=== PATIENT | male | born 1990 | race Caucasian/White ===

== ENCOUNTER 2016-07-07 06:47 | Emergency (ER) | payer SELFPAY ==
[~2016-07-07] VITALS: Ht 162.6 cm; Wt 55.8 kg
[~2016-07-07 06:47] MED LIST: ACHD5005 PO; AGM875T PO; ALBU17AE3; ALBU17AE3 IH; AMIT75TA2 PO; AMOX500C2 PO; BENZ100C18 PO; BUTA-234 PO; CEPH-507 PO; CHLO500T2 PO; CPR500T PO; CYCL10TA9 PO; DICL75TA2 PO; HSCO125 PO; IBP800T PO; NAPR-243 PO; NAPR550T PO; NYST1000 PO; PRD20T PO; RABE20TA PO; TRAM50TA2 PO; [UNRECOGNIZED DRUG - OTHER]
[2016-07-07] MEDS ORDERED: DEXAMETHASONE PF 10 MG/ML (DECADRON) VIAL IM STA (07:03)
[2016-07-07] MEDS ORDERED: RX-ALBUTEROL INHALER (PROAIR) 8 GM IH PRN (07:15)
--- NOTE | 2016-07-07 07:16 | ED Cough/URI ---
General Chief Complaint: Cough/Cold/Flu Symptoms Stated Complaint: COUGH Nursing Triage Note: ARRIVED VIA AMB TO ROOM 06. COMPLAINS OF COUGH FOR 2 MONTHS. Source: patient Exam Limitations: no limitations History of Present Illness Time seen by provider: 07:01 Initial Comments Here with 2 months of cough. Reports fever subjectively. Denies nausea, vomiting or diarrhea. States he has not sought treatment in that time. Because it was not too bad but it is worse today. Has mild sore throat and runny nose. Timing/Duration: week, getting worse Severity/Quality: moderate, dry cough Prior Episodes/Possible Cause: occasional episodes Modifying Factors: Worse With Activity, Worse With Coughing Associated Symptoms: chest pain/soreness, cough, fever/chills, nasal drainage, shortness of breath, sore throat Allergies and Home Medications Allergies Coded Allergies: No Known Drug Allergies (Unverified , 11/09/08) Home Medications Cephalexin 500 Mg Capsule, 500 MG PO TID, #30 Ref 0 Prescribed by: JUANA LOCKWOOD on 07/07/15 0144 Constitutional: see HPI, No chills, fever Respiratory: see HPI, cough, No short of breath, No wheezing Cardiovascular: no symptoms reported Gastrointestinal: no symptoms reported, No nausea, No vomiting Musculoskeletal: no symptoms reported Skin: no symptoms reported Past Ezgzimp-Noltid-Fjpyet Hx Patient Social History Alcohol Use: Rarely Uses Recreational Drug Use: Yes (PAST HISTORY) Smoking Status: Never a Smoker Recent Foreign Travel: No Contact w/Someone Who Travel: No Recent Infectious Disease Expo: No Recent Hopitalizations: No Immunizations Up To Date Date of Pneumonia Vaccine: Aug 29, 2012 Date of Influenza Vaccine: Dec 11, 2012 Seasonal Allergies Seasonal Allergies: No Surgeries HX Surgeries: Yes (cyst removal from L arm, teeth pulled) Respiratory Hx Respiratory Disorders: Yes Respiratory Disorders: Asthma Cardiovascular Hx Cardiac Disorders: Yes Cardiac Disorders: Angina Neurological Hx Neurological Disorders: Yes Neurological Disorders: Headaches /Migraines Reproductive System Hx Reproductive Disorders: No Sexually Transmitted Disease: No Genitourinary Hx Genitourinary Disorders: Yes Genitourinary Disorders: Kidney Stones Gastrointestinal Hx Gastrointestinal Disorders: No Musculoskeletal Hx Musculoskeletal Disorders: Yes Musculoskeletal Disorders: Scoliosis Endocrine Hx Endocrine Disorders: Yes (HYPOGLYCEMIA) HEENT HX ENT Disorders: No Cancer Hx Cancer: No Psychosocial Hx Psychiatric Problems: No Integumentary HX Skin/Integumentary Disorder: No Blood Transfusions Hx Blood Disorders: No Reviewed Nursing Assessment Reviewed/Agree w Nursing PMH: Yes Family Medical History Significant Family History: Heart Disease, Cancer, Hypertension Physical Exam Vital Signs Vital Sign - Last 12Hours 07/07/16 06:55 Temp 98.9 Pulse 100 Resp 16 B/P (MAP) 156/105 Pulse Ox 99 Capillary Refill : Less Than 3 Seconds General Appearance: WD/WN, no apparent distress HEENT: PERRL/EOMI, pharyngeal erythema, No tonsillar exudate Neck: full range of motion, supple Respiratory: lungs clear, normal breath sounds Cardiovascular: regular rate, rhythm, no murmur Neurologic/Psychiatric: alert, oriented x 3 Skin: normal color, warm/dry Progress/Results/Core Measures Results/Orders My Orders Orders - HARJEET LIRIANO MD Chest Pa/Lat (2 View) (07/07/16 07:03) Dexamethasone Pf Injection (Decadron Pf (07/07/16 07:03) Rx-Albuterol Inhaler (Rx-Proair) (07/07/16 07:15) Medications Given in ED Current Medications Medications Dose Ordered Sig/Johnathan Route Start Time Stop Time Status Last Admin Dose Admin Albuterol Sulfate 2 PUFFS QID PRN IH 07/07/16 07:15 07/07/16 07:20 8 GM Vital Signs/I&O Vital Sign - Last 12Hours 07/07/16 06:55 Temp 98.9 Pulse 100 Resp 16 B/P (MAP) 156/105 Pulse Ox 99 Blood Pressure Mean: 122 Progress Note : Progress Note Seen and evaluated. Decadron 10 mg IM and albuterol inhaler given. Chest x- ray ordered. Monitor patient. 0738: No acute findings and chest x-ray. Discharged home with return precautions. Patient verbalize understanding instructions and agreement with plan. Diagnostic Imaging Diagonstic Imaging: Xray Plain Films/CT/US/NM/MRI: chest Comments VIA [facility]. [place], [place] NAME: MARILIAJUAN J Peraza [facility] REC#: [id number] PT STATUS: REG ER : 1990 PHYSICIAN: HARJEET LIRIANO MD ADMIT DATE: 07/07/16/ER Draft Date of Exam:07/07/16 CHEST PA/LAT (2 VIEW) Clinical indication: Patient states he had a cough for the past 2 months. Patient has not taken any medication. Exam: Chest x-ray PA and lateral views. Comparisons: Chest x-ray dated 06/06/2015. Findings: Lungs/pleura: Lungs are clear. There is no pneumothorax. There is no pleural effusion. Mediastinum: Unremarkable. Pulmonary vasculature: Unremarkable. Heart: Unremarkable. Bones/extrathoracic soft tissue: Unremarkable. Impression: There is no radiographic evidence of acute cardiopulmonary process. Dictated on workstation # [id number] Dict: 07/07/16 0730 Trans: 07/07/16 0733 TREVER [id number] Interpreted by: EREN VELÁZQUEZ MD Electronically signed by: Departure Impression Impression: Primary Impression: Upper respiratory infection Qualified Codes: J06.9 - Acute upper respiratory infection, unspecified; B97.89 - Other viral agents as the cause of diseases classified elsewhere Disposition: 01 HOME, SELF-CARE Condition: Improved Departure-Patient Inst. Decision time for Depature: 07:40 Referrals: [facility] (PCP/Family) Primary Care Physician Patient Instructions: Viral Upper Respiratory Infection, Adult (DC) Add. Discharge Instructions: All discharge instructions reviewed with patient and/or family. Voiced understanding. It is very important that he follow up with your doctor for recheck and further evaluation. Call for appointment day to get appointment this week or early next week. You may also use there acute care clinic. This is likely a viral problem but if does not improve within the next week, you may need antibiotics. You may use lzut-euj-qagezsf Afrin nasal spray or the generic, 12 hour relief , 2 sprays to each nostril twice daily for 3 days only and then stop. You may take dspj-pjc-soptfaf allergy medicine such as Claritin or the generic loratadine, 10 mg daily. Return for worse pain, fever, vomiting, weakness, breathing problems or other concerns as needed. Drink plenty of fluids. You may take ibuprofen 600 mg every 8 hours as needed for pain or fever. You may take Tylenol 1000 mg every 8 hours as needed for fever or pain as well. HARJEET LIRIANO MD Jul 07, 2016 07:16
--- NOTE | 2016-07-07 07:33 | Diagnostic Imaging Report ---
Clinical indication: Patient states he had a cough for the past 2 months. Patient has not taken any medication. Exam: Chest x-ray PA and lateral views. Comparisons: Chest x-ray dated 06/06/2015. Findings: Lungs/pleura: Lungs are clear. There is no pneumothorax. There is no pleural effusion. Mediastinum: Unremarkable. Pulmonary vasculature: Unremarkable. Heart: Unremarkable. Bones/extrathoracic soft tissue: Unremarkable. Impression: There is no radiographic evidence of acute cardiopulmonary process. Dictated by: Dictated on workstation # [id number]
[2016-07-07 07:46] VITALS: BP 156/105
== END 2016-07-07 07:46 | disposition home or self-care (01) ==
LOC: EDUNIT# 06:47 → ER 06:52
DX: J06.9 Acute upper respiratory infection, unspecified (principal)
CPT/HCPCS: 71020; 96372; 99285

== ENCOUNTER 2017-05-05 13:58 | Emergency (ER) | payer SELFPAY ==
[~2017-05-05] VITALS: Ht 162.6 cm; Wt 55.3 kg
--- OUTSIDE RECORDS SUMMARY | 2017-05-05 14:04 | XMS REPORT ---
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 Name Role Phone RENNY BRANHAM Unavailable PROBLEMS Type Condition ICD9-CM Code RMS24-TK Code Onset Dates Condition Status SNOMED Code Problem Low back pain M54.5 Active 724792044 Problem Anxiety F41.9 Active 57638595 ALLERGIES No Known Allergies SOCIAL HISTORY Never Assessed PLAN OF CARE Activity Details Follow Up prn Reason: VITAL SIGNS Height 64 in 2016-05-20 Weight 123.8 lbs 2016-05-20 Temperature 98.2 degrees Fahrenheit 2016-05-20 Heart Rate 82 bpm 2016-05-20 Respiratory Rate 18 2016-05-20 BMI 21.25 kg/m2 2016-05-20 Blood pressure systolic 140 mmHg 2016-05-20 Blood pressure diastolic 84 mmHg 2016-05-20 MEDICATIONS No Known Medications RESULTS No Results PROCEDURES No Known procedures IMMUNIZATIONS No Known Immunizations MEDICAL (GENERAL) HISTORY Type Description Date Medical History seizures Medical History asthma Medical History scoliosis Medical History migraines Medical History chronic lower back pain Surgical History cyst removed from left arm Hospitalization History seizures
--- OUTSIDE RECORDS SUMMARY | 2017-05-05 14:07 | XMS REPORT | Continuity of Care Document ---
Author Author [facility] Address Unknown Phone Unavailable Allergies Active Description Code Type Severity Reaction Onset Reported/Identified Relationship to Patient Clinical Status Yes No Known Drug Allergies [id number] Drug Allergy Mild N/A 11/09/2008 Medications There is no data. Problems Date Dx Coded Attending Type Code Diagnosis Diagnosed By 01/09/2008 NAINA PETER, AP V20.2 WELL CHILD, ROUTINE 01/09/2008 V20.2 WELL CHILD, ROUTINE 01/09/2008 SUDARSHAN OCAMPO DO V20.2 WELL CHILD, ROUTINE 01/09/2008 V20.2 WELL CHILD, ROUTINE 01/09/2008 V20.2 WELL CHILD, ROUTINE 01/09/2008 V20.2 WELL CHILD, ROUTINE 01/09/2008 CHRISTY OCAMPO DOA K V20.2 WELL CHILD, ROUTINE 01/09/2008 CHRISTY OCAMPO DOA K V20.2 WELL CHILD, ROUTINE 01/09/2008 AMANUEL HERRING APRN R V20.2 WELL CHILD, ROUTINE 01/09/2008 TAWANDA BURKS APRN V20.2 WELL CHILD, ROUTINE 01/09/2008 AMANUEL HERRING APRN R V20.2 WELL CHILD, ROUTINE 01/09/2008 TAWANDA BURKS APRN T V20.2 WELL CHILD, ROUTINE 01/09/2008 TAWANDA BURKS APRN T V20.2 WELL CHILD, ROUTINE 01/09/2008 TAWANDA BURKS APRN T V20.2 WELL CHILD, ROUTINE 01/09/2008 TAWANDA BURKS APRN T V20.2 WELL CHILD, ROUTINE 01/09/2008 TAWANDA BURKS APRN T V20.2 WELL CHILD, ROUTINE 01/09/2008 TAWANDA BURKS APRN T V20.2 WELL CHILD, ROUTINE 01/09/2008 AMANUEL HERRING APRN R V20.2 WELL CHILD, ROUTINE 01/09/2008 TAWANDA BURKS APRN V20.2 WELL CHILD, ROUTINE 01/09/2008 OCAMPO DO, SUDARSHAN K V20.2 WELL CHILD, ROUTINE 01/09/2008 MADL SENIOR COMPUTER SPECIALIST, TELMA L V20.2 WELL CHILD, ROUTINE 01/09/2008 MARANDA SENIOR COMPUTER SPECIALIST, TELMA L V20.2 WELL CHILD, ROUTINE 01/09/2008 VITALIY SENIOR COMPUTER SPECIALISTTAWANDA Martinez T V20.2 WELL CHILD, ROUTINE 01/09/2008 VITALIY SENIOR COMPUTER SPECIALISTTAWANDA Martinez V20.2 WELL CHILD, ROUTINE 01/09/2008 AMANUEL HERRING APRN R V20.2 WELL CHILD, ROUTINE 01/09/2008 VITALIY SENIOR COMPUTER SPECIALISTTAWANDA T V20.2 WELL CHILD, ROUTINE 01/09/2008 AMANUEL HERRING APRN R V20.2 WELL CHILD, ROUTINE 01/09/2008 SUDARSHAN OCAMPO DO V20.2 WELL CHILD, ROUTINE 01/09/2008 NAINA PETER, AP V20.2 WELL CHILD, ROUTINE 01/09/2008 TAWANDA BURKS APRN V20.2 WELL CHILD, ROUTINE 01/09/2008 AMANUEL HERRING APRN R V20.2 WELL CHILD, ROUTINE 01/09/2008 TAWANDA BURKS APRN V20.2 WELL CHILD, ROUTINE 03/20/2008 AP CHEW MD 477.9 ALLERGIC RHINITIS 03/20/2008 AP CHEW MD 493.90 ASTHMA UNSPECIFIED 03/20/2008 477.9 ALLERGIC RHINITIS 03/20/2008 493.90 ASTHMA UNSPECIFIED 03/20/2008 SUDARSHAN OCAMPO DO 477.9 ALLERGIC RHINITIS 03/20/2008 SUDARSHAN OCAMPO DO 493.90 ASTHMA UNSPECIFIED 03/20/2008 477.9 ALLERGIC RHINITIS 03/20/2008 493.90 ASTHMA UNSPECIFIED 03/20/2008 477.9 ALLERGIC RHINITIS 03/20/2008 493.90 ASTHMA UNSPECIFIED 03/20/2008 477.9 ALLERGIC RHINITIS 03/20/2008 493.90 ASTHMA UNSPECIFIED 03/20/2008 SUDARSHAN OCAMPO DO 477.9 ALLERGIC RHINITIS 03/20/2008 SUDARSHAN OCAMPO DO 493.90 ASTHMA UNSPECIFIED 03/20/2008 SUDARSHAN OCAMPO DO 477.9 ALLERGIC RHINITIS 03/20/2008 SUDARSHAN OCAMPO DO 493.90 ASTHMA UNSPECIFIED 03/20/2008 AMANUEL HERRING APRN 477.9 ALLERGIC RHINITIS 03/20/2008 HERRING SENIOR COMPUTER SPECIALIST, AMANUEL R 493.90 ASTHMA UNSPECIFIED 03/20/2008 VITALIY SENIOR COMPUTER SPECIALIST, TAWANDA T 477.9 ALLERGIC RHINITIS 03/20/2008 VITALIY SENIOR COMPUTER SPECIALIST, TAWANDA T 493.90 ASTHMA UNSPECIFIED 03/20/2008 NIMA SENIOR COMPUTER SPECIALIST, AMANUEL R 477.9 ALLERGIC RHINITIS 03/20/2008 NIMA SENIOR COMPUTER SPECIALIST, AMANUEL R 493.90 ASTHMA UNSPECIFIED 03/20/2008 VITALIY SENIOR COMPUTER SPECIALIST, TAWANDA T 477.9 ALLERGIC RHINITIS 03/20/2008 VITALIY SENIOR COMPUTER SPECIALIST, TAWANDA T 493.90 ASTHMA UNSPECIFIED 03/20/2008 VITALIY SENIOR COMPUTER SPECIALIST, TAWANDA T 477.9 ALLERGIC RHINITIS 03/20/2008 VITALIY SENIOR COMPUTER SPECIALIST, TAWANDA T 493.90 ASTHMA UNSPECIFIED 03/20/2008 VITALIY SENIOR COMPUTER SPECIALIST, TAWANDA T 477.9 ALLERGIC RHINITIS 03/20/2008 VITALIY SENIOR COMPUTER SPECIALIST, TAWANDA T 493.90 ASTHMA UNSPECIFIED 03/20/2008 VITALIY SENIOR COMPUTER SPECIALIST, TAWANDA T 477.9 ALLERGIC RHINITIS 03/20/2008 VITALIY SENIOR COMPUTER SPECIALIST, TAWANDA T 493.90 ASTHMA UNSPECIFIED 03/20/2008 VITALIY SENIOR COMPUTER SPECIALIST, TAWANDA T 477.9 ALLERGIC RHINITIS 03/20/2008 VITALIY SENIOR COMPUTER SPECIALIST, TAWANDA T 493.90 ASTHMA UNSPECIFIED 03/20/2008 VITALIY SENIOR COMPUTER SPECIALIST, TAWANDA T 477.9 ALLERGIC RHINITIS 03/20/2008 VITALIY SENIOR COMPUTER SPECIALIST, TAWANDA T 493.90 ASTHMA UNSPECIFIED 03/20/2008 NIMA MCLAUGHLIN, AMANUEL R 477.9 ALLERGIC RHINITIS 03/20/2008 NIMA SENIOR COMPUTER SPECIALIST, AMANUEL R 493.90 ASTHMA UNSPECIFIED 03/20/2008 VITALIY SENIOR COMPUTER SPECIALIST, TAWANDA T 477.9 ALLERGIC RHINITIS 03/20/2008 VITALIY LINDSAYN, TAWANDA T 493.90 ASTHMA UNSPECIFIED 03/20/2008 OCAMPO DO, SUDARSHAN K 477.9 ALLERGIC RHINITIS 03/20/2008 OCAMPO DO, SUDARSHAN K 493.90 ASTHMA UNSPECIFIED 03/20/2008 MADL SENIOR COMPUTER SPECIALIST, TELMA L 477.9 ALLERGIC RHINITIS 03/20/2008 MADL SENIOR COMPUTER SPECIALIST, TELMA L 493.90 ASTHMA UNSPECIFIED 03/20/2008 MADL SENIOR COMPUTER SPECIALIST, TELMA L 477.9 ALLERGIC RHINITIS 03/20/2008 MADL SENIOR COMPUTER SPECIALIST, TELMA L 493.90 ASTHMA UNSPECIFIED 03/20/2008 VITALIY LINDSAYN TAWANDA T 477.9 ALLERGIC RHINITIS 03/20/2008 VITALIY SENIOR COMPUTER SPECIALIST, TAWANDA T 493.90 ASTHMA UNSPECIFIED 03/20/2008 TAWANDA BURKS APRN T 477.9 ALLERGIC RHINITIS 03/20/2008 TAWANDA BURKS APRN T 493.90 ASTHMA UNSPECIFIED 03/20/2008 GAEL HERRING APRNRICIA R 477.9 ALLERGIC RHINITIS 03/20/2008 GAEL HERRING APRNRICIA R 493.90 ASTHMA UNSPECIFIED 03/20/2008 TAWANDA BURKS APRN T 477.9 ALLERGIC RHINITIS 03/20/2008 TAWANDA BURKS APRN T 493.90 ASTHMA UNSPECIFIED 03/20/2008 GAEL HERRING APRNRICIA R 477.9 ALLERGIC RHINITIS 03/20/2008 GAEL HERRING APRNRICIA R 493.90 ASTHMA UNSPECIFIED 03/20/2008 OCAMPO CHRISTY YANEZA K 477.9 ALLERGIC RHINITIS 03/20/2008 OCAMPO CHRISTY YANEZA K 493.90 ASTHMA UNSPECIFIED 03/20/2008 AP CHEW MD 477.9 ALLERGIC RHINITIS 03/20/2008 AP CHEW MD 493.90 ASTHMA UNSPECIFIED 03/20/2008 TAWANDA BURKS APRN T 477.9 ALLERGIC RHINITIS 03/20/2008 TAWANDA BURKS APRN T 493.90 ASTHMA UNSPECIFIED 03/20/2008 GAEL HERRING APRNRICIA R 477.9 ALLERGIC RHINITIS 03/20/2008 GAEL HERRING APRNRICIA R 493.90 ASTHMA UNSPECIFIED 03/20/2008 TAWANDA BURKS APRN T 477.9 ALLERGIC RHINITIS 03/20/2008 TAWANDA BURKS APRN T 493.90 ASTHMA UNSPECIFIED 06/18/2008 AP CHEW MD 237.70 NEUROFIBROMATOSIS 06/18/2008 AP CHEW MD 251.2 HYPOGLYCEMIA 06/18/2008 AP CHEW MD 493.00 ASTHMA EXTRINSIC 06/18/2008 237.70 NEUROFIBROMATOSIS 06/18/2008 251.2 HYPOGLYCEMIA 06/18/2008 493.00 ASTHMA EXTRINSIC 06/18/2008 OCAMPO DO SUDARSHAN K 237.70 NEUROFIBROMATOSIS 06/18/2008 OCAMPO DO SUDARSHAN K 251.2 HYPOGLYCEMIA 06/18/2008 OCAMPO DO SUDARSHAN K 493.00 ASTHMA EXTRINSIC 06/18/2008 237.70 NEUROFIBROMATOSIS 06/18/2008 251.2 HYPOGLYCEMIA 06/18/2008 493.00 ASTHMA EXTRINSIC 06/18/2008 237.70 NEUROFIBROMATOSIS 06/18/2008 251.2 HYPOGLYCEMIA 06/18/2008 493.00 ASTHMA EXTRINSIC 06/18/2008 237.70 NEUROFIBROMATOSIS 06/18/2008 251.2 HYPOGLYCEMIA 06/18/2008 493.00 ASTHMA EXTRINSIC 06/18/2008 OCAMPO DO, SUDARSHAN K 237.70 NEUROFIBROMATOSIS 06/18/2008 OCAMPO DO, SUDARSHAN K 251.2 HYPOGLYCEMIA 06/18/2008 OCAMPO DO, SUDARSHAN K 493.00 ASTHMA EXTRINSIC 06/18/2008 OCAMPO DO, SUDARSHAN K 237.70 NEUROFIBROMATOSIS 06/18/2008 OCAMPO DO, SUDARSHAN K 251.2 HYPOGLYCEMIA 06/18/2008 OCAMPO DO, SUDARSHAN K 493.00 ASTHMA EXTRINSIC 06/18/2008 NIMA MCLAUGHLIN AMANUEL R 237.70 NEUROFIBROMATOSIS 06/18/2008 GAEL EHRRING APRNRICIA R 251.2 HYPOGLYCEMIA 06/18/2008 GAEL HERRING APRNRICIA R 493.00 ASTHMA EXTRINSIC 06/18/2008 TAWANDA BURKS APRN 237.70 NEUROFIBROMATOSIS 06/18/2008 TAWANDA BURKS APRN 251.2 HYPOGLYCEMIA 06/18/2008 TAWANDA BURKS APRN 493.00 ASTHMA EXTRINSIC 06/18/2008 MEENAKSHI HERRING APRNIA R 237.70 NEUROFIBROMATOSIS 06/18/2008 GAEL HERRING APRNRICIA R 251.2 HYPOGLYCEMIA 06/18/2008 NIMA MCLAUGHLIN AMANUEL R 493.00 ASTHMA EXTRINSIC 06/18/2008 TAWANDA BURKS APRN T 237.70 NEUROFIBROMATOSIS 06/18/2008 TAWANDA BURKS APRN 251.2 HYPOGLYCEMIA 06/18/2008 TAWANDA BURKS APRN T 493.00 ASTHMA EXTRINSIC 06/18/2008 TAWANDA BURKS APRN 237.70 NEUROFIBROMATOSIS 06/18/2008 TAWANDA BURKS APRN 251.2 HYPOGLYCEMIA 06/18/2008 TAWANDA BURKS APRN T 493.00 ASTHMA EXTRINSIC 06/18/2008 TAWANDA BURKS APRN T 237.70 NEUROFIBROMATOSIS 06/18/2008 TAWANDA BURKS APRN 251.2 HYPOGLYCEMIA 06/18/2008 TAWANDA BURKS APRN T 493.00 ASTHMA EXTRINSIC 06/18/2008 TAWANDA BURKS APRN T 237.70 NEUROFIBROMATOSIS 06/18/2008 TAWANDA BURKS APRN 251.2 HYPOGLYCEMIA 06/18/2008 TAWANDA BURKS APRN T 493.00 ASTHMA EXTRINSIC 06/18/2008 TAWANDA BURKS APRN T 237.70 NEUROFIBROMATOSIS 06/18/2008 VITALIY SENIOR COMPUTER SPECIALIST, TAWANDA T 251.2 HYPOGLYCEMIA 06/18/2008 TAWANDA BURKS APRN T 493.00 ASTHMA EXTRINSIC 06/18/2008 TAWANDA BURKS APRN T 237.70 NEUROFIBROMATOSIS 06/18/2008 TAWANDA BURKS APRN T 251.2 HYPOGLYCEMIA 06/18/2008 TAWANDA BURKS APRN T 493.00 ASTHMA EXTRINSIC 06/18/2008 GAEL HERRING APRNRICIA R 237.70 NEUROFIBROMATOSIS 06/18/2008 NIMA MCLAUGHLIN AMANUEL R 251.2 HYPOGLYCEMIA 06/18/2008 NIMA MCLAUGHLIN AMANUEL R 493.00 ASTHMA EXTRINSIC 06/18/2008 TAWANDA BURKS APRN T 237.70 NEUROFIBROMATOSIS 06/18/2008 TAWANDA BURKS APRN T 251.2 HYPOGLYCEMIA 06/18/2008 TAWANDA BURKS APRN T 493.00 ASTHMA EXTRINSIC 06/18/2008 OCAMPO DO, SUDARSHAN K 237.70 NEUROFIBROMATOSIS 06/18/2008 OCAMPO DO, SUDARSHAN K 251.2 HYPOGLYCEMIA 06/18/2008 OCAMPO DO, SUDARSHAN K 493.00 ASTHMA EXTRINSIC 06/18/2008 MAD SENIOR COMPUTER SPECIALIST, TELMA L 237.70 NEUROFIBROMATOSIS 06/18/2008 MAD SENIOR COMPUTER SPECIALIST, TELMA L 251.2 HYPOGLYCEMIA 06/18/2008 MADL SENIOR COMPUTER SPECIALIST, TELMA L 493.00 ASTHMA EXTRINSIC 06/18/2008 MAD SENIOR COMPUTER SPECIALIST, TELMA L 237.70 NEUROFIBROMATOSIS 06/18/2008 MADL SENIOR COMPUTER SPECIALIST, TELMA L 251.2 HYPOGLYCEMIA 06/18/2008 MADL SENIOR COMPUTER SPECIALIST, TELMA L 493.00 ASTHMA EXTRINSIC 06/18/2008 TAWANDA BURKS APRN T 237.70 NEUROFIBROMATOSIS 06/18/2008 TAWANDA BURKS APRN T 251.2 HYPOGLYCEMIA 06/18/2008 TAWANDA BURKS APRN T 493.00 ASTHMA EXTRINSIC 06/18/2008 TAWANDA BURKS APRN T 237.70 NEUROFIBROMATOSIS 06/18/2008 TAWANDA BURKS APRN T 251.2 HYPOGLYCEMIA 06/18/2008 TAWANDA BURKS APRN T 493.00 ASTHMA EXTRINSIC 06/18/2008 GAEL HERRING APRNRICIA R 237.70 NEUROFIBROMATOSIS 06/18/2008 GAEL HERRING APRNRICIA R 251.2 HYPOGLYCEMIA 06/18/2008 GAEL HERRING APRNRICIA R 493.00 ASTHMA EXTRINSIC 06/18/2008 TAWANDA BURKS APRN T 237.70 NEUROFIBROMATOSIS 06/18/2008 TAWANDA BURKS APRN 251.2 HYPOGLYCEMIA 06/18/2008 TAWANDA BURKS APRN 493.00 ASTHMA EXTRINSIC 06/18/2008 AMANUEL HERRING APRN R 237.70 NEUROFIBROMATOSIS 06/18/2008 MEENAKSHI HERRING APRNIA R 251.2 HYPOGLYCEMIA 06/18/2008 MEENAKSHI HERRING APRNIA R 493.00 ASTHMA EXTRINSIC 06/18/2008 OCAMPO DO SUDARSHAN K 237.70 NEUROFIBROMATOSIS 06/18/2008 OCAMPO DO SUDARSHAN K 251.2 HYPOGLYCEMIA 06/18/2008 DAMARIS YANEZ SUDARSHAN K 493.00 ASTHMA EXTRINSIC 06/18/2008 AP CHEW MD 237.70 NEUROFIBROMATOSIS 06/18/2008 AP CHEW MD 251.2 HYPOGLYCEMIA 06/18/2008 AP CHEW MD 493.00 ASTHMA EXTRINSIC 06/18/2008 TAWANDA BURKS APRN 237.70 NEUROFIBROMATOSIS 06/18/2008 TAWANDA BURKS APRN 251.2 HYPOGLYCEMIA 06/18/2008 TAWANDA BURKS APRN 493.00 ASTHMA EXTRINSIC 06/18/2008 AMANUEL HERRING APRN R 237.70 NEUROFIBROMATOSIS 06/18/2008 AMANUEL HERRING APRN R 251.2 HYPOGLYCEMIA 06/18/2008 AMANUEL HERRING APRN R 493.00 ASTHMA EXTRINSIC 06/18/2008 TAWANDA BURKS APRN 237.70 NEUROFIBROMATOSIS 06/18/2008 TAWANDA BURKS APRN 251.2 HYPOGLYCEMIA 06/18/2008 TAWANDA BURKS APRN 493.00 ASTHMA EXTRINSIC 02/24/2009 AP CHEW MD 949.0 BURN DEGREE UNSPEC 02/24/2009 949.0 BURN DEGREE UNSPEC 02/24/2009 CHRISTY OCAMPO DOA K 949.0 BURN DEGREE UNSPEC 02/24/2009 949.0 BURN DEGREE UNSPEC 02/24/2009 949.0 BURN DEGREE UNSPEC 02/24/2009 949.0 BURN DEGREE UNSPEC 02/24/2009 CHRISTY OCAMPO DOA K 949.0 BURN DEGREE UNSPEC 02/24/2009 CHRISTY OCAMPO DOA K 949.0 BURN DEGREE UNSPEC 02/24/2009 AMANUEL HERRING APRN 949.0 BURN DEGREE UNSPEC 02/24/2009 TAWANDA BURKS APRN 949.0 BURN DEGREE UNSPEC 02/24/2009 AMANUEL HERRING APRN 949.0 BURN DEGREE UNSPEC 02/24/2009 TAWANDA BURKS APRN 949.0 BURN DEGREE UNSPEC 02/24/2009 TAWANDA BURKS APRN T 949.0 BURN DEGREE UNSPEC 02/24/2009 TAWANDA BURKS APRN 949.0 BURN DEGREE UNSPEC 02/24/2009 TAWANDA BURKS APRN 949.0 BURN DEGREE UNSPEC 02/24/2009 TAWANDA BURKS APRN 949.0 BURN DEGREE UNSPEC 02/24/2009 TAWANDA BURKS APRN 949.0 BURN DEGREE UNSPEC 02/24/2009 AMANUEL HERRING APRN R 949.0 BURN DEGREE UNSPEC 02/24/2009 TAWANDA BURKS APRN 949.0 BURN DEGREE UNSPEC 02/24/2009 OCAMPO CHRISTY YANEZA K 949.0 BURN DEGREE UNSPEC 02/24/2009 TELMA LOW APRN L 949.0 BURN DEGREE UNSPEC 02/24/2009 TELMA LOW APRN L 949.0 BURN DEGREE UNSPEC 02/24/2009 TAWANDA BURKS APRN 949.0 BURN DEGREE UNSPEC 02/24/2009 TAWANDA BURKS APRN 949.0 BURN DEGREE UNSPEC 02/24/2009 AMANUEL HERRING APRN R 949.0 BURN DEGREE UNSPEC 02/24/2009 TAWANDA BURKS APRN 949.0 BURN DEGREE UNSPEC 02/24/2009 AMANUEL HERRING APRN R 949.0 BURN DEGREE UNSPEC 02/24/2009 OCAMPO SUDARSHAN YANEZ K 949.0 BURN DEGREE UNSPEC 02/24/2009 AP CEHW MD 949.0 BURN DEGREE UNSPEC 02/24/2009 TAWANDA BURKS APRN 949.0 BURN DEGREE UNSPEC 02/24/2009 AMANUEL HERRING APRN R 949.0 BURN DEGREE UNSPEC 02/24/2009 TAWANDA BURKS APRN 949.0 BURN DEGREE UNSPEC 05/11/2009 AP CHEW MD 486 PNEUMONITIS 05/11/2009 AP CHEW MD 784.0 headache 05/11/2009 486 PNEUMONITIS 05/11/2009 784.0 headache 05/11/2009 SUDARSHAN OCAMPO DO K 486 PNEUMONITIS 05/11/2009 OCAMPO CHRISTY YANEZA K 784.0 headache 05/11/2009 486 PNEUMONITIS 05/11/2009 784.0 headache 05/11/2009 486 PNEUMONITIS 05/11/2009 784.0 headache 05/11/2009 486 PNEUMONITIS 05/11/2009 784.0 headache 05/11/2009 OCAMPO DO, SUDARSHAN K 486 PNEUMONITIS 05/11/2009 OCAMPO DO, SUDARSHAN K 784.0 headache 05/11/2009 OCAMPO DO, SUDARSHAN K 486 PNEUMONITIS 05/11/2009 OCAMPO DO, SUDARSHAN K 784.0 headache 05/11/2009 NIMA SENIOR COMPUTER SPECIALIST, AMANUEL R 486 PNEUMONITIS 05/11/2009 NIMA SENIOR COMPUTER SPECIALIST, AMANUEL R 784.0 headache 05/11/2009 VITALIY SENIOR COMPUTER SPECIALIST, TAWANDA T 486 PNEUMONITIS 05/11/2009 VITALIY SENIOR COMPUTER SPECIALIST, TAWANDA T 784.0 headache 05/11/2009 NIMA SENIOR COMPUTER SPECIALIST, AMANUEL R 486 PNEUMONITIS 05/11/2009 NIMA SENIOR COMPUTER SPECIALIST, AMANUEL R 784.0 headache 05/11/2009 VITALIY SENIOR COMPUTER SPECIALIST, TAWANDA T 486 PNEUMONITIS 05/11/2009 VITALIY SENIOR COMPUTER SPECIALIST, TAWANDA T 784.0 headache 05/11/2009 VITALIY SENIOR COMPUTER SPECIALIST, TAWANDA T 486 PNEUMONITIS 05/11/2009 VITALIY SENIOR COMPUTER SPECIALIST, TAWANDA T 784.0 headache 05/11/2009 VITALIY SENIOR COMPUTER SPECIALIST, TAWANDA T 486 PNEUMONITIS 05/11/2009 VITALIY SENIOR COMPUTER SPECIALIST, TAWANDA T 784.0 headache 05/11/2009 VITALIY SENIOR COMPUTER SPECIALIST, TAWANDA T 486 PNEUMONITIS 05/11/2009 VITALIY SENIOR COMPUTER SPECIALIST, TAWANDA T 784.0 HEADACHE 05/11/2009 VITALIY SENIOR COMPUTER SPECIALIST, TAWANDA T 486 PNEUMONITIS 05/11/2009 VITALIY SENIOR COMPUTER SPECIALIST, TAWANDA T 784.0 HEADACHE 05/11/2009 VITALIY SENIOR COMPUTER SPECIALIST, TAWANDA T 486 PNEUMONITIS 05/11/2009 VITALIY SENIOR COMPUTER SPECIALIST, TAWANDA T 784.0 HEADACHE 05/11/2009 NIMA SENIOR COMPUTER SPECIALIST, AMANUEL R 486 PNEUMONITIS 05/11/2009 NIMA SENIOR COMPUTER SPECIALIST, AMANUEL R 784.0 HEADACHE 05/11/2009 VITALIY SENIOR COMPUTER SPECIALIST, TAWANDA T 486 PNEUMONITIS 05/11/2009 VITALIY SENIOR COMPUTER SPECIALIST, TAWANDA T 784.0 HEADACHE 05/11/2009 OCAMPO DO, SUDARSHAN K 486 PNEUMONITIS 05/11/2009 OCAMPO DO, SUDARSHAN K 784.0 HEADACHE 05/11/2009 MADL SENIOR COMPUTER SPECIALIST, TELMA L 486 PNEUMONITIS 05/11/2009 MADL SENIOR COMPUTER SPECIALIST, TELMA L 784.0 HEADACHE 05/11/2009 MADL SENIOR COMPUTER SPECIALIST, TELMA L 486 PNEUMONITIS 05/11/2009 MADBlayne SENIOR COMPUTER SPECIALIST, TELMA L 784.0 HEADACHE 05/11/2009 VITALIY SENIOR COMPUTER SPECIALIST, TAWANDA T 486 PNEUMONITIS 05/11/2009 VITALIY SENIOR COMPUTER SPECIALIST, TAWANDA T 784.0 HEADACHE 05/11/2009 VITALIY SENIOR COMPUTER SPECIALIST, TAWANDA T 486 PNEUMONITIS 05/11/2009 VITALIY LINDSAYN, TAWANDA T 784.0 HEADACHE 05/11/2009 NIMA MCLAUGHLIN, AMANUEL R 486 PNEUMONITIS 05/11/2009 HERRING SENIOR COMPUTER SPECIALIST, AMANUEL R 784.0 HEADACHE 05/11/2009 VITALIY SENIOR COMPUTER SPECIALIST, TAWANDA T 486 PNEUMONITIS 05/11/2009 VITALIY SENIOR COMPUTER SPECIALIST, TAWANDA T 784.0 HEADACHE 05/11/2009 NIMA MCLAUGHLIN, AMANUEL R 486 PNEUMONITIS 05/11/2009 NIMA MCLAUGHLIN, AMANUEL R 784.0 HEADACHE 05/11/2009 OCAMPO DO, SUDARSHAN K 486 PNEUMONITIS 05/11/2009 OCAMPO DO, SUDARSHAN K 784.0 HEADACHE 05/11/2009 AP CHEW MD 486 PNEUMONITIS 05/11/2009 AP CHEW MD 784.0 HEADACHE 05/11/2009 VITALIY SENIOR COMPUTER SPECIALIST, TAWANDA T 486 PNEUMONITIS 05/11/2009 VITALIY SENIOR COMPUTER SPECIALIST, TAWANDA T 784.0 HEADACHE 05/11/2009 NIMA MCLAUGHLIN, AMANUEL R 486 PNEUMONITIS 05/11/2009 NIMA MCLAUGHLIN, AMANUEL R 784.0 HEADACHE 05/11/2009 VITALIY MCLAUGHLIN TAWANDA T 486 PNEUMONITIS 05/11/2009 VITALIY MCLAUGHLIN TAWANDA T 784.0 HEADACHE 09/01/2009 Ot 493.90 09/01/2009 Ot 786.2 02/21/2011 Ot 723.1 CERVICALGIA 02/21/2011 Ot 723.5 TORTICOLLIS NOS 02/01/2012 AP CHEW MD 786.2 cough 02/01/2012 AP CHEW MD E906.0 INJURY CAUSED BY ANIMAL DOG BITE 02/01/2012 AP CHEW MD V06.1 TDAP DX 02/01/2012 786.2 cough 02/01/2012 E906.0 INJURY CAUSED BY ANIMAL DOG BITE 02/01/2012 V06.1 TDAP DX 02/01/2012 OCAMPO DO SUDARSHAN K 786.2 cough 02/01/2012 OCAMPO DO, SUDARSHAN K E906.0 INJURY CAUSED BY ANIMAL DOG BITE 02/01/2012 DAMARIS YANEZ, SUDARSHAN K V06.1 TDAP DX 02/01/2012 786.2 cough 02/01/2012 E906.0 INJURY CAUSED BY ANIMAL DOG BITE 02/01/2012 V06.1 TDAP DX 02/01/2012 786.2 cough 02/01/2012 E906.0 INJURY CAUSED BY ANIMAL DOG BITE 02/01/2012 V06.1 TDAP DX 02/01/2012 786.2 cough 02/01/2012 E906.0 INJURY CAUSED BY ANIMAL DOG BITE 02/01/2012 V06.1 TDAP DX 02/01/2012 DAMARIS YANEZ, SUDARSHAN K 786.2 cough 02/01/2012 DAMARIS YANEZ, SUDARSHAN K E906.0 INJURY CAUSED BY ANIMAL DOG BITE 02/01/2012 DAMARIS YANEZ SUDARSHAN K V06.1 TDAP DX 02/01/2012 DAMARIS YANEZ SUDARSHAN K 786.2 cough 02/01/2012 DAMARIS YANEZ SUDARSHAN K E906.0 INJURY CAUSED BY ANIMAL DOG BITE 02/01/2012 DAMARIS YANEZ SUDARSHAN K V06.1 TDAP DX 02/01/2012 AMANUEL HERRING APRN R 786.2 cough 02/01/2012 AMANUEL HERRING APRN R E906.0 INJURY CAUSED BY ANIMAL DOG BITE 02/01/2012 AMANUEL HERRING APRN R V06.1 TDAP DX 02/01/2012 TAWANDA BURKS APRN 786.2 COUGH 02/01/2012 TAWANDA BURKS APRN E906.0 INJURY CAUSED BY ANIMAL DOG BITE 02/01/2012 TAWANDA BURKS APRN V06.1 TDAP DX 02/01/2012 AMANUEL HERRING APRN R 786.2 COUGH 02/01/2012 AMANUEL HERRING APRN R E906.0 INJURY CAUSED BY ANIMAL DOG BITE 02/01/2012 AMANUEL HERRING APRN R V06.1 TDAP DX 02/01/2012 TAWANDA BURKS APRN 786.2 COUGH 02/01/2012 TAWANDA BURKS APRN E906.0 INJURY CAUSED BY ANIMAL DOG BITE 02/01/2012 TAWANDA BURKS APRN V06.1 TDAP DX 02/01/2012 TAWANDA BURKS APRN 786.2 COUGH 02/01/2012 VITALIY SENIOR COMPUTER SPECIALIST, TAWANDA T E906.0 INJURY CAUSED BY ANIMAL DOG BITE 02/01/2012 TAWANDA BURKS APRN T V06.1 TDAP DX 02/01/2012 TAWANDA BURKS APRN T 786.2 COUGH 02/01/2012 TAWANDA BURKS APRN T E906.0 INJURY CAUSED BY ANIMAL DOG BITE 02/01/2012 TAWANDA BURKS APRN T V06.1 TDAP DX 02/01/2012 TAWANDA BURKS APRN T 786.2 COUGH 02/01/2012 TAWANDA BURKS APRN T E906.0 INJURY CAUSED BY ANIMAL DOG BITE 02/01/2012 TAWANDA BURKS APRN T V06.1 TDAP DX 02/01/2012 TAWANDA BURKS APRN 786.2 COUGH 02/01/2012 TAWANDA BURKS APRN T E906.0 INJURY CAUSED BY ANIMAL DOG BITE 02/01/2012 TAWANDA BURKS APRN T V06.1 TDAP DX 02/01/2012 TAWANDA BURKS APRN 786.2 COUGH 02/01/2012 TAWANDA BURKS APRN E906.0 INJURY CAUSED BY ANIMAL DOG BITE 02/01/2012 TAWANDA BURKS APRN T V06.1 TDAP DX 02/01/2012 AMANUEL HERRING APRN R 786.2 COUGH 02/01/2012 MEENAKSHI HERRING APRNIA R E906.0 INJURY CAUSED BY ANIMAL DOG BITE 02/01/2012 AMANUEL HERRING APRN R V06.1 TDAP DX 02/01/2012 TAWANDA BURKS APRN 786.2 COUGH 02/01/2012 TAWANDA BURKS APRN T E906.0 INJURY CAUSED BY ANIMAL DOG BITE 02/01/2012 TAWANDA BURKS APRN T V06.1 TDAP DX 02/01/2012 OCAMPO DO, SUDARSHAN K 786.2 COUGH 02/01/2012 OCAMPO DO, SUDARSHAN K E906.0 INJURY CAUSED BY ANIMAL DOG BITE 02/01/2012 OCAMPO DO, SUDARSHAN K V06.1 TDAP DX 02/01/2012 MADL SENIOR COMPUTER SPECIALIST, TELMA L 786.2 COUGH 02/01/2012 MADL SENIOR COMPUTER SPECIALIST, TELMA L E906.0 INJURY CAUSED BY ANIMAL DOG BITE 02/01/2012 MADL SENIOR COMPUTER SPECIALIST, TELMA L V06.1 TDAP DX 02/01/2012 MADL SENIOR COMPUTER SPECIALIST, TELMA L 786.2 COUGH 02/01/2012 MARANDA MCLAUGHLIN, TELMA L E906.0 INJURY CAUSED BY ANIMAL DOG BITE 02/01/2012 APOORVABlayne MCLAUGHLIN, TELMA L V06.1 TDAP DX 02/01/2012 TAWANDA BURKS APRN 786.2 COUGH 02/01/2012 TAWANDA BURKS APRN E906.0 INJURY CAUSED BY ANIMAL DOG BITE 02/01/2012 TAWANDA BURKS APRN V06.1 TDAP DX 02/01/2012 TAWANDA BURKS APRN 786.2 COUGH 02/01/2012 TAWANDA BURKS APRN E906.0 INJURY CAUSED BY ANIMAL DOG BITE 02/01/2012 TAWANDA BURKS APRN V06.1 TDAP DX 02/01/2012 AMANUEL HERRING APRN R 786.2 COUGH 02/01/2012 AMANUEL HERRING APRN R E906.0 INJURY CAUSED BY ANIMAL DOG BITE 02/01/2012 AMANUEL HERRING APRN R V06.1 TDAP DX 02/01/2012 TAWANDA BURKS APRN 786.2 COUGH 02/01/2012 TAWANDA BURKS APRN E906.0 INJURY CAUSED BY ANIMAL DOG BITE 02/01/2012 TAWANDA BURKS APRN V06.1 TDAP DX 02/01/2012 AMANUEL HERRING APRN R 786.2 COUGH 02/01/2012 AMANUEL HERRING APRN R E906.0 INJURY CAUSED BY ANIMAL DOG BITE 02/01/2012 AMANUEL HERRING APRN R V06.1 TDAP DX 02/01/2012 OCAMPO DO, SUDARSHAN K 786.2 COUGH 02/01/2012 OCAMPO DO, SUDARSHAN K E906.0 INJURY CAUSED BY ANIMAL DOG BITE 02/01/2012 OCAMPO DO, SUDARSHAN K V06.1 TDAP DX 02/01/2012 AP CHEW MD 786.2 COUGH 02/01/2012 AP CHEW MD E906.0 INJURY CAUSED BY ANIMAL DOG BITE 02/01/2012 AP CHEW MD V06.1 TDAP DX 02/01/2012 TAWANDA BURKS APRN 786.2 COUGH 02/01/2012 TAWANDA BURKS APRN E906.0 INJURY CAUSED BY ANIMAL DOG BITE 02/01/2012 TAWANDA BURKS APRN V06.1 TDAP DX 02/01/2012 AMANUEL HERRING APRN R 786.2 COUGH 02/01/2012 AMANUEL HERRING APRN R E906.0 INJURY CAUSED BY ANIMAL DOG BITE 02/01/2012 AMANUEL HERRING APRN R V06.1 TDAP DX 02/01/2012 TAWANDA BURKS APRN 786.2 COUGH 02/01/2012 TAWANDA BURKS APRN E906.0 INJURY CAUSED BY ANIMAL DOG BITE 02/01/2012 TAWANDA BURKS APRN V06.1 TDAP DX 04/04/2012 Ot 719.42 JOINT PAIN- UP/ARM 04/04/2012 Ot 782.2 LOCAL SUPRFICIAL SWELLNG 04/05/2012 SUDARSHAN OCAMPO DO K 709.09 OTHER DYSCHROMIA 04/05/2012 709.09 OTHER DYSCHROMIA 04/05/2012 709.09 OTHER DYSCHROMIA 04/05/2012 709.09 OTHER DYSCHROMIA 04/05/2012 SUDARSHAN OCAMPO DO K 709.09 OTHER DYSCHROMIA 04/05/2012 CHRISTY OCAMPO DOA K 709.09 OTHER DYSCHROMIA 04/05/2012 AMANUEL HERRING APRN R 709.09 OTHER DYSCHROMIA 04/05/2012 TAWANDA BURKS APRN 709.09 OTHER DYSCHROMIA 04/05/2012 AMANUEL HERRING APRN R 709.09 OTHER DYSCHROMIA 04/05/2012 TAWANDA BURKS APRN 709.09 OTHER DYSCHROMIA 04/05/2012 TAWANDA BURKS APRN 709.09 OTHER DYSCHROMIA 04/05/2012 TAWANDA BURKS APRN 709.09 OTHER DYSCHROMIA 04/05/2012 TAWANDA BURKS APRN 709.09 OTHER DYSCHROMIA 04/05/2012 TAWANDA BURKS APRN 709.09 OTHER DYSCHROMIA 04/05/2012 TAWANDA UBRKS APRN 709.09 OTHER DYSCHROMIA 04/05/2012 AMANUEL HERRING APRN R 709.09 OTHER DYSCHROMIA 04/05/2012 TAWANDA BURKS APRN 709.09 OTHER DYSCHROMIA 04/05/2012 SUDARSHAN OCAMPO DO K 709.09 OTHER DYSCHROMIA 04/05/2012 MADL SENIOR COMPUTER SPECIALIST, TELMA L 709.09 OTHER DYSCHROMIA 04/05/2012 MARANDA MCLAUGHLIN, TELMA L 709.09 OTHER DYSCHROMIA 04/05/2012 TAWANDA BURKS APRN 709.09 OTHER DYSCHROMIA 04/05/2012 TAWANDA BURKS APRN 709.09 OTHER DYSCHROMIA 04/05/2012 AMANUEL HERRING APRN R 709.09 OTHER DYSCHROMIA 04/05/2012 TAWANDA BURKS APRN 709.09 OTHER DYSCHROMIA 04/05/2012 MEENAKSHI HERRING APRNIA R 709.09 OTHER DYSCHROMIA 04/05/2012 OCAMPO DO, SUDARSHAN K 709.09 OTHER DYSCHROMIA 04/05/2012 AP CHEW MD 709.09 OTHER DYSCHROMIA 04/05/2012 TAWANDA BURKS APRN 709.09 OTHER DYSCHROMIA 04/05/2012 GAEL HERRING APRNRICIA R 709.09 OTHER DYSCHROMIA 04/05/2012 TAWANDA BURKS APRN 709.09 OTHER DYSCHROMIA 08/29/2012 V03.82 PPV23 ( PNEUMOVAX) DX 08/29/2012 V03.82 PPV23 ( PNEUMOVAX) DX 08/29/2012 V03.82 PPV23 ( PNEUMOVAX) DX 08/29/2012 OCAMPO DO, SUDARSHAN K V03.82 PPV23 (PNEUMOVAX) DX 08/29/2012 OCAMPO DO, SUDARSHAN K V03.82 PPV23 (PNEUMOVAX) DX 08/29/2012 AMANUEL HERRING APRN R V03.82 PPV23 (PNEUMOVAX) DX 08/29/2012 TAWANDA BURKS APRN V03.82 PPV23 (PNEUMOVAX) DX 08/29/2012 AMANUEL HERRING APRN R V03.82 PPV23 (PNEUMOVAX) DX 08/29/2012 TAWANDA BURKS APRN V03.82 PPV23 (PNEUMOVAX) DX 08/29/2012 TAWANDA BURKS APRN V03.82 PPV23 (PNEUMOVAX) DX 08/29/2012 TAWANDA BURKS APRN V03.82 PPV23 (PNEUMOVAX) DX 08/29/2012 TAWANDA BURKS APRN V03.82 PPV23 (PNEUMOVAX) DX 08/29/2012 TAWANDA BURKS APRN V03.82 PPV23 (PNEUMOVAX) DX 08/29/2012 TAWANDA BURKS APRN V03.82 PPV23 (PNEUMOVAX) DX 08/29/2012 AMANUEL HERRING APRN R V03.82 PPV23 (PNEUMOVAX) DX 08/29/2012 TAWANDA BURKS APRN V03.82 PPV23 (PNEUMOVAX) DX 08/29/2012 SUDARSHAN OCAMPO DO K V03.82 PPV23 (PNEUMOVAX) DX 08/29/2012 [facility] TELMA L V03.82 PPV23 (PNEUMOVAX) DX 08/29/2012 MARANDA SENIOR COMPUTER SPECIALIST, TELMA L V03.82 PPV23 (PNEUMOVAX) DX 08/29/2012 TAWANDA BURKS APRN V03.82 PPV23 (PNEUMOVAX) DX 08/29/2012 TAWANDA BURKS APRN V03.82 PPV23 (PNEUMOVAX) DX 08/29/2012 AMANUEL HERRING APRN R V03.82 PPV23 (PNEUMOVAX) DX 08/29/2012 TAWANDA BURKS APRN V03.82 PPV23 (PNEUMOVAX) DX 08/29/2012 AMANUEL HERRING APRN R V03.82 PPV23 (PNEUMOVAX) DX 08/29/2012 DAMARIS YANEZ, SUDARSHAN K V03.82 PPV23 (PNEUMOVAX) DX 08/29/2012 AP CHEW MD V03.82 PPV23 (PNEUMOVAX) DX 08/29/2012 TAWANDA BURKS APRN V03.82 PPV23 (PNEUMOVAX) DX 08/29/2012 AMANUEL HERRING APRN R V03.82 PPV23 (PNEUMOVAX) DX 08/29/2012 TAWANDA BURKS APRN V03.82 PPV23 (PNEUMOVAX) DX 08/29/2012 NADYA PETER, NICOLE Mahajan Ot 493.90 ASTHMA, UNSPECIFIED 08/29/2012 NADYA PETER, NICOLE Mahajan Ot 729.1 MYALGIA AND MYOSITIS NOS 08/29/2012 NADYA PETER, NICOLE Mahajan Ot 787.02 NAUSEA ALONE 08/29/2012 NICOLE COVINGTON MD Ot 787.91 DIARRHEA 08/30/2012 ARMIN CHAIDEZ DO K Ot 787.01 NAUSEA WITH VOMITING 09/06/2012 NADYA PETER, NICOLE Mahajan Ot 780.79 OTH MALAISE FATIGUE 09/06/2012 NADYA PETER, NICOLE Mahajan Ot 787.02 NAUSEA ALONE 09/24/2012 237.79 OTHER NEUROFIBROMATOSIS 09/24/2012 237.79 OTHER NEUROFIBROMATOSIS 09/24/2012 OCAMPO DO, SUDARSHAN K 237.79 OTHER NEUROFIBROMATOSIS 09/24/2012 OCAMPO DO, SUDARSHAN K 237.79 OTHER NEUROFIBROMATOSIS 09/24/2012 AMANUEL HERRING APRN R 237.79 OTHER NEUROFIBROMATOSIS 09/24/2012 TAWANDA BURKS APRN T 237.79 OTHER NEUROFIBROMATOSIS 09/24/2012 AMANUEL HERRING APRN R 237.79 OTHER NEUROFIBROMATOSIS 09/24/2012 TAWANDA BURKS APRN T 237.79 OTHER NEUROFIBROMATOSIS 09/24/2012 TAWANDA BURKS APRN T 237.79 OTHER NEUROFIBROMATOSIS 09/24/2012 TAWANDA BURKS APRN T 237.79 OTHER NEUROFIBROMATOSIS 09/24/2012 TAWANDA BURKS APRN T 237.79 OTHER NEUROFIBROMATOSIS 09/24/2012 TAWANDA BURKS APRN T 237.79 OTHER NEUROFIBROMATOSIS 09/24/2012 TAWANDA BURKS APRN T 237.79 OTHER NEUROFIBROMATOSIS 09/24/2012 MEENAKSHI HERRING APRNIA R 237.79 OTHER NEUROFIBROMATOSIS 09/24/2012 TAWANDA BURKS APRN T 237.79 OTHER NEUROFIBROMATOSIS 09/24/2012 OCAMPO DO SUDARSHAN K 237.79 OTHER NEUROFIBROMATOSIS 09/24/2012 KVNG LOW APRNA L 237.79 OTHER NEUROFIBROMATOSIS 09/24/2012 MARANDA MCLAUGHLIN TELMA L 237.79 OTHER NEUROFIBROMATOSIS 09/24/2012 TAWANDA BURKS APRN T 237.79 OTHER NEUROFIBROMATOSIS 09/24/2012 TAWANDA BURKS APRN T 237.79 OTHER NEUROFIBROMATOSIS 09/24/2012 MEENAKHSI HERRING APRNIA R 237.79 OTHER NEUROFIBROMATOSIS 09/24/2012 TAWANDA BURKS APRN T 237.79 OTHER NEUROFIBROMATOSIS 09/24/2012 MEENAKSHI HERRING APRNIA R 237.79 OTHER NEUROFIBROMATOSIS 09/24/2012 OCAMPO DO SUDARSHAN K 237.79 OTHER NEUROFIBROMATOSIS 09/24/2012 NAINA PETER, AP 237.79 OTHER NEUROFIBROMATOSIS 09/24/2012 TAWANDA BURKS APRN T 237.79 OTHER NEUROFIBROMATOSIS 09/24/2012 GAEL HERRING APRNRICIA R 237.79 OTHER NEUROFIBROMATOSIS 09/24/2012 TAWANDA BURKS APRN T 237.79 OTHER NEUROFIBROMATOSIS 09/29/2012 465.9 UPPER RESPIRATORY INFECTION 09/29/2012 465.9 UPPER RESPIRATORY INFECTION 09/29/2012 OCAMPO DO, SUDARSHAN K 465.9 UPPER RESPIRATORY INFECTION 09/29/2012 OCAMPO DO, SUDARSHAN K 465.9 UPPER RESPIRATORY INFECTION 09/29/2012 GAEL HERRING APRNRICIA R 465.9 UPPER RESPIRATORY INFECTION 09/29/2012 TAWANDA BURKS APRN T 465.9 UPPER RESPIRATORY INFECTION 09/29/2012 MEENAKSHI HERRING APRNIA R 465.9 UPPER RESPIRATORY INFECTION 09/29/2012 TAWANDA BURKS APRN T 465.9 UPPER RESPIRATORY INFECTION 09/29/2012 TAWANDA BURKS APRN T 465.9 UPPER RESPIRATORY INFECTION 09/29/2012 TAWANDA BURKS APRN T 465.9 UPPER RESPIRATORY INFECTION 09/29/2012 TAWANDA BURKS APRN T 465.9 UPPER RESPIRATORY INFECTION 09/29/2012 TAWANDA BURKS APRN T 465.9 UPPER RESPIRATORY INFECTION 09/29/2012 TAWANDA BURKS APRN T 465.9 UPPER RESPIRATORY INFECTION 09/29/2012 MEENAKSHI HERRING APRNIA R 465.9 UPPER RESPIRATORY INFECTION 09/29/2012 TAWANDA BURKS APRN T 465.9 UPPER RESPIRATORY INFECTION 09/29/2012 OCAMPO DO, SUDARSHAN K 465.9 UPPER RESPIRATORY INFECTION 09/29/2012 MARANDA SENIOR COMPUTER SPECIALIST, TELMA L 465.9 UPPER RESPIRATORY INFECTION 09/29/2012 MARANDA SENIOR COMPUTER SPECIALIST, TELMA L 465.9 UPPER RESPIRATORY INFECTION 09/29/2012 TAWANDA BURKS APRN T 465.9 UPPER RESPIRATORY INFECTION 09/29/2012 TAWANDA BURKS APRN T 465.9 UPPER RESPIRATORY INFECTION 09/29/2012 MEENAKSHI HERRING APRNIA R 465.9 UPPER RESPIRATORY INFECTION 09/29/2012 TAWANDA BURKS APRN T 465.9 UPPER RESPIRATORY INFECTION 09/29/2012 NIMA MCLAUGHLIN AMANUEL R 465.9 UPPER RESPIRATORY INFECTION 09/29/2012 OCAMPO DO, SUDARSHAN K 465.9 UPPER RESPIRATORY INFECTION 09/29/2012 NAINA PETER, AP 465.9 UPPER RESPIRATORY INFECTION 09/29/2012 TAWANDA BURKS APRN T 465.9 UPPER RESPIRATORY INFECTION 09/29/2012 AMANUEL HERRING APRN R 465.9 UPPER RESPIRATORY INFECTION 09/29/2012 TAWANDA BURKS APRN T 465.9 UPPER RESPIRATORY INFECTION 10/15/2012 724.2 BACK PAIN, LOWER 10/15/2012 724.2 BACK PAIN, LOWER 10/15/2012 OCAMPO DO, SUDARSHAN K 724.2 BACK PAIN, LOWER 10/15/2012 OCAMPO DO, SUDARSHAN K 724.2 BACK PAIN, LOWER 10/15/2012 NIMA SENIOR COMPUTER SPECIALISTMEENAKSHIIA R 724.2 BACK PAIN, LOWER 10/15/2012 VITALIY LINDSAYNTAWANDA T 724.2 BACK PAIN, LOWER 10/15/2012 NIMA LINDSAYNAMANUEL R 724.2 BACK PAIN, LOWER 10/15/2012 TAWANDA BURKS APRN T 724.2 BACK PAIN, LOWER 10/15/2012 TAWANDA BURKS APRN T 724.2 BACK PAIN, LOWER 10/15/2012 TAWANDA BURKS APRN T 724.2 BACK PAIN, LOWER 10/15/2012 TAWANDA BURKS APRN T 724.2 BACK PAIN, LOWER 10/15/2012 VITALIY LINDSAYNTAWANDA T 724.2 BACK PAIN, LOWER 10/15/2012 VITALIY LINDSAYNTAWANDA T 724.2 BACK PAIN, LOWER 10/15/2012 AMANUEL HERRING APRN R 724.2 BACK PAIN, LOWER 10/15/2012 VITALIY LINDSAYNTAWANDA T 724.2 BACK PAIN, LOWER 10/15/2012 OCAMPO DO, SUDARSHAN K 724.2 BACK PAIN, LOWER 10/15/2012 MADL SENIOR COMPUTER SPECIALIST, TELMA L 724.2 BACK PAIN, LOWER 10/15/2012 MADL SENIOR COMPUTER SPECIALIST, TELMA L 724.2 BACK PAIN, LOWER 10/15/2012 TAWANDA BURKS APRN T 724.2 BACK PAIN, LOWER 10/15/2012 VITALIY LINDSAYNTAWANDA T 724.2 BACK PAIN, LOWER 10/15/2012 AMANUEL HERRING APRN R 724.2 BACK PAIN, LOWER 10/15/2012 TAWANDA BURKS APRN T 724.2 BACK PAIN, LOWER 10/15/2012 NIMA SENIOR COMPUTER SPECIALIST, AMANUEL R 724.2 BACK PAIN, LOWER 10/15/2012 OCAMPO DO, SUDARSHAN K 724.2 BACK PAIN, LOWER 10/15/2012 NAINA PETER, AP 724.2 BACK PAIN, LOWER 10/15/2012 TAWANDA BURKS APRN 724.2 BACK PAIN, LOWER 10/15/2012 AMANUEL HERRING APRN 724.2 BACK PAIN, LOWER 10/15/2012 TAWANDA BURKS APRN 724.2 BACK PAIN, LOWER 10/31/2012 214.1 LIPOMA OF OTHER SKIN AND SUBCUTANEOUS TISSUE 10/31/2012 214.1 LIPOMA OF OTHER SKIN AND SUBCUTANEOUS TISSUE 10/31/2012 SUDARSHAN OCAMPO DO K 214.1 LIPOMA OF OTHER SKIN AND SUBCUTANEOUS TISSUE 10/31/2012 SUDARSHAN OCAMPO DO K 214.1 LIPOMA OF OTHER SKIN AND SUBCUTANEOUS TISSUE 10/31/2012 AMANUEL HERRING APRN 214.1 LIPOMA OF OTHER SKIN AND SUBCUTANEOUS TISSUE 10/31/2012 TAWANDA BURKS APRN 214.1 LIPOMA OF OTHER SKIN AND SUBCUTANEOUS TISSUE 10/31/2012 AMANUEL HERRING APRN 214.1 LIPOMA OF OTHER SKIN AND SUBCUTANEOUS TISSUE 10/31/2012 TAWANDA BURKS APRN 214.1 LIPOMA OF OTHER SKIN AND SUBCUTANEOUS TISSUE 10/31/2012 TAWANDA BURKS APRN 214.1 LIPOMA OF OTHER SKIN AND SUBCUTANEOUS TISSUE 10/31/2012 TAWANDA BURKS APRN 214.1 LIPOMA OF OTHER SKIN AND SUBCUTANEOUS TISSUE 10/31/2012 TAWANDA BURKS APRN 214.1 LIPOMA OF OTHER SKIN AND SUBCUTANEOUS TISSUE 10/31/2012 TAWANDA BURKS APRN 214.1 LIPOMA OF OTHER SKIN AND SUBCUTANEOUS TISSUE 10/31/2012 TAWANDA BURKS APRN 214.1 LIPOMA OF OTHER SKIN AND SUBCUTANEOUS TISSUE 10/31/2012 AMANUEL HERRING APRN 214.1 LIPOMA OF OTHER SKIN AND SUBCUTANEOUS TISSUE 10/31/2012 TAWANDA BURKS APRN 214.1 LIPOMA OF OTHER SKIN AND SUBCUTANEOUS TISSUE 10/31/2012 SUDARSHAN OCAMPO DO K 214.1 LIPOMA OF OTHER SKIN AND SUBCUTANEOUS TISSUE 10/31/2012 TELMA LOW APRN L 214.1 LIPOMA OF OTHER SKIN AND SUBCUTANEOUS TISSUE 10/31/2012 TELMA LOW APRN L 214.1 LIPOMA OF OTHER SKIN AND SUBCUTANEOUS TISSUE 10/31/2012 TAWANDA BURKS APRN 214.1 LIPOMA OF OTHER SKIN AND SUBCUTANEOUS TISSUE 10/31/2012 TAWANDA BURKS APRN 214.1 LIPOMA OF OTHER SKIN AND SUBCUTANEOUS TISSUE 10/31/2012 AMANUEL HERRING APRN 214.1 LIPOMA OF OTHER SKIN AND SUBCUTANEOUS TISSUE 10/31/2012 TAWANDA BURKS APRN 214.1 LIPOMA OF OTHER SKIN AND SUBCUTANEOUS TISSUE 10/31/2012 AMANUEL HERRING APRN 214.1 LIPOMA OF OTHER SKIN AND SUBCUTANEOUS TISSUE 10/31/2012 SUDARSHAN OCAMPO DO 214.1 LIPOMA OF OTHER SKIN AND SUBCUTANEOUS TISSUE 10/31/2012 AP CHEW MD 214.1 LIPOMA OF OTHER SKIN AND SUBCUTANEOUS TISSUE 10/31/2012 TAWANDA BURKS APRN 214.1 LIPOMA OF OTHER SKIN AND SUBCUTANEOUS TISSUE 10/31/2012 AMANUEL HERRING APRN 214.1 LIPOMA OF OTHER SKIN AND SUBCUTANEOUS TISSUE 10/31/2012 TAWANDA BURKS APRN 214.1 LIPOMA OF OTHER SKIN AND SUBCUTANEOUS TISSUE 11/01/2012 HARJEET LIRIANO MD Ot 345.90 EPILEPSY UNSPEC W/O MENTION INTRACTABLE 11/01/2012 HARJEET LIRIANO MD Ot 493.90 ASTHMA, UNSPECIFIED 11/01/2012 HARJEET LIRIANO MD Ot 592.0 CALCULUS OF KIDNEY 11/01/2012 HARJEET LIRIANO MD Ot 599.0 URIN TRACT INFECTION NOS 11/01/2012 HARJEET LIRIANO MD Ot 599.70 HEMATURIA, UNSPECIFIED 11/01/2012 HARJEET LIRIANO MD Ot 737.30 IDIOPATHIC SCOLIOSIS 11/23/2012 V04.81 FLU SHOT 11/23/2012 SUDARSHAN OCAMPO DO V04.81 FLU SHOT 11/23/2012 SUDARSHAN OCAPMO DO V04.81 FLU SHOT 11/23/2012 AMANUEL HERRING APRN V04.81 FLU SHOT 11/23/2012 TAWANDA BURKS APRN V04.81 FLU SHOT 11/23/2012 AMANUEL HERRING APRN V04.81 FLU SHOT 11/23/2012 TAWANDA BURKS APRN V04.81 FLU SHOT 11/23/2012 TAWANDA BURKS APRN V04.81 FLU SHOT 11/23/2012 TAWANDA BURKS APRN V04.81 FLU SHOT 11/23/2012 TAWANDA BURKS APRN V04.81 FLU SHOT 11/23/2012 TAWANDA BURKS APRN T V04.81 FLU SHOT 11/23/2012 VITALIY LINDSAYN, TAWANDA T V04.81 FLU SHOT 11/23/2012 AMANUEL HERRING APRN R V04.81 FLU SHOT 11/23/2012 VITALIY SENIOR COMPUTER SPECIALIST, TAWANDA T V04.81 FLU SHOT 11/23/2012 OCAMPO DO, SUDARSHAN K V04.81 FLU SHOT 11/23/2012 MADL SENIOR COMPUTER SPECIALIST, TELMA L V04.81 FLU SHOT 11/23/2012 MADL SENIOR COMPUTER SPECIALIST, TELMA L V04.81 FLU SHOT 11/23/2012 VITALIY LINDSAYN, TAWANDA T V04.81 FLU SHOT 11/23/2012 VITALIY MCLAUGHLIN, TAWANDA Mahajan V04.81 FLU SHOT 11/23/2012 AMANUEL HERRING APRN R V04.81 FLU SHOT 11/23/2012 TAWANDA BURKS APRN V04.81 FLU SHOT 11/23/2012 AMANUEL HERRING APRN R V04.81 FLU SHOT 11/23/2012 OCAMPO DO SUDARSHAN K V04.81 FLU SHOT 11/23/2012 AP CHEW MD V04.81 FLU SHOT 11/23/2012 TAWANDA BURKS APRN T V04.81 FLU SHOT 11/23/2012 AMANUEL HERRING APRN R V04.81 FLU SHOT 11/23/2012 TAWANDA BURKS APRN V04.81 FLU SHOT 12/13/2012 OCAMPO DO, SUDARSHAN K 530.81 GERD 12/13/2012 MEENAKSHI HERRING APRNIA R 530.81 GERD 12/13/2012 TAWANDA BURKS APRN T 530.81 GERD 12/13/2012 AMANUEL HERRING APRN R 530.81 GERD 12/13/2012 TAWANDA BURKS APRN T 530.81 GERD 12/13/2012 TAWANDA BURKS APRN T 530.81 GERD 12/13/2012 TAWANDA BURKS APRN T 530.81 GERD 12/13/2012 TAWANDA BURKS APRN T 530.81 GERD 12/13/2012 TAWANDA BURKS APRN T 530.81 GERD 12/13/2012 TAWANDA BURKS APRN T 530.81 GERD 12/13/2012 AMANUEL HERRING APRN R 530.81 GERD 12/13/2012 TAWANDA BURKS APRN T 530.81 GERD 12/13/2012 OCAMPO DO, SUDARSHAN K 530.81 GERD 12/13/2012 MARANDA MCLAUGHLIN, TELMA L 530.81 GERD 12/13/2012 TELMA LOW APRN L 530.81 GERD 12/13/2012 TAWANDA BURKS APRN T 530.81 GERD 12/13/2012 TAWANDA BURKS APRN 530.81 GERD 12/13/2012 MEENAKSHI HERRING APRNIA R 530.81 GERD 12/13/2012 TAWANDA BURKS APRN T 530.81 GERD 12/13/2012 MEENAKSHI HERRING APRNIA R 530.81 GERD 12/13/2012 OCAMPO DO, SUDARSHAN K 530.81 GERD 12/13/2012 AP CHEW MD 530.81 GERD 12/13/2012 TAWANDA BURKS APRN 530.81 GERD 12/13/2012 MEENAKSHI HERRING APRNIA R 530.81 GERD 12/13/2012 TAWANDA BURKS APRN 530.81 GERD 12/26/2012 AMANUEL HERRING APRN R 381.81 EUSTACHIAN TUBE DYSFUNCTION 12/26/2012 TAWANDA BURKS APRN 381.81 EUSTACHIAN TUBE DYSFUNCTION 12/26/2012 AMANUEL HERRING APRN R 381.81 EUSTACHIAN TUBE DYSFUNCTION 12/26/2012 TAWANDA BURKS APRN 381.81 EUSTACHIAN TUBE DYSFUNCTION 12/26/2012 TAWANDA BURKS APRN 381.81 EUSTACHIAN TUBE DYSFUNCTION 12/26/2012 TAWANDA BURKS APRN 381.81 EUSTACHIAN TUBE DYSFUNCTION 12/26/2012 TAWANDA BURKS APRN 381.81 EUSTACHIAN TUBE DYSFUNCTION 12/26/2012 TAWANDA BURKS APRN 381.81 EUSTACHIAN TUBE DYSFUNCTION 12/26/2012 TAWANDA BURKS APRN T 381.81 EUSTACHIAN TUBE DYSFUNCTION 12/26/2012 AMANUEL HERRING APRN R 381.81 EUSTACHIAN TUBE DYSFUNCTION 12/26/2012 TAWANDA BURKS APRN 381.81 EUSTACHIAN TUBE DYSFUNCTION 12/26/2012 OCAMPO DO, SUDARSHAN K 381.81 EUSTACHIAN TUBE DYSFUNCTION 12/26/2012 TELMA LOW APRN L 381.81 EUSTACHIAN TUBE DYSFUNCTION 12/26/2012 TELMA LOW APRN L 381.81 EUSTACHIAN TUBE DYSFUNCTION 12/26/2012 TAWANDA BURKS APRN 381.81 EUSTACHIAN TUBE DYSFUNCTION 12/26/2012 TAWANDA BURKS APRN 381.81 EUSTACHIAN TUBE DYSFUNCTION 12/26/2012 AMANUEL HERRING APRN R 381.81 EUSTACHIAN TUBE DYSFUNCTION 12/26/2012 TAWANDA BURKS APRN T 381.81 EUSTACHIAN TUBE DYSFUNCTION 12/26/2012 AMANUEL HERRING APRN R 381.81 EUSTACHIAN TUBE DYSFUNCTION 12/26/2012 SUDARSHAN OCAMPO DO 381.81 EUSTACHIAN TUBE DYSFUNCTION 12/26/2012 AP CHEW MD 381.81 EUSTACHIAN TUBE DYSFUNCTION 12/26/2012 TAWANDA BURKS APRN 381.81 EUSTACHIAN TUBE DYSFUNCTION 12/26/2012 AMANUEL HERRING APRN R 381.81 EUSTACHIAN TUBE DYSFUNCTION 12/26/2012 TAWANDA BURKS APRN 381.81 EUSTACHIAN TUBE DYSFUNCTION 01/25/2013 AMANUEL HERRING APRN R 462 ACUTE PHARYNGITIS 01/25/2013 TAWANDA BURKS APRN 462 ACUTE PHARYNGITIS 01/25/2013 TAWANDA BURKS APRN 462 ACUTE PHARYNGITIS 01/25/2013 TAWANDA BURKS APRN 462 ACUTE PHARYNGITIS 01/25/2013 TAWANDA BURKS APRN 462 ACUTE PHARYNGITIS 01/25/2013 TAWANDA BURKS APRN 462 ACUTE PHARYNGITIS 01/25/2013 TAWANDA BURKS APRN 462 ACUTE PHARYNGITIS 01/25/2013 AMANUEL HERRING APRN R 462 ACUTE PHARYNGITIS 01/25/2013 TAWANDA BURKS APRN 462 ACUTE PHARYNGITIS 01/25/2013 SUDARSHAN OCAMPO DO K 462 ACUTE PHARYNGITIS 01/25/2013 MARANDA MCLAUGHLIN TELMA L 462 ACUTE PHARYNGITIS 01/25/2013 MARANDA MCLAUGHLIN TELMA L 462 ACUTE PHARYNGITIS 01/25/2013 TAWANDA BURKS APRN T 462 ACUTE PHARYNGITIS 01/25/2013 TAWANDA BURKS APRN T 462 ACUTE PHARYNGITIS 01/25/2013 AMANUEL HERRING APRN R 462 ACUTE PHARYNGITIS 01/25/2013 VITALIY SENIOR COMPUTER SPECIALIST, TAWANDA T 462 ACUTE PHARYNGITIS 01/25/2013 AMANUEL HERRING APRN R 462 ACUTE PHARYNGITIS 01/25/2013 CHRISTY OCAMPO DOA K 462 ACUTE PHARYNGITIS 01/25/2013 AP CHEW MD 462 ACUTE PHARYNGITIS 01/25/2013 TAWANDA BURKS APRN 462 ACUTE PHARYNGITIS 01/25/2013 AMANUEL HERRING APRN R 462 ACUTE PHARYNGITIS 01/25/2013 TAWANDA BURKS APRN 462 ACUTE PHARYNGITIS 01/29/2013 TAWANDA BURKS APRN T 780.79 fatigue 01/29/2013 TAWANDA BURKS APRN T 780.79 fatigue 01/29/2013 TAWANDA BURKS APRN 780.79 fatigue 01/29/2013 TAWANDA BURKS APRN 780.79 FATIGUE 01/29/2013 TAWANDA BURKS APRN T 780.79 FATIGUE 01/29/2013 TAWANDA BURKS APRN T 780.79 FATIGUE 01/29/2013 AMANUEL HERRING APRN R 780.79 FATIGUE 01/29/2013 TAWANDA BURKS APRN 780.79 FATIGUE 01/29/2013 CHRISTY OCAMPO DOA K 780.79 FATIGUE 01/29/2013 MARANDA MCLAUGHLIN TELMA L 780.79 FATIGUE 01/29/2013 MARANDA MCLAUGHLIN TELMA L 780.79 FATIGUE 01/29/2013 TAWANDA BURKS APRN T 780.79 FATIGUE 01/29/2013 TAWANDA BURKS APRN T 780.79 FATIGUE 01/29/2013 MEENAKSHI HERRING APRNIA R 780.79 FATIGUE 01/29/2013 TAWANDA BURKS APRN T 780.79 FATIGUE 01/29/2013 AMANUEL HERRING APRN R 780.79 FATIGUE 01/29/2013 CHRISTY OCAMPO DOA K 780.79 FATIGUE 01/29/2013 PA CHEW MD 780.79 FATIGUE 01/29/2013 TAWANDA BURKS APRN 780.79 FATIGUE 01/29/2013 AMANUEL HERRING APRN R 780.79 FATIGUE 01/29/2013 TAWANDA BURKS APRN T 780.79 FATIGUE 02/03/2013 KAYLEN GATES APRN Ot 346.90 MIGRAINE UNSPECIFIED W/O INTRACT MGRN W/ 02/03/2013 KAYLEN GATES APRN Ot 465.9 ACUTE URI NOS 02/03/2013 KAYLEN GATES APRN Ot 473.9 CHRONIC SINUSITIS NOS 02/05/2013 VITALIY SENIOR COMPUTER SPECIALIST, TAWANDA T 461.9 SINUSITIS ACUTE 02/05/2013 VITALIY SENIOR COMPUTER SPECIALIST, TAWANDA T 785.6 LYMPH NODES ENLARGEMENT 02/05/2013 VITALIY SENIOR COMPUTER SPECIALIST, TAWANDA T 461.9 SINUSITIS ACUTE 02/05/2013 VITALIY SENIOR COMPUTER SPECIALIST, TAWANDA T 785.6 LYMPH NODES ENLARGEMENT 02/05/2013 VITALIY SENIOR COMPUTER SPECIALIST, TAWANDA T 461.9 SINUSITIS ACUTE 02/05/2013 VITALIY SENIOR COMPUTER SPECIALIST, TAWANDA T 785.6 LYMPH NODES ENLARGEMENT 02/05/2013 VITALIY SENIOR COMPUTER SPECIALIST, TAWANDA T 461.9 SINUSITIS ACUTE 02/05/2013 VITALIY SENIOR COMPUTER SPECIALIST, TAWANDA T 785.6 LYMPH NODES ENLARGEMENT 02/05/2013 VITALIY SENIOR COMPUTER SPECIALIST, TAWANDA T 461.9 SINUSITIS ACUTE 02/05/2013 VITALIY SENIOR COMPUTER SPECIALIST, TAWNADA T 785.6 LYMPH NODES ENLARGEMENT 02/05/2013 NIMA SENIOR COMPUTER SPECIALIST, AMANUEL R 461.9 SINUSITIS ACUTE 02/05/2013 NIMA SENIOR COMPUTER SPECIALIST, AMANUEL R 785.6 LYMPH NODES ENLARGEMENT 02/05/2013 VITALIY SENIOR COMPUTER SPECIALIST, TAWANDA T 461.9 SINUSITIS ACUTE 02/05/2013 VITALIY SENIOR COMPUTER SPECIALIST, TAWANDA T 785.6 LYMPH NODES ENLARGEMENT 02/05/2013 OCAMPO DO, SUDARSHAN K 461.9 SINUSITIS ACUTE 02/05/2013 OCAMPO DO, SUDARSHAN K 785.6 LYMPH NODES ENLARGEMENT 02/05/2013 MADL SENIOR COMPUTER SPECIALIST, TELMA L 461.9 SINUSITIS ACUTE 02/05/2013 MADL SENIOR COMPUTER SPECIALIST, TELMA L 785.6 LYMPH NODES ENLARGEMENT 02/05/2013 MADL SENIOR COMPUTER SPECIALIST, TELMA L 461.9 SINUSITIS ACUTE 02/05/2013 MADL SENIOR COMPUTER SPECIALIST, TELMA L 785.6 LYMPH NODES ENLARGEMENT 02/05/2013 VITALIY SENIOR COMPUTER SPECIALIST, TAWANDA T 461.9 SINUSITIS ACUTE 02/05/2013 VITALIY SENIOR COMPUTER SPECIALIST, TAWANDA T 785.6 LYMPH NODES ENLARGEMENT 02/05/2013 VITALIY SENIOR COMPUTER SPECIALIST, TAWANDA T 461.9 SINUSITIS ACUTE 02/05/2013 VITALIY SENIOR COMPUTER SPECIALIST, TAWANDA T 785.6 LYMPH NODES ENLARGEMENT 02/05/2013 NIMA SENIOR COMPUTER SPECIALIST, AMANUEL R 461.9 SINUSITIS ACUTE 02/05/2013 NIMA SENIOR COMPUTER SPECIALIST, AMANUEL R 785.6 LYMPH NODES ENLARGEMENT 02/05/2013 TAWANDA BURKS APRN T 461.9 SINUSITIS ACUTE 02/05/2013 TAWANDA BURKS APRN T 785.6 LYMPH NODES ENLARGEMENT 02/05/2013 MEENAKSHI HERRING APRNIA R 461.9 SINUSITIS ACUTE 02/05/2013 MEENAKSHI HERRING APRNIA R 785.6 LYMPH NODES ENLARGEMENT 02/05/2013 OCAMPO DO, SUDARSHAN K 461.9 SINUSITIS ACUTE 02/05/2013 OCAMPO DO, SUDARSHAN K 785.6 LYMPH NODES ENLARGEMENT 02/05/2013 AP CHEW MD 461.9 SINUSITIS ACUTE 02/05/2013 AP CHEW MD 785.6 LYMPH NODES ENLARGEMENT 02/05/2013 TAWANDA BURKS APRN T 461.9 SINUSITIS ACUTE 02/05/2013 TAWANDA BURKS APRN T 785.6 LYMPH NODES ENLARGEMENT 02/05/2013 MEENAKSHI HERRING APRNIA R 461.9 SINUSITIS ACUTE 02/05/2013 MEENAKSHI HERRING APRNIA R 785.6 LYMPH NODES ENLARGEMENT 02/05/2013 TAWANDA BURKS APRN T 461.9 SINUSITIS ACUTE 02/05/2013 TAWANDA BURKS APRN T 785.6 LYMPH NODES ENLARGEMENT 03/04/2013 TAWANDA BURKS APRN 719.47 PAIN- ANKLE 03/04/2013 TAWANDA BURKS APRN T 719.47 PAIN- ANKLE 03/04/2013 TAWANDA BURKS APRN 719.47 PAIN- ANKLE 03/04/2013 AMANUEL HERRING APRN R 719.47 PAIN- ANKLE 03/04/2013 TAWANDA BURKS APRN 719.47 PAIN- ANKLE 03/04/2013 OCAMPO DO, SUDARSHAN K 719.47 PAIN- ANKLE 03/04/2013 MARANDA MCLAUGHLIN TELMA L 719.47 PAIN- ANKLE 03/04/2013 MARANDA MCLAUGHLIN TELMA L 719.47 PAIN- ANKLE 03/04/2013 TAWANDA BURKS APRN 719.47 PAIN- ANKLE 03/04/2013 TAWANDA BURKS APRN 719.47 PAIN- ANKLE 03/04/2013 MEENAKSHI HERRING APRNIA R 719.47 PAIN- ANKLE 03/04/2013 TAWANDA BURKS APRN 719.47 PAIN- ANKLE 03/04/2013 GAEL HERRING APRNRICIA R 719.47 PAIN- ANKLE 03/04/2013 OCAMPO DO, SUDARSHAN K 719.47 PAIN- ANKLE 03/04/2013 AP CHEW MD 719.47 PAIN- ANKLE 03/04/2013 TAWANDA BURKS APRN T 719.47 PAIN- ANKLE 03/04/2013 AMANUEL HERRING APRN R 719.47 PAIN- ANKLE 03/04/2013 TAWANDA BURKS APRN 719.47 PAIN- ANKLE 04/08/2013 TAWANDA BURKS APRN T 346.90 MIGRAINE HEADACHE 04/08/2013 TAWANDA BURKS APRN T 346.90 MIGRAINE HEADACHE 04/08/2013 GAEL HERRING APRNRICIA R 346.90 MIGRAINE HEADACHE 04/08/2013 TAWANDA BURKS APRN T 346.90 MIGRAINE HEADACHE 04/08/2013 OCAMPO DO SUDARSHAN K 346.90 MIGRAINE HEADACHE 04/08/2013 ZAIN LOW APRNWNYA L 346.90 MIGRAINE HEADACHE 04/08/2013 ZAIN LOW APRNWNYA L 346.90 MIGRAINE HEADACHE 04/08/2013 TAWANDA BURKS APRN T 346.90 MIGRAINE HEADACHE 04/08/2013 TAWANDA BURKS APRN T 346.90 MIGRAINE HEADACHE 04/08/2013 GAEL HERRING APRNRICIA R 346.90 MIGRAINE HEADACHE 04/08/2013 TAWANDA BURKS APRN T 346.90 MIGRAINE HEADACHE 04/08/2013 GAEL HERRING APRNRICIA R 346.90 MIGRAINE HEADACHE 04/08/2013 OCAMPO DO SUDARSHAN K 346.90 MIGRAINE HEADACHE 04/08/2013 AP CHEW MD 346.90 MIGRAINE HEADACHE 04/08/2013 TAWANDA BURKS APRN T 346.90 MIGRAINE HEADACHE 04/08/2013 GAEL HERRING APRNRICIA R 346.90 MIGRAINE HEADACHE 04/08/2013 TAWANDA BURKS APRN T 346.90 MIGRAINE HEADACHE 05/15/2013 AMANUEL HERRING APRN R 110.5 TINEA CORPORIS 05/15/2013 TAWANDA BURKS APRN 110.5 TINEA CORPORIS 05/15/2013 OCAMPO DO, SUDARSHAN K 110.5 TINEA CORPORIS 05/15/2013 ZAIN LOW APRNWNYA L 110.5 TINEA CORPORIS 05/15/2013 KVNG LOW APRNA L 110.5 TINEA CORPORIS 05/15/2013 TAWANDA BURKS APRN 110.5 TINEA CORPORIS 05/15/2013 TAWANDA BURKS APRN T 110.5 TINEA CORPORIS 05/15/2013 AMANUEL HERRING APRN R 110.5 TINEA CORPORIS 05/15/2013 TAWANDA BURKS APRN T 110.5 TINEA CORPORIS 05/15/2013 AMANUEL HERRING APRN R 110.5 TINEA CORPORIS 05/15/2013 SUDARSHAN OCAMPO DO K 110.5 TINEA CORPORIS 05/15/2013 AP CHEW MD 110.5 TINEA CORPORIS 05/15/2013 TAWANDA BURKS APRN 110.5 TINEA CORPORIS 05/15/2013 AMANUEL HERRING APRN R 110.5 TINEA CORPORIS 05/15/2013 TAWANDA BURKS APRN T 110.5 TINEA CORPORIS 06/26/2013 OCAMPO DO, SUDARSHAN K 796.2 ELEVATED BLOOD PRESSURE READING WITHOUT DIAGNOSIS OF HYPERTENSION 06/26/2013 KVNG LOW APRNA L 796.2 ELEVATED BLOOD PRESSURE READING WITHOUT DIAGNOSIS OF HYPERTENSION 06/26/2013 ZAIN LOW APRNWNYA L 796.2 ELEVATED BLOOD PRESSURE READING WITHOUT DIAGNOSIS OF HYPERTENSION 06/26/2013 TAWANDA BURKS APRN T 796.2 ELEVATED BLOOD PRESSURE READING WITHOUT DIAGNOSIS OF HYPERTENSION 06/26/2013 TAWANDA BURKS APRN T 796.2 ELEVATED BLOOD PRESSURE READING WITHOUT DIAGNOSIS OF HYPERTENSION 06/26/2013 AMANUEL HERRING APRN R 796.2 ELEVATED BLOOD PRESSURE READING WITHOUT DIAGNOSIS OF HYPERTENSION 06/26/2013 TAWANDA BURKS APRN 796.2 ELEVATED BLOOD PRESSURE READING WITHOUT DIAGNOSIS OF HYPERTENSION 06/26/2013 AMANUEL HERRING APRN R 796.2 ELEVATED BLOOD PRESSURE READING WITHOUT DIAGNOSIS OF HYPERTENSION 06/26/2013 OCAMPO DO, SUDARSHAN K 796.2 ELEVATED BLOOD PRESSURE READING WITHOUT DIAGNOSIS OF HYPERTENSION 06/26/2013 AP CHEW MD 796.2 ELEVATED BLOOD PRESSURE READING WITHOUT DIAGNOSIS OF HYPERTENSION 06/26/2013 TAWANDA BURKS APRN 796.2 ELEVATED BLOOD PRESSURE READING WITHOUT DIAGNOSIS OF HYPERTENSION 06/26/2013 AMANUEL HERRING APRN R 796.2 ELEVATED BLOOD PRESSURE READING WITHOUT DIAGNOSIS OF HYPERTENSION 06/26/2013 TAWANDA BURKS APRN T 796.2 ELEVATED BLOOD PRESSURE READING WITHOUT DIAGNOSIS OF HYPERTENSION 07/22/2013 MADL SENIOR COMPUTER SPECIALIST, TELMA L 339.21 ACUTE POSTRAUMATIC HEADACHE 07/22/2013 MARANDA SENIOR COMPUTER SPECIALIST, TELMA L 850.9 CONCUSSION UNSPECIFIED 07/22/2013 MARANDA SENIOR COMPUTER SPECIALIST, TELMA L 339.21 ACUTE POSTRAUMATIC HEADACHE 07/22/2013 MARANDA SENIOR COMPUTER SPECIALIST, TELMA L 850.9 CONCUSSION UNSPECIFIED 07/22/2013 TAWANDA BURKS APRN T 339.21 ACUTE POSTRAUMATIC HEADACHE 07/22/2013 TAWANDA BURKS APRN T 850.9 CONCUSSION UNSPECIFIED 07/22/2013 TAWANDA BURKS APRN T 339.21 ACUTE POSTRAUMATIC HEADACHE 07/22/2013 TAWANDA BURKS APRN T 850.9 CONCUSSION UNSPECIFIED 07/22/2013 AMANUEL HERRING APRN R 339.21 ACUTE POSTRAUMATIC HEADACHE 07/22/2013 AMANUEL HERRING APRN R 850.9 CONCUSSION UNSPECIFIED 07/22/2013 TAWANDA BURKS APRN 339.21 ACUTE POSTRAUMATIC HEADACHE 07/22/2013 TAWANDA BURKS APRN T 850.9 CONCUSSION UNSPECIFIED 07/22/2013 AMANUEL HERRING APRN R 339.21 ACUTE POSTRAUMATIC HEADACHE 07/22/2013 GAEL HERRING APRNRICIA R 850.9 CONCUSSION UNSPECIFIED 07/22/2013 OCAMPO DO, SUDARSHAN K 339.21 ACUTE POSTRAUMATIC HEADACHE 07/22/2013 OCAMPO DO, SUDARSHAN K 850.9 CONCUSSION UNSPECIFIED 07/22/2013 AP CHEW MD 339.21 ACUTE POSTRAUMATIC HEADACHE 07/22/2013 AP CHEW MD 850.9 CONCUSSION UNSPECIFIED 07/22/2013 TAWANDA BURKS APRN T 339.21 ACUTE POSTRAUMATIC HEADACHE 07/22/2013 TAWANDA BURKS APRN T 850.9 CONCUSSION UNSPECIFIED 07/22/2013 MEENAKSHI HERRING APRNIA R 339.21 ACUTE POSTRAUMATIC HEADACHE 07/22/2013 GAEL HERRING APRNRICIA R 850.9 CONCUSSION UNSPECIFIED 07/22/2013 TAWANDA BURKS APRN T 339.21 ACUTE POSTRAUMATIC HEADACHE 07/22/2013 TAWANDA BURKS APRN 850.9 CONCUSSION UNSPECIFIED 07/31/2013 TELMA LOW APRN L 462 ACUTE PHARYNGITIS 07/31/2013 VITALIY SENIOR COMPUTER SPECIALIST, TAWANDA T 462 ACUTE PHARYNGITIS 07/31/2013 TAWANDA BURKS APRN T 462 ACUTE PHARYNGITIS 07/31/2013 AMANUEL HERRING APRN R 462 ACUTE PHARYNGITIS 07/31/2013 TAWANDA BURKS APRN 462 ACUTE PHARYNGITIS 07/31/2013 AMANUEL HERRING APRN R 462 ACUTE PHARYNGITIS 07/31/2013 SUDARSHAN OCAMPO DO K 462 ACUTE PHARYNGITIS 07/31/2013 AP CHEW MD 46Helen ACUTE PHARYNGITIS 07/31/2013 TAWANDA BURKS APRN 462 ACUTE PHARYNGITIS 07/31/2013 AMANUEL HERRING APRN R 462 ACUTE PHARYNGITIS 07/31/2013 TAWANDA BURKS APRN 462 ACUTE PHARYNGITIS 07/31/2013 JUANA BUCHANAN Ot 112.0 THRUSH 07/31/2013 JUANA BUCHANAN Ot 462 ACUTE PHARYNGITIS 08/07/2013 TAWANDA BURKS APRN 112.0 THRUSH (ORAL) 08/07/2013 TAWANDA BURKS APRN 112.0 THRUSH (ORAL) 08/07/2013 AMANUEL HERRING APRN R 112.0 THRUSH (ORAL) 08/07/2013 TAWANDA BURKS APRN 112.0 THRUSH (ORAL) 08/07/2013 AMANUEL HERRING APRN R 112.0 THRUSH (ORAL) 08/07/2013 SUDARSHAN OCAMPO DO K 112.0 THRUSH (ORAL) 08/07/2013 AP CHEW MD 112.0 THRUSH (ORAL) 08/07/2013 TAWANDA BURKS APRN 112.0 THRUSH (ORAL) 08/07/2013 AMANUEL HERRING APRN R 112.0 THRUSH (ORAL) 08/07/2013 TAWANDA BURKS APRN 112.0 THRUSH (ORAL) 09/12/2013 AMANUEL HERRING APRN R 787.91 DIARRHEA 09/12/2013 TAWANDA BURKS APRN 787.91 DIARRHEA 09/12/2013 AMANUEL HERRING APRN R 787.91 DIARRHEA 09/12/2013 SUDARSHAN OCAMPO DO K 787.91 DIARRHEA 09/12/2013 AP CHEW MD 787.91 DIARRHEA 09/12/2013 TAWANDA BURKS APRN 787.91 DIARRHEA 09/12/2013 AMANUEL HERRING APRN R 787.91 DIARRHEA 09/12/2013 TAWANDA BURKS APRN 787.91 DIARRHEA 11/21/2013 AMANUEL HERRING APRN R 300.00 ANXIETY UNSPEC 11/21/2013 SUDARSHAN OCAMPO DO K 300.00 ANXIETY UNSPEC 11/21/2013 AP CHEW MD 300.00 ANXIETY UNSPEC 11/21/2013 TAWANDA BURKS APRN 300.00 ANXIETY UNSPEC 11/21/2013 AMANUEL HERRING APRN 300.00 ANXIETY UNSPEC 11/21/2013 TAWANDA BURKS APRN 300.00 ANXIETY UNSPEC 11/27/2013 SUDARSHAN OCAMPO DO K 535.50 UNSPECIFIED GASTRITIS AND GASTRODUODENITIS (WITHOUT HEMORRHAGE) 11/27/2013 SUDARSHAN OCAMPO DO K 558.9 OTHER AND UNSPECIFIED NONINFECTIOUS GASTROENTERITIS AND COLITIS 11/27/2013 AP CHEW MD 535.50 UNSPECIFIED GASTRITIS AND GASTRODUODENITIS (WITHOUT HEMORRHAGE) 11/27/2013 AP CHEW MD 558.9 OTHER AND UNSPECIFIED NONINFECTIOUS GASTROENTERITIS AND COLITIS 11/27/2013 TAWANDA BURKS APRN 535.50 UNSPECIFIED GASTRITIS AND GASTRODUODENITIS (WITHOUT HEMORRHAGE) 11/27/2013 TAWANDA BURKS APRN 558.9 OTHER AND UNSPECIFIED NONINFECTIOUS GASTROENTERITIS AND COLITIS 11/27/2013 AMANUEL HERRING APRN 535.50 UNSPECIFIED GASTRITIS AND GASTRODUODENITIS (WITHOUT HEMORRHAGE) 11/27/2013 AMANUEL HERRING APRN 558.9 OTHER AND UNSPECIFIED NONINFECTIOUS GASTROENTERITIS AND COLITIS 11/27/2013 TAWANDA BURKS APRN 535.50 UNSPECIFIED GASTRITIS AND GASTRODUODENITIS (WITHOUT HEMORRHAGE) 11/27/2013 TAWANDA BURKS APRN 558.9 OTHER AND UNSPECIFIED NONINFECTIOUS GASTROENTERITIS AND COLITIS 12/03/2013 AP CHEW MD 924.9 BRUISE/CONTUSION UNSPECIFIED SITE 12/03/2013 TAWANDA BURKS APRN 924.9 BRUISE/CONTUSION UNSPECIFIED SITE 12/03/2013 AMANUEL HERRING APRN 924.9 BRUISE/CONTUSION UNSPECIFIED SITE 12/03/2013 TAWANDA BURKS APRN 924.9 BRUISE/CONTUSION UNSPECIFIED SITE 12/06/2013 NAINA PETER, AP 924.9 CONTUSION OF UNSPECIFIED SITE 12/06/2013 TAWANDA BURKS APRN 924.9 CONTUSION OF UNSPECIFIED SITE 12/06/2013 AMANUEL HERRING APRN R 924.9 CONTUSION OF UNSPECIFIED SITE 12/06/2013 TAWANDA BURKS APRN 924.9 CONTUSION OF UNSPECIFIED SITE 01/15/2014 TAWANDA BURKS APRN T 724.5 BACK PAIN, GENERAL 01/15/2014 TAWANDA BURKS APRN T 786.50 CHEST PAIN 01/15/2014 AMANUEL HERRING APRN R 724.5 BACK PAIN, GENERAL 01/15/2014 MEENAKSHI HERRING APRNIA R 786.50 CHEST PAIN 01/15/2014 TAWANDA BURKS APRN T 724.5 BACK PAIN, GENERAL 01/15/2014 TAWANDA BURKS APRN T 786.50 CHEST PAIN 01/21/2014 VICKIE PETER, MARS A Ot 786.52 PAINFUL RESPIRATION 03/19/2014 AMANUEL HERRING APRN R 388.70 OTALGIA UNSPECIFIED 03/19/2014 MEENAKSHI HERRING APRNIA R 525.9 TOOTH PAIN 03/19/2014 MEENAKSHI HERRING APRNIA R 780.52 INSOMNIA UNSPECIFIED 03/19/2014 TAWANDA BURKS APRN T 388.70 OTALGIA UNSPECIFIED 03/19/2014 TAWANDA BURKS APRN T 525.9 TOOTH PAIN 03/19/2014 TAWANDA BURKS APRN T 780.52 INSOMNIA UNSPECIFIED 07/29/2014 JUANA BUCHANAN Ot 521.00 UNSPEC DENTAL CARIES 07/29/2014 JUANA BUCHANAN Ot 522.5 PERIAPICAL ABSCESS 07/29/2014 JUANA BUCHANAN Ot 525.9 DENTAL DISORDER NOS 03/08/2015 Ot N20.0 CALCULUS OF KIDNEY 03/08/2015 Ot R10.84 GENERALIZED ABDOMINAL PAIN 06/06/2015 NADYA PETER, NICOLE Mahajan Ot R00.0 TACHYCARDIA, UNSPECIFIED 06/06/2015 NADYA PETER, NICOLE Mahajan Ot R07.89 OTHER CHEST PAIN 07/07/2015 JUANA BUCHANAN Ot K08.8 OTHER SPECIFIED DISORDERS OF TEETH AND S 07/07/2015 JUANA BUCHANAN Ot 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 07/08/2015 JUANA BUCHANAN Ot K08.8 OTHER SPECIFIED DISORDERS OF TEETH AND S 07/08/2015 JUANA BUCHANAN Ot 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 07/08/2015 JUANA BUCHANAN Ot K08.8 OTHER SPECIFIED DISORDERS OF TEETH AND S 07/08/2015 JUANA BUCHANAN Ot 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 07/07/2016 HARJEET LIRIANO MD Ot J06.9 ACUTE UPPER RESPIRATORY INFECTION, UNSPE 07/07/2016 HARJEET LIRIANO MD Ot R05 COUGH 07/08/2016 HARJEET LIRIANO MD Ot J06.9 ACUTE UPPER RESPIRATORY INFECTION, UNSPE 07/08/2016 HARJEET LIRIANO MD Ot R05 COUGH 07/09/2016 HARJEET LIRIANO MD Ot J06.9 ACUTE UPPER RESPIRATORY INFECTION, UNSPE 07/09/2016 HARJEET LIRIANO MD Ot R05 COUGH 07/12/2016 HARJEET LIRIANO MD Ot J06.9 ACUTE UPPER RESPIRATORY INFECTION, UNSPE 07/12/2016 HARJEET LIRIANO MD Ot R05 COUGH Procedures Code Description Performed By Performed On RAKESH ANDRE 04/05/2012 [id number] ROUTINE VENIPUNCTURE 10/31/2012 21261 A1C (IN-HOUSE) 10/31/2012 93435 CBC 10/31/2012 43838 CMP 10/31/2012 [id number] GFR CALC (RESULT ONLY) 10/31/2012 99204 TSH 10/31/2012 41301 EKG, TRACING 12/13/2012 PHYSICAL PHYSICAL THERAPY, VIA [facility] 2013 98377 STREP A (IN-HOUSE) 01/25/2013 37583 ROUTINE VENIPUNCTURE 01/29/2013 68421 TSH 01/29/2013 81494 XRAY ANKLE R, 2 VIEWS 03/04/2013 94310 THERAPUTIC INJ SQ/IM 04/08/2013 J1885 TORADOL INJ 04/08/2013 2000F BLOOD PRESSURE CHECK 06/26/2013 21854 ROUTINE VENIPUNCTURE 10/02/2013 09411 TSH 10/02/2013 77432 URINE DRUG SCREEN (IN-HOUSE ) 10/02/2013 92099 CBC 10/02/2013 [id number] GFR CALC (RESULT ONLY) 10/02/2013 25291 CMP 10/02/2013 Results There is no data. Encounters ACCT No. Visit Date/Time Discharge Status Pt. Type Provider Facility Loc./Unit Complaint [id number] 04/21/2014 15:21:00 04/21/2014 23:59:59 CLS Outpatient TAWANDA BURKS APRN [id number] 03/19/2014 13:41:00 03/19/2014 23:59:59 CLS Outpatient AMANUEL HERRING APRN [id number] 01/15/2014 09:46:00 01/15/2014 23:59:59 CLS Outpatient TAWANDA BURKS APRN [id number] 12/06/2013 15:05:00 12/06/2013 23:59:59 CLS Outpatient AP CHEW MD [id number] 11/27/2013 09:07:00 11/27/2013 23:59:59 CLS Outpatient SUDARSHAN OCAMPO DO [id number] 11/21/2013 15:33:00 11/21/2013 23:59:59 CLS Outpatient AMANUEL HERRING APRN [id number] 10/02/2013 13:31:00 10/02/2013 23:59:59 CLS Outpatient TAWANDA BURKS APRN [id number] 09/12/2013 12:31:00 09/12/2013 23:59:59 CLS Outpatient AMANEUL HERRING APRN [id number] 09/02/2013 15:07:00 09/02/2013 23:59:59 CLS Outpatient TAWANDA BURKS APRN [id number] 08/07/2013 11:10:00 08/07/2013 23:59:59 CLS Outpatient TAWANDA BURKS APRN [id number] 07/31/2013 08:46:00 07/31/2013 23:59:59 CLS Outpatient TELMA LOW APRN [id number] 07/22/2013 08:30:00 07/22/2013 23:59:59 CLS Outpatient TELMA LOW APRN [id number] 06/26/2013 15:58:00 06/26/2013 23:59:59 CLS Outpatient SUDARSHAN OCAMPO DO [id number] 06/14/2013 08:06:00 06/14/2013 23:59:59 CLS Outpatient TAWANDA BURKS APRN [id number] 05/15/2013 12:35:00 05/15/2013 23:59:59 CLS Outpatient AMANUEL HERRING APRN [place] [id number] 05/10/2013 10:40:00 05/10/2013 23:59:59 CLS Outpatient TAWANDA BURKS APRN [id number] 04/08/2013 16:16:00 04/08/2013 23:59:59 CLS Outpatient TAWANDA BURKS APRN [id number] 03/04/2013 11:37:00 03/04/2013 23:59:59 CLS Outpatient TAWANDA BURKS APRN [id number] 02/15/2013 08:35:00 02/15/2013 23:59:59 CLS Outpatient TAWANDA BURKS APRN [id number] 02/05/2013 14:16:00 02/05/2013 23:59:59 CLS Outpatient TAWANDA BURKS APRN [id number] 01/29/2013 13:30:00 01/29/2013 23:59:59 CLS Outpatient TAWANDA BURKS APRN [id number] 01/25/2013 12:01:00 01/25/2013 23:59:59 CLS Outpatient AAMNUEL HERRING APRN [place] [id number] 2013 12:45:00 2013 23:59:59 CLS Outpatient TAWANDA BURKS APRN [id number] 12/26/2012 11:58:00 12/26/2012 23:59:59 CLS Outpatient GAEL HERRING APRNEMMETT [place] [id number] 12/13/2012 11:25:00 12/13/2012 23:59:59 CLS Outpatient SUDARSHAN OCAMPO DO [id number] 12/05/2012 07:55:00 12/05/2012 23:59:59 CLS Outpatient SUDARSHAN OCAMPO DO [id number] 04/05/2012 08:47:00 04/05/2012 23:59:59 CLS Outpatient SUDARSHAN OCAMPO DO [id number] 02/01/2012 13:17:00 02/01/2012 23:59:59 CLS Outpatient [id number] 05/11/2009 08:51:00 05/11/2009 23:59:59 CLS Outpatient AP CHEW MD [id number] 11/23/2012 12:11:00 Document Registration [id number] 10/31/2012 11:14:00 Document Registration [id number] 08/29/2012 13:19:00 Document Registration [id number] 07/07/2016 06:52:00 07/07/2016 07:46:00 DIS Emergency HARJEET LIRIANO MD [facility] ER COUGH [id number] 07/06/2015 20:29:00 07/07/2015 02:04:00 DIS Emergency JUANA BUCHANAN [facility] ER TEETH PULLED/BLEEDING [id number] 06/06/2015 13:27:00 06/06/2015 15:10:00 DIS Emergency NICOLE COVINGTON MD [facility] ER CP [id number] 07/29/2014 19:06:00 07/29/2014 20:04:00 DIS Emergency JUANA BUCHANAN [facility] ER DENTAL PAIN [id number] 01/21/2014 20:29:00 01/21/2014 21:11:00 DIS Emergency MARS JOHNSTON MD [facility] ER CHEST PAIN [id number] 07/31/2013 17:49:00 07/31/2013 20:14:00 DIS Emergency JUANA BUCHANAN [facility] ER SORE THROAT [id number] 04/10/2013 14:08:00 04/10/2013 23:59:59 CLS Outpatient [id number] 02/03/2013 18:39:00 02/03/2013 21:15:00 DIS Emergency KAYLEN GATES APRN [facility] ER MIGRAINE, CONGESTION [id number] 11/01/2012 01:04:00 11/01/2012 02:35:00 DIS Emergency HARJEET LIRIANO MD [facility] ER BLOOD IN URINE [id number] 09/05/2012 23:32:00 09/06/2012 02:00:00 DIS Emergency NICOLE COVINGTON MD [facility] ER OVER HEATED [id number] 08/30/2012 02:53:00 08/30/2012 03:54:00 DIS Emergency ARMIN CHAIDEZ DO [facility] ER NAUSEA,OVERALL PAIN [id number] 08/29/2012 08:42:00 08/29/2012 11:17:00 DIS Emergency NICOLE COVINGTON MD [facility] ER NAUSEATED/ACHEY [id number] 03/08/2015 07:24:00 Document Registration [id number] 04/03/2012 22:40:00 Document Registration [id number] 02/20/2011 23:59:00 Document Registration [id number] 09/01/2009 09:08:00 Document Registration
--- NOTE | 2017-05-05 14:14 | ED Chest Pain ---
General Chief Complaint: Chest Wall/Rib Pain Stated Complaint: CHEST DISCOMFORT,SIDE PAIN History of Present Illness Date Seen by Provider: May 05, 2017 Time Seen by Provider: 14:09 Initial Comments Patient is a 27-year-old male who presented to the emergency room with chest pain that is sharp and worsens with deep breathing, nausea, vomiting that started at 5:00 this morning. Patient reports mild shortness of breath and increased pain when he takes a deep breath. The pain is reproducible with pressure applied to the chest area. No palpitations or diaphoresis or lightheadedness. Denies any drug use. Timing/Duration: 4-6 hours Severity/Quality: mild Location: substernal Radiation: no radiation ( progress or 1 positive for criteria were) Activities at Onset: none, activity Allergies and Home Medications Allergies Coded Allergies: No Known Drug Allergies (Unverified , 11/09/08) Home Medications Cephalexin 500 Mg Capsule, 500 MG PO TID Prescribed by: JUANA LOCKWOOD on 07/07/15 0144 Review of Systems Constitutional: see HPI, dizziness EENTM: No Symptoms Reported, See HPI Respiratory: No Symptoms Reported, See HPI Cardiovascular: Chest Pain (review), Lightheadedness Gastrointestinal: See HPI, Abdominal Pain (upper abdominal pain that radiates his sides bilaterally), Nausea, Vomiting Genitourinary: No Symptoms Reported, See HPI Musculoskeletal: no symptoms reported, see HPI Skin: no symptoms reported, see HPI Psychiatric/Neurological: No Symptoms Reported, See HPI Endocrine: No Symptoms Reported, See HPI Hematologic/Lymphatic: No Symptoms Reported, See HPI Past Nlmsruf-Ymvjhm-Wxgjay Hx Patient Social History Recent Foreign Travel: No Contact w/Someone Who Travel: No Recent Hopitalizations: No Immunizations Up To Date Date of Pneumonia Vaccine: Aug 29, 2012 Date of Influenza Vaccine: Dec 11, 2012 Seasonal Allergies Seasonal Allergies: No Respiratory Respiratory Disorders: Asthma Cardiovascular Cardiac Disorders: Angina Neurological Neurological Disorders: Headaches /Migraines Reproductive System Hx Reproductive Disorders: No Sexually Transmitted Disease: No Genitourinary Genitourinary Disorders: Kidney Stones Musculoskeletal Musculoskeletal Disorders: Scoliosis Family Medical History Significant Family History: Heart Disease, Cancer, Hypertension Physical Exam Vital Signs Vital Signs - First Documented 05/05/17 14:01 Temp 98.0 Pulse 123 Resp 18 B/P (MAP) 171/86 (114) Pulse Ox 99 Capillary Refill : General Appearance: No Apparent Distress, WD/WN, Thin HEENT: PERRL/EOMI, TMs Normal, Normal ENT Inspection, Pharynx Normal, Moist Mucous Membranes Neck: Full Range of Motion, Normal Inspection, Non Tender, Supple Respiratory: No Chest Non Tender (chest is tender on deep palpation), Lungs Clear, Normal Breath Sounds, No Accessory Muscle Use, No Respiratory Distress Cardiovascular: Regular Rate, Rhythm, No Edema, No Gallop, No JVD, No Murmur, Normal Peripheral Pulses Gastrointestinal: Normal Bowel Sounds, No Organomegaly, No Pulsatile Mass, Non Tender, Soft Extremity: Normal Capillary Refill Neurologic/Psychiatric: Alert, Oriented x3, Normal Mood/Affect Skin: Normal Color, Warm/Dry Lymphatic: No Adenopathy Progress/Results/Core Measures Results/Orders Lab Results Laboratory Tests Test 05/05/17 14:11 05/05/17 14:30 Range/Units White Blood Count 11.7 H 4.3-11.0 10^3/uL Red Blood Count 5.99 H 4.35-5.85 10^6/uL Hemoglobin 16.6 13.3-17.7 G/DL Hematocrit 48 40-54 % Mean Corpuscular Volume 81 80-99 FL Mean Corpuscular Hemoglobin 28 25-34 PG Mean Corpuscular Hemoglobin Concent 34 32-36 G/DL Red Cell Distribution Width 13.2 10.0-14.5 % Platelet Count 237 130-400 10^3/uL Mean Platelet Volume 9.8 7.4-10.4 FL Neutrophils (%) (Auto) 87 H 42-75 % Lymphocytes (%) (Auto) 3 L 12-44 % Monocytes (%) (Auto) 9 0-12 % Eosinophils (%) (Auto) 1 0-10 % Basophils (%) (Auto) 0 0-10 % Neutrophils # (Auto) 10.2 H 1.8-7.8 X 10^3 Lymphocytes # (Auto) 0.3 L 1.0-4.0 X 10^3 Monocytes # (Auto) 1.1 H 0.0-1.0 X 10^3 Eosinophils # (Auto) 0.1 0.0-0.3 10^3/uL Basophils # (Auto) 0.0 0.0-0.1 10^3/uL Neutrophils % (Manual) 85 % Lymphocytes % (Manual) 5 % Monocytes % (Manual) 10 % Blood Morphology Comment NORMAL D-Dimer < 0.27 0.00-0.49 UG/ML Sodium Level 136 135-145 MMOL/L Potassium Level 4.3 3.6-5.0 MMOL/L Chloride Level 102 98-107 MMOL/L Carbon Dioxide Level 24 21-32 MMOL/L Anion Gap 10 5-14 MMOL/L Blood Urea Nitrogen 16 7-18 MG/DL Creatinine 0.75 0.60-1.30 MG/DL Estimat Glomerular Filtration Rate > 60 BUN/Creatinine Ratio 21 Glucose Level 96 70-105 MG/DL Calcium Level 9.5 8.5-10.1 MG/DL Total Bilirubin 1.0 0.1-1.0 MG/DL Aspartate Amino Transf (AST/SGOT) 22 5-34 U/L Alanine Aminotransferase (ALT/SGPT) 22 0-55 U/L Alkaline Phosphatase 91 40-136 U/L Troponin I < 0.30 <0.30 NG/ML Total Protein 7.6 6.4-8.2 GM/DL Albumin 4.6 H 3.2-4.5 GM/DL Urine Color YELLOW Urine Clarity CLEAR Urine pH 5 5-9 Urine Specific [place] 1.020 1.016-1.022 Urine Protein 1+ H NEGATIVE Urine Glucose (UA) NEGATIVE NEGATIVE Urine Ketones 2+ H NEGATIVE Urine Nitrite NEGATIVE NEGATIVE Urine Bilirubin NEGATIVE NEGATIVE Urine Urobilinogen NORMAL NORMAL MG/DL Urine Leukocyte Esterase NEGATIVE NEGATIVE Urine RBC (Auto) 2+ H NEGATIVE Urine RBC 5-10 H /HPF Urine WBC NONE /HPF Urine Squamous Epithelial Cells 0-2 /HPF Urine Crystals NONE /LPF Urine Bacteria NEGATIVE /HPF Urine Casts NONE /LPF Urine Mucus MODERATE H /LPF Urine Culture Indicated NO Urine Opiates Screen NEGATIVE NEGATIVE Urine Oxycodone Screen NEGATIVE NEGATIVE Urine Methadone Screen NEGATIVE NEGATIVE Urine Propoxyphene Screen NEGATIVE NEGATIVE Urine Barbiturates Screen NEGATIVE NEGATIVE Ur Tricyclic Antidepressants Screen NEGATIVE NEGATIVE Urine Phencyclidine Screen NEGATIVE NEGATIVE Urine Amphetamines Screen NEGATIVE NEGATIVE Urine Methamphetamines Screen NEGATIVE NEGATIVE Urine Benzodiazepines Screen NEGATIVE NEGATIVE Urine Cocaine Screen NEGATIVE NEGATIVE Urine Cannabinoids Screen NEGATIVE NEGATIVE My Orders Orders - KAYLEN GATES 411 DIRECTORY ASSISTANCE OPERATOR Cbc With Automated Diff (05/05/17 14:06) Comprehensive Metabolic Panel (05/05/17 14:06) Chest Pa/Lat (2 View) (05/05/17 14:06) Ua Culture If Indicated (05/05/17 14:06) Drug Screen Stat (Urine) (05/05/17 14:06) Ekg Tracing (05/05/17 14:06) Fibrin Degradation Products (05/05/17 14:06) Manual Differential (05/05/17 14:11) Ns Iv 1000 Ml (Sodium Chloride 0.9%) (05/05/17 14:30) Troponin I (05/05/17 14:21) Vital Signs/I&O Vital Sign - Last 12Hours 05/05/17 14:01 Temp 98.0 Pulse 123 Resp 18 B/P (MAP) 171/86 (114) Pulse Ox 99 Progress Note : Time: 14:11 Progress Note Patient has a positive PERC criteria that we will rule out with a d dimer. ECG Initial ECG Impression Date: May 05, 2017 Initial ECG Impression Time: 14:14 Initial ECG Rate: 113 Initial ECG Rhythm: S.Tach Initial ECG Intervals: Normal Initial ECG Impression: Normal, Nonspecific Changes (patient's EKG showed ST elevation probable normal early repolarization pattern. Patient is tachycardic. EKG is comparable to previous EKGs and Dr. Giles agrees.) Departure Impression Impression: Primary Impression: Viral illness Additional Impressions: Tachycardia Hypertension Disposition: HOME, SELF-CARE Condition: Improved Departure-Patient Inst. Decision time for Depature: 15:01 Referrals: [facility] (PCP/Family) Primary Care Physician UROLOGY DR NIELSON Patient Instructions: VIRAL RESP ILLNESS-ADULT Add. Discharge Instructions: Follow-up with [facility] within 1 week to evaluate viral illness and manage tachycardia and hypertension. Call for appointment time Monday morning. Return back to the emergency room for worsening symptoms, increased chest pain. You need to make an appointment with urology to discuss and evaluate the chronic hematuria. Call Dr. Barfield for an appointment time next week. All discharge instructions reviewed with patient and/or family. Voiced understanding. Dr. Barfield's office number is [phone]. Scripts Atenolol (Atenolol) 25 Mg Tablet 25 MG PO DAILY for 30 Days, #30 TAB Prov: KAYLEN GATES Hellen MCLAUGHLIN 05/05/17 Work/School Note: Work Release Form Date Seen in the Emergency Department: May 05, 2017 Return to Work: May 05, 2017 Restrictions: No Restrictions Other Restrictions Listed Below: Please excuse from work today and tomorrow , he may to work on May 07. Restrictions: No restrictions. KAYLEN GATES APRN May 05, 2017 14:14
[2017-05-05 14:17] LABS: BASOPHILS % (AUTO) 0 % (0-10); EOSINOPHILS # (AUTO) 0.1 10^3/uL (0.0-0.3); EOSINOPHILS % (AUTO) 1 % (0-10); HEMATOCRIT 48 % (40-54); HEMOGLOBIN 16.6 G/DL (13.3-17.7); LYMPHOCYTES # (AUTO) 0.3 X 10^3 (1.0-4.0); LYMPHOCYTES % (AUTO) 3 % (12-44); MEAN CORPUSCULAR HEMOGLOBIN 28 PG (25-34); MEAN CORPUSCULAR HGB CONC 34 G/DL (32-36); MEAN CORPUSCULAR VOLUME 81 FL (80-99); MEAN PLATELET VOLUME 9.8 FL (7.4-10.4); MONOCYTES # (AUTO) 1.1 X 10^3 (0.0-1.0); MONOCYTES % (AUTO) 9 % (0-12); NEUTROPHILS # (AUTO) 10.2 X 10^3 (1.8-7.8); NEUTROPHILS % (AUTO) 87 % (42-75); PLATELET COUNT 237 10^3/uL (130-400); RED BLOOD COUNT 5.99 10^6/uL (4.35-5.85); RED CELL DISTRIBUTION WIDTH 13.2 % (10.0-14.5); WHITE BLOOD COUNT 11.7 10^3/uL (4.3-11.0)
[2017-05-05] MEDS ORDERED: NS IV 1000 ML 1,000 ML IV SCH (14:30)
--- NOTE | 2017-05-05 14:31 | Diagnostic Imaging Report ---
Indication: Chest pain and rib pain. Time of exam: 2:43 PM Correlation is made with prior study from . Findings: The heart size is normal. No pulmonary infiltrate or parenchymal contusion is seen. No effusion or pneumothorax is identified. The bony structures appear intact. Impression: No acute abnormality is identified. Dictated by: Dictated on workstation # [id number]
[2017-05-05 14:37] LABS: ALANINE AMINOTRANSFERASE 22 U/L (0-55); ALBUMIN 4.6 GM/DL (3.2-4.5); ALKALINE PHOSPHATASE 91 U/L (40-136); BUN/CREATININE RATIO 21; CALCIUM 9.5 MG/DL (8.5-10.1); CARBON DIOXIDE 24 MMOL/L (21-32); CHLORIDE 102 MMOL/L (98-107); CREATININE SERUM 0.75 MG/DL (0.60-1.30); GFR ESTIMATED > 60; GLUCOSE 96 MG/DL (70-105); POTASSIUM 4.3 MMOL/L (3.6-5.0); SODIUM 136 MMOL/L (135-145); TOTAL PROTEIN 7.6 GM/DL (6.4-8.2)
[2017-05-05 14:39] LABS: BILIRUBIN,URINE NEGATIVE (NEGATIVE); CLARITY,URINE CLEAR; COLOR,URINE YELLOW; GLUCOSE, URINE (UA) NEGATIVE (NEGATIVE); KETONES,URINE 2+ (NEGATIVE); LEUKOCYTE ESTERASE ,URINE NEGATIVE (NEGATIVE); NITRITE,URINE NEGATIVE (NEGATIVE); PH,URINE 5 (5-9); PROTEIN,URINE 1+ (NEGATIVE); UROBILINOGEN,URINE NORMAL (NORMAL)
[2017-05-05 14:40] LABS: LYMPHOCYTES % (MANUAL) 5 %; MONOCYTES % (MANUAL) 10 %; NEUTROPHILS % (MANUAL) 85 %; RBC MORPH NORMAL
[2017-05-05 14:45] LABS: BACTERIA,URINE NEGATIVE /HPF; SQUAMOUS EPITHELIAL CELL,UR 0-2 /HPF
[2017-05-05 14:51] LABS: AMPHETAMINE SCREEN, URINE NEGATIVE (NEGATIVE); BARBITURATE SCREEN URINE NEGATIVE (NEGATIVE); BENZODIAZEPINES SCREEN URINE NEGATIVE (NEGATIVE); CANNABINOID SCREEN, URINE NEGATIVE (NEGATIVE); COCAINE SCREEN URINE NEGATIVE (NEGATIVE); METHADONE STAT NEGATIVE (NEGATIVE); METHAMPHETAMINE SCREEN URINE S NEGATIVE (NEGATIVE); OPIATE SCREEN URINE NEGATIVE (NEGATIVE); OXYCODONE STAT NEGATIVE (NEGATIVE); PROPOXYPHENE STAT NEGATIVE (NEGATIVE); TRICYCLIC ANTIDEPRESSANTS SCRE NEGATIVE (NEGATIVE)
[2017-05-05] MEDS ORDERED: ATEN25TA PO (15:25)
[2017-05-05 15:37] VITALS: BP 147/100
== END 2017-05-05 15:37 | disposition home or self-care (01) ==
LOC: EDUNIT# 13:58 → ER 14:00
DX: B34.9 Viral infection, unspecified (principal); R00.0 Tachycardia, unspecified; I10 Essential (primary) hypertension; J45.909 Unspecified asthma, uncomplicated; G43.909 Migraine, unspecified, not intractable, without status migrainosus; Z87.442 Personal history of urinary calculi; Z82.49 Family history of ischemic heart disease and other diseases of the circulatory system
CPT/HCPCS: 36415; 71046; 80053; 80306; 81000; 84484; 85007; 85027; 85379; 93005; 96360

== ENCOUNTER 2017-06-21 00:18 | Emergency (ER) | payer SELFPAY ==
[~2017-06-21] VITALS: Ht 162.6 cm; Wt 53.5 kg
[~2017-06-21 00:18] MED LIST changes: +ATEN25TA PO
[2017-06-21] MEDS ORDERED: fentaNYL INJECTION 100 MCG/2 ML AMP ONE (00:42)
[2017-06-21] MEDS ORDERED: LACTATED RINGERS 1,000 ML IV ONE ×2 (00:42→02:10)
[2017-06-21] MEDS ORDERED: ONDANSETRON 4 MG (ZOFRAN) ORAL DISSOLVE TAB ONE (00:42)
[2017-06-21] MEDS ORDERED: ONDANSETRON 4 MG (ZOFRAN) ORAL DISSOLVE TAB PO ONE (02:15)
[2017-06-21] MEDS ORDERED: fentaNYL INJECTION 100 MCG/2 ML AMP IVP ONE (02:15)
--- NOTE | 2017-06-21 02:18 | ED Abdominal Pain ---
General Chief Complaint: Abdominal/GI Problems Stated Complaint: ABD PAIN Source of Information: Patient Exam Limitations: No Limitations History of Present Illness Date Seen by Provider: Jun 21, 2017 Time Seen by Provider: 00:25 Initial Comments The patient presents to ER by private conveyance with a chief complaint he's had for the past 2 hours pain in his right lower quadrant that is radiating down into his right inguinal region and woke him from sleep tonight.. He is having nausea with vomiting 3 now liquid without any blood in it. He's had no diarrhea or constipation. He had a bowel movement earlier yesterday morning. He says that he drinks alcohol 2-3 drinks every few weeks. His last drink was last night about 1700 he had 3 drinks of whiskey. He says he has a history of hematuria which he has been referred to a urologist but has not seen them yet and is planning to do that soon when he stays up enough money. He has no dysuria , fevers or chills, shortness of breath or cough. He's had no intra-abdominal surgery. He only takes atenolol regularly for a history of high blood pressure and tachycardia. Review of previous records demonstrates that he does have a history of kidney stones. Allergies and Home Medications Allergies Coded Allergies: No Known Drug Allergies (Unverified , 11/09/08) Home Medications Atenolol 25 Mg Tablet, 25 MG PO DAILY Prescribed by: KAYLEN GATES on 05/05/17 1525 Cephalexin 500 Mg Capsule, 500 MG PO TID Prescribed by: JUANA LOCKWOOD on 07/07/15 0144 Patient Home Medication List Home Medication List Reviewed: Yes Review of Systems Constitutional: No chills, No fever; malaise EENTM: No Blurred Vision, No Double Vision Respiratory: Denies Cough, Denies Orthopnea Cardiovascular: Denies Chest Pain, Denies Irregular Heart Rate, Denies Lightheadedness, Denies Palpitations, Denies Syncope Gastrointestinal: See HPI; Denies Abdomen Distended; Abdominal Pain; Denies Constipated, Denies Diarrhea; Nausea; Denies Poor Appetite, Denies Poor Fluid Intake, Denies Rectal Bleeding; Vomiting Genitourinary: Denies Burning, Denies Discharge, Denies Drainage Musculoskeletal: No back pain, No joint pain Skin: No pruritus, No rash Psychiatric/Neurological: Denies Headache, Denies Numbness, Denies Paresthesia Past Xcoexoe-[id number]-Clxalq Hx Patient Social History Alcohol Use: Occasionally Uses Alcohol Beverage of Choice: Whiskey Recreational Drug Use: No Smoking Status: Former Smoker Type Used: Cigarettes Former Smoker, Quit: Jun 25, 2014 Recent Foreign Travel: No Contact w/Someone Who Travel: No Recent Hopitalizations: No Immunizations Up To Date Date of Pneumonia Vaccine: Aug 29, 2012 Date of Influenza Vaccine: Dec 11, 2012 Seasonal Allergies Seasonal Allergies: No Past Medical History Surgeries: Yes (cyst removal from L arm, teeth pulled) Respiratory: Yes Asthma Cardiac: Yes Angina Neurological: Yes Headaches /Migraines Reproductive Disorders: No Sexually Transmitted Disease: No Kidney Stones Gastrointestinal: No Musculoskeletal: Yes Scoliosis Endocrine: Yes (HYPOGLYCEMIA) Cancer: No Psychosocial: No Integumentary: No Blood Disorders: No Family Medical History Heart Disease, Cancer, Hypertension Physical Exam Vital Signs Vital Signs - First Documented 06/21/17 02:08 Temp 98.7 Pulse 107 Resp 18 B/P (MAP) 153/114 (127) Pulse Ox 100 O2 Delivery Room Air Capillary Refill : General Appearance: WD/WN, mild distress HEENT: PERRL/EOMI, pharynx normal (oral mucosa is moist) Respiratory: chest non-tender, lungs clear, normal breath sounds, no respiratory distress, no accessory muscle use Cardiovascular: normal peripheral pulses, regular rate, rhythm, no edema Peripheral Pulses: 2+ Dorsalis Pedis (R), 2+ Left Dors-Pedis (L) Gastrointestinal: normal bowel sounds, soft, no organomegaly, guarding; No rebound; tenderness (right lower quadrant over McBurney's point), other ( negative for iliopsoas or mesenteric signs.) Extremities: normal range of motion, no pedal edema, no calf tenderness, normal capillary refill Back: normal inspection, no CVA tenderness Neurologic/Psychiatric: alert, normal mood/affect, oriented x 3 Skin: normal color, warm/dry Progress/Results/Core Measures Lab Results Laboratory Tests Test 06/21/17 00:48 06/21/17 01:07 Range/Units White Blood Count 12.4 H 4.3-11.0 10^3/uL Red Blood Count 6.06 H 4.35-5.85 10^6/uL Hemoglobin 16.8 13.3-17.7 G/DL Hematocrit 49 40-54 % Mean Corpuscular Volume 80 80-99 FL Mean Corpuscular Hemoglobin 28 25-34 PG Mean Corpuscular Hemoglobin Concent 35 32-36 G/DL Red Cell Distribution Width 13.2 10.0-14.5 % Platelet Count 256 130-400 10^3/uL Mean Platelet Volume 9.9 7.4-10.4 FL Neutrophils (%) (Auto) 71 42-75 % Lymphocytes (%) (Auto) 13 12-44 % Monocytes (%) (Auto) 13 H 0-12 % Eosinophils (%) (Auto) 2 0-10 % Basophils (%) (Auto) 0 0-10 % Neutrophils # (Auto) 8.7 H 1.8-7.8 X 10^3 Lymphocytes # (Auto) 1.7 1.0-4.0 X 10^3 Monocytes # (Auto) 1.7 H 0.0-1.0 X 10^3 Eosinophils # (Auto) 0.3 0.0-0.3 10^3/uL Basophils # (Auto) 0.0 0.0-0.1 10^3/uL Sodium Level 139 135-145 MMOL/L Potassium Level 3.9 3.6-5.0 MMOL/L Chloride Level 105 98-107 MMOL/L Carbon Dioxide Level 23 21-32 MMOL/L Anion Gap 11 5-14 MMOL/L Blood Urea Nitrogen 19 H 7-18 MG/DL Creatinine 1.29 0.60-1.30 MG/DL Estimat Glomerular Filtration Rate > 60 BUN/Creatinine Ratio 15 Glucose Level 102 70-105 MG/DL Calcium Level 9.8 8.5-10.1 MG/DL Total Bilirubin 0.5 0.1-1.0 MG/DL Aspartate Amino Transf (AST/SGOT) 18 5-34 U/L Alanine Aminotransferase (ALT/SGPT) 26 0-55 U/L Alkaline Phosphatase 86 40-136 U/L Total Protein 7.7 6.4-8.2 GM/DL Albumin 4.5 3.2-4.5 GM/DL Lipase 18 8-78 U/L Serum Alcohol 43 H <10 MG/DL Urine Color YELLOW Urine Clarity CLEAR Urine pH 5 5-9 Urine Specific [place] 1.025 H 1.016-1.022 Urine Protein 1+ H NEGATIVE Urine Glucose (UA) NEGATIVE NEGATIVE Urine Ketones NEGATIVE NEGATIVE Urine Nitrite NEGATIVE NEGATIVE Urine Bilirubin NEGATIVE NEGATIVE Urine Urobilinogen NORMAL NORMAL MG/DL Urine Leukocyte Esterase NEGATIVE NEGATIVE Urine RBC (Auto) 3+ H NEGATIVE Urine RBC 0-2 /HPF Urine WBC NONE /HPF Urine Squamous Epithelial Cells 2-5 /HPF Urine Crystals NONE /LPF Urine Bacteria NEGATIVE /HPF Urine Casts NONE /LPF Urine Mucus NEGATIVE /LPF Urine Culture Indicated NO Urine Opiates Screen NEGATIVE NEGATIVE Urine Oxycodone Screen NEGATIVE NEGATIVE Urine Methadone Screen NEGATIVE NEGATIVE Urine Propoxyphene Screen NEGATIVE NEGATIVE Urine Barbiturates Screen NEGATIVE NEGATIVE Ur Tricyclic Antidepressants Screen NEGATIVE NEGATIVE Urine Phencyclidine Screen NEGATIVE NEGATIVE Urine Amphetamines Screen NEGATIVE NEGATIVE Urine Methamphetamines Screen NEGATIVE NEGATIVE Urine Benzodiazepines Screen NEGATIVE NEGATIVE Urine Cocaine Screen NEGATIVE NEGATIVE Urine Cannabinoids Screen NEGATIVE NEGATIVE My Orders Orders - MAXIMUS LEWIS Cbc With Automated Diff (06/21/17 02:10) Comprehensive Metabolic Panel (06/21/17 02:10) Lipase (06/21/17 02:10) Ua Culture If Indicated (06/21/17 02:10) Alcohol (06/21/17 02:10) Drug Screen Stat (Urine) (06/21/17 02:10) Ct Abd/Pelv W (Appendicitis) (06/21/17 02:10) Saline Lock/Iv-Start (06/21/17 02:10) Lactated Ringers (Lr 1000 Ml Iv Solution (06/21/17 02:10) Ondansetron Oral Dissolve Tab (Zofran (06/21/17 02:15) Fentanyl Injection (Sublimaze Injection (06/21/17 02:15) Iohexol Injection (Omnipaque 350 Mg/Ml 1 (06/21/17 02:30) Ns (Ivpb) (Sodium Chloride 0.9%) (06/21/17 02:30) Ketorolac Injection (Toradol Injection) (06/21/17 02:30) Medications Given in ED Current Medications Medications Dose Ordered Sig/Johnathan Route Start Time Stop Time Status Last Admin Dose Admin Fentanyl Citrate 50 mcg ONCE ONCE IVP 06/21/17 02:15 06/21/17 02:16 DC 06/21/17 00:51 50 MCG Iohexol 100 ml ONCE ONCE IV 06/21/17 02:30 06/21/17 02:31 DC 06/21/17 02:19 100 ML Ketorolac Tromethamine 15 mg ONCE ONCE IVP 06/21/17 02:30 06/21/17 02:32 DC 06/21/17 02:39 15 MG Lactated Ringer's 1,000 ml @ 0 mls/hr Q0M ONCE IV 06/21/17 02:10 06/21/17 02:12 DC 06/21/17 00:51 1,000 MLS/HR Ondansetron HCl 4 mg ONCE ONCE PO 06/21/17 02:15 06/21/17 02:16 DC 06/21/17 00:51 4 MG Sodium Chloride 80 ml ONCE ONCE IV 06/21/17 02:30 06/21/17 02:31 DC 06/21/17 02:19 80 ML Vital Signs/I&O 06/21/17 02:08 Temp 98.7 Pulse 107 Resp 18 B/P (MAP) 153/114 (127) Pulse Ox 100 O2 Delivery Room Air Progress Note #1: Time: 02:18 Progress Note Mild leukocytosis and some alcohol on board. He's responded well to his pain and nausea medicine will go ahead and get a CT of the abdomen with contrast looking for appendicitis, diverticulitis, kidney stones. Progress Note #2: Time: 02:54 Progress Note We'll give him a gram or Rocephin and set him up for some antibiotics outpatient , follow-up with Dr. Yoder, tamsulosin and some pain meds. Diagonstic Imaging: CT Plain Films/CT/US/NM/MRI: abdomen, pelvis Comments Stat read impression: 5 mm distal right ureteral calculus. Mild right hydroureteronephrosis with delayed nephrogram. Superimposed infection not excluded consider correlation with a UA. Reviewed: Reviewed [place] Hawk Study, Reviewed by Me Departure Impression Primary Impression: Urinary tract infection Qualified Codes: N30.01 - Acute cystitis with hematuria Additional Impression: Ureteral calculus, right Disposition: 01 HOME, SELF-CARE Condition: Improved Departure-Patient Inst. Decision time for Depature: 02:56 Referrals: [facility] (PCP) Primary Care Physician TAWANDA BURKS (Family) Primary Care Physician Patient Instructions: Kidney Stones (DC) Add. Discharge Instructions: Drink lots of fluids. Caffeine is okay. Use ibuprofen 800 mg every 8 hours in addition to Tylenol 500 mg every 8 hours as needed. If you have breakthrough pain you can also use 1-2 tablets of the hydrocodone every 6 hours or pain. Hydrocodone will cause constipation so use a laxative while you are on it such as MiraLAX 1 capful daily. If you're having nausea you can use one tablet of Zofran 6 hours as needed. Take the antibiotics twice a day for the next 7 days. Strain your urine to see if you can pass the stone. It is not unusual to have blood in the urine or pain for 2-3 days after catching a stone. If you did not pass the stone by , tomorrow call Dr. Yoder , urology at [phone] and request an appointment for follow-up. If you begin having worsening pain or nausea not controlled by your medications or fevers or you're not able to keep fluids down return to your primary care provider or the ER for further evaluation. Finally take one tablet of the Flomax, tamsulosin every night until you've passed the stone to help it pass. All discharge instructions reviewed with patient and/or family. Voiced understanding. Scripts Ondansetron (Ondansetron Odt) 4 Mg Tab.rapdis 4 MG PO Q6H PRN for NAUSEA/VOMITING, #8 TAB 0 Refills Prov: MAXIMUS LEWIS 06/21/17 Hydrocodone Bit/Acetaminophen (Hydrocodone/Acetaminophen 5/325mg Tablet) 1 Tab Tab 1-2 EACH PO Q6H PRN for BREAKTHROUGH PAIN, #22 TAB 0 Refills Prov: MAXIMUS LEWIS 06/21/17 Cephalexin (Keflex) 500 Mg Capsule 500 MG PO BID for 7 Days, #14 CAP 0 Refills Prov: MAXIMUS LEWIS 06/21/17 Tamsulosin HCl (Tamsulosin HCl) 0.4 Mg Cap.er.24h 0.4 MG PO HS for 7 Days, #7 CAP 0 Refills Prov: MAXIMUS LEWIS 06/21/17 Copy Copies To 1: SUDARSHAN OCAMPO DO MAXIMUS LEWIS Jun 21, 2017 02:18
[2017-06-21 02:20] LABS: ALANINE AMINOTRANSFERASE 26 U/L (0-55); ALBUMIN 4.5 GM/DL (3.2-4.5); ALKALINE PHOSPHATASE 86 U/L (40-136); BILIRUBIN,TOTAL 0.5 MG/DL (0.1-1.0); BUN/CREATININE RATIO 15; CALCIUM 9.8 MG/DL (8.5-10.1); CARBON DIOXIDE 23 MMOL/L (21-32); CHLORIDE 105 MMOL/L (98-107); CREATININE SERUM 1.29 MG/DL (0.60-1.30); GFR ESTIMATED > 60; GLUCOSE 102 MG/DL (70-105); LIPASE 18 U/L (8-78); POTASSIUM 3.9 MMOL/L (3.6-5.0); SODIUM 139 MMOL/L (135-145); TOTAL PROTEIN 7.7 GM/DL (6.4-8.2)
[2017-06-21 02:24] LABS: BASOPHILS % (AUTO) 0 % (0-10); EOSINOPHILS # (AUTO) 0.3 10^3/uL (0.0-0.3); EOSINOPHILS % (AUTO) 2 % (0-10); HEMATOCRIT 49 % (40-54); HEMOGLOBIN 16.8 G/DL (13.3-17.7); LYMPHOCYTES # (AUTO) 1.7 X 10^3 (1.0-4.0); LYMPHOCYTES % (AUTO) 13 % (12-44); MEAN CORPUSCULAR HEMOGLOBIN 28 PG (25-34); MEAN CORPUSCULAR HGB CONC 35 G/DL (32-36); MEAN CORPUSCULAR VOLUME 80 FL (80-99); MEAN PLATELET VOLUME 9.9 FL (7.4-10.4); MONOCYTES # (AUTO) 1.7 X 10^3 (0.0-1.0); MONOCYTES % (AUTO) 13 % (0-12); NEUTROPHILS # (AUTO) 8.7 X 10^3 (1.8-7.8); NEUTROPHILS % (AUTO) 71 % (42-75); PLATELET COUNT 256 10^3/uL (130-400); RED BLOOD COUNT 6.06 10^6/uL (4.35-5.85); RED CELL DISTRIBUTION WIDTH 13.2 % (10.0-14.5); WHITE BLOOD COUNT 12.4 10^3/uL (4.3-11.0)
[2017-06-21 02:25] LABS: BACTERIA,URINE NEGATIVE /HPF; BILIRUBIN,URINE NEGATIVE (NEGATIVE); CLARITY,URINE CLEAR; COLOR,URINE YELLOW; GLUCOSE, URINE (UA) NEGATIVE (NEGATIVE); KETONES,URINE NEGATIVE (NEGATIVE); LEUKOCYTE ESTERASE ,URINE NEGATIVE (NEGATIVE); NITRITE,URINE NEGATIVE (NEGATIVE); PH,URINE 5 (5-9); PROTEIN,URINE 1+ (NEGATIVE); RBC,URINE 0-2 /HPF; UROBILINOGEN,URINE NORMAL (NORMAL)
[2017-06-21 02:26] LABS: AMPHETAMINE SCREEN, URINE NEGATIVE (NEGATIVE); BARBITURATE SCREEN URINE NEGATIVE (NEGATIVE); BENZODIAZEPINES SCREEN URINE NEGATIVE (NEGATIVE); CANNABINOID SCREEN, URINE NEGATIVE (NEGATIVE); COCAINE SCREEN URINE NEGATIVE (NEGATIVE); METHADONE STAT NEGATIVE (NEGATIVE); METHAMPHETAMINE SCREEN URINE S NEGATIVE (NEGATIVE); OPIATE SCREEN URINE NEGATIVE (NEGATIVE); OXYCODONE STAT NEGATIVE (NEGATIVE); PROPOXYPHENE STAT NEGATIVE (NEGATIVE); TRICYCLIC ANTIDEPRESSANTS SCRE NEGATIVE (NEGATIVE)
[2017-06-21] MEDS ORDERED: KETOROLAC 30 MG/ML VIAL IVP ONE (02:30)
[2017-06-21] MEDS ORDERED: NS 250 ML (IVPB) BAG IV ONE (02:30)
[2017-06-21] MEDS ORDERED: IOHEXOL 350 MG/ML 100 ML (OMNIPAQUE 350) VIAL IV ONE (02:30)
[2017-06-21] MEDS ORDERED: ACHD5005 PO (03:01)
[2017-06-21] MEDS ORDERED: CEPH-507 PO (03:01)
[2017-06-21] MEDS ORDERED: TAMS0.4C2 PO (03:01)
[2017-06-21] MEDS ORDERED: ONDA4TAB11 PO (03:01)
[2017-06-21] MEDS ORDERED: RX-ONDANSETRON 4 MG ODT (ZOFRAN) PPK #4 PO STA (03:02)
[2017-06-21] MEDS ORDERED: RX-HYDROCODONE/APAP 5/325 MG #4 TAB PK PO PRN (03:15)
[2017-06-21] MEDS ORDERED: cefTRIAXone INJECTION 1,000 MG in NS (IVPB) 100 ML IV ONE (03:15)
[2017-06-21 03:30] VITALS: BP 143/98
--- NOTE | 2017-06-21 06:54 | Diagnostic Imaging Report ---
PROCEDURE: CT abdomen and pelvis with contrast, rule out appendicitis. TECHNIQUE: Multiple contiguous axial images were obtained through the abdomen and pelvis after the administration of intravenous contrast. INDICATION: Abdominal pain COMPARISON: 03/08/2015 FINDINGS: There is mild thickening along the right lateral pleura with adjacent groundglass opacity (image 1 series 2). There is dependent atelectasis in the lung bases. The heart is normal in size. There is no pericardial effusion. No focal hepatic lesions are seen. The spleen appears normal. The pancreas is unremarkable. The adrenal glands appear normal. There is mild to moderate right hydroureteronephrosis, with an obstructing 6 mm calculus in the distal right ureter, approximately at the level of S1-2. No calculi are seen in the bladder. No hydronephrosis is seen on the left. There is a delayed right nephrogram consistent with obstruction. Multiple cystic lesions are seen in the right kidney. The enhancement pattern has a striated appearance on the right. Bowel loops are nondistended. No obstruction is seen. The appendix appears normal. No free fluid is seen. The seminal vesicles are prominent. No significant lymphadenopathy is seen. No acute osseous abnormality is seen. IMPRESSION: 1. Obstructing 6 mm calculus in the distal right ureter with mild to moderate right hydroureteronephrosis. Striated appearance of the right kidney could represent superimposed pyelonephritis. 2. Mild thickening at the right lateral pleura with adjacent groundglass opacity. This is nonspecific, may represent a focal area of fluid or remote injury. Dictated by: Dictated on workstation # [id number]
== END 2017-06-21 03:30 | disposition home or self-care (01) ==
LOC: EDUNIT# 00:18 → ER 02:02
DX: N39.0 Urinary tract infection, site not specified (principal); N20.1 Calculus of ureter; J45.909 Unspecified asthma, uncomplicated; G43.909 Migraine, unspecified, not intractable, without status migrainosus; Z82.49 Family history of ischemic heart disease and other diseases of the circulatory system; Z87.442 Personal history of urinary calculi; Z87.891 Personal history of nicotine dependence; Z87.448 Personal history of other diseases of urinary system
CPT/HCPCS: 36415; 74177; 80053; 80306; 80320; 81000; 83690; 85025

== ENCOUNTER 2017-10-21 07:33 | Emergency (ER) | payer SELFPAY ==
[~2017-10-21] VITALS: Ht 162.6 cm; Wt 54.4 kg
[~2017-10-21 07:33] MED LIST changes: +ONDA4TAB11 PO; +TAMS0.4C2 PO
--- OUTSIDE RECORDS SUMMARY | 2017-10-21 07:40 | XMS REPORT ---
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 Name Role Phone TAWANDA BURKS Unavailable PROBLEMS Type Condition ICD9-CM Code RSU88-EV Code Onset Dates Condition Status SNOMED Code Problem Hypertension, benign I10 Active 93866792 Problem Renal lithiasis N20.0 Active 24050487 Problem Low back pain M54.5 Active 313835203 Problem Anxiety F41.9 Active [id number] ALLERGIES No Known Allergies ENCOUNTERS Encounter Location Date Diagnosis [place] [address] [address] Aug, Bronchitis J40 [place] [address] [address]- [address] Jun, [place] [address] [address]- 24[address] Jun, Renal lithiasis N20.0 and Hypertension, benign I10 [place] [address] [address]- 7[address] May, Anxiety F41.9 [place] [address] [address]- [address] 02 Apr, 2017 Encounter for staple removal Z48.02 [place] [address] 7[address]- 8244 Mar, Sebaceous cyst L72.3 [place] [address] [address]- 3978 Jan, Finger pain, left M79.645 [place] [address] 7[address]- 4897 Jan, Sebaceous cyst L72.3 [facility] [address] [place] [id number] [place] [address]- 8240 Jun, Anxiety F41.9 [facility] [address] [address] May, Gastroenteritis K52.9 [facility] [address] [place] [address] [id number] [place] [address] [id number] Jun, Dental examination Z01.20 [facility] [address] [id number] Jun, Dental examination Z01.20 and Caries K02.9 [facility] [address] [address]- [address] Nov, Back pain 724.5 and Otalgia 388.70 [facility] [address] 864255- 4276 Nov, [facility] [address] [place] [address] [id number] [place] [address] [id number] July, Dental examination V72.2 [facility] [address] [id number] [place] [address] 92287- 7470 Jun, [facility] [address] [id number] [place] [address] 70750- 1708 Jun, [facility] [address] [id number] [place] [address] 38612- 5306 Apr, [facility] [address] [id number] [place] [address] 05576- 9302 Apr, [facility] [address] [id number] [place] [address] 115913- 1420 Mar, [facility] [address] [place] [id number] [place] [address] 493374- 9265 Mar, [facility] [address] [id number] [place] [address] 436929- 6548 Jan, [facility] [address] [place] [id number] [address] Jan, [facility] [place] [facility] [address] [id number] [place] [address]- 2918 Nov, [facility] [place] [facility] [address] [id number] [place] [address]- 5886 Nov, [facility] [address] [place] [address] Nov, [facility] [place] [facility] [address] [id number], [place] [address]- [address] Nov, [facility] [address] [place] [address] Nov, [facility] [place] [facility] [address] [id number], [place] [address]- [address]60 Nov, [facility] [place] [facility] [address] [facility] [id number], [place] [address]- [address] Nov, [facility] [place] [facility] [address] [id number], [place] [address]- 0988 Nov, [facility] [place] [facility] [address] [id number] [place] [address]- 9573 Nov, [facility] [place] [facility] [address] [id number], [place] [address]- 6166 Nov, [facility] [place] [facility] [address] [id number], [place] [address]- 7455 Oct, [facility] [place] [facility] [address] [id number], [place] [address] 0551 Oct, [facility] [place] [facility] [address] [id number] [place] [address]- 3669 Sep, [facility] [place] [facility] [address] [id number], [place] [address] 3319 Sep, [facility] [place] [facility] [address] [id number], [place] [address] 75[address] Sep, [facility] [place] [facility] [address] [id number] [place] [address]- 4007 Sep, [facility] [place] [facility] [address] [id number] [place] [address]- 9616 Sep, [facility] [place] [facility] [address] [id number] [place] [address]- 7801 Sep, [facility] [place] [facility] [address] [id number] [place] [address] 1884 Aug, [facility] [place] [facility] [address] [id number] [place] [address]- 8592 Aug, [facility] [place] [facility] [address] [id number] [place] [address]- 8011 Aug, [facility] [place] [facility] [address] [id number] [place] [address]- 6919 Aug, [facility] [place] [facility] [address] [id number] [place] [address]- 1563 Aug, [facility] [place] [facility] [address] [id number] [place] [address]- 0238 Aug, [facility] [place] [facility] [address] [id number] [place] [address]- 2812 July, [facility] [place] [facility] [address] [id number] [place] [address]- 8266 July, [facility] [place] [facility] [address] [id number] [place] [address]- 5799 July, [facility] [place] [facility] [address] [id number] [place] [address]- 0803 July, [facility] [place] [facility] [address] [id number] [place] [address]- 7476 July, [facility] [place] [facility] [address] [id number] [place] [address]- 1717 July, [facility] [place] [facility] [address] [id number] [place] [address]- 2900 Jun, [facility] [place] [facility] [address] [id number] [place] [address]- 5517 18 Jun, 2013 [facility] [place] [facility] [address] [id number] [place] [address]- 8140 Jun, [facility] [place] [facility] [address] [id number] [place] [address] Jun, [facility] [place] [facility] [address] [id number] [place] [address]- 3499 Jun, [facility] [place] [facility] [address] [id number] [place] [address]- 3344 Jun, [facility] [place] [facility] [address] [id number] [place] [address]- 0546 May, [facility] [place] [facility] [address] [id number] [place] [address]- 0183 May, [facility] [place] [facility] [address] [id number] [place] [address]- 5831 May, [facility] [place] [facility] [address] [id number] [place] [address]- 8088 May, [facility] [place] [facility] [address] [id number] [place] [address]- 6131 May, [facility] [place] [facility] [address] [id number] [place] [address]- 5842 May, [facility] [place] [facility] [address] [id number] [place] [address]- 2738 May, [facility] [place] [facility] [address] [id number] [place] [address]- 8263 Apr, [facility] [place] [facility] [address] [id number] [place] [address]- 2018 Apr, [facility] [place] [facility] [address] [id number] [place] [address] Apr, [facility] [place] [facility] [address] [id number] [place] [address]- 8042 Apr, [facility] [address] [id number] [place] [address]- 8486 Apr, [facility] [place] [facility] [address] [id number] [place] [address] Apr, [facility] [place] [facility] [address] [id number] [place] [address]- 0066 Apr, [facility] [place] [facility] [address] [id number] [place] [address]- 7686 Apr, [facility] [place] [facility] [address] [id number] [place] [address]- 4030 Mar, [facility] [place] [facility] [address] [id number] [place] [address]- 7489 Mar, [facility] [address] [id number] [place] [address]- 9961 Mar, [facility] [place] [facility] [address] [id number] [place] [address]- 1802 Mar, [facility] [place] [facility] [address] [id number] [place] [address]- 7095 Feb, [facility] [place] [facility] [address] [facility] [id number] [place] [address]- 2045 Feb, [facility] [place] [facility] [address] [id number] [place] [address]- 9646 Feb, [facility] [place] [facility] [address] [id number] [place] [address]- 2549 Feb, [facility] [place] [facility] [address] [id number] [place] [address]- 1289 Feb, [facility] [place] [facility] [address] [id number] [place] [address]16 Feb, [facility] [place] [facility] [address] [id number] [place] [address]- 5913 Jan, [facility] [place] [facility] [address] [id number] [place] [address]- 2241 Jan, [facility] [place] [facility] [address] [id number] [place] [address]- 7835 Jan, [facility] [place] [facility] [address] [id number] [place] [address]- 3858 Jan, [facility] [place] [facility] [address] [id number] [place] [address]- 7368 Jan, [facility] [place] [facility] [address] [id number] [place] [address]- 2568 Jan, [facility] [place] [facility] [address] [id number] [place] [address]- 9269 Jan, [facility] [place] [facility] [address] [id number] [place] [address]- 9936 Jan, [facility] [place] [facility] [address] [id number] [place] [address]- 1614 Dec, [facility] [place] [facility] [address] [id number] [place] [address]- 9302 Dec, [facility] [place] [facility] [address] [id number] [place] [address]- 3856 Dec, [facility] [place] [facility] [address] [id number] [place] [address]- 1808 Dec, [facility] [place] [facility] [address] [id number], [place] [address]- 7702 Dec, [facility] [place] [facility] [address] [id number] [place] [address]- 0256 Dec, [facility] [place] [facility] [address] [id number] [place] [address]- 7807 Dec, [facility] [place] [facility] [address] [id number] [place] [address]- 0763 Dec, [facility] [place] [facility] [address] [id number] [place] [address]- 1315 30 Nov, 2012 [facility] [place] [facility] [address] [id number] [place] [address]- 8059 Nov, [facility] [place] [facility] [address] [id number] [place] [address]- 5267 Nov, [facility] [place] [facility] [address] [id number] [place] [address]- 2877 Oct, [facility] [place] [facility] [address] [id number] [place] [address]- 8879 Oct, [facility] [place] [facility] [address] [id number] [place] [address]- 4313 Oct, [facility] [place] [facility] [address] [id number] [place] [address]- 6910 Oct, [facility] [place] [facility] [address] [id number] [place] [address]- 5858 Oct, [facility] [place] [facility] [address] [id number] [place] [address]- 0090 Oct, [facility] [place] [facility] [address] [id number] [place] [address]- 0785 Oct, [facility] [place] [facility] [address] [id number] [place] [address]- 3751 Sep, [facility] [place] [facility] [address] [id number] [place] [address]- 7911 Sep, [facility] [place] [facility] [address] [id number] [place] [address]- 3179 Sep, [facility] [place] [facility] [address] [id number] [place] [address]- 9670 Sep, [facility] [place] [facility] [address] [id number] [place] [address]- 8116 Sep, [facility] [place] [facility] [address] [id number] [place] [address]- 8937 Aug, [facility] [place] [facility] [address] [id number], [place] [address]- 5076 Apr, [facility] [id number] [place] [address] 11661- 4664 Mar, [facility] [address], [place] [address]- 4846 Mar, [facility] [address] [id number] [place] [address] 570914- 3908 Feb, [facility] [id number] [place] [address] 676403- 9139 Feb, [facility] [id number] [place] [address] 90183- 8719 Jan, [facility] [id number] [place] [address] 106982- 8289 Jan, [facility] [id number] [place] [address] 99875- 4679 Jan, [facility] [address] 8993 Jan, [facility] [address] [id number] [place] [address] 872569- 2934 Oct, [facility] [address], [place] [address]- 4083 Feb, [facility] [id number] [place] [address] [id number]- 5048 Feb, [facility] [address] 9990 Feb, [facility] [id number] [place] [address] 16648- 6189 Jun, IMMUNIZATIONS No Known Immunizations SOCIAL HISTORY Never Assessed REASON FOR VISIT Establish Care----DBennettRN, [facility] f[facility], hypertension 2 months ago and last night with kidney stones, cannot afford medications PLAN OF CARE VITAL SIGNS Height 64 in 2017-06-21 Weight 120 lbs 2017-06-21 Temperature 97.8 degrees Fahrenheit 2017-06-21 Heart Rate 90 bpm 2017-06-21 Respiratory Rate 20 2017-06-21 BMI 20.60 kg/m2 2017-06-21 Blood pressure systolic 124 mmHg 2017-06-21 Blood pressure diastolic 82 mmHg 2017-06-21 MEDICATIONS Medication Instructions Dosage Frequency Start Date End Date Duration Status Tamsulosin HCl 0.4 MG Orally Once a day 1 capsule 24h Jun,July 30 day(s) Active Ketorolac Tromethamine 10 mg Orally every 6 hrs 1 tablet with food or milk as needed 6h Jun, Jun, 5 day(s) Active Keflex 500 mg Orally every 12 hrs 1 capsule 12h Jun, Jun, 10 day(s) Active Nabumetone Not-Taking Aspirin 325 MG Orally every 8 hours, PRN 1 tablet Not-Taking Atenolol 50 MG Orally Once a day 1 tablet 24h May, 30 day(s) Active RESULTS No Results PROCEDURES No Known procedures INSTRUCTIONS MEDICATIONS ADMINISTERED No Known Medications MEDICAL (GENERAL) HISTORY Type Description Date Medical History seizures Medical History asthma Medical History scoliosis Medical History migraines Medical History chronic lower back pain Surgical History cyst removed from left arm Hospitalization History seizures
--- OUTSIDE RECORDS SUMMARY | 2017-10-21 07:40 | XMS REPORT ---
Author Author TAWANDA BURKS Organization [facility] Address [address] [place] [address] Care Team Providers [employer] Name Role Phone TAWANDA BURKS Unavailable PROBLEMS Type Condition ICD9-CM Code CUE39-YY Code Onset Dates Condition Status SNOMED Code Problem Hypertension, benign I10 Active 90151951 Problem Renal lithiasis N20.0 Active 59164997 Problem Low back pain M54.5 Active 450958914 Problem Anxiety F41.9 Active 38891834 ALLERGIES No Information ENCOUNTERS Encounter Location Date Diagnosis [place] [address] [address] Aug, Bronchitis J40 [place] [address] [address]- [address] Jun, [place] [address] [address]- [address] Jun, Renal lithiasis N20.0 and Hypertension, benign I10 [place] [address] [address]- [address] May, Anxiety F41.9 [place] [address] [address]- [address] 02 Apr, 2017 Encounter for staple removal Z48.02 [place] [address] [address]- [address] Mar, Sebaceous cyst L72.3 [place] [address] [address]- [address] Jan, Finger pain, left M79.645 [place] [address] [address]- 74[address] Jan, Sebaceous cyst L72.3 [facility] [address] [place] [place] [id number] [place] [address]751- 2592 Jun, Anxiety F41.9 [facility] [id number] [place] [address] 143059 -[address]1 May, Gastroenteritis K52.9 [facility] [id number] [place] [address] [id number] Jun, Dental examination Z01.20 [facility] [address] [id number] Jun, Dental examination Z01.20 and Caries K02.9 [facility] [address] [address]- [address] Nov, Back pain 724.5 and Otalgia 388.70 [facility] [id number] [place] [address] 18274- 6946 Nov, [facility] [id number] [place] [address] [id number] July, Dental examination V72.2 [facility] [id number] [place] [address] 31821- 6383 Jun, [facility] [id number] [place] [address] 17136- 3399 Jun, [facility] [id number] [place] [address] 769665- 5595 Apr, [facility] [id number] [place] [address] 75450- 2946 Apr, [facility] [id number] [place] [address] 26063- 7336 Mar, [facility] [id number] [place] [address] 18615- 1136 Mar, [facility] [address] [place] [address] 55357- 5416 Jan, [facility] [id number] [address] 7[address] Jan, [facility] [place] [facility] [address] [id number] [place] [address]- 3856 Nov, [facility] [place] [facility] [address] [id number] [place] [address]- 2546 Nov, [facility] [address] [facility] [place] [address] Nov, [facility] [place] [facility] [address] [id number], [place] [address]- 2912 Nov, [facility] [address] [facility] [address] Nov, [facility] [place] [facility] [address] [id number], [place] [address]- 9543 Nov, [facility] [place] [facility] [address] [id number], [place] [address]- 9053 Nov, [facility] [place] [facility] [address] [id number], [place] [address]- 1559 Nov, [facility] [place] [facility] [address] [id number] [place] [address]- 1695 Nov, [facility] [place] [facility] [address] [id number] [place] [address]- 5006 Nov, [facility] [place] [facility] [address] [id number], [place] [address]- 8732 Oct, [facility] [place] [facility] [address] [id number], [place] [address]- 0554 Oct, [facility] [place] [facility] [address] [id number] [place] [address]- 2343 Sep, [facility] [place] [facility] [address] [id number], [place] [address] 6609 Sep, [facility] [place] [facility] [address] [id number] [place] [address]- 4612 Sep, [facility] [place] [facility] [address] [id number] [place] [address]- 6503 Sep, [facility] [place] [facility] [address] [id number] [place] [address]- 0295 Sep, [facility] [place] [facility] [address] [id number] [place] [address]- 2716 Sep, [facility] [place] [facility] [address] [id number] [place] [address]- 6938 Aug, [facility] [place] [facility] [address] [id number] [place] [address]- 7278 Aug, [facility] [place] [facility] [address] [id number] [place] [address]- 6309 Aug, [facility] [place] [facility] [address] [id number] [place] [address]- 7546 Aug, [facility] [place] [facility] [address] [id number] [place] [address]- 7959 Aug, [facility] [place] [facility] [address] [id number] [place] [address]- 0344 Aug, [facility] [place] [facility] [address] [id number] [place] [address]- 4902 July, [facility] [place] [facility] [address] [id number] [place] [address]- 2013 July, [facility] [place] [facility] [address] [id number] [place] [address]- 9866 July, [facility] [place] [facility] [address] [id number] [place] [address]- 2922 July, [facility] [place] [facility] [address] [id number] [place] [address]- 7844 July, [facility] [place] [facility] [address] [id number] [place] [address]- 6805 July, [facility] [place] [facility] [address] [id number] [place] [address]- 2251 Jun, [facility] [place] [facility] [address] [id number] [place] [address]- 9070 Jun, [facility] [place] [facility] [address] [id number] [place] [address]- 3491 Jun, [facility] [place] [facility] [address] [id number] [place] [address]34 Jun, [facility] [place] [facility] [address] [id number] [place] [address]- 5122 Jun, [facility] [place] [facility] [address] [id number] [place] [address]- 2759 Jun, [facility] [place] [facility] [address] [id number] [place] [address]- 3227 May, [facility] [place] [facility] [address] [id number] [place] [address]- 1324 May, [facility] [place] [facility] [address] [id number] [place] [address]- 6078 May, [facility] [place] [facility] [address] [id number] [place] [address]- 6179 May, [facility] [place] [facility] [address] [id number] [place] [address]- 3458 May, [facility] [place] [facility] [address] [id number] [place] [address]- 4021 May, [facility] [place] [facility] [address] [id number] [place] [address]- 6087 May, [facility] [place] [facility] [address] [id number] [place] [address]- 6544 Apr, [facility] [place] [facility] [address] [id number] [place] [address]- 5619 Apr, [facility] [place] [facility] [address] [id number] [place] [address]19 Apr, [facility] [place] [facility] [address] [id number] [place] [address]- 4763 Apr, [facility] [address] [id number] [place] [address]- 4546 Apr, [facility] [place] [facility] [address] [id number] [place] 9916 Apr, [facility] [place] [facility] [address] [id number] [place] [address]- 0306 Apr, [facility] [place] [facility] [address] [id number] [place] [address]- 0467 Apr, [facility] [place] [facility] [address] [id number] [place] [address]- 9505 Mar, [facility] [place] [facility] [address] [id number] [place] [address]- 3044 Mar, [facility] [address] [facility] [id number] [place] [address]- 1754 Mar, [facility] [place] [facility] [address] [facility] [id number] [place] [address]- 7108 Mar, [facility] [address] [id number] [place] [address]- 4654 Feb, [facility] [place] [facility] [address] [facility] [id number] [place] [address]- 7085 Feb, [facility] [place] [facility] [address] [id number] [place] [address]- 3951 Feb, [facility] [place] [facility] [address] [id number] [place] [address]- 2545 Feb, [facility] [place] [facility] [address] [id number] [place] [address]- 8330 Feb, [facility] [place] [facility] [address] [id number] [place] 5596 Feb, [facility] [place] [facility] [address] [facility] [id number] [place] [address]- 7788 Jan, [facility] [place] [facility] [address] [id number] [place] [address]- 9092 Jan, [facility] [place] [facility] [address] [id number] [place] [address]- 2243 Jan, [facility] [place] [facility] [address] [id number] [place] [address]- 5174 Jan, [facility] [place] [facility] [address] [id number] [place] [address]- 3568 Jan, [facility] [place] [facility] [address] [id number] [place] [address]- 4070 Jan, [facility] [place] [facility] [address] [id number] [place] [address]- 3264 Jan, [facility] [place] [facility] [address] [id number] [place] [address]- 3243 Jan, [facility] [place] [facility] [address] [id number] [place] [address]- 0584 Dec, [facility] [place] [facility] [address] [id number] [place] [address]- 5359 Dec, [facility] [place] [facility] [address] [id number] [place] [address]- 6662 Dec, [facility] [place] [facility] [address] [id number] [place] [address]- 0586 Dec, [facility] [place] [facility] [address] [id number] [place] [address]- 9720 Dec, [facility] [place] [facility] [address] [id number] [place] [address]- 9627 Dec, [facility] [place] [facility] [address] [id number] [place] [address]- 3898 Dec, [facility] [place] [facility] [address] [id number] [place] [address]- 5656 Dec, [facility] [place] [facility] [address] [id number] [place] [address]- 0215 30 Nov, 2012 [facility] [place] [facility] [address] [id number] [place] [address]- 7268 Nov, [facility] [place] [facility] [address] [id number] [place] [address]- 1510 Nov, [facility] [place] [facility] [address] [id number] [place] [address]- 4322 Oct, [facility] [place] [facility] [address] [id number] [place] [address]- 2802 Oct, [facility] [place] [facility] [address] [id number] [place] [address]- 8129 Oct, [facility] [place] [facility] [address] [id number] [place] [address]- 3285 Oct, [facility] [place] [facility] [address] [id number] [place] [address]- 7741 Oct, [facility] [place] [facility] [address] [id number] [place] [address]- 9652 Oct, [facility] [place] [facility] [address] [id number] [place] [address]- 1016 Oct, [facility] [place] [facility] [address] [id number] [place] [address]- 4921 Sep, [facility] [place] [facility] [address] [id number] [place] [address]- 4801 Sep, [facility] [place] [facility] [address] [id number] [place] [address]- 8854 Sep, [facility] [place] [facility] [address] [id number] [place] [address]- 2863 Sep, [facility] [place] [facility] [address] [id number] [place] [address]- 0301 Sep, [facility] [place] [facility] [address] [id number] [place] [address]- 8338 Aug, [facility] [place] [facility] [id number], [place] [address]- 2945 Apr, [facility] [id number], [place] [address]- 9463 Mar, [facility] [id number], [place] [address]- 4284 Mar, [facility] [id number], [place] [address]- 8613 Feb, [facility] [id number], [place] [address]- 9650 Feb, [facility] [address] [place] [address] 02491- 4994 Jan, [facility] [id number] [place] [address] 29140- 7601 Jan, [facility] [id number] [place] [address] 47228- 6648 Jan, [facility] [id number], [place] [address]- 9354 Jan, [facility] [id number] [place] [address] 42319- 0707 Oct, [facility] [id number], [place] [address]- 5820 Feb, [facility] [id number], [place] [address]- 6283 Feb, [facility] [id number], [place] [address]- 9003 Feb, [facility] [id number] [address]352 Jun, IMMUNIZATIONS No Known Immunizations SOCIAL HISTORY Never Assessed REASON FOR VISIT Request note/ PLAN OF CARE VITAL SIGNS MEDICATIONS No Known Medications RESULTS No Results PROCEDURES No Known procedures INSTRUCTIONS MEDICATIONS ADMINISTERED No Known Medications MEDICAL (GENERAL) HISTORY Type Description Date Medical History seizures Medical History asthma Medical History scoliosis Medical History migraines Medical History chronic lower back pain Surgical History cyst removed from left arm Hospitalization History seizures
--- OUTSIDE RECORDS SUMMARY | 2017-10-21 07:40 | XMS REPORT ---
Author Author TAWANDA BURKS Organization [facility] Address [address] [place] [address] Care Team Providers Care Compensation And Benefits Advisor Name Role Phone TAWANDA BURKS Unavailable PROBLEMS Type Condition ICD9-CM Code QSL24-YS Code Onset Dates Condition Status SNOMED Code Problem Hypertension, benign I10 Active 28167215 Problem Renal lithiasis N20.0 Active 82291271 Problem Low back pain M54.5 Active 003721508 Problem Anxiety F41.9 Active 71419689 ALLERGIES No Information ENCOUNTERS Encounter Location Date Diagnosis [place] [address] [address] Aug, Bronchitis J40 [place] [address] [address]- [address] Jun, [place] [address] [address]- [address] Jun, Renal lithiasis N20.0 and Hypertension, benign I10 [place] [address] [address]- [address] May, Anxiety F41.9 [place] [address] [address]- [address] 02 Apr, 2017 Encounter for staple removal Z48.02 [place] [address] [address]- [address] Mar, Sebaceous cyst L72.3 [place] [address] 164[address]- [address] Jan, Finger pain, left M79.645 [place] [address] 8[address]- 3987 Jan, Sebaceous cyst L72.3 [facility] [address] [place] [id number] [place] [address] 45891- 1279 Jun, Anxiety F41.9 [facility] [address] [place] [id number] [place] [address] [id number] -2663 May, Gastroenteritis K52.9 [facility] [address] [place] [id number] [place] [address] [id number] Jun, Dental examination Z01.20 [facility] [address] [id number] Jun, Dental examination Z01.20 and Caries K02.9 [facility] [address] [address]- [address] Nov, Back pain 724.5 and Otalgia 388.70 [facility] [address] [place] [address] [id number] [place] [address] 97336- 5096 Nov, [facility] [address] [place] [id number] [place] [address] [id number] July, Dental examination V72.2 [facility] [address] [place] [id number] [place] [address] 52344- 1076 Jun, [facility] [address] [place] [address] [id number] [place] [address] 12196- 0995 Jun, [facility] [address] [id number] [place] [address] 994847- 1304 Apr, [facility] [address] [place] [address] [id number] [place] [address] 87435- 7006 Apr, [facility] [address] [place] [address] [id number] [place] [address] 90244- 9376 Mar, [facility] [address] [place] [id number] [place] [address] 25180- 3076 Mar, [facility] [id number] [place] [address] 68005- 7976 Jan, [facility] [id number] [address] Jan, [facility] [place] [facility] [address] [id number] [place] [address] 4556 Nov, [facility] [place] [facility] [address] [id number] [place] [address]- 2546 Nov, [facility] [address] [place] [address] Nov, [facility] [place] [facility] [address] [id number], [place] [address]- [address] Nov, [facility] [address] [place] [address] Nov, [facility] [place] [facility] [address] [id number], [place] [address]- 4874 Nov, [facility] [place] [facility] [address] [id number], [place] [address]- 9884 Nov, [facility] [place] [facility] [address] [id number], [place] [address] 4[address] Nov, [facility] [place] [facility] [address] [id number] [place] [address]- 8638 Nov, [facility] [place] [facility] [address] [id number] [place] [address]- 8196 Nov, [facility] [place] [facility] [address] [id number], [place] [address]- 489[address] Oct, [facility] [place] [facility] [address] [id number], [place] [address]- 6248 Oct, [facility] [place] [facility] [address] [id number] [place] [address]- 2032 Sep, [facility] [place] [facility] [address] [id number], [place] [address]- 7931 Sep, [facility] [place] [facility] [address] [id number] [place] [address]- 2285 Sep, [facility] [place] [facility] [address] [id number] [place] [address]- 5486 Sep, [facility] [place] [facility] [address] [id number] [place] [address]- 7974 Sep, [facility] [place] [facility] [address] [id number] [place] [address]- 5162 Sep, [facility] [place] [facility] [address] [id number] [place] [address]- 8198 Aug, [facility] [place] [facility] [address] [id number] [place] [address]- 6359 Aug, [facility] [place] [facility] [address] [id number] [place] [address]- 1557 Aug, [facility] [place] [facility] [address] [id number] [place] [address]- 7386 Aug, [facility] [place] [facility] [address] [id number] [place] [address]- 9869 Aug, [facility] [place] [facility] [address] [id number] [place] [address]- 1813 Aug, [facility] [place] [facility] [address] [id number] [place] [address]- 1046 July, [facility] [place] [facility] [address] [id number] [place] [address]- 3291 July, [facility] [place] [facility] [address] [id number] [place] [address]- 8614 July, [facility] [place] [facility] [address] [id number] [place] [address]- 7270 July, [facility] [place] [facility] [address] [id number] [place] [address]- 4893 July, [facility] [place] [facility] [address] [id number] [place] [address]- 4480 July, [facility] [place] [facility] [address] [id number] [place] [address]- 1361 Jun, [facility] [place] [facility] [address] [id number] [place] [address]- 9208 Jun, [facility] [place] [facility] [address] [id number] [place] [address]- 9217 Jun, [facility] [place] [facility] [address] [id number] [place] [address] Jun, [facility] [place] [facility] [address] [id number] [place] [address]- 5140 Jun, [facility] [place] [facility] [address] [id number] [place] [address]- 9282 Jun, [facility] [place] [facility] [address] [id number] [place] [address]- 2352 May, [facility] [place] [facility] [address] [id number] [place] [address]- 2785 May, [facility] [place] [facility] [address] [id number] [place] [address]- 9351 May, [facility] [place] [facility] [address] [id number] [place] [address]- 6316 May, [facility] [place] [facility] [address] [id number] [place] [address]- 3372 May, [facility] [place] [facility] [address] [id number] [place] [address]- 5821 May, [facility] [place] [facility] [address] [id number] [place] [address]- 6926 May, [facility] [place] [facility] [address] [id number] [place] [address]- 4739 Apr, [facility] [place] [facility] [address] [id number] [place] [address]- 9250 Apr, [facility] [place] [facility] [address] [id number] [place] [address]88 Apr, [facility] [place] [facility] [address] [id number] [place] [address]- 6806 Apr, [facility] [address] [id number] [place] [address]- 7746 Apr, [facility] [place] [facility] [address] [id number] [place] [address] Apr, [facility] [place] [facility] [address] [id number] [place] [address]- 6446 Apr, [facility] [place] [facility] [address] [id number] [place] [address]- 0052 Apr, [facility] [place] [facility] [address] [id number] [place] [address]- 8771 Mar, [facility] [place] [facility] [address] [id number] [place] [address]- 0972 Mar, [facility] [address] [facility] [id number] [place] [address]- 7811 Mar, [facility] [place] [facility] [address] [facility] [id number] [place] [address]- 3832 Mar, [facility] [address] [id number] [place] [address]- 0926 Feb, [facility] [place] [facility] [address] [facility] [id number] [place] [address]- 2234 Feb, [facility] [place] [facility] [address] [id number] [place] [address]- 3556 Feb, [facility] [place] [facility] [address] [id number] [place] [address]- 2543 Feb, [facility] [place] [facility] [address] [id number] [place] [address]- 8046 Feb, [facility] [place] [facility] [address] [id number] [place] 9766 Feb, [facility] [place] [facility] [address] [facility] [id number] [place] [address]- 3850 Jan, [facility] [place] [facility] [address] [id number] [place] [address]- 3095 Jan, [facility] [place] [facility] [address] [id number] [place] [address]- 4865 Jan, [facility] [place] [facility] [address] [id number] [place] [address]- 5429 Jan, [facility] [place] [facility] [address] [id number] [place] [address]- 3271 Jan, [facility] [place] [facility] [address] [id number] [place] [address]- 7509 Jan, [facility] [place] [facility] [address] [id number] [place] [address]- 7015 Jan, [facility] [place] [facility] [address] [id number] [place] [address]- 8214 Jan, [facility] [place] [facility] [address] [id number] [place] [address]- 0207 Dec, [facility] [place] [facility] [address] [id number] [place] [address]- 7806 Dec, [facility] [place] [facility] [address] [id number] [place] [address]- 6356 Dec, [facility] [place] [facility] [address] [id number] [place] [address]- 9930 Dec, [facility] [place] [facility] [address] [id number] [place] [address]- 2022 Dec, [facility] [place] [facility] [address] [id number] [place] [address]- 6386 Dec, [facility] [place] [facility] [address] [id number] [place] [address]- 6235 Dec, [facility] [place] [facility] [address] [id number] [place] [address]- 0366 Dec, [facility] [place] [facility] [address] [id number] [place] [address]- 0509 30 Nov, 2012 [facility] [place] [facility] [address] [id number] [place] [address]- 3638 Nov, [facility] [place] [facility] [address] [id number] [place] [address]- 1203 Nov, [facility] [place] [facility] [address] [id number] [place] [address]- 7757 Oct, [facility] [place] [facility] [address] [id number] [place] [address]- 8476 Oct, [facility] [place] [facility] [address] [id number] [place] [address]- 9670 Oct, [facility] [place] [facility] [address] [id number] [place] [address]- 8701 Oct, [facility] [place] [facility] [address] [id number] [place] [address]- 3740 Oct, [facility] [place] [facility] [address] [id number] [place] [address]- 6149 Oct, [facility] [place] [facility] [address] [id number] [place] [address]- 7650 Oct, [facility] [place] [facility] [address] [id number] [place] [address]- 2991 Sep, [facility] [place] [facility] [address] [id number] [place] [address]- 7627 Sep, [facility] [place] [facility] [address] [id number] [place] [address]- 5493 Sep, [facility] [place] [facility] [address] [id number] [place] [address]- 3834 Sep, [facility] [place] [facility] [address] [id number] [place] [address]- 2107 Sep, [facility] [place] [facility] [address] [id number] [place] [address]- 2148 Aug, [facility] [place] [facility] [address] [address]- 9206 Apr, [facility] [address], [place] [address]- 5974 Mar, [facility] [address], [place] [address]- 3347 Mar, [facility] [address] [address] Feb, [facility] [id number] [place] [address] 97919- 3907 Feb, [facility] [id number] [place] [address] [id number]- 5472 Jan, [facility] [id number] [place] [address] 50451- 2813 Jan, [facility] [id number] [place] [address] 97400- 9736 Jan, [facility] [address], [place] [address]- 3498 Jan, [facility] [id number] [place] [address] 426232- 5896 Oct, [facility] [address], [place] [address]- 4544 Feb, [facility] [address], [place] [address]- 6074 Feb, [facility] [address] [address] Feb, [facility] [address] 2071 Jun, IMMUNIZATIONS No Known Immunizations SOCIAL HISTORY Never Assessed REASON FOR VISIT Refill request PLAN OF CARE VITAL SIGNS MEDICATIONS Medication Instructions Dosage Frequency Start Date End Date Duration Status Atenolol 25 MG Orally Once a day 1 tablet [...]
--- OUTSIDE RECORDS SUMMARY | 2017-10-21 07:41 | XMS REPORT ---
Author Author AP CHEW Organization [facility] Address [address] [place] [address] Care Team Providers Care Hardboard Grinder Name Role Phone AP CHEW Unavailable PROBLEMS Type Condition ICD9-CM Code NOJ13-UB Code Onset Dates Condition Status SNOMED Code Problem Hypertension, benign I10 Active 82567631 Problem Renal lithiasis N20.0 Active 12001009 Problem Low back pain M54.5 Active 182628523 Problem Anxiety F41.9 Active 97229410 ALLERGIES No Known Allergies ENCOUNTERS Encounter Location Date Diagnosis [place] [address] [address] Jun, [place] [address] [address] Jun, Renal lithiasis N20.0 and Hypertension, benign I10 [place] [address] [address]- [address] May, Anxiety F41.9 [place] [address] [address]- 555[address] Apr, Encounter for staple removal Z48.02 [place] [address] 18[address]- 8558 Mar, Sebaceous cyst L72.3 [place] [address] [address]- [address] Jan, Finger pain, left M79.645 [place] [address] [address]- [address] Jan, Sebaceous cyst L72.3 [place] [address] 8[address]- [address] Jun, Anxiety F41.9 [facility] [id number] [place] [address] -[address]70 May, Gastroenteritis K52.9 [facility] [address] [place] [id number] [place] [address] [id number] Jun, Dental examination Z01.20 [facility] [address] [id number] [place] [address] [id number] Jun, Dental examination Z01.20 and Caries K02.9 [facility] [address] [place] [id number] [place] [address] 83056- 2457 Nov, Back pain 724.5 and Otalgia 388.70 [facility] [address] [place] [id number] [place] [address] 604238- 7546 Nov, [facility] [address] [id number] [place] [address] [id number] July, Dental examination V72.2 [facility] [address] [place] [address] [id number] [place] [address] 95515- 4588 Jun, [facility] [address] [place] [address] [id number] [place] [address] 84016- 8351 Jun, [facility] [address] [place] [address] [id number] [place] [address] 11927- 1290 Apr, [facility] [id number] [place] [address] 69635- 4201 Apr, [facility] [address] [place] [address] [id number] [place] [address] 12001- 4259 Mar, [facility] [address] [place] [id number] [place] [address] 55796- 5074 Mar, [facility] [address] [place] [address] [id number] [place] [address] 523874- 3592 Jan, [facility] [address] [place] [id number] [place] [address] 816456- 0261 Jan, [facility] [place] [facility] [address] [id number] [place] [address]- 4626 Nov, [facility] [place] [facility] [address] [id number] [place] [address]- 5576 Nov, [facility] [place] [address] [id number] [place] [id number] Nov, [facility] [place] [facility] [address] [id number] [place] [address]- 5361 Nov, [facility] [place] [address] [id number] [place] [id number] Nov, [facility] [place] [facility] [address] [id number] [place] [address]- 0626 Nov, [facility] [place] [facility] [address] [id number] [place] [address]- 1293 Nov, [facility] [place] [facility] [address] [id number] [place] [address]- 9607 Nov, [facility] [place] [facility] [address] [id number] [place] [address]- 7102 Nov, [facility] [place] [facility] [address] [id number] [place] [address]- 9086 Nov, [facility] [place] [facility] [address] [id number] [place] [address]- 2881 Oct, [facility] [place] [facility] [address] [id number] [place] [address]- 5346 Oct, [facility] [place] [facility] [address] [id number] [place] [address]- 2541 Sep, [facility] [place] [facility] [address] [id number] [place] [address]- 3879 Sep, [facility] [place] [facility] [address] [id number] [place] [address]- 1049 Sep, [facility] [place] [facility] [address] [id number] [place] [address]- 2959 Sep, [facility] [place] [facility] [address] [id number] [place] [address]- 7907 Sep, [facility] [place] [facility] [address] [id number] [place] [address]- 1293 Sep, [facility] [place] [facility] [address] [id number] [place] [address]- 7882 Aug, [facility] [place] [facility] [address] [id number] [place] [address]- 2201 Aug, [facility] [place] [facility] [address] [id number] [place] [address]- 8613 Aug, [facility] [place] [facility] [address] [id number] [place] [address]- 4389 Aug, [facility] [place] [facility] [address] [id number] [place] [address]- 4604 Aug, [facility] [place] [facility] [address] [id number] [place] [address]- 1516 Aug, [facility] [place] [facility] [address] [id number] [place] [address]- 8448 July, [facility] [place] [facility] [address] [id number] [place] [address]- 0172 July, [facility] [place] [facility] [address] [id number] [place] [address]- 9168 July, [facility] [place] [facility] [address] [id number] [place] [address]- 5295 July, [facility] [place] [facility] [address] [id number] [place] [address]- 6390 July, [facility] [place] [facility] [address] [id number] [place] [address]- 6767 July, [facility] [place] [facility] [address] [id number] [place] [address]- 4631 Jun, [facility] [place] [facility] [address] [id number] [place] [address]- 4509 Jun, [facility] [place] [facility] [address] [id number] [place] [address]- 1151 Jun, [facility] [place] [facility] [address] [id number] [place] [address]- 4849 Jun, [facility] [place] [facility] [address] [id number] [place] [address]- 8126 Jun, [facility] [place] [facility] [address] [id number] [place] [address]- 3912 Jun, [facility] [place] [facility] [address] [id number] [place] [address]- 4400 May, [facility] [place] [facility] [address] [id number] [place] [address]- 8906 May, [facility] [place] [facility] [address] [id number] [place] [address]- 1762 May, [facility] [place] [facility] [address] [id number] [place] [address]- 3749 May, [facility] [place] [facility] [address] [id number] [place] [address]- 8681 May, [facility] [place] [facility] [address] [id number] [place] [address]- 0727 May, [facility] [place] [facility] [address] [id number] [place] [address]- 6426 May, [facility] [place] [facility] [address] [id number] [place] [address]- 8554 Apr, [facility] [place] [facility] [address] [id number] [place] [address]- 6286 Apr, [facility] [place] [facility] [address] [id number] [place] [address]- 1740 Apr, [facility] [place] [facility] [address] [id number] [place] [address]- 6632 Apr, [facility] [place] [facility] [address] [id number] [place] [address]- 2912 Apr, [facility] [place] [facility] [address] [id number] [place] [address]- 3216 Apr, [facility] [place] [facility] [address] [id number] [place] [address]- 2696 Apr, [facility] [place] [facility] [address] [id number] [place] [address]- 5156 Apr, [facility] [place] [facility] [address] [id number] [place] [address]- 2468 Mar, [facility] [place] [facility] [address] [id number] [place] [address]- 7427 Mar, [facility] [place] [facility] [address] [id number] [place] [address]- 3231 Mar, [facility] [place] [facility] [address] [id number] [place] [address]- 8567 Mar, [facility] [place] [facility] [address] [id number] [place] [address]- 1506 Feb, [facility] [place] [facility] [address] [id number] [place] [address]- 8583 Feb, [facility] [place] [facility] [address] [id number] [place] [address]- 3749 Feb, [facility] [place] [facility] [address] [id number] [place] [address]- 3695 Feb, [facility] [place] [facility] [address] [id number] [place] [address]- 0542 Feb, [facility] [place] [facility] [address] [id number] [place] [address]- 3817 Feb, [facility] [place] [facility] [address] [id number] [place] [address]- 0342 Jan, [facility] [place] [facility] [address] [id number] [place] [address]- 3102 Jan, [facility] [place] [facility] [address] [id number] [place] [address]- 1917 Jan, [facility] [place] [facility] [address] [id number] [place] [address]- 8561 Jan, [facility] [place] [facility] [address] [id number] [place] [address]- 5882 Jan, [facility] [place] [facility] [address] [id number], [place] [address]- 4305 Jan, [facility] [place] [facility] [address] [id number] [place] [address]- 7135 Jan, [facility] [place] [facility] [address] [id number] [place] [address]- 9371 Jan, [facility] [place] [facility] [address] [id number] [place] [address]- 3061 Dec, [facility] [place] [facility] [address] [id number], [place] [address]- 7038 Dec, [facility] [place] [facility] [address] [id number] [place] [address]- 2341 Dec, [facility] [place] [facility] [address] [id number] [place] [address]- 9620 Dec, [facility] [place] [facility] [address] [id number], [place] [address]- 7757 Dec, [facility] [place] [facility] [address] [id number], [place] [address]- 9109 Dec, [facility] [place] [facility] [address] [id number] [place] [address]- 4873 Dec, [facility] [place] [facility] [address] [id number], [place] [address]- 7358 Dec, [facility] [place] [facility] [address] [id number] [place] [address]- 9079 30 Nov, 2012 [facility] [place] [facility] [address] [id number] [place] [address]- 9905 Nov, [facility] [address] [id number] [place] [address]- 6050 Nov, [facility] [place] [facility] [address] [id number] [place] [address]- 4120 Oct, [facility] [address] [id number] [place] [address]- 0091 Oct, [facility] [address] [id number] [place] [address]- 9466 Oct, [facility] [address] [id number] [place] [address]- 0158 Oct, [facility] [address] [id number] [place] [address]- 9349 Oct, [facility] [address] [id number] [place] [address]- 4356 Oct, [facility] [address] [id number] [place] [address]- 3601 Oct, [facility] [address] [id number] [place] [address]- 7661 Sep, [facility] [address] [id number] [place] [address]- 7604 Sep, [facility] [place] [facility] [address] [id number] [place] [address]- 2710 Sep, [facility] [address] [id number] [place] [address]- 4548 Sep, [facility] [place] [facility] [address] [id number] [place] [address]- 1061 Sep, [facility] [place] [facility] [address] [id number] [place] [address]- 4870 Aug, [facility] [place] [facility] [address] [id number] [place] [address]- 7600 Apr, [facility] [address] [address]- 3219 Mar, [facility] [address], [place] [address]- 3172 Mar, [facility] [address], [place] [address]- 9725 Feb, [facility] [address] [facility] [id number] [address] Feb, [facility] [address], [place] [address]- 1618 Jan, [facility] [id number] [place] [address]- 0551 Jan, [facility] [address], [place] [address]- 1404 Jan, [facility] [address], [place] [address]- 7782 Jan, [facility] [address], [place] [address]- 8134 Oct, [facility] [address], [place] [address]- 4990 Feb, [facility] [address], [place] [address]- 1134 Feb, [facility] [address] [place] [address] [id number] [address]33 Feb, [facility] [address] [id number] [address]702 Jun, IMMUNIZATIONS No Known Immunizations SOCIAL HISTORY Never Assessed REASON FOR VISIT Pain (acute)finger- states his left index finger has hurt for a month, is painfull when bending- Magdiel Garner RN PLAN OF CARE Activity Details Follow Up prn Reason: VITAL SIGNS Height 64 in 2017-02-06 Weight 116 lbs 2017-02-06 Temperature 98.3 degrees Fahrenheit 2017-02-06 Heart Rate 82 bpm 2017-02-06 Respiratory Rate 16 2017-02-06 BMI 19.91 kg/m2 2017-02-06 Blood pressure systolic 122 mmHg 2017-02-06 Blood pressure diastolic 74 mmHg 2017-02-06 MEDICATIONS Medication Instructions Dosage Frequency Start Date End Date Duration Status Aspirin 325 MG Orally every 8 hours, PRN 1 tablet Active RESULTS No Results PROCEDURES No Known procedures INSTRUCTIONS MEDICATIONS ADMINISTERED No Known Medications MEDICAL (GENERAL) HISTORY Type Description Date Medical History seizures Medical History asthma Medical History scoliosis Medical History migraines Medical History chronic lower back pain Surgical History cyst removed from left arm Hospitalization History seizures
--- OUTSIDE RECORDS SUMMARY | 2017-10-21 07:41 | XMS REPORT ---
Author Author TAWANDA BURKS Organization [facility] Address [address] [place] [address] Care Team Providers Care Platform Consultant Name Role Phone TAWANDA BURKS Unavailable PROBLEMS Type Condition ICD9-CM Code JQT14-ED Code Onset Dates Condition Status SNOMED Code Problem Hypertension, benign I10 Active 79259107 Problem Renal lithiasis N20.0 Active 14118774 Problem Low back pain M54.5 Active 464979124 Problem Anxiety F41.9 Active 31480561 ALLERGIES No Known Allergies ENCOUNTERS Encounter Location Date Diagnosis [place] [address] [address] 07 Aug, 2017 Bronchitis J40 [place] [address] [address] Jun, [place] [address] [address] Jun, Renal lithiasis N20.0 and Hypertension, benign I10 [place] [address] [address] May, Anxiety F41.9 [place] [address] [address]- [address] 02 Apr, 2017 Encounter for staple removal Z48.02 [place] [address] [address]- [address] Mar, Sebaceous cyst L72.3 [place] [address] [address]- [address] Jan, Finger pain, left M79.645 [place] [address] [address]- [address] Jan, Sebaceous cyst L72.3 [facility] [address] [place] [address] [id number] [place] [address]- [address]70 Jun, Anxiety F41.9 [facility] [address] [address] May, Gastroenteritis K52.9 [facility] [address] [place] [id number] [place] [id number] Jun, Dental examination Z01.20 [facility] [address] [id number] Jun, Dental examination Z01.20 and Caries K02.9 [facility] [address] [address]- [address] Nov, Back pain 724.5 and Otalgia 388.70 [facility] [address] 468160- 8786 Nov, [facility] [address] [place] [address] [id number] [place] [address] [id number] July, Dental examination V72.2 [facility] [id number] [place] [address]29- 9906 Jun, [facility] [address] [id number] [place] [address]8749- 3568 Jun, [facility] [address] [id number] [place] [address] 17185- 7826 Apr, [facility] [address] [id number] [place] [address]31- 9125 Apr, [facility] [id number] [place] [address] 207987- 5907 Mar, [facility] [address] [id number] [place] [address] 466447- 5648 Mar, [facility] [id number] [place] [address] 644723- 8904 Jan, [facility] [address] [id number] [address] Jan, [facility] [place] [facility] [address] [id number] [place] [address]- 5136 Nov, [facility] [place] [facility] [address] [id number] [place] [address] 2546 Nov, [facility] [place] [address] [id number] [place] [id number] Nov, [facility] [place] [facility] [address] [id number] [place] [address]- 6600 Nov, [facility] [place] [address] [id number] [place] [id number] Nov, [facility] [place] [facility] [address] [id number] [place] [address]- 5096 Nov, [facility] [place] [facility] [address] [id number] [place] [address]- 6295 Nov, [facility] [place] [facility] [address] [id number] [place] [address]- 9519 Nov, [facility] [place] [facility] [address] [id number] [place] [address]- 7818 Nov, [facility] [place] [facility] [address] [id number] [place] [address]- 0706 Nov, [facility] [place] [facility] [address] [id number] [place] [address]- 8866 Oct, [facility] [place] [facility] [address] [id number] [place] [address]- 2549 Oct, [facility] [place] [facility] [address] [id number] [place] [address]- 3448 Sep, [facility] [place] [facility] [address] [id number] [place] [address]- 8771 Sep, [facility] [place] [facility] [address] [id number] [place] [address]- 6805 Sep, [facility] [place] [facility] [address] [id number] [place] [address]- 6159 Sep, [facility] [place] [facility] [address] [id number] [place] [address]- 8095 Sep, [facility] [place] [facility] [address] [id number] [place] [address]- 1320 Sep, [facility] [place] [facility] [address] [id number] [place] [address]- 2010 Aug, [facility] [place] [facility] [address] [id number] [place] [address]- 5300 Aug, [facility] [place] [facility] [address] [id number] [place] [address]- 1785 Aug, [facility] [place] [facility] [address] [id number] [place] [address]- 0761 Aug, [facility] [place] [facility] [address] [id number] [place] [address]- 3385 Aug, [facility] [place] [facility] [address] [id number] [place] [address]- 6022 Aug, [facility] [place] [facility] [address] [id number] [place] [address]- 7970 July, [facility] [place] [facility] [address] [id number] [place] [address]- 0546 July, [facility] [place] [facility] [address] [id number] [place] [address]- 2997 July, [facility] [place] [facility] [address] [id number] [place] [address]- 4230 July, [facility] [place] [facility] [address] [id number] [place] [address]- 6117 July, [facility] [place] [facility] [address] [id number] [place] [address]- 7054 July, [facility] [place] [facility] [address] [id number] [place] [address]- 5316 Jun, [facility] [place] [facility] [address] [id number] [place] [address]- 3205 Jun, [facility] [place] [facility] [address] [id number] [place] [address]- 6363 Jun, [facility] [place] [facility] [address] [id number] [place] [address]- 5090 Jun, [facility] [place] [facility] [address] [id number] [place] [address]- 7344 Jun, [facility] [place] [facility] [address] [id number] [place] [address]- 4702 Jun, [facility] [place] [facility] [address] [id number] [place] [address]- 1755 May, [facility] [place] [facility] [address] [id number] [place] [address]- 0737 May, [facility] [place] [facility] [address] [id number] [place] [address]- 8765 May, [facility] [place] [facility] [address] [id number] [place] [address]- 8378 May, [facility] [place] [facility] [address] [id number] [place] [address]- 2655 May, [facility] [place] [facility] [address] [id number] [place] [address]- 6642 May, [facility] [place] [facility] [address] [id number] [place] [address]- 1652 May, [facility] [place] [facility] [address] [id number] [place] [address]- 0670 Apr, [facility] [place] [facility] [address] [id number] [place] [address]- 3303 Apr, [facility] [place] [facility] [address] [id number] [place] [address]- 4110 Apr, [facility] [place] [facility] [address] [id number] [place] [address]- 0149 Apr, [facility] [place] [facility] [address] [id number] [place] [address]- 2556 Apr, [facility] [place] [facility] [address] [id number] [place] [address]- 5006 Apr, [facility] [place] [facility] [address] [id number] [place] [address]- 9506 Apr, [facility] [place] [facility] [address] [id number] [place] [address]- 4744 Apr, [facility] [place] [facility] [address] [id number] [place] [address]- 1469 Mar, [facility] [place] [facility] [address] [id number] [place] [address]- 7953 Mar, [facility] [place] [facility] [address] [id number] [place] [address]- 2023 Mar, [facility] [place] [facility] [address] [id number] [place] [address]- 8958 Mar, [facility] [place] [facility] [address] [id number] [place] [address]- 3829 Feb, [facility] [place] [facility] [address] [id number] [place] [address]- 5850 Feb, [facility] [place] [facility] [address] [id number] [place] [address]- 2940 Feb, [facility] [place] [facility] [address] [id number] [place] [address]- 3476 Feb, [facility] [place] [facility] [address] [id number] [place] [address]- 3378 Feb, [facility] [place] [facility] [address] [id number] [place] [address]- 0343 Feb, [facility] [place] [facility] [address] [id number], [place] [address]- 8133 Jan, [facility] [place] [facility] [address] [id number] [place] [address]- 6421 Jan, [facility] [place] [facility] [address] [id number] [place] [address]- 8580 Jan, [facility] [place] [facility] [address] [id number] [place] [address]- 9226 Jan, [facility] [place] [facility] [address] [id number], [place] [address]- 8964 Jan, [facility] [place] [facility] [address] [id number] [place] [address]- 3071 Jan, [facility] [place] [facility] [address] [id number], [place] [address]- 8959 Jan, [facility] [place] [facility] [address] [id number], [place] [address]- 5946 Jan, [facility] [place] [facility] [address] [id number], [place] [address]- 7654 Dec, [facility] [place] [facility] [address] [id number], [place] [address]- 4755 Dec, [facility] [place] [facility] [address] [id number], [place] [address]- 5126 Dec, [facility] [place] [facility] [address] [id number], [place] [address]- 0665 Dec, [facility] [place] [facility] [address] [id number], [place] [address]- 7802 Dec, [facility] [place] [facility] [address] [id number], [place] [address]- 5475 Dec, [facility] [place] [facility] [address] [id number], [place] [address]- 2830 Dec, [facility] [place] [facility] [address] [id number], [place] [address]- 0676 Dec, [facility] [place] [facility] [address] [id number] [place] [address]- 6063 30 Nov, 2012 [facility] [address] [id number] [place] [address]- 9981 25 Nov, 2012 [facility] [address] [id number] [place] [address]- 2546 Nov, [facility] [address] [id number] [place] [address]- 7638 Oct, [facility] [address] [id number] [place] [address]- 1054 Oct, [facility] [address] [id number] [place] [address]- 5344 Oct, [facility] [address] [id number] [place] [address]- 2897 Oct, [facility] [address] [id number] [place] [address]- 0558 Oct, [facility] [address] [id number] [place] [address]- 5031 Oct, [facility] [address] [id number] [place] [address]- 8041 Oct, [facility] [address] [id number] [place] [address]- 3029 Sep, [facility] [place] [facility] [address] [id number] [place] [address]- 9644 Sep, [facility] [address] [id number] [place] [address]- 2012 Sep, [facility] [place] [facility] [address] [id number] [place] [address]- 5032 Sep, [facility] [place] [facility] [address] [id number] [place] [address]- 2548 Sep, [facility] [place] [facility] [address] [id number] [place] [address]- 9834 Aug, [facility] [address] [id number] [address]- 7576 Apr, [facility] [address]65[address], [place] [address]- 2666 Mar, [facility] [address], [place] [address]- 4926 Mar, [facility] [address], [place] [address]- 3386 Feb, [facility] [address], [place] [address]- 5172 Feb, [facility] [address], [place] [address]- 8966 Jan, [facility] [address], [place] [address]- 0686 Jan, [facility] [address], [place] [address]- 3196 Jan, [facility] [address], [place] [address]- 0776 Jan, [facility] [address], [place] [address]- 2366 Oct, [facility] [address], [place] [address]- 5426 Feb, [facility] [address], [place] [address]- 7866 Feb, [facility] [address] [id number], [place] [address]- 0661 Feb, [facility] [address] [id number], [place] [address]- 5876 Jun, IMMUNIZATIONS No Known Immunizations SOCIAL HISTORY Never Assessed REASON FOR VISIT Cyst removal from back of skull-Jerri GREENE PLAN OF CARE Activity Details Follow Up 10 days Reason:staple removal VITAL SIGNS Height 64 in 2017-04-04 Weight 118.4 lbs 2017-04-04 Temperature 97.8 degrees Fahrenheit 2017-04-04 Heart Rate 82 bpm 2017-04-04 Respiratory Rate 18 2017-04-04 BMI 20.32 kg/m2 2017-04-04 Blood pressure systolic 120 mmHg 2017-04-04 Blood pressure diastolic 72 mmHg 2017-04-04 MEDICATIONS Medication Instructions Dosage Frequency Start Date End Date Duration Status Aspirin 325 MG Orally every 8 hours, PRN 1 tablet Active Nabumetone Active RESULTS No Results PROCEDURES Procedure Date Ordered Result Body Site EXC BENIGN LEISON 0.6-1 cm (specify location) 2017-04-04 completed EXC TR-EXT B9 [place] 0.6-1 CM Apr 04, 2017 INSTRUCTIONS MEDICATIONS ADMINISTERED No Known Medications MEDICAL (GENERAL) HISTORY Type Description Date Medical History seizures Medical History asthma Medical History scoliosis Medical History migraines Medical History chronic lower back pain Surgical History cyst removed from left arm Hospitalization History seizures
--- OUTSIDE RECORDS SUMMARY | 2017-10-21 07:44 | XMS REPORT | Continuity of Care Document ---
Author Author [facility] Address Unknown Phone Unavailable Allergies Active Description Code Type Severity Reaction Onset Reported/Identified Relationship to Patient Clinical Status Yes No Known Drug Allergies [id number] Drug Allergy Mild N/A 11/09/2008 Medications There [...] K V20.2 WELL CHILD, ROUTINE 01/09/2008 MADL RUSSIAN HISTORY PROFESSOR, TELMA L V20.2 WELL CHILD, ROUTINE 01/09/2008 MARANDA RUSSIAN HISTORY PROFESSOR, TELMA L V20.2 WELL CHILD, ROUTINE 01/09/2008 VITALIY RUSSIAN HISTORY PROFESSORTAWANDA Martinez T V20.2 WELL CHILD, ROUTINE 01/09/2008 VITALIY RUSSIAN HISTORY PROFESSORTAWANDA Martinez V20.2 WELL CHILD, ROUTINE 01/09/2008 AMANUEL HERRING APRN R V20.2 WELL CHILD, ROUTINE 01/09/2008 VITALIY RUSSIAN HISTORY PROFESSORTAWANDA T V20.2 WELL CHILD, ROUTINE 01/09/2008 AMANUEL [...] HERRING APRN 477.9 ALLERGIC RHINITIS 03/20/2008 HERRING RUSSIAN HISTORY PROFESSOR, AMANUEL R 493.90 ASTHMA UNSPECIFIED 03/20/2008 VITALIY RUSSIAN HISTORY PROFESSOR, TAWANDA T 477.9 ALLERGIC RHINITIS 03/20/2008 VITALIY RUSSIAN HISTORY PROFESSOR, TAWANDA T 493.90 ASTHMA UNSPECIFIED 03/20/2008 NIMA RUSSIAN HISTORY PROFESSOR, AMANUEL R 477.9 ALLERGIC RHINITIS 03/20/2008 NIMA RUSSIAN HISTORY PROFESSOR, AMANUEL R 493.90 ASTHMA UNSPECIFIED 03/20/2008 VITALIY RUSSIAN HISTORY PROFESSOR, TAWANDA T 477.9 ALLERGIC RHINITIS 03/20/2008 VITALIY RUSSIAN HISTORY PROFESSOR, TAWANDA T 493.90 ASTHMA UNSPECIFIED 03/20/2008 VITALIY RUSSIAN HISTORY PROFESSOR, TAWANDA T 477.9 ALLERGIC RHINITIS 03/20/2008 VITALIY RUSSIAN HISTORY PROFESSOR, TAWANDA T 493.90 ASTHMA UNSPECIFIED 03/20/2008 VITALIY RUSSIAN HISTORY PROFESSOR, TAWANDA T 477.9 ALLERGIC RHINITIS 03/20/2008 VITALIY RUSSIAN HISTORY PROFESSOR, TAWANDA T 493.90 ASTHMA UNSPECIFIED 03/20/2008 VITALIY RUSSIAN HISTORY PROFESSOR, TAWANDA T 477.9 ALLERGIC RHINITIS 03/20/2008 VITALIY RUSSIAN HISTORY PROFESSOR, TAWANDA T 493.90 ASTHMA UNSPECIFIED 03/20/2008 VITALIY RUSSIAN HISTORY PROFESSOR, TAWANDA T 477.9 ALLERGIC RHINITIS 03/20/2008 VITALIY RUSSIAN HISTORY PROFESSOR, TAWANDA T 493.90 ASTHMA UNSPECIFIED 03/20/2008 VITALIY RUSSIAN HISTORY PROFESSOR, TAWANDA T 477.9 ALLERGIC RHINITIS 03/20/2008 VITALIY RUSSIAN HISTORY PROFESSOR, TAWANDA T 493.90 ASTHMA UNSPECIFIED 03/20/2008 NIMA MCLAUGHLIN, AMANUEL R 477.9 ALLERGIC RHINITIS 03/20/2008 NIMA RUSSIAN HISTORY PROFESSOR, AMANUEL R 493.90 ASTHMA UNSPECIFIED 03/20/2008 VITALIY RUSSIAN HISTORY PROFESSOR, TAWANDA T 477.9 ALLERGIC RHINITIS 03/20/2008 VITALIY LINDSAYN, TAWANDA T 493.90 ASTHMA UNSPECIFIED 03/20/2008 OCAMPO DO, SUDARSHAN K 477.9 ALLERGIC RHINITIS 03/20/2008 OCAMPO DO, SUDARSHAN K 493.90 ASTHMA UNSPECIFIED 03/20/2008 MADL RUSSIAN HISTORY PROFESSOR, TELMA L 477.9 ALLERGIC RHINITIS 03/20/2008 MADL RUSSIAN HISTORY PROFESSOR, TELMA L 493.90 ASTHMA UNSPECIFIED 03/20/2008 MADL RUSSIAN HISTORY PROFESSOR, TELMA L 477.9 ALLERGIC RHINITIS 03/20/2008 MADL RUSSIAN HISTORY PROFESSOR, TELMA L 493.90 ASTHMA UNSPECIFIED 03/20/2008 VITALIY LINDSAYN TAWANDA T 477.9 ALLERGIC RHINITIS 03/20/2008 VITALIY RUSSIAN HISTORY PROFESSOR, TAWANDA T 493.90 ASTHMA UNSPECIFIED 03/20/2008 TAWANDA [...] 06/18/2008 AP CHEW MD 251.2 HYPOGLYCEMIA 06/18/2008 PA CHEW MD 493.00 ASTHMA EXTRINSIC 06/18/2008 237.70 [...] MCLAUGHLIN AMANUEL R 237.70 NEUROFIBROMATOSIS 06/18/2008 GAEL HERRING APRNRICIA [...] BURKS APRN T 237.70 NEUROFIBROMATOSIS 06/18/2008 VITALIY RUSSIAN HISTORY PROFESSOR, TAWANDA T 251.2 HYPOGLYCEMIA 06/18/2008 TAWANDA BURKS [...] SUDARSHAN K 493.00 ASTHMA EXTRINSIC 06/18/2008 MAD RUSSIAN HISTORY PROFESSOR, TELMA L 237.70 NEUROFIBROMATOSIS 06/18/2008 MAD RUSSIAN HISTORY PROFESSOR, TELMA L 251.2 HYPOGLYCEMIA 06/18/2008 MADL RUSSIAN HISTORY PROFESSOR, TELMA L 493.00 ASTHMA EXTRINSIC 06/18/2008 MAD RUSSIAN HISTORY PROFESSOR, TELAM L 237.70 NEUROFIBROMATOSIS 06/18/2008 MADL RUSSIAN HISTORY PROFESSOR, TELMA L 251.2 HYPOGLYCEMIA 06/18/2008 MADL RUSSIAN HISTORY PROFESSOR, TELMA L 493.00 ASTHMA EXTRINSIC 06/18/2008 TAWANDA [...] K 949.0 BURN DEGREE UNSPEC 02/24/2009 AP CHEW MD 949.0 BURN DEGREE UNSPEC 02/24/2009 TAWANDA [...] DO, SUDARSHAN K 784.0 headache 05/11/2009 NIMA RUSSIAN HISTORY PROFESSOR, AMANUEL R 486 PNEUMONITIS 05/11/2009 NIMA RUSSIAN HISTORY PROFESSOR, AMANUEL R 784.0 headache 05/11/2009 VITALIY RUSSIAN HISTORY PROFESSOR, TAWANDA T 486 PNEUMONITIS 05/11/2009 VITALIY RUSSIAN HISTORY PROFESSOR, TAWANDA T 784.0 headache 05/11/2009 NIMA RUSSIAN HISTORY PROFESSOR, AMANUEL R 486 PNEUMONITIS 05/11/2009 NIMA RUSSIAN HISTORY PROFESSOR, AMANUEL R 784.0 headache 05/11/2009 VITALIY RUSSIAN HISTORY PROFESSOR, TAWANDA T 486 PNEUMONITIS 05/11/2009 VITALIY RUSSIAN HISTORY PROFESSOR, TAWANDA T 784.0 headache 05/11/2009 VITALIY RUSSIAN HISTORY PROFESSOR, TAWANDA T 486 PNEUMONITIS 05/11/2009 VITALIY RUSSIAN HISTORY PROFESSOR, TAWANDA T 784.0 headache 05/11/2009 VITALIY RUSSIAN HISTORY PROFESSOR, TAWANDA T 486 PNEUMONITIS 05/11/2009 VITALIY RUSSIAN HISTORY PROFESSOR, TAWANDA T 784.0 headache 05/11/2009 VITALIY RUSSIAN HISTORY PROFESSOR, TAWANDA T 486 PNEUMONITIS 05/11/2009 VITALIY RUSSIAN HISTORY PROFESSOR, TAWANDA T 784.0 HEADACHE 05/11/2009 VITALIY RUSSIAN HISTORY PROFESSOR, TAWANDA T 486 PNEUMONITIS 05/11/2009 VITALIY RUSSIAN HISTORY PROFESSOR, TAWANDA T 784.0 HEADACHE 05/11/2009 VITALIY RUSSIAN HISTORY PROFESSOR, TAWANDA T 486 PNEUMONITIS 05/11/2009 VITALIY RUSSIAN HISTORY PROFESSOR, TAWANDA T 784.0 HEADACHE 05/11/2009 NIMA RUSSIAN HISTORY PROFESSOR, AMANUEL R 486 PNEUMONITIS 05/11/2009 NIMA RUSSIAN HISTORY PROFESSOR, AMANUEL R 784.0 HEADACHE 05/11/2009 VITALIY RUSSIAN HISTORY PROFESSOR, TAWANDA T 486 PNEUMONITIS 05/11/2009 VITALIY RUSSIAN HISTORY PROFESSOR, TAWANDA T 784.0 HEADACHE 05/11/2009 OCAMPO DO, SUDARSHAN K 486 PNEUMONITIS 05/11/2009 OCAMPO DO, SUDARSHAN K 784.0 HEADACHE 05/11/2009 MADL RUSSIAN HISTORY PROFESSOR, TELMA L 486 PNEUMONITIS 05/11/2009 MADL RUSSIAN HISTORY PROFESSOR, TELMA L 784.0 HEADACHE 05/11/2009 MADL RUSSIAN HISTORY PROFESSOR, TELMA L 486 PNEUMONITIS 05/11/2009 MADBlayne RUSSIAN HISTORY PROFESSOR, TELMA L 784.0 HEADACHE 05/11/2009 VITALIY RUSSIAN HISTORY PROFESSOR, TAWANDA T 486 PNEUMONITIS 05/11/2009 VITALIY RUSSIAN HISTORY PROFESSOR, TAWANDA T 784.0 HEADACHE 05/11/2009 VITALIY RUSSIAN HISTORY PROFESSOR, TAWANDA T 486 PNEUMONITIS 05/11/2009 VITALIY LINDSAYN, TAWANDA T 784.0 HEADACHE 05/11/2009 NIMA MCLAUGHLIN, AMANUEL R 486 PNEUMONITIS 05/11/2009 HERRING RUSSIAN HISTORY PROFESSOR, AMANUEL R 784.0 HEADACHE 05/11/2009 VITALIY RUSSIAN HISTORY PROFESSOR, TAWANDA T 486 PNEUMONITIS 05/11/2009 VITALIY RUSSIAN HISTORY PROFESSOR, TAWANDA T 784.0 HEADACHE 05/11/2009 NIMA MCLAUGHLIN, AMANUEL R 486 PNEUMONITIS 05/11/2009 NIMA MCLAUGHLIN, AMANUEL R 784.0 HEADACHE 05/11/2009 OCAMPO DO, SUDARSHAN K 486 PNEUMONITIS 05/11/2009 OCAMPO DO, SUDARSHAN K 784.0 HEADACHE 05/11/2009 AP CEHW MD 486 PNEUMONITIS 05/11/2009 AP CHEW MD 784.0 HEADACHE 05/11/2009 VITALIY RUSSIAN HISTORY PROFESSOR, TAWANDA T 486 PNEUMONITIS 05/11/2009 VITALIY RUSSIAN HISTORY PROFESSOR, TAWANDA T 784.0 HEADACHE 05/11/2009 NIMA MCLAUGHLIN, [...] TAWANDA BURKS APRN 786.2 COUGH 02/01/2012 VITALIY RUSSIAN HISTORY PROFESSOR, TAWANDA T E906.0 INJURY CAUSED BY ANIMAL [...] INJURY CAUSED BY ANIMAL DOG BITE 02/01/2012 TWAANDA BURKS APRN T V06.1 TDAP DX 02/01/2012 [...] SUDARSHAN K V06.1 TDAP DX 02/01/2012 MADL RUSSIAN HISTORY PROFESSOR, TELMA L 786.2 COUGH 02/01/2012 MADL RUSSIAN HISTORY PROFESSOR, TELMA L E906.0 INJURY CAUSED BY ANIMAL DOG BITE 02/01/2012 MADL RUSSIAN HISTORY PROFESSOR, TELMA L V06.1 TDAP DX 02/01/2012 MADL RUSSIAN HISTORY PROFESSOR, TELMA L 786.2 COUGH 02/01/2012 MARANDA MCLAUGHLIN, [...] DO K 709.09 OTHER DYSCHROMIA 04/05/2012 MADL RUSSIAN HISTORY PROFESSOR, TELMA L 709.09 OTHER DYSCHROMIA 04/05/2012 MARANDA [...] DO K V03.82 PPV23 (PNEUMOVAX) DX 08/29/[facility]ESS[facility] TELMA L V03.82 PPV23 (PNEUMOVAX) DX 08/29/2012 MARANDA RUSSIAN HISTORY PROFESSOR, TELMA L V03.82 PPV23 (PNEUMOVAX) DX 08/29/2012 [...] K 465.9 UPPER RESPIRATORY INFECTION 09/29/2012 MARANDA RUSSIAN HISTORY PROFESSOR, TELMA L 465.9 UPPER RESPIRATORY INFECTION 09/29/2012 MARANDA RUSSIAN HISTORY PROFESSOR, TELMA L 465.9 UPPER RESPIRATORY INFECTION 09/29/2012 [...] K 724.2 BACK PAIN, LOWER 10/15/2012 NIMA RUSSIAN HISTORY PROFESSORMEENAKSHIIA R 724.2 BACK PAIN, LOWER 10/15/2012 VITALIY [...] K 724.2 BACK PAIN, LOWER 10/15/2012 MADL RUSSIAN HISTORY PROFESSOR, TELMA L 724.2 BACK PAIN, LOWER 10/15/2012 MADL RUSSIAN HISTORY PROFESSOR, TELMA L 724.2 BACK PAIN, LOWER 10/15/2012 TAWANDA BURKS APRN T 724.2 BACK PAIN, LOWER 10/15/2012 VITALIY LINDSAYNTAWANDA T 724.2 BACK PAIN, LOWER 10/15/2012 AMANUEL HERRING APRN R 724.2 BACK PAIN, LOWER 10/15/2012 TAWANDA BURKS APRN T 724.2 BACK PAIN, LOWER 10/15/2012 NIMA RUSSIAN HISTORY PROFESSOR, AMANUEL R 724.2 BACK PAIN, LOWER 10/15/2012 [...] Ot 599.0 URIN TRACT INFECTION NOS 11/01/2012 HRAJEET LIRIANO MD Ot 599.70 HEMATURIA, UNSPECIFIED 11/01/2012 HARJEET LIRIANO MD Ot 737.30 IDIOPATHIC SCOLIOSIS 11/23/2012 V04.81 FLU SHOT 11/23/2012 SUDARSHAN OCAMPO DO V04.81 FLU SHOT 11/23/2012 SUDARSHAN OCAMPO DO V04.81 FLU SHOT 11/23/2012 AMANUEL HERRING [...] APRN R V04.81 FLU SHOT 11/23/2012 VITALIY RUSSIAN HISTORY PROFESSOR, TAWANDA T V04.81 FLU SHOT 11/23/2012 OCAMPO DO, SUDARSHAN K V04.81 FLU SHOT 11/23/2012 MADL RUSSIAN HISTORY PROFESSOR, TELMA L V04.81 FLU SHOT 11/23/2012 MADL RUSSIAN HISTORY PROFESSOR, TELMA L V04.81 FLU SHOT 11/23/2012 VITALIY [...] APRN R 462 ACUTE PHARYNGITIS 01/25/2013 VITALIY RUSSIAN HISTORY PROFESSOR, TAWANDA T 462 ACUTE PHARYNGITIS 01/25/2013 AMANUEL [...] CHRISTY OCAMPO DOA K 780.79 FATIGUE 01/29/2013 AP CHEW MD 780.79 FATIGUE 01/29/2013 TAWANDA BURKS APRN 780.79 FATIGUE 01/29/2013 AMANUEL HERRING APRN R 780.79 FATIGUE 01/29/2013 TAWANDA BURKS APRN T 780.79 FATIGUE 02/03/2013 KAYLEN GATES APRN Ot 346.90 MIGRAINE UNSPECIFIED W/O INTRACT MGRN W/ 02/03/2013 KAYLEN GATES APRN Ot 465.9 ACUTE URI NOS 02/03/2013 KAYLEN GATES APRN Ot 473.9 CHRONIC SINUSITIS NOS 02/05/2013 VITALIY RUSSIAN HISTORY PROFESSOR, TAWANDA T 461.9 SINUSITIS ACUTE 02/05/2013 VITALIY RUSSIAN HISTORY PROFESSOR, TAWANDA T 785.6 LYMPH NODES ENLARGEMENT 02/05/2013 VITALIY RUSSIAN HISTORY PROFESSOR, TAWANDA T 461.9 SINUSITIS ACUTE 02/05/2013 VITALIY RUSSIAN HISTORY PROFESSOR, TAWANDA T 785.6 LYMPH NODES ENLARGEMENT 02/05/2013 VITALIY RUSSIAN HISTORY PROFESSOR, TAWANDA T 461.9 SINUSITIS ACUTE 02/05/2013 VITALIY RUSSIAN HISTORY PROFESSOR, TAWANDA T 785.6 LYMPH NODES ENLARGEMENT 02/05/2013 VITALIY RUSSIAN HISTORY PROFESSOR, TAWANDA T 461.9 SINUSITIS ACUTE 02/05/2013 VITALIY RUSSIAN HISTORY PROFESSOR, TAWANDA T 785.6 LYMPH NODES ENLARGEMENT 02/05/2013 VITALIY RUSSIAN HISTORY PROFESSOR, TAWANDA T 461.9 SINUSITIS ACUTE 02/05/2013 VITALIY RUSSIAN HISTORY PROFESSOR, TAWANDA T 785.6 LYMPH NODES ENLARGEMENT 02/05/2013 NIMA RUSSIAN HISTORY PROFESSOR, AMANUEL R 461.9 SINUSITIS ACUTE 02/05/2013 NIMA RUSSIAN HISTORY PROFESSOR, AMANUEL R 785.6 LYMPH NODES ENLARGEMENT 02/05/2013 VITALIY RUSSIAN HISTORY PROFESSOR, TAWANDA T 461.9 SINUSITIS ACUTE 02/05/2013 VITALIY RUSSIAN HISTORY PROFESSOR, TAWANDA T 785.6 LYMPH NODES ENLARGEMENT 02/05/2013 OCAMPO DO, SUDARSHAN K 461.9 SINUSITIS ACUTE 02/05/2013 OCAMPO DO, SUDARSHAN K 785.6 LYMPH NODES ENLARGEMENT 02/05/2013 MADL RUSSIAN HISTORY PROFESSOR, TELMA L 461.9 SINUSITIS ACUTE 02/05/2013 MADL RUSSIAN HISTORY PROFESSOR, TELMA L 785.6 LYMPH NODES ENLARGEMENT 02/05/2013 MADL RUSSIAN HISTORY PROFESSOR, TELMA L 461.9 SINUSITIS ACUTE 02/05/2013 MADL RUSSIAN HISTORY PROFESSOR, TELMA L 785.6 LYMPH NODES ENLARGEMENT 02/05/2013 VITALIY RUSSIAN HISTORY PROFESSOR, TAWANDA T 461.9 SINUSITIS ACUTE 02/05/2013 VITALIY RUSSIAN HISTORY PROFESSOR, TAWANDA T 785.6 LYMPH NODES ENLARGEMENT 02/05/2013 VITALIY RUSSIAN HISTORY PROFESSOR, TAWANDA T 461.9 SINUSITIS ACUTE 02/05/2013 VITALIY RUSSIAN HISTORY PROFESSOR, TAWANDA T 785.6 LYMPH NODES ENLARGEMENT 02/05/2013 NIMA RUSSIAN HISTORY PROFESSOR, AMANUEL R 461.9 SINUSITIS ACUTE 02/05/2013 NIMA RUSSIAN HISTORY PROFESSOR, AMANUEL R 785.6 LYMPH NODES ENLARGEMENT 02/05/2013 [...] APRN T 346.90 MIGRAINE HEADACHE 04/08/2013 TAWANDA BUKRS APRN T 346.90 MIGRAINE HEADACHE 04/08/2013 GAEL [...] READING WITHOUT DIAGNOSIS OF HYPERTENSION 07/22/2013 MADL RUSSIAN HISTORY PROFESSOR, TELMA L 339.21 ACUTE POSTRAUMATIC HEADACHE 07/22/2013 MARANDA RUSSIAN HISTORY PROFESSOR, TELMA L 850.9 CONCUSSION UNSPECIFIED 07/22/2013 MARANDA RUSSIAN HISTORY PROFESSOR, TELMA L 339.21 ACUTE POSTRAUMATIC HEADACHE 07/22/2013 MARANDA RUSSIAN HISTORY PROFESSOR, TELMA L 850.9 CONCUSSION UNSPECIFIED 07/22/2013 TAWANDA [...] APRN L 462 ACUTE PHARYNGITIS 07/31/2013 VITALIY RUSSIAN HISTORY PROFESSOR, TAWANDA T 462 ACUTE PHARYNGITIS 07/31/2013 TAWANDA [...] HEMOR/HEMTOM OF DGSTV SYS ORG F 07/07/2016 DEANDRA PETER, HARJEET Sheriff Ot J06.9 ACUTE UPPER RESPIRATORY INFECTION, UNSPE 07/07/2016 DEANDRA PETER, HARJEET D Ot R05 COUGH 07/08/2016 DEANDRA PETER, HARJEET Sheriff Ot J06.9 ACUTE UPPER RESPIRATORY INFECTION, UNSPE 07/08/2016 GUERRERO LIRIANO MDOTHY D Ot R05 COUGH 07/09/2016 DEANDRA PETER, HARJEET Sheriff Ot J06.9 ACUTE UPPER RESPIRATORY INFECTION, UNSPE 07/09/2016 DEANDRA PETER, HARJEET D Ot R05 COUGH 07/12/2016 DEANDRA PETER, HARJEET Sheriff Ot J06.9 ACUTE UPPER RESPIRATORY INFECTION, UNSPE 07/12/2016 DEANDRA PETER, HARJEET D Ot R05 COUGH 05/05/2017 KAYLEN GATES APRN Ot B34.9 VIRAL INFECTION, UNSPECIFIED 05/05/2017 KAYLEN GATES APRN Ot G43.909 MIGRAINE, UNSP, NOT INTRACTABLE, WITHOUT 05/05/2017 KAYLEN GATES APRN Ot I10 ESSENTIAL (PRIMARY) HYPERTENSION 05/05/2017 KAYLEN GATES APRN Ot J45.909 UNSPECIFIED ASTHMA, UNCOMPLICATED 05/05/2017 KAYLEN GATES APRN Ot R00.0 TACHYCARDIA, UNSPECIFIED 05/05/2017 KAYLEN GATES APRN Ot R07.2 PRECORDIAL PAIN 05/05/2017 KAYLEN GATES APRN Ot Z82.49 FAMILY HX OF ISCHEM HEART DIS AND OTH DI 05/05/2017 KAYLEN GATES APRN Ot Z87.442 PERSONAL HISTORY OF URINARY CALCULI 05/08/2017 KAYLEN GATES APRN Ot B34.9 VIRAL INFECTION, UNSPECIFIED 05/08/2017 KAYLEN GATES APRN Ot G43.909 MIGRAINE, UNSP, NOT INTRACTABLE, WITHOUT 05/08/2017 KAYLEN GATES RUSSIAN HISTORY PROFESSOR Ot I10 ESSENTIAL (PRIMARY) HYPERTENSION 05/08/2017 KAYLEN GATES RUSSIAN HISTORY PROFESSOR Ot J45.909 UNSPECIFIED ASTHMA, UNCOMPLICATED 05/08/2017 KAYLEN GATES RUSSIAN HISTORY PROFESSOR Ot R00.0 TACHYCARDIA, UNSPECIFIED 05/08/2017 KAYLEN GATES RUSSIAN HISTORY PROFESSOR Ot R07.2 PRECORDIAL PAIN 05/08/2017 KAYLEN GATES RUSSIAN HISTORY PROFESSOR Ot Z82.49 FAMILY HX OF ISCHEM HEART DIS AND OTH DI 05/08/2017 KAYLEN GATES RUSSIAN HISTORY PROFESSOR Ot Z87.442 PERSONAL HISTORY OF URINARY CALCULI 06/21/2017 MAXIMUS LEWIS MD Ot G43.909 MIGRAINE, UNSP, NOT INTRACTABLE, WITHOUT 06/21/2017 BO LEWIS MDUS J Ot J45.909 UNSPECIFIED ASTHMA, UNCOMPLICATED 06/21/2017 BO LEWIS MDUS J Ot N20.1 CALCULUS OF URETER 06/21/2017 BO LEWIS MDUS J Ot N39.0 URINARY TRACT INFECTION, SITE NOT SPECIF 06/21/2017 MAXIMUS LEWIS MD J Ot R10.31 RIGHT LOWER QUADRANT PAIN 06/21/2017 MAXIMUS LEWIS MD Ot Z82.49 FAMILY HX OF ISCHEM HEART DIS AND OTH DI 06/21/2017 MAXIMUS LEWIS MD J Ot Z87.442 PERSONAL HISTORY OF URINARY CALCULI 06/21/2017 BO LEWIS MDUS J Ot Z87.448 PERSONAL HISTORY OF OTHER DISEASES OF UR 06/21/2017 BO LEWIS MDUS J Ot Z87.891 PERSONAL HISTORY OF NICOTINE DEPENDENCE 06/23/2017 BO LEWIS MDUS J Ot G43.909 MIGRAINE, UNSP, NOT INTRACTABLE, WITHOUT 06/23/2017 BO LEWIS MDUS J Ot J45.909 UNSPECIFIED ASTHMA, UNCOMPLICATED 06/23/2017 BO LEWIS MDUS J Ot N20.1 CALCULUS OF URETER 06/23/2017 BO LEWIS MDUS J Ot N39.0 URINARY TRACT INFECTION, SITE NOT SPECIF 06/23/2017 BO LEWIS MDUS J Ot R10.31 RIGHT LOWER QUADRANT PAIN 06/23/2017 MAXIMUS LEWIS MD Ot Z82.49 FAMILY HX OF ISCHEM HEART DIS AND OTH DI 06/23/2017 MAXIMUS LEWIS MD Ot Z87.442 PERSONAL HISTORY OF URINARY CALCULI 06/23/2017 MAXIMUS LEWIS MD Ot Z87.448 PERSONAL HISTORY OF OTHER DISEASES OF UR 06/23/2017 MAXIMUS LEWIS MD Ot Z87.891 PERSONAL HISTORY OF NICOTINE DEPENDENCE Procedures Code Description Performed By Performed On RAKESH ANDRE 04/05/2012 [id number] ROUTINE VENIPUNCTURE 10/31/2012 35649 A1C (IN-HOUSE) 10/31/2012 50644 CBC 10/31/2012 04872 CMP 10/31/2012 [id number] GFR CALC (RESULT ONLY) 10/31/2012 40621 TSH 10/31/2012 89569 EKG, TRACING 12/13/2012 PHYSICAL PHYSICAL THERAPY, [facility] 2013 [id number] STREP A (IN-HOUSE) 01/25/2013 51613 ROUTINE VENIPUNCTURE 01/29/2013 60468 TSH 01/29/2013 38539 XRAY ANKLE R, 2 VIEWS 03/04/2013 63829 THERAPUTIC INJ SQ/IM 04/08/2013 J1885 TORADOL INJ 04/08/2013 2000F BLOOD PRESSURE CHECK 06/26/2013 47705 ROUTINE VENIPUNCTURE 10/02/2013 12358 TSH 10/02/2013 29442 URINE DRUG SCREEN (IN-HOUSE ) 10/02/2013 04108 CBC 10/02/2013 [id number] GFR CALC (RESULT ONLY) 10/02/2013 98762 CMP 10/02/2013 Results Test Result Range Complete blood count (CBC) with automated white blood cell (WBC) differential - 05/05/17 14:11 Blood leukocytes automated count (number/volume) 11.7 10*3/uL 4.3-11.0 Blood erythrocytes automated count (number/volume) 5.99 10*6/uL 4.35-5.85 Venous blood hemoglobin measurement (mass/volume) 16.6 g/dL 13.3-17.7 Blood hematocrit (volume fraction) 48 % 40-54 Automated erythrocyte mean corpuscular volume 81 [foz_us] 80-99 Automated erythrocyte mean corpuscular hemoglobin (mass per erythrocyte) 28 pg 25-34 Automated erythrocyte mean corpuscular hemoglobin concentration measurement ( mass/volume) 34 g/dL 32-36 Automated erythrocyte distribution width ratio 13.2 % 10.0-14.5 Automated blood platelet count (count/volume) 237 10*3/uL 130-400 Automated blood platelet mean volume measurement 9.8 [foz_us] 7.4-10.4 Automated blood neutrophils/100 leukocytes 87 % 42-75 Automated blood lymphocytes/100 leukocytes 3 % 12-44 Blood monocytes/100 leukocytes 9 % 0-12 Automated blood eosinophils/100 leukocytes 1 % 0-10 Automated blood basophils/100 leukocytes 0 % 0-10 Blood neutrophils automated count (number/volume) 10.2 10*3 1.8-7.8 Blood lymphocytes automated count (number/volume) 0.3 10*3 1.0-4.0 Blood monocytes automated count (number/volume) 1.1 10*3 0.0-1.0 Automated eosinophil count 0.1 10*3/uL 0.0-0.3 Automated blood basophil count (count/volume) 0.0 10*3/uL 0.0-0.1 Fibrin D-dimer FEU measurement in platelet poor plasma (mass/volume) - 14:11 Fibrin D-dimer FEU measurement in platelet poor plasma (mass/volume) < ug/mL 0.00-0.49 Comprehensive metabolic panel - 05/05/17 14:11 Serum or plasma sodium measurement (moles/volume) 136 mmol/L 135-145 Serum or plasma potassium measurement (moles/volume) 4.3 mmol/L 3.6-5.0 Serum or plasma chloride measurement (moles/volume) 102 mmol/L 98-107 Carbon dioxide 24 mmol/L 21-32 Serum or plasma anion gap determination (moles/volume) 10 mmol/L 5-14 Serum or plasma urea nitrogen measurement (mass/volume) 16 mg/dL 7-18 Serum or plasma creatinine measurement (mass/volume) 0.75 mg/dL 0.60-1.30 Serum or plasma urea nitrogen/creatinine mass ratio 21 NRG Serum or plasma creatinine measurement with calculation of estimated glomerular filtration rate > NRG Serum or plasma glucose measurement (mass/volume) 96 mg/dL 70-105 Serum or plasma calcium measurement (mass/volume) 9.5 mg/dL 8.5-10.1 Serum or plasma total bilirubin measurement (mass/volume) 1.0 mg/dL 0.1-1.0 Serum or plasma alkaline phosphatase measurement (enzymatic activity/volume) 91 U/L 40-136 Serum or plasma aspartate aminotransferase measurement (enzymatic activity/ volume) 22 U/L 5-34 Serum or plasma alanine aminotransferase measurement (enzymatic activity/volume ) 22 U/L 0-55 Serum or plasma protein measurement (mass/volume) 7.6 g/dL 6.4-8.2 Serum or plasma albumin measurement (mass/volume) 4.6 g/dL 3.2-4.5 Blood manual differential performed detection - 05/05/17 14:11 Blood monocytes/100 leukocytes 10 % NRG Manual blood segmented neutrophils/100 leukocytes 85 % NRG Manual blood lymphocytes/100 leukocytes 5 % NRG Blood erythrocyte morphology finding identification NORMAL NRG Serum or plasma troponin i.cardiac measurement (mass/volume) - 05/05/17 14:11 Serum or plasma troponin i.cardiac measurement (mass/volume) < ng/ mL <0.30 Complete urinalysis with reflex to culture - 05/05/17 14:30 Urine color determination YELLOW NRG Urine clarity determination CLEAR NRG Urine pH measurement by test strip 5 5-9 Specific gravity of urine by test strip 1.020 1.016- 1.022 Urine protein assay by test strip, semi-quantitative 1+ NEGATIVE Urine glucose detection by automated test strip NEGATIVE NEGATIVE Erythrocytes detection in urine sediment by light microscopy 2+ NEGATIVE Urine ketones detection by automated test strip 2+ NEGATIVE Urine nitrite detection by test strip NEGATIVE NEGATIVE Urine total bilirubin detection by test strip NEGATIVE NEGATIVE Urine urobilinogen measurement by automated test strip (mass/volume) NORMAL NORMAL Urine leukocyte esterase detection by dipstick NEGATIVE NEGATIVE Automated urine sediment erythrocyte count by microscopy (number/high power field) [HPF] NRG Automated urine sediment leukocyte count by microscopy (number/high power field ) NONE NRG Bacteria detection in urine sediment by light microscopy NEGATIVE NRG Squamous epithelial cells detection in urine sediment by light microscopy 0-2 NRG Crystals detection in urine sediment by light microscopy NONE NRG Casts detection in urine sediment by light microscopy NONE NRG Mucus detection in urine sediment by light microscopy MODERATE NRG Complete urinalysis with reflex to culture NO NRG Urine drug screening test - 05/05/17 14:30 Urine phencyclidine detection by screening method NEGATIVE NEGATIVE Urine benzodiazepines detection by screening method NEGATIVE NEGATIVE Urine cocaine detection NEGATIVE NEGATIVE Urine amphetamines detection by screening method NEGATIVE NEGATIVE Urine methamphetamine detection by screening method NEGATIVE NEGATIVE Urine cannabinoids detection by screening method NEGATIVE NEGATIVE Urine opiates detection by screening method NEGATIVE NEGATIVE Urine barbiturates detection NEGATIVE NEGATIVE Screening urine tricyclic antidepressants detection NEGATIVE NEGATIVE Urine methadone detection by screening method NEGATIVE NEGATIVE Urine oxycodone detection NEGATIVE NEGATIVE Urine propoxyphene detection NEGATIVE NEGATIVE Comprehensive metabolic panel - 06/21/17 00:48 Serum or plasma sodium measurement (moles/volume) 139 mmol/L 135-145 Serum or plasma potassium measurement (moles/volume) 3.9 mmol/L 3.6-5.0 Serum or plasma chloride measurement (moles/volume) 105 mmol/L 98-107 Carbon dioxide 23 mmol/L 21-32 Serum or plasma anion gap determination (moles/volume) 11 mmol/L 5-14 Serum or plasma urea nitrogen measurement (mass/volume) 19 mg/dL 7-18 Serum or plasma creatinine measurement (mass/volume) 1.29 mg/dL 0.60-1.30 Serum or plasma urea nitrogen/creatinine mass ratio 15 NRG Serum or plasma creatinine measurement with calculation of estimated glomerular filtration rate > NRG Serum or plasma glucose measurement (mass/volume) 102 mg/dL 70-105 Serum or plasma calcium measurement (mass/volume) 9.8 mg/dL 8.5-10.1 Serum or plasma total bilirubin measurement (mass/volume) 0.5 mg/dL 0.1-1.0 Serum or plasma alkaline phosphatase measurement (enzymatic activity/volume) 86 U/L 40-136 Serum or plasma aspartate aminotransferase measurement (enzymatic activity/ volume) 18 U/L 5-34 Serum or plasma alanine aminotransferase measurement (enzymatic activity/volume ) 26 U/L 0-55 Serum or plasma protein measurement (mass/volume) 7.7 g/dL 6.4-8.2 Serum or plasma albumin measurement (mass/volume) 4.5 g/dL 3.2-4.5 Lipase - 06/21/17 00:48 Lipase 18 U/L 8-78 Serum or plasma ethanol measurement (mass/volume) - 06/21/17 00:48 Serum or plasma ethanol measurement (mass/volume) 43 mg/dL <10 Complete blood count (CBC) with automated white blood cell (WBC) differential - 06/21/17 00:48 Blood leukocytes automated count (number/volume) 12.4 10*3/uL 4.3-11.0 Blood erythrocytes automated count (number/volume) 6.06 10*6/uL 4.35-5.85 Venous blood hemoglobin measurement (mass/volume) 16.8 g/dL 13.3-17.7 Blood hematocrit (volume fraction) 49 % 40-54 Automated erythrocyte mean corpuscular volume 80 [[id number]] 80-99 Automated erythrocyte mean corpuscular hemoglobin (mass per erythrocyte) 28 pg 25-34 Automated erythrocyte mean corpuscular hemoglobin concentration measurement ( mass/volume) 35 g/dL 32-36 Automated erythrocyte distribution width ratio 13.2 % 10.0-14.5 Automated blood platelet count (count/volume) 256 10*3/uL 130-400 Automated blood platelet mean volume measurement 9.9 [foz_us] 7.4-10.4 Automated blood neutrophils/100 leukocytes 71 % 42-75 Automated blood lymphocytes/100 leukocytes 13 % 12-44 Blood monocytes/100 leukocytes 13 % 0-12 Automated blood eosinophils/100 leukocytes 2 % 0-10 Automated blood basophils/100 leukocytes 0 % 0-10 Blood neutrophils automated count (number/volume) 8.7 10*3 1.8-7.8 Blood lymphocytes automated count (number/volume) 1.7 10*3 1.0-4.0 Blood monocytes automated count (number/volume) 1.7 10*3 0.0-1.0 Automated eosinophil count 0.3 10*3/uL 0.0-0.3 Automated blood basophil count (count/volume) 0.0 10*3/uL 0.0-0.1 Complete urinalysis with reflex to culture - 06/21/17 01:07 Urine color determination YELLOW NRG Urine clarity determination CLEAR NRG Urine pH measurement by test strip 5 5-9 Specific gravity of urine by test strip 1.025 1.016- 1.022 Urine protein assay by test strip, semi-quantitative 1+ NEGATIVE Urine glucose detection by automated test strip NEGATIVE NEGATIVE Erythrocytes detection in urine sediment by light microscopy 3+ NEGATIVE Urine ketones detection by automated test strip NEGATIVE NEGATIVE Urine nitrite detection by test strip NEGATIVE NEGATIVE Urine total bilirubin detection by test strip NEGATIVE NEGATIVE Urine urobilinogen measurement by automated test strip (mass/volume) NORMAL NORMAL Urine leukocyte esterase detection by dipstick NEGATIVE NEGATIVE Automated urine sediment erythrocyte count by microscopy (number/high power field) [HPF] NRG Automated urine sediment leukocyte count by microscopy (number/high power field ) NONE NRG Bacteria detection in urine sediment by light microscopy NEGATIVE NRG Squamous epithelial cells detection in urine sediment by light microscopy 2-5 NRG Crystals detection in urine sediment by light microscopy NONE NRG Casts detection in urine sediment by light microscopy NONE NRG Mucus detection in urine sediment by light microscopy NEGATIVE NRG Complete urinalysis with reflex to culture NO NRG Urine drug screening test - 06/21/17 01:07 Urine phencyclidine detection by screening method NEGATIVE NEGATIVE Urine benzodiazepines detection by screening method NEGATIVE NEGATIVE Urine cocaine detection NEGATIVE NEGATIVE Urine amphetamines detection by screening method NEGATIVE NEGATIVE Urine methamphetamine detection by screening method NEGATIVE NEGATIVE Urine cannabinoids detection by screening method NEGATIVE NEGATIVE Urine opiates detection by screening method NEGATIVE NEGATIVE Urine barbiturates detection NEGATIVE NEGATIVE Screening urine tricyclic antidepressants detection NEGATIVE NEGATIVE Urine methadone detection by screening method NEGATIVE NEGATIVE Urine oxycodone detection NEGATIVE NEGATIVE Urine propoxyphene detection NEGATIVE NEGATIVE Encounters ACCT No. Visit Date/Time Discharge Status Pt. Type Provider Facility Loc./Unit Complaint [id number] 04/21/2014 15:21:00 04/21/2014 23:59:59 CLS Outpatient TAWANDA BURKS APRN [id number] 03/19/2014 13:41:00 03/19/2014 23:59:59 CLS Outpatient AMANUEL HERRING APRN [id number] 01/15/2014 09:46:00 01/15/2014 23:59:59 CLS Outpatient TAWANDA BURKS APRN [id number] 12/06/2013 15:05:00 12/06/2013 23:59:59 CLS Outpatient AP CHEW MD [id number] 11/27/2013 09:07:00 11/27/2013 23:59:59 CLS Outpatient SUDARSHAN OCAMPO DO [id number] 11/21/2013 15:33:00 11/21/2013 23:59:59 CLS Outpatient AMANUEL HERRING APRN [id number] 10/02/2013 13:31:00 10/02/2013 23:59:59 CLS Outpatient TAWANDA BURKS APRN [id number] 09/12/2013 12:31:00 09/12/2013 23:59:59 CLS Outpatient AMANUEL HERRING APRN [id number] 09/02/2013 15:07:00 09/02/2013 23:59:59 CLS Outpatient TAWANDA BURKS APRN [id number] 08/07/2013 11:10:00 08/07/2013 23:59:59 CLS Outpatient TAWANDA BURKS APRN [id number] 07/31/2013 08:46:00 07/31/2013 23:59:59 CLS Outpatient TELMA LOW APRN [id number] 07/22/2013 08:30:00 07/22/2013 23:59:59 CLS Outpatient TELMA LOW APRN [id number] 06/26/2013 15:58:00 06/26/2013 23:59:59 CLS Outpatient SUDARSHAN OCAMPO DO [id number] 06/14/2013 08:06:00 06/14/2013 23:59:59 CLS Outpatient TAWANDA BURKS APRN [id number] 05/15/2013 12:35:00 05/15/2013 23:59:59 CLS Outpatient NIMA MCLAUGHLINAMANUEL [id number] 05/10/2013 10:40:00 05/10/2013 23:59:59 CLS Outpatient TAWANDA BURKS APRN [id number] 04/08/2013 16:16:00 04/08/2013 23:59:59 CLS Outpatient TAWANDA BURKS APRN [id number] 03/04/2013 11:37:00 03/04/2013 23:59:59 CLS Outpatient TAWANDA BURKS APRN [id number] 02/15/2013 08:35:00 02/15/2013 23:59:59 CLS Outpatient TAWANDA BURKS APRN [id number] 02/05/2013 14:16:00 02/05/2013 23:59:59 CLS Outpatient TAWANDA BRUKS APRN [id number] 01/29/2013 13:30:00 01/29/2013 23:59:59 CLS Outpatient TAWANDA BURKS APRN [id number] 01/25/2013 12:01:00 01/25/2013 23:59:59 CLS Outpatient NIMA MCLAUGHLINAMANUEL [id number] 2013 12:45:00 2013 23:59:59 CLS Outpatient TAWANDA BURKS APRN [id number] 12/26/2012 11:58:00 12/26/2012 23:59:59 CLS Outpatient NIMA MCLAUGHLINAMANUEL [id number] 12/13/2012 11:25:00 12/13/2012 23:59:59 CLS Outpatient SUDARSHAN OCAMPO DO [id number] 12/05/2012 07:55:00 12/05/2012 23:59:59 CLS Outpatient SUDARSHAN OCAMPO DO [id number] 04/05/2012 08:47:00 04/05/2012 23:59:59 CLS Outpatient SUDARSHAN OCAMPO DO [id number] 02/01/2012 13:17:00 02/01/2012 23:59:59 CLS Outpatient [id number] 05/11/2009 08:51:00 05/11/2009 23:59:59 CLS Outpatient AP CHEW MD [id number] 11/23/2012 12:11:00 Document Registration [id number] 10/31/2012 11:14:00 Document Registration [id number] 08/29/2012 13:19:00 Document Registration [id number] 06/21/2017 02:02:00 06/21/2017 03:30:00 DIS Emergency MAXIMUS LEWIS MD [facility] ER ABD PAIN [id number] 05/05/2017 14:00:00 05/05/2017 15:37:00 DIS Emergency KAYLEN GATES APRN [facility] ER CHEST DISCOMFORT,SIDE PAIN [id number] 07/07/2016 06:52:00 07/07/2016 07:46:00 DIS Emergency HARJEET LIRIANO MD [facility] ER COUGH [id number] 07/06/2015 20:29:00 07/07/2015 02:04:00 DIS Emergency JUANA BUCHANAN [facility] ER TEETH PULLED/BLEEDING [id number] 06/06/2015 13:27:00 06/06/2015 15:10:00 DIS Emergency NICOLE COVINGTON MD [facility] ER CP [id number] 07/29/2014 19:06:00 07/29/2014 20:04:00 DIS Emergency JUANA BUCHANAN [facility] ER DENTAL PAIN [id number] 01/21/2014 20:29:00 01/21/2014 21:11:00 DIS Emergency MARS JOHNSTON MD [facility] ER CHEST PAIN [id number] 07/31/2013 17:49:00 07/31/2013 20:14:00 DIS Emergency JUANA BUCHANAN [facility] ER SORE THROAT [id number] 04/10/2013 14:08:00 04/10/2013 23:59:59 CLS Outpatient [id number] 02/03/2013 18:39:00 02/03/2013 21:15:00 DIS Emergency KAYLEN GATES APRN [facility] ER MIGRAINE, CONGESTION [id number] 11/01/2012 01:04:00 11/01/2012 02:35:00 DIS Emergency DEANDRA PETER, HARJEET Sheriff [facility] ER BLOOD IN URINE [id number] 09/05/2012 23:32:00 09/06/2012 02:00:00 DIS Emergency NICOLE COVINGTON MD [facility] ER OVER HEATED [id number] 08/30/2012 02:53:00 08/30/2012 03:54:00 DIS Emergency KAYLYNN DOARMIN K [facility] ER NAUSEA,OVERALL PAIN [id number] 08/29/2012 08:42:00 08/29/2012 11:17:00 DIS Emergency NICOLE COVINGTON MD [facility] ER NAUSEATED/ACHEY [id number] 03/08/2015 07:24:00 Document Registration [id number] 04/03/2012 22:40:00 Document Registration [id number] 02/20/2011 23:59:00 Document Registration [id number] 09/01/2009 09:08:00 Document Registration [id number] 07/29/2014 19:06:46 ACT Document Registration [id number] 08/17/2017 14:40:00 08/17/2017 23:59:59 CLS Outpatient [facility]
[2017-10-21] MEDS ORDERED: NS IV 1000 ML 1,000 ML IV STA (08:25)
[2017-10-21] MEDS ORDERED: PROMETHAZINE INJ 25 MG/ML (PHENERGAN) AMP IVP STA (08:25)
[2017-10-21] MEDS ORDERED: KETOROLAC 30 MG/ML VIAL IVP STA (08:25)
[2017-10-21] MEDS ORDERED: DEXAMETHASONE 10 MG/ML (DECADRON) 1 ML VIAL IV STA (08:25)
[2017-10-21] MEDS ORDERED: diphenhydrAMINE 50 MG/ML INJ (BENADRYL) IV ONE (08:30)
--- NOTE | 2017-10-21 08:38 | ED Headache ---
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 Patient presents with a bitemporal and frontal headache that began approximately two days ago, he denies any trauma preceding headache onset. The patient describes the pain as a constant pressure which radiates towards the back of his head. 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 Patients admits phonophobia but denies photophobia. He has been alternating the use of acetaminophen and ibuprofen which has helped the pain but has not eliminated it. Diet and sleep remains unaffected. He admits nausea associated with the headache but denies blurry vision, syncope, vomiting, diarrhea, and constipation. Timing/Duration: other (Approximately 48 hours) Severity/Quality: moderate, constant, pressure Location: frontal, temporal Prior Headaches/Recent Trauma: no recent headache/trauma Modifying Factors: improves with medication (Ibuprofen and acetaminophen) Associated Symptoms: No confusion, No facial pain, No loss of consciousness; nausea/vomiting; No vision changes (NICOLE KLEIN) Associated Symptoms: nasal congestion; No stiff neck, No weakness (HARJEET LIRIANO MD) Allergies and Home Medications Allergies Coded Allergies: No Known Drug Allergies (Unverified , 11/09/08) Home Medications Atenolol 25 Mg Tablet, 25 MG PO DAILY Prescribed by: KAYLEN GATES on 05/05/17 1525 Patient Home Medication List Home Medication List Reviewed: Yes (NICOLE KLEIN) Home Medication List Reviewed: Yes (HARJEET LIRIANO MD) Review of Systems Eyes: Denies Blurred Vision, Denies Photophobia Cardiovascular: No chest pain, No palpitations, No syncope Gastrointestinal: No abdominal pain, No constipation, No diarrhea, No loss of appetite; nausea; No vomiting Musculoskeletal: back pain (Lower back pain, history of scoliosis), muscle stiffness (Lower back pain, history of scoliosis) (NICOLE KLEIN) Constitutional: No chills, No fever (HARJEET LIRIANO MD) All Other Systems Reviewed Negative Unless Noted: Yes (NICOLE KLEIN) Past Ktkfwia-Foiypz-Hmnhrt Hx Patient Social History Alcohol Use: Denies Use Number of Drinks Today: GG Alcohol Beverage of Choice: Whiskey Recreational Drug Use: No Smoking Status: Former Smoker Type Used: Cigarettes Former Smoker, Quit: Jun 25, 2014 Recent Foreign Travel: No Contact w/Someone Who Travel: No Recent Infectious Disease Expo: Yes (sick coworkers) Recent Hopitalizations: No (NICOLE KLEIN) Smoking Status: Former Smoker (HARJEET LIRIANO MD) Immunizations Up To Date Date of Pneumonia Vaccine: Aug 29, 2012 Date of Influenza Vaccine: Dec 11, 2012 (NICOLE KLEIN) Seasonal Allergies Seasonal Allergies: No (NICOLE KLEIN) Past Medical History Surgeries: Yes (cyst removal from L arm, teeth pulled) Respiratory: Yes Asthma Cardiac: Yes Angina, Hypertension Neurological: Yes Headaches /Migraines Reproductive Disorders: No Sexually Transmitted Disease: No Kidney Stones Gastrointestinal: No Musculoskeletal: Yes Scoliosis Endocrine: Yes (HYPOGLYCEMIA) Cancer: No Psychosocial: No Integumentary: No Blood Disorders: No (NICOLE KLEIN) Surgeries: No Respiratory: Yes Neurological: Yes (HARJEET LIRIANO MD) Family Medical History Reviewed Nursing Family Hx (HARJEET LIRIANO MD) Heart Disease, Cancer, Hypertension (NICOLE KLEIN) Physical Exam Vital Signs Vital Signs - First Documented 10/21/17 07:38 Temp 97.5 Pulse 109 Resp 18 B/P (MAP) 131/102 (112) Pulse Ox 98 O2 Delivery Room Air (HARJEET LIRIANO MD) Vital Signs Capillary Refill : Less Than 3 Seconds (NICOLE KLEIN) Height, Weight, BMI Height: 5'4.00" Weight: 120lbs. oz. 54.713110ay; 19.91 BMI Method:Stated General Appearance: WD/WN, no apparent distress HEENT: PERRL/EOMI, TMs normal, pharynx normal, other (Nasal mucosa erythematous ) Neck: non-tender, full range of motion, supple, normal inspection Cardiovascular: normal peripheral pulses, regular rate, rhythm, no edema, no gallop, no JVD, no murmur Respiratory: chest non-tender, lungs clear, normal breath sounds, no respiratory distress, no accessory muscle use Gastrointestinal: normal bowel sounds, non tender, soft, no organomegaly, no pulsatile mass Psychiatric: alert, oriented x 3 Crainal Nerves: normal hearing, normal speech, PERRL Skin: normal color, warm/dry Lymphatic: no adenopathy (NICOLE KLEIN MED STUDENT) HEENT: other (Nasal mucosa erythematous ) Neck: non-tender, full range of motion, supple, normal inspection Cardiovascular: regular rate, rhythm, no murmur Psychiatric: alert Crainal Nerves: normal hearing, normal speech, PERRL Coordination/Gait: normal gait Motor/Sensory: no motor deficit, no sensory deficit (HARJEET LIRIANO MD) Progress/Results/Core Measures Results/Orders My Orders Orders - HARJEET LIRIANO MD Promethazine Injection (Phenergan Injec (10/21/17 08:25) Ns Iv 1000 Ml (Sodium Chloride 0.9%) (10/21/17 08:25) Saline Lock/Iv-Start (10/21/17 08:25) Ketorolac Injection (Toradol Injection) (10/21/17 08:25) Dexamethasone Injection (Decadron Inject (10/21/17 08:25) Diphenhydramine Injection (Benadryl Inje (10/21/17 08:30) (HARJEET LIRIANO MD) Medications Given in ED Current Medications Medications Dose Ordered Sig/Johnathan Route Start Time Stop Time Status Last Admin Dose Admin Diphenhydramine HCl 25 mg ONCE ONCE IV 10/21/17 08:30 10/21/17 08:31 DC 10/21/17 08:57 25 MG (HARJEET LIRIANO MD) Vital Signs/I&O 10/21/17 07:38 Temp 97.5 Pulse 109 Resp 18 B/P (MAP) 131/102 (112) Pulse Ox 98 O2 Delivery Room Air (HARJEET LIRIANO MD) Blood Pressure Mean: 112 Progress Progress Note : Progress Note I have seen and evaluated the patient and agree with above except as indicated. I have directed the plan of care. Patient is here with a frontal headache that has been going on for 2 days. This does get better with lpqy-nst-[id number] medicines but seems to be continuing. Does have history of migraines in the past. Pain worse with loud noises. He is supposed to be at work today. Plan is to give IV fluid, Phenergan, Benadryl and Toradol IV and monitor patient. Decadron 10 mg IV added due to upper respiratory symptoms. 1000: Headache completely resolved and patient feels comfortable going home. Discharge home with return precautions. Patient verbalize understanding instructions and agreement with plan. (HARJEET LIRIANO MD) Departure Impression Primary Impression: Headache Qualified Codes: R51 - Headache Disposition: 01 HOME, SELF-CARE Condition: Improved Departure-Patient Inst. Decision time for Depature: 10:02 (HARJEET LIRIANO MD) Referrals: [facility] (PCP) Primary Care Physician TAWANDA BRUKS (Family) Primary Care Physician Patient Instructions: Headache, Adult (DC) Add. Discharge Instructions: All discharge instructions reviewed with patient and/or family. Voiced understanding. You may continue Tylenol/acetaminophen 1000 mg every 8 hours as needed for pain. You may also take ibuprofen 600 mg every 8 hours as needed for pain. Drink plenty of fluids. Follow-up with your Dr. in a few days for recheck. Return for worse pain, fever, vomiting, weakness, breathing problems or other concerns as needed. Work/School Note: Work Release Form Date Seen in the Emergency Department: Oct 21, 2017 Return to Work: Oct 22, 2017 Restrictions: No Restrictions NICOLE KLEIN MED STUDENT Oct 21, 2017 08:38 HARJEET LIRIANO MD Oct 21, 2017 10:04
[2017-10-21 10:10] VITALS: BP 145/103
== END 2017-10-21 10:16 | disposition home or self-care (01) ==
LOC: EDUNIT# 07:33 → ER 07:35
DX: R51 Headache (principal); J45.909 Unspecified asthma, uncomplicated; I10 Essential (primary) hypertension; G43.909 Migraine, unspecified, not intractable, without status migrainosus; Z82.49 Family history of ischemic heart disease and other diseases of the circulatory system; Z87.442 Personal history of urinary calculi; Z87.891 Personal history of nicotine dependence
CPT/HCPCS: 96374; 96375

== ENCOUNTER 2018-07-28 04:21 | Emergency (ER) | payer SELFPAY ==
[~2018-07-28] VITALS: Ht 162.6 cm; Wt 59.0 kg
[2018-07-28 04:25] VITALS: BP_SYST 147; BP_SYST 148; BP_SYST 166; BP_DIAS 105; BP_DIAS 91; BP_DIAS 95
[2018-07-28] MEDS ORDERED: ASPI-808 PO (04:34)
[2018-07-28] MEDS ORDERED: NS IV 1000 ML 1,000 ML IV ONE (04:38)
[2018-07-28 04:57] LABS: BASOPHILS # (AUTO) 0.1 10^3/uL (0.0-0.1); BASOPHILS % (AUTO) 1 % (0-10); EOSINOPHILS # (AUTO) 0.1 10^3/uL (0.0-0.3); EOSINOPHILS % (AUTO) 2 % (0-10); HEMATOCRIT 46 % (40-54); HEMOGLOBIN 15.4 G/DL (13.3-17.7); LYMPHOCYTES # (AUTO) 1.3 X 10^3 (1.0-4.0); LYMPHOCYTES % (AUTO) 20 % (12-44); MEAN CORPUSCULAR HEMOGLOBIN 27 PG (25-34); MEAN CORPUSCULAR HGB CONC 34 G/DL (32-36); MEAN CORPUSCULAR VOLUME 81 FL (80-99); MEAN PLATELET VOLUME 10.2 FL (7.4-10.4); MONOCYTES # (AUTO) 0.9 X 10^3 (0.0-1.0); MONOCYTES % (AUTO) 14 % (0-12); NEUTROPHILS # (AUTO) 4.2 X 10^3 (1.8-7.8); NEUTROPHILS % (AUTO) 64 % (42-75); PLATELET COUNT 244 10^3/uL (130-400); WHITE BLOOD COUNT 6.7 10^3/uL (4.3-11.0)
[2018-07-28 05:13] LABS: BUN/CREATININE RATIO 15; CALCIUM 9.5 MG/DL (8.5-10.1); CARBON DIOXIDE 21 MMOL/L (21-32); CHLORIDE 105 MMOL/L (98-107); CREATININE SERUM 0.86 MG/DL (0.60-1.30); GFR ESTIMATED > 60; GLUCOSE 88 MG/DL (70-105); MAGNESIUM 2.3 MG/DL (1.8-2.4); POTASSIUM 4.1 MMOL/L (3.6-5.0); SODIUM 138 MMOL/L (135-145)
[2018-07-28 05:17] VITALS: BP 152/99
--- NOTE | 2018-07-28 05:19 | ED General ---
General Chief Complaint: Dizziness/Syncope Stated Complaint: LIGHT HEADED, DIZZY Nursing Triage Note: dizzy Nursing Sepsis Screen: No Definite Risk Source of Information: Patient Exam Limitations: No Limitations History of Present Illness Date Seen by Provider: July 28, 2018 Time Seen by Provider: 04:28 Initial Comments This 28-year-old young man presents to the emergency room with primary complaint of lightheadedness and dizziness. He also felt dry mouth prior to arrival. He still feels a little dizzy now. He also felt a little confused earlier this morning. He denies any fever, nausea, vomiting, diarrhea, or other acute symptoms. He denies any drug or alcohol use. He does have hypertension and takes atenolol. He has been compliant with this medication. He has not noticed any particular pattern to his lightheadedness or dizziness and no particular exacerbating or alleviating factors. He reports having a similar episode about a week ago. Patient works in [employer]. His primary care provider is Gerald Rollins. He denies chest pain or shortness of breath. Allergies and Home Medications Allergies Coded Allergies: No Known Drug Allergies (Unverified , 11/09/08) Home Medications Atenolol 25 Mg Tablet, 25 MG PO DAILY Prescribed by: KAYLEN GATES on 05/05/17 1525 Patient Home Medication List Home Medication List Reviewed: Yes Review of Systems Review of Systems Constitutional: no symptoms reported EENTM: no symptoms reported Respiratory: no symptoms reported Cardiovascular: see HPI Gastrointestinal: no symptoms reported Genitourinary: no symptoms reported Musculoskeletal: no symptoms reported Skin: no symptoms reported Psychiatric/Neurological: See HPI Hematologic/Lymphatic: No Symptoms Reported Past Pncbcxz-Reirsj-Jikspf Hx Patient Social History Alcohol Use: Denies Use Number of Drinks Today: GG Alcohol Beverage of Choice: Whiskey Recreational Drug Use: No Smoking Status: Former Smoker Type Used: Cigarettes Former Smoker, Quit: Jun 25, 2014 Recent Foreign Travel: No Contact w/Someone Who Travel: No Recent Infectious Disease Expo: No Recent Hopitalizations: No Immunizations Up To Date Tetanus Booster (TDap): Less than 5yrs PED Vaccines UTD: Yes Date of Pneumonia Vaccine: Aug 29, 2012 Date of Influenza Vaccine: Dec 11, 2012 Seasonal Allergies Seasonal Allergies: No Past Medical History Surgeries: Yes (cysts removed from arm) Respiratory: Yes Asthma Cardiac: Yes Angina, Hypertension Neurological: Yes Headaches /Migraines Reproductive Disorders: No Sexually Transmitted Disease: No Genitourinary: Yes Kidney Stones Gastrointestinal: No Musculoskeletal: Yes Scoliosis Endocrine: Yes (HYPOGLYCEMIA) HEENT: No Cancer: No Psychosocial: No Integumentary: No Blood Disorders: No Family Medical History Heart Disease, Cancer, Hypertension Physical Exam Vital Signs Vital Signs - First Documented 07/28/18 07/28/18 04:25 04:27 Temp 97.4 Pulse 84 86 77 Resp 16 B/P (MAP) 166/91 (116) 148/95 (112) 147/105 (119) Pulse Ox 98 O2 Delivery Room Air Capillary Refill : Less Than 3 Seconds Height, Weight, BMI Height: 5'4.00" Weight: 130lbs. oz. 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 Norm as Tested Skin: Normal Color, Warm/Dry Progress/Results/Core Measures Suspected Sepsis Recent Fever Within 48 Hours: No Infection Criteria Present: None New/Unexplained Altered Menta: No Sepsis Screen: No Definite Risk SIRS Temperature:97.4 Pulse: 84 Respiratory Rate: 16 Laboratory Tests 07/28/18 04:45: White Blood Count 6.7 Blood Pressure 166 /91 Mean: 116 Laboratory Tests 07/28/18 04:45: Creatinine 0.86, Platelet Count 244 Results/Orders Lab Results Laboratory Tests Test 07/28/18 04:45 Range/Units White Blood Count 6.7 4.3-11.0 10^3/uL Red Blood Count 5.64 4.35-5.85 10^6/uL Hemoglobin 15.4 13.3-17.7 G/DL Hematocrit 46 40-54 % Mean Corpuscular Volume 81 80-99 FL Mean Corpuscular Hemoglobin 27 25-34 PG Mean Corpuscular Hemoglobin Concent 34 32-36 G/DL Red Cell Distribution Width 13.0 10.0-14.5 % Platelet Count 244 130-400 10^3/uL Mean Platelet Volume 10.2 7.4-10.4 FL Neutrophils (%) (Auto) 64 42-75 % Lymphocytes (%) (Auto) 20 12-44 % Monocytes (%) (Auto) 14 H 0-12 % Eosinophils (%) (Auto) 2 0-10 % Basophils (%) (Auto) 1 0-10 % Neutrophils # (Auto) 4.2 1.8-7.8 X 10^3 Lymphocytes # (Auto) 1.3 1.0-4.0 X 10^3 Monocytes # (Auto) 0.9 0.0-1.0 X 10^3 Eosinophils # (Auto) 0.1 0.0-0.3 10^3/uL Basophils # (Auto) 0.1 0.0-0.1 10^3/uL Sodium Level 138 135-145 MMOL/L Potassium Level 4.1 3.6-5.0 MMOL/L Chloride Level 105 98-107 MMOL/L Carbon Dioxide Level 21 21-32 MMOL/L Anion Gap 12 5-14 MMOL/L Blood Urea Nitrogen 13 7-18 MG/DL Creatinine 0.86 0.60-1.30 MG/DL Estimat Glomerular Filtration Rate > 60 BUN/Creatinine Ratio 15 Glucose Level 88 70-105 MG/DL Calcium Level 9.5 8.5-10.1 MG/DL Magnesium Level 2.3 1.8-2.4 MG/DL My Orders Orders - NICOLE COVINGTON MD Monitor-Rhythm Ecg Trace Only (07/28/18 04:38) Ed Iv/Invasive Line Start (07/28/18 04:38) Ns Iv 1000 Ml (Sodium Chloride 0.9%) (07/28/18 04:38) Basic Metabolic Panel (07/28/18 04:38) Cbc With Automated Diff (07/28/18 04:38) Magnesium (07/28/18 04:38) Medications Given in ED Current Medications Medications Dose Ordered Sig/Johnathan Route Start Time Stop Time Status Last Admin Dose Admin Sodium Chloride 1,000 ml @ 0 mls/hr Q0M ONCE IV 07/28/18 04:38 07/28/18 04:40 DC 07/28/18 04:49 0 MLS/HR Vital Signs/I&O 07/28/18 07/28/18 07/28/18 04:25 04:27 05:17 Temp 97.4 97.4 Pulse 84 84 71 86 77 Resp 16 18 B/P (MAP) 166/91 (116) 166/91 (116) 152/99 (116) 148/95 (112) 147/105 (119) Pulse Ox 98 99 O2 Delivery Room Air Room Air Capillary Refill : Less Than 3 Seconds Blood Pressure Mean: 116 Progress Note : Progress Note Labs were unremarkable. 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 He was given a liter of IV normal saline and felt better afterward. See discharge instructions. Departure Impression Primary Impression: Dizziness Additional Impression: Hypertension Qualified Codes: I10 - Essential (primary) hypertension Disposition: 01 HOME, SELF-CARE Condition: Improved Departure-Patient Inst. Decision time for Depature: 05:18 Referrals: [facility] ([facility]P) Primary Care Physician TAWANDA ROLLINS (Family) Primary Care Physician Patient Instructions: High Blood Pressure in Adults Add. Discharge Instructions: Drink plenty of non-caffeinated clear liquids. Take your medications as prescribed. Follow-up with your primary care provider regarding your blood pressure medications as soon as possible. Your medications may need to be adjusted by your doctor. Return to care if symptoms are worsening again. All discharge instructions reviewed with patient and/or family. Voiced understanding. Copy Copies To 1: SUDARSHAN OCAMPO JOSHUA T MD July 28, 2018 05:19
== END 2018-07-28 05:24 | disposition home or self-care (01) ==
LOC: EDUNIT# 04:21 → ER 04:25
DX: R42 Dizziness and giddiness (principal); I10 Essential (primary) hypertension; J45.909 Unspecified asthma, uncomplicated; G43.909 Migraine, unspecified, not intractable, without status migrainosus; M41.9 Scoliosis, unspecified; Z82.49 Family history of ischemic heart disease and other diseases of the circulatory system; Z87.442 Personal history of urinary calculi; Z87.891 Personal history of nicotine dependence
CPT/HCPCS: 36415; 80048; 83735; 85025; 93041

== ENCOUNTER 2019-01-08 16:36 | Emergency (ER) | payer SELFPAY ==
[~2019-01-08] VITALS: Ht 162.5 cm; Wt 59.0 kg
[~2019-01-08 16:36] MED LIST changes: +ASPI-808 PO
--- NOTE | 2019-01-08 17:04 | ED Cough/URI ---
General Chief Complaint: Cough/Cold/Flu Symptoms Stated Complaint: COUGH/HEAD PAIN Nursing Triage Note: cough that is keeping him up at night Sepsis Screen: No Definite Risk Source: patient Exam Limitations: no limitations History of Present Illness Date Seen by Provider: Jan 08, 2019 Time Seen by Provider: 16:59 Initial Comments 21-year-old male who presents to emergency room with complaints of nonproductive cough that is keeping him up at night. He denies shortness of breath, wheezing, nausea or vomiting. He reports that he's had this cough for the past week. Denies fevers. Severity/Quality: dry cough Associated Symptoms: cough Allergies and Home Medications Allergies Coded Allergies: No Known Drug Allergies (Unverified , 11/09/08) Home Medications Atenolol 25 Mg Tablet, 25 MG PO DAILY Prescribed by: KAYLEN GATES on 05/05/17 1525 Patient Home Medication List Home Medication List Reviewed: Yes Review of Systems Review of Systems Constitutional: see HPI; No chills, No fever Respiratory: see HPI, cough; No wheezing All Other Systems Reviewed Negative Unless Noted: Yes Past Rtkudlf-Xlwzav-Stmjov Hx Past Med/Social Hx: Reviewed Nursing Past Med/Soc Hx Patient Social History Alcohol Use: Occasionally Uses Number of Drinks Today: GG Alcohol Beverage of Choice: Whiskey Recreational Drug Use: No Smoking Status: Former Smoker Type Used: Cigarettes Former Smoker, Quit: Jun 25, 2014 2nd Hand Smoke Exposure: No Recent Foreign Travel: No Contact w/Someone Who Travel: No Recent Infectious Disease Expo: No Recent Hopitalizations: No Immunizations Up To Date Tetanus Booster (TDap): Unknown PED Vaccines UTD: Yes Date of Pneumonia Vaccine: Aug 29, 2012 Date of Influenza Vaccine: Dec 11, 2012 Seasonal Allergies Seasonal Allergies: No Past Medical History Surgeries: Yes (cysts removed from arm) Respiratory: Yes Asthma Cardiac: Yes Angina, Hypertension Neurological: Yes Headaches /Migraines Reproductive Disorders: No Sexually Transmitted Disease: No Genitourinary: Yes Kidney Stones Gastrointestinal: No Musculoskeletal: Yes Scoliosis Endocrine: Yes (HYPOGLYCEMIA) HEENT: No Cancer: No Psychosocial: No Integumentary: No Blood Disorders: No Family Medical History Reviewed Nursing Family Hx Heart Disease, Cancer, Hypertension Physical Exam Vital Signs - First Documented 01/08/19 16:53 Temp 36.5 Pulse 98 Resp 18 B/P (MAP) 152/111 (125) Capillary Refill : Less Than 3 Seconds Height: 5'4.00" Weight: 130lbs. oz. [id number]; 22.00 BMI Method:Stated General Appearance: WD/WN, no apparent distress Eyes: Bilateral Eye Normal Inspection, Bilateral Eye PERRL HEENT: PERRL/EOMI, normal ENT inspection, TMs normal, pharynx normal Respiratory: chest non-tender, lungs clear, normal breath sounds, no respiratory distress, no accessory muscle use, respiratory distress Cardiovascular: normal peripheral pulses, regular rate, rhythm, no edema, no gallop, no JVD, no murmur Extremities: normal capillary refill Neurologic/Psychiatric: alert, normal mood/affect, oriented x 3 Skin: normal color, warm/dry Progress/Results/Core Measures Suspected Sepsis Recent Fever Within 48 Hours: No Infection Criteria Present: None New/Unexplained Altered Menta: No Sepsis Screen: No Definite Risk SIRS Temperature: Pulse: 98 Respiratory Rate: 18 Blood Pressure 152 /111 Mean: 125 Results/Orders Vital Signs/I&O 01/08/19 16:53 Temp 36.5 Pulse 98 Resp 18 B/P (MAP) 152/111 (125) Capillary Refill : Less Than 3 Seconds Blood Pressure Mean: 125 POS Departure Impression Primary Impression: Viral respiratory illness Disposition: 01 HOME, SELF-CARE Condition: Stable/Unchanged Departure-Patient Inst. Decision time for Depature: 17:06 Referrals: [facility] (PCP) Primary Care Physician TAWANDA BURKS (Family) Primary Care Physician Patient Instructions: Cough, Adult (DC) Add. Discharge Instructions: Take medication as directed. Follow-up with primary care provider within 1 week for recheck. Return back to the emergency room for worsening symptoms or concerns as needed. All discharge instructions reviewed with patient and/or family. Voiced understanding. Scripts D-Methorphan Hb/Prometh HCl (Promethazine-Dm Syrup) 118 Ml Syrup 118 ML PO Q4H, #100 ML Prov: REX DUBON 01/08/19 REX DUBON Jan 08, 2019 17:04 POS
[2019-01-08] MEDS ORDERED: PROM118S4 PO (17:07)
[2019-01-08 17:17] VITALS: BP 152/111
== END 2019-01-08 17:17 | disposition home or self-care (01) ==
LOC: EDUNIT# 16:36 → ER 16:36
DX: J06.9 Acute upper respiratory infection, unspecified (principal); J45.909 Unspecified asthma, uncomplicated; I10 Essential (primary) hypertension; G43.909 Migraine, unspecified, not intractable, without status migrainosus; Z87.442 Personal history of urinary calculi; Z87.891 Personal history of nicotine dependence; Z82.49 Family history of ischemic heart disease and other diseases of the circulatory system
CPT/HCPCS: 99282

== ENCOUNTER 2019-01-12 07:10 | Emergency (ER) | payer SELFPAY ==
[~2019-01-12] VITALS: Ht 162 cm; Wt 59.0 kg
[~2019-01-12 07:10] MED LIST changes: +PROM118S4 PO
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
[2019-01-12] MEDS ORDERED: PENI500T PO (07:33)
[2019-01-12 07:49] VITALS: BP 167/114
--- NOTE | 2019-01-12 07:57 | NUR ---
Pt advised to follow up with [facility] for blood pressure.
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
--- OUTSIDE RECORDS SUMMARY | 2019-02-04 22:49 | XMS REPORT ---
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 Name Role Phone POS AP CHEW Unavailable SP PROBLEMS Type Condition ICD9-CM Code [id number] Code Onset Dates Condition S tatus SNOMED POS Problem Migraine without aura and without status migrain osus, not intractable POS Active [id number] SP Problem Other chronic pain G89.29 Active 8 [id number] SP Problem Anxiety F41.9 Active [id number] SP Problem Renal lithiasis N20.0 Active 9557 0007 SP Problem Hypertension, benign I10 Active [id number] SP ALLERGIES No Information ENCOUNTERS Encounter Location Date Diagnosis POS [facility] [address] [facility] [id number] [address] [place] [address] SP Nov, SP [facility] [address] [facility] [id number] [address] [place] [address] SP July, Strain of right forearm, ini tial encounter S56.911A SP [facility] [address] [facility] [id number] [address] [place] [address] SP Mar, Migraine without aura and wi thout status migrainosus, not SP G43.009 ; Other chronic pain G89.29 and Pain in left knee M25.562 [facility] [address] [facility] [id number] [address] [place] [address] SP Mar, Right upper quadrant abdomin al pain R10.11 SP [facility] [address] [facility] [id number] [address] [place] [address] SP Aug, Bronchitis J40 SP [facility] [address] [facility] [id number] [address] [place] [address] SP Jun, SP [facility] [address] [facility] [id number] [address] [place] [address] SP Jun, Renal lithiasis N20.0 and Hy pertension, benign I10 [facility] [address] [facility] [id number] [address] [place] [address] SP May, Anxiety F41.9 [facility] [address] [address] SP Apr, Encounter for staple removal Z48.02 [facility] [address] [place] [id number] [place] [address] SP Mar, Sebaceous cyst L72.3 [facility] [address] [facility] [id number] [place] [address] SP Jan, Finger pain, left M79.645 [facility] [address] [address] SP Jan, Sebaceous cyst L72.3 [facility] [address] [address] SP Jun, Anxiety F41.9 [facility] [address] [facility] [id number] [place] [address] SP May, Gastroenteritis K52.9 [facility] [id number] [place] [id number] SP Jun, Dental examination Z01.20 [facility] [address] [facility] [id number] [address] [place] [id number] SP Jun, Dental examination Z01.20 an [address] Caries K02.9 [facility] [address] [facility] [id number] [address] [place] [address] SP Nov, Back pain 724.[address] [facility] [address] [facility] [id number] [address] [place] [address] SP Nov, [facility] [address] [id number] [address] [place] [address] [id number] SP July, Dental examination V72.2 SP [facility] [address] [id number] [address] [place] [address], [place] [address] SP Jun, SP [facility] [address] [id number] [address] [place] [address], [place] [address] SP Jun, SP [facility] [address] [id number] [address] [place] [address], [place] [address] SP Apr, SP [facility] [address] [id number] [address] [place] [address], [place] [address] SP Apr, SP [facility] [address] [facility] [id number] [address] [place] [address], [place] [address] SP Mar, SP [facility] [address] [id number] [address] [place] [address], [place] [address] SP Mar, SP [facility] [address] [id number] [address] [place] [address], [place] [address] SP Jan, SP [facility] [address] [facility] [id number] [address] [place] [address], [place] [address] SP Jan, SP [facility] [address] [facility] [id number] [address] [place] [id number] SP Nov, 2013 SP [facility] [address] [facility] [id number] [address] [place] [address], [place] [address] SP Nov, 2013 SP [facility] [address] [place] [address] Nov, 14 SP [facility] [address] [facility] [id number] [address] [place] [address] SP Nov, 2013 SP [facility] [address] [place] [address] Nov, 14 SP [facility] [address] [facility] [id number] [address] [place] [address] SP 17 Nov, 2013 SP [facility] [address] [id number] [address] [place] [address], [place] [address] SP Nov, SP [facility] [address] [id number] [address] [place] [address], [place] [address] SP Nov, SP [facility] [address] [id number] [address] [place] [address], [place] [address] SP Nov, SP [facility] [address] [id number] [address] [place] [address], [place] [address] SP Nov, SP [facility] [address] [id number] [address] [place] [address], [place] [address] SP Oct, SP [facility] [address] [id number] [address] [place] [address], [place] [address] SP Oct, SP [facility] [address] [id number] [address] [place] [address], [place] [address] SP Sep, SP [facility] [address] [id number] [address] [place] [address], [place] [address] SP Sep, SP [facility] [address] [id number] [address] [place] [address], [place] [address] SP Sep, SP [facility] [address] [id number] [address] [place] [address], [place] [address] SP Sep, SP [facility] [address] [id number] [address] [place] [address], [place] [address] SP Sep, SP [facility] [address] [id number] [address] [place] [address], [place] [address] SP Sep, SP [facility] [address] [id number] [address] [place] [address], [place] [address] SP Aug, SP [facility] [address] [id number] [address] [place] [address], [place] [address] SP Aug, SP [facility] [address] [id number] [address] [place] [address], [place] [address] SP Aug, SP [facility] [address] [id number] [address] [place] [address], [place] [address] SP Aug, SP [facility] [address] [id number] [address] [place] [address], [place] [address] SP Aug, SP [facility] [address] [id number] [address] [place] [address], [place] [address] SP Aug, SP [facility] [address] [id number] [address] [place] [address], [place] [address] SP July, SP [facility] [address] [id number] [address] [place] [address], [place] [address] SP July, SP [facility] [address] [id number] [address] [place] [address], [place] [address] SP July, SP [facility] [address] [id number] [address] [place] [address], [place] [address] SP July, SP [facility] [address] [id number] [address] [place] [address], [place] [address] SP July, SP [facility] [address] [id number] [address] [place] [address], [place] [address] SP July, SP [facility] [address] [id number] [address] [place] [address], [place] [address] SP Jun, SP [facility] [address] [id number] [address] [place] [address], [place] [address] SP Jun, SP [facility] [address] [id number] [address] [place] [address], [place] [address] SP Jun, SP [facility] [address] [id number] [address] [place] [address], [place] [address] SP Jun, SP [facility] [address] [id number] [address] [place] [address], [place] [address] SP Jun, SP [facility] [address] [id number] [address] [place] [address], [place] [address] SP Jun, SP [facility] [address] [id number] [address] [place] [address], [place] [address] SP May, SP [facility] [address] [id number] [address] [place] [address], [place] [address] SP May, SP [facility] [address] [id number] [address] [place] [address], [place] [address] SP May, SP [facility] [address] [id number] [address] [place] [address], [place] [address] SP May, SP [facility] [address] [id number] [address] [place] [address], [place] [address] SP May, SP [facility] [address] [id number] [address] [place] [address], [place] [address] SP May, SP [facility] [address] [id number] [address] [place] [address], [place] [address] SP May, SP [facility] [address] [id number] [address] [place] [address], [place] [address] SP Apr, SP [facility] [address] [id number] [address] [place] [address], [place] [address] SP Apr, SP [facility] [address] [id number] [address] [place] [address], [place] [address] SP Apr, SP [facility] [address] [id number] [address] [place] [address], [place] [address] SP Apr, SP [facility] [address] [id number] [address] [place] [address], [place] [address] SP Apr, SP [facility] [address] [id number] [address] [place] [address], [place] [address] SP Apr, SP [facility] [address] [id number] [address] [place] [address], [place] [address] SP Apr, SP [facility] [address] [id number] [address] [place] [address], [place] [address] SP Apr, SP [facility] [address] [id number] [address] [place] [address], [place] [address] SP Mar, SP [facility] [address] [id number] [address] [place] [address], [place] [address] SP Mar, SP [facility] [address] [id number] [address] [place] [address], [place] [address] SP Mar, SP [facility] [address] [id number] [address] [place] [address], [place] [address] SP Mar, SP [facility] [address] [id number] [address] [place] [address], [place] [address] SP Feb, SP [facility] [address] [id number] [address] [place] [address], [place] [address] SP Feb, SP [facility] [address] [id number] [address] [place] [address], [place] [address] SP Feb, SP [facility] [address] [id number] [address] [place] [address], [place] [address] SP Feb, SP [facility] [address] [id number] [address] [place] [address], [place] [address] SP Feb, SP [facility] [address] [id number] [address] [place] [address] SP Feb, SP [facility] [address] [id number] [address] [place] [address], [place] [address] SP Jan, SP [facility] [address] [id number] [address] [place] [address], [place] [address] SP Jan, SP [facility] [address] [id number] [address] [place] [address], [place] [address] SP Jan, SP [facility] [address] [id number] [address] [place] [address], [place] [address] SP Jan, 2012 SP [facility] [address] [id number] [address] [place] [address], [place] [address] SP Jan, 2012 SP [facility] [address] [id number] [address] [place] [address], [place] [address] SP Jan, 2012 SP [facility] [address] [id number] [address] [place] [address], [place] [address] SP 15 Jan, 2012 SP [facility] [address] [id number] [address] [place] [address], [place] [address] SP Jan, 2012 SP [facility] [address] [id number] [address] [place] [address], [place] [address] SP Dec, 2012 SP [facility] [address] [id number] [address] [place] [address], [place] [address] SP Dec, 2012 SP [facility] [address] [id number] [address] [place] [address], [place] [address] SP Dec, 2012 SP [facility] [address] [id number] [address] [place] [address], [place] [address] SP Dec, 2012 SP [facility] [address] [id number] [address] [place] [address] SP Dec, SP [facility] [address] [id number] [address] [place] [address] SP Dec, 2012 SP [facility] [address] [id number] [address] [place] [address] SP Dec, SP [facility] [address] [id number] [address] [place] [address], [place] [address] SP Dec, SP [facility] [address] [id number] [address] [place] [address] SP 30 Nov, 2012 SP [facility] [address] [id number] [address] [place] [address], [place] [address] SP 25 Nov, 2012 SP [facility] [address] [id number] [address] [place] [address], [place] [address] SP Nov, SP [facility] [address] [id number] [address] [place] [address], [place] [address] SP Oct, SP [facility] [address] [id number] [address] [place] [address], [place] [address] SP Oct, SP [facility] [address] [id number] [address] [place] [address], [place] [address] SP Oct, SP [facility] [address] [id number] [address] [place] [address], [place] [address] SP Oct, SP [facility] [address] [id number] [address] [place] [address], [place] [address] SP Oct, SP [facility] [address] [id number] [address] [place] [address], [place] [address] SP Oct, SP [facility] [address] [id number] [address] [place] [address], [place] [address] SP Oct, SP [facility] [address] [id number] [address] [place] [address], [place] [address] SP Sep, SP [facility] [address] [id number] [address] [place] [address], [place] [address] SP Sep, SP [facility] [address] [id number] [address] [place] [address], [place] [address] SP Sep, SP [facility] [address] [id number] [address] [place] [address], [place] [address] SP Sep, SP [facility] [address] [id number] [address] [place] [address], [place] [address] SP Sep, SP [facility] [address] [id number] [address] [place] [address], [place] [address] SP Aug, SP [facility] [address] [id number] [address] [place] [address], [place] [address] SP Apr, SP [facility] [address] [id number] [address] [place] [address] SP Mar, SP [facility] [address] [id number] [address] [place] [address] SP Mar, SP [facility] [address] [facility] [id number] [address] [place] [address] SP Feb, SP [facility] [address] [id number] [address] [place] [address] SP Feb, SP [facility] [address] [id number] [address] [place] [id number] SP Jan, SP [facility] [address] [id number] [address] [place] [address] SP Jan, SP [facility] [address] [id number] [address] [place] [address] SP Jan, SP [facility] [address] [id number] [address] [place] [address] SP Jan, SP [facility] [address] [id number] [address] [place] [address] SP Oct, SP [facility] [address] [facility] [id number] [address] [place] [address] SP Feb, SP [facility] [address] [id number] [address] [place] [address] SP Feb, SP [facility] [address] [id number] [address] [place] [address] SP Feb, SP [facility] [address] [facility] [id number] [address] [place] [address] SP Jun, SP IMMUNIZATIONS No Known Immunizations SOCIAL HISTORY Never Assessed REASON FOR VISIT PLAN OF CARE VITAL SIGNS Height 64 in 2013-12-06 POS Weight 115 lbs 2013-12-06 POS Temperature 98 degrees Fahrenheit 2013-12-06 POS Heart Rate 78 bpm 2013-12-06 POS Respiratory Rate 16 2013-12-06 POS Blood pressure systolic 118 mmHg 2013-12-06 POS Blood pressure diastolic 80 mmHg 2013-12-06 POS MEDICATIONS Unknown Medications RESULTS No Results PROCEDURES No Known procedures INSTRUCTIONS MEDICATIONS ADMINISTERED No Known Medications MEDICAL (GENERAL) HISTORY Type Description Date POS Medical History seizures SP Medical History asthma SP Medical History scoliosis SP Medical History migraines SP Medical History chronic lower back pain SP Surgical History cyst removed from left arm SP Hospitalization History seizures SP
--- OUTSIDE RECORDS SUMMARY | 2019-02-04 22:49 | XMS REPORT ---
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 Name Role Phone POS TAWANDA BURKS Unavailable SP PROBLEMS Type Condition ICD9-CM Code [id number] Code Onset Dates Condition S tatus SNOMED POS Problem Migraine without aura and without status migrain osus, not intractable POS Active [id number] SP Problem Other chronic pain G89.29 Active 8 [id number] SP Problem Anxiety F41.9 Active [id number] SP Problem Renal lithiasis N20.0 Active 9557 0007 SP Problem Hypertension, benign I10 Active [id number] SP ALLERGIES No Information ENCOUNTERS Encounter Location Date Diagnosis POS [facility] [address] [facility] [id number] [address] [place] [address] SP Nov, SP [facility] [address] [facility] [id number] [address] [place] [address] SP July, Strain of right forearm, ini tial encounter S56.911A SP [facility] [address] [facility] [id number] [address] [place] [address] SP Mar, Migraine without aura and wi thout status migrainosus, not SP G43.009 ; Other chronic pain G89.29 and Pain in left knee M25.562 [facility] [address] [facility] [id number] [address] [place] [address] SP Mar, Right upper quadrant abdomin al pain R10.11 SP [facility] [address] [facility] [id number] [address] [place] [address] SP Aug, Bronchitis J40 SP [facility] [address] [facility] [id number] [address] [place] [address] SP Jun, [facility] [address] [facility] [id number] [address] [place] [address] SP Jun, Renal lithiasis N20.0 and Hy pertension, benign I10 [facility] [address] [facility] [id number] [place] [address] SP May, Anxiety F41.9 [facility] [address] [address] SP Apr, Encounter for staple removal Z48.02 [facility] [address] [address] SP Mar, Sebaceous cyst L72.3 [facility] [address] [address] SP Jan, Finger pain, left M79.645 [facility] [address] [address] SP Jan, Sebaceous cyst L72.3 [facility] [address] [address] SP Jun, Anxiety F41.9 [facility] [address] SP May, Gastroenteritis K52.9 [facility] [address] [id number] SP Jun, Dental examination Z01.20 [facility] [address] [id number] SP Jun, Dental examination Z01.20 an d Caries K02.9 [facility] [address] [address] SP Nov, Back pain 724.5 and Otalgia 388.70 [facility] [address] [address] SP Nov, [facility] [address] [id number] [address] [place] [id number] SP July, Dental examination V72.2 SP [facility] [address] [id number] [address] [place] [address], [place] [address] SP Jun, SP [facility] [address] [id number] [address] [place] [address], [place] [address] SP Jun, 2014 SP [facility] [address] [id number] [address] [place] [address], [place] [address] SP Apr, SP [facility] [address] [id number] [address] [place] [address], [place] [address] SP Apr, SP [facility] [address] [facility] [id number] [address] [place] [address] SP Mar, SP [facility] [address] [id number] [address] [place] [address] SP Mar, SP [facility] [address] [id number] [address] [place] [address] SP Jan, SP [facility] [address] [id number] [address] [place] [address] SP Jan, SP [facility] [address] [facility] [id number] [address] [place] [address] SP Nov, 2013 SP [facility] [address] [facility] [id number] [address] [place] [address] SP Nov, 2013 SP [facility] [address] [place] [address] 23 Nov, 20 14 SP [facility] [address] [facility] [id number] [address] [place] [address] SP Nov, 2013 SP [facility] [address] [place] [address] 17 Nov, 14 SP [facility] [address] [facility] [id number] [address] [place] [address] SP Nov, 2013 SP [facility] [address] [id number] [facility] [place] [address] SP Nov, SP [facility] [address] [id number] [address] [place] [address], [place] [address] SP Nov, SP [facility] [address] [id number] [address] [place] [address], [place] [address] SP Nov, SP [facility] [address] [id number] [address] [place] [address], [place] [address] SP Nov, SP [facility] [address] [id number] [address] [place] [address], [place] [address] SP Oct, SP [facility] [address] [id number] [address] [place] [address], [place] [address] SP Oct, SP [facility] [address] [id number] [address] [place] [address], [place] [address] SP Sep, SP [facility] [address] [id number] [address] [place] [address], [place] [address] SP Sep, SP [facility] [address] [id number] [address] [place] [address], [place] [address] SP Sep, SP [facility] [address] [id number] [address] [place] [address], [place] [address] SP Sep, SP [facility] [address] [id number] [address] [place] [address], [place] [address] SP Sep, SP [facility] [address] [id number] [address] [place] [address], [place] [address] SP Sep, SP [facility] [address] [id number] [address] [place] [address], [place] [address] SP Aug, SP [facility] [address] [id number] [address] [place] [address], [place] [address] SP Aug, SP [facility] [address] [id number] [address] [place] [address], [place] [address] SP Aug, SP [facility] [address] [id number] [address] [place] [address], [place] [address] SP Aug, SP [facility] [address] [id number] [address] [place] [address], [place] [address] SP Aug, SP [facility] [address] [id number] [address] [place] [address], [place] [address] SP Aug, SP [facility] [address] [id number] [address] [place] [address], [place] [address] SP July, SP [facility] [address] [id number] [address] [place] [address], [place] [address] SP July, SP [facility] [address] [id number] [address] [place] [address], [place] [address] SP July, SP [facility] [address] [id number] [address] [place] [address], [place] [address] SP July, SP [facility] [address] [id number] [address] [place] [address], [place] [address] SP July, SP [facility] [address] [id number] [address] [place] [address], [place] [address] SP July, SP [facility] [address] [id number] [address] [place] [address], [place] [address] SP Jun, SP [facility] [address] [id number] [address] [place] [address], [place] [address] SP Jun, SP [facility] [address] [id number] [address] [place] [address], [place] [address] SP Jun, SP [facility] [address] [id number] [address] [place] [address], [place] [address] SP Jun, SP [facility] [address] [id number] [address] [place] [address], [place] [address] SP Jun, SP [facility] [address] [id number] [address] [place] [address], [place] [address] SP Jun, SP [facility] [address] [id number] [address] [place] [address], [place] [address] SP May, SP [facility] [address] [id number] [address] [place] [address], [place] [address] SP May, SP [facility] [address] [id number] [address] [place] [address], [place] [address] SP May, SP [facility] [address] [id number] [address] [place] [address], [place] [address] SP May, SP [facility] [address] [id number] [address] [place] [address], [place] [address] SP May, SP [facility] [address] [id number] [address] [place] [address], [place] [address] SP May, SP [facility] [address] [id number] [address] [place] [address], [place] [address] SP May, SP [facility] [address] [id number] [address] [place] [address], [place] [address] SP Apr, SP [facility] [address] [id number] [address] [place] [address], [place] [address] SP Apr, SP [facility] [address] [id number] [address] [place] [address], [place] [address] SP Apr, SP [facility] [address] [id number] [address] [place] [address], [place] [address] SP Apr, SP [facility] [address] [id number] [address] [place] [address], [place] [address] SP Apr, SP [facility] [address] [id number] [address] [place] [address], [place] [address] SP Apr, SP [facility] [address] [id number] [address] [place] [address], [place] [address] SP Apr, SP [facility] [address] [id number] [address] [place] [address], [place] [address] SP Apr, SP [facility] [address] [id number] [address] [place] [address], [place] [address] SP Mar, SP [facility] [address] [id number] [address] [place] [address], [place] [address] SP Mar, SP [facility] [address] [id number] [address] [place] [address], [place] [address] SP Mar, SP [facility] [address] [id number] [address] [place] [address], [place] [address] SP Mar, SP [facility] [address] [id number] [address] [place] [address], [place] [address] SP Feb, SP [facility] [address] [id number] [address] [place] [address], [place] [address] SP Feb, SP [facility] [address] [id number] [address] [place] [address], [place] [address] SP Feb, SP [facility] [address] [id number] [address] [place] [address], [place] [address] SP Feb, SP [facility] [address] [id number] [address] [place] [address], [place] [address] SP Feb, SP [facility] [address] [id number] [address] [place] [address], [place] [address] SP Feb, SP [facility] [address] [id number] [address] [place] [address], [place] [address] SP Jan, SP [facility] [address] [id number] [address] [place] [address], [place] [address] SP Jan, SP [facility] [address] [id number] [address] [place] [address], [place] [address] SP Jan, SP [facility] [address] [id number] [address] [place] [address], [place] [address] SP Jan, 2012 SP [facility] [address] [id number] [address] [place] [address], [place] [address] SP Jan, 2012 SP [facility] [address] [id number] [address] [place] [address], [place] [address] SP Jan, 2012 SP [facility] [address] [id number] [address] [place] [address], [place] [address] SP Jan, 2012 SP [facility] [address] [id number] [address] [place] [address], [place] [address] SP Jan, 2012 SP [facility] [address] [id number] [address] [place] [address], [place] [address] SP Dec, 2012 SP [facility] [address] [id number] [address] [place] [address], [place] [address] SP Dec, 2012 SP [facility] [address] [id number] [address] [place] [address], [place] [address] SP Dec, 2012 SP [facility] [address] [id number] [address] [place] [address], [place] [address] SP Dec, SP [facility] [address] [id number] [address] [place] [address], [place] [address] SP Dec, SP [facility] [address] [id number] [address] [place] [address], [place] [address] SP Dec, SP [facility] [address] [id number] [address] [place] [address] SP Dec, SP [facility] [address] [id number] [address] [place] [address], [place] [address] SP Dec, SP [facility] [address] [id number] [address] [place] [address], [place] [address] SP 30 Nov, 2012 SP [facility] [address] [id number] [address] [place] [address], [place] [address] SP Nov, 2012 SP [facility] [address] [id number] [address] [place] [address], [place] [address] SP Nov, SP [facility] [address] [id number] [address] [place] [address], [place] [address] SP Oct, SP [facility] [address] [id number] [address] [place] [address], [place] [address] SP Oct, SP [facility] [address] [id number] [address] [place] [address], [place] [address] SP Oct, SP [facility] [address] [id number] [address] [place] [address], [place] [address] SP Oct, SP [facility] [address] [id number] [address] [place] [address], [place] [address] SP Oct, SP [facility] [address] [id number] [address] [place] [address], [place] [address] SP Oct, SP [facility] [address] [id number] [address] [place] [address], [place] [address] SP Oct, SP [facility] [address] [id number] [address] [place] [address], [place] [address] SP Sep, SP [facility] [address] [id number] [address] [place] [address], [place] [address] SP Sep, SP [facility] [address] [id number] [address] [place] [address], [place] [address] SP Sep, SP [facility] [address] [id number] [address] [place] [address], [place] [address] SP Sep, SP [facility] [address] [id number] [address] [place] [address], [place] [address] SP Sep, SP [facility] [address] [id number] [address] [place] [address], [place] [address] SP Aug, SP [facility] [address] [id number] [address] [place] [address], [place] [address] SP Apr, SP [facility] [address] [id number] [address] [place] [address] SP Mar, SP [facility] [address] [id number] [address] [place] [address] SP Mar, SP [facility] [address] [facility] [id number] [address] [place] [address] SP Feb, SP [facility] [address] [id number] [address] [place] [address] SP Feb, SP [facility] [address] [id number] [address] [place] [address] SP Jan, SP [facility] [address] [facility] [id number] [address] [place] [address] SP Jan, SP [facility] [address] [id number] [address] [place] [address] SP Jan, SP [facility] [address] [id number] [address] [place] [address] SP Jan, SP [facility] [address] [id number] [address] [place] [address] SP Oct, SP [facility] [address] [id number] [address] [place] [address] SP Feb, SP [facility] [address] [facility] [id number] [address] [place] [address] SP Feb, SP [facility] [address] [id number] [address] [place] [address] SP Feb, SP [facility] [address] [facility] [id number] [address] [place] [address] SP Jun, SP IMMUNIZATIONS No Known Immunizations SOCIAL HISTORY Never Assessed REASON FOR VISIT PLAN OF CARE VITAL SIGNS Height 64 in 2014-01-15 POS Weight 113 lbs 2014-01-15 POS Temperature 98 degrees Fahrenheit 2014-01-15 POS Heart Rate 70 bpm 2014-01-15 POS Respiratory Rate 16 2014-01-15 POS Blood pressure systolic 116 mmHg 2014-01-15 POS Blood pressure diastolic 78 mmHg 2014-01-15 POS MEDICATIONS Unknown Medications RESULTS No Results [...]
--- OUTSIDE RECORDS SUMMARY | 2019-02-04 22:50 | XMS REPORT ---
Author Author AMANUEL HERRING POS Organization [facility] SP Address [address] [place] [address] SP Care Team Providers Care Echo Technician Name Role Phone POS AMANUEL HERRING Unavailable SP PROBLEMS Type Condition ICD9-CM Code ZMT40-EK Code Onset Dates Condition S tatus SNOMED POS Problem Migraine without aura and without status migrain osus, not intractable POS Active [id number] SP Problem Other chronic pain G89.29 Active 8 [id number] SP Problem Anxiety F41.9 Active [id number] SP Problem Renal lithiasis N20.0 Active 9557 0007 SP Problem Hypertension, benign I10 Active [id number] SP ALLERGIES No Information ENCOUNTERS Encounter Location Date Diagnosis POS [facility] [address] [facility] [id number] [address] [place] [phone] SP July, Strain of right forearm, ini tial encounter S56.911A SP [facility] [address] [facility] [id number] [address] [place] [phone] SP Mar, Migraine without aura and wi thout status migrainosus, not SP G43.009 ; Other chronic pain G89.29 and Pain in left knee M25.562 [facility] [address] [facility] [id number] [address] [place] [address] SP Mar, Right upper quadrant abdomin al pain R10.11 SP [facility] [address] [facility] [id number] [address] [place] [phone] SP Aug, Bronchitis J40 SP [facility] [address] [facility] [id number] [address] [place] [phone] SP Jun, SP [facility] [address] [facility] [id number] [address] [place] [phone] SP Jun, Renal lithiasis N20.0 and Hy pertension, benign I10 [facility] [address] [facility] [id number] [place] [phone] SP May, Anxiety F41.9 [facility] [address] [facility] [id number] [address] [place] [phone] SP Apr, Encounter for staple removal Z48.02 [facility] [address] [facility] [id number] [address] [place] [phone] SP Mar, Sebaceous cyst L72.3 [facility] [address] [facility] [id number] [place] [phone] SP Jan, Finger pain, left M79.645 [facility] [address] [facility] [id number] [address] [place] [phone] SP Jan, Sebaceous cyst L72.3 [facility] [address] [facility] [id number] [address] [place] [phone] SP Jun, Anxiety F41.9 [facility] [address] [facility] [id number] [address] SP May, Gastroenteritis K52.9 [facility] [id number] [place] [id number] SP Jun, Dental examination Z01.20 [facility] [address] [id number] SP Jun, Dental examination Z01.20 an d Caries K02.9 [facility] [address] [facility] [id number] [address] [place] [phone] SP Nov, Back pain 724.5 and Otalgia 388.70 [facility] [address] [facility] [id number] [address] [place] [phone] SP Nov, [facility] [address] [facility] [id number] [address] [place] [id number] SP July, Dental examination V72.2 SP [facility] [address] [id number] [address] [place] [address], [place] [address] SP 14 Jun, 2014 SP [facility] [address] [id number] [address] [place] [address], [place] [address] SP 13 Jun, 2014 SP [facility] [address] [id number] [address] [place] [address], [place] [address] SP Apr, SP [facility] [address] [id number] [address] [place] [address], [place] [address] SP Apr, 2014 SP [facility] [address] [id number] [address] [place] [address], [place] [address] SP Mar, SP [facility] [address] [id number] [address] [place] [address], [place] [address] SP Mar, SP [facility] [address] [id number] [address] [place] [phone] SP Jan, 2013 SP [facility] [address] [id number] [address] [place] [phone] SP Jan, SP [facility] [address] [facility] [id number] [address] [place] [phone] SP Nov, 2013 SP [facility] [address] [facility] [id number] [address] [place] [phone] SP Nov, 2013 SP [facility] [address] [place] [address] 23 Sep, 20 14 SP [facility] [address] [facility] [id number] [address] [place] [id number] SP Nov, 2013 SP [facility] [address] [place] [address] 17 Nov, 20 14 SP [facility] [address] [facility] [id number] [address] [place] [phone] SP 17 Nov, 2013 SP [facility] [address] [facility] [id number] [address] [place] [phone] SP Nov, SP [facility] [address] [id number] [address] [place] [address], [place] [address] SP Nov, SP [facility] [address] [id number] [address] [place] [address], [place] [address] SP Nov, SP [facility] [address] [id number] [address] [place] [address], [place] [address] SP Nov, SP [facility] [address] [id number] [address] [place] [address], [place] [address] SP Oct, SP [facility] [address] [id number] [address] [place] [address], [place] [address] SP Oct, SP [facility] [address] [id number] [address] [place] [address], [place] [address] SP Sep, SP [facility] [address] [id number] [address] [place] [address], [place] [address] SP Sep, SP [facility] [address] [id number] [address] [place] [address], [place] [address] SP Sep, SP [facility] [address] [id number] [address] [place] [address], [place] [address] SP Sep, SP [facility] [address] [id number] [address] [place] [address], [place] [address] SP Sep, SP [facility] [address] [id number] [address] [place] [address], [place] [address] SP Sep, SP [facility] [address] [id number] [address] [place] [address], [place] [address] SP Aug, SP [facility] [address] [id number] [address] [place] [address], [place] [address] SP Aug, SP [facility] [address] [id number] [address] [place] [address], [place] [address] SP Aug, SP [facility] [address] [id number] [address] [place] [address], [place] [address] SP Aug, SP [facility] [address] [id number] [address] [place] [address], [place] [address] SP Aug, SP [facility] [address] [id number] [address] [place] [address], [place] [address] SP Aug, SP [facility] [address] [id number] [address] [place] [address], [place] [address] SP July, SP [facility] [address] [id number] [address] [place] [address], [place] [address] SP July, SP [facility] [address] [id number] [address] [place] [address], [place] [address] SP July, SP [facility] [address] [id number] [address] [place] [address], [place] [address] SP July, SP [facility] [address] [id number] [address] [place] [address], [place] [address] SP July, SP [facility] [address] [id number] [address] [place] [address], [place] [address] SP July, SP [facility] [address] [id number] [address] [place] [address], [place] [address] SP Jun, SP [facility] [address] [id number] [address] [place] [address], [place] [address] SP Jun, SP [facility] [address] [id number] [address] [place] [address], [place] [address] SP Jun, SP [facility] [address] [id number] [address] [place] [address], [place] [address] SP Jun, SP [facility] [address] [id number] [address] [place] [address], [place] [address] SP Jun, SP [facility] [address] [id number] [address] [place] [address], [place] [address] SP Jun, SP [facility] [address] [id number] [address] [place] [address], [place] [address] SP May, SP [facility] [address] [id number] [address] [place] [address], [place] [address] SP May, SP [facility] [address] [id number] [address] [place] [address], [place] [address] SP May, SP [facility] [address] [id number] [address] [place] [address], [place] [address] SP May, SP [facility] [address] [id number] [address] [place] [address], [place] [address] SP May, SP [facility] [address] [id number] [address] [place] [address], [place] [address] SP May, SP [facility] [address] [id number] [address] [place] [address], [place] [address] SP May, SP [facility] [address] [id number] [address] [place] [address], [place] [address] SP Apr, SP [facility] [address] [id number] [address] [place] [address], [place] [address] SP Apr, SP [facility] [address] [id number] [address] [place] [address], [place] [address] SP Apr, SP [facility] [address] [id number] [address] [place] [address], [place] [address] SP Apr, SP [facility] [address] [id number] [address] [place] [address], [place] [address] SP Apr, SP [facility] [address] [id number] [address] [place] [address], [place] [address] SP Apr, SP [facility] [address] [id number] [address] [place] [address], [place] [address] SP Apr, SP [facility] [address] [id number] [address] [place] [address], [place] [address] SP Apr, SP [facility] [address] [id number] [address] [place] [address], [place] [address] SP Mar, SP [facility] [address] [id number] [address] [place] [address], [place] [address] SP Mar, SP [facility] [address] [id number] [address] [place] [address], [place] [address] SP Mar, SP [facility] [address] [id number] [address] [place] [address], [place] [address] SP Mar, SP [facility] [address] [id number] [address] [place] [address], [place] [address] SP Feb, SP [facility] [address] [id number] [address] [place] [address], [place] [address] SP Feb, SP [facility] [address] [id number] [address] [place] [address], [place] [address] SP Feb, SP [facility] [address] [id number] [address] [place] [address], [place] [address] SP Feb, SP [facility] [address] [id number] [address] [place] [address], [place] [address] SP Feb, SP [facility] [address] [id number] [address] [place] [address], [place] [address] SP Feb, SP [facility] [address] [id number] [address] [place] [address], [place] [address] SP Jan, SP [facility] [address] [id number] [address] [place] [address], [place] [address] SP Jan, SP [facility] [address] [id number] [address] [place] [address], [place] [address] SP Jan, SP [facility] [address] [id number] [address] [place] [address], [place] [address] SP Jan, SP [facility] [address] [id number] [address] [place] [address], [place] [address] SP Jan, 2012 SP [facility] [address] [id number] [address] [place] [address], [place] [address] SP Jan, 2012 SP [facility] [address] [id number] [address] [place] [address], [place] [address] SP 15 Jan, 2013 SP [facility] [address] [id number] [address] [place] [address], [place] [address] SP 15 Jan, 2012 SP [facility] [address] [id number] [address] [place] [address], [place] [address] SP Dec, 2012 SP [facility] [address] [id number] [address] [place] [address], [place] [address] SP Dec, 2012 SP [facility] [address] [id number] [address] [place] [address], [place] [address] SP Dec, 2012 SP [facility] [address] [id number] [address] [place] [address] SP Dec, 2012 SP [facility] [address] [id number] [address] [place] [address], [place] [address] SP Dec, SP [facility] [address] [id number] [address] [place] [id number] SP Dec, SP [facility] [address] [id number] [address] [place] [address] SP Dec, SP [facility] [address] [id number] [address] [place] [id number] SP Dec, SP [facility] [address] [id number] [address] [place] [address], [place] [address] SP 30 Nov, 2012 SP [facility] [address] [id number] [address] [place] [address], [place] [address] SP 25 Nov, 2012 SP [facility] [address] [id number] [address] [place] [address], [place] [address] SP 13 Nov, 2012 SP [facility] [address] [id number] [address] [place] [address], [place] [address] SP Oct, SP [facility] [address] [id number] [address] [place] [address], [place] [address] SP Oct, SP [facility] [address] [id number] [address] [place] [address], [place] [address] SP Oct, SP [facility] [address] [id number] [address] [place] [address], [place] [address] SP Oct, SP [facility] [address] [id number] [address] [place] [address], [place] [address] SP Oct, SP [facility] [address] [id number] [address] [place] [address], [place] [address] SP Oct, SP [facility] [address] [id number] [address] [place] [address], [place] [address] SP Oct, SP [facility] [address] [id number] [address] [place] [address], [place] [address] SP Sep, SP [facility] [address] [id number] [address] [place] [address], [place] [address] SP Sep, SP [facility] [address] [id number] [address] [place] [address], [place] [address] SP Sep, SP [facility] [address] [id number] [address] [place] [address], [place] [address] SP Sep, SP [facility] [address] [id number] [address] [place] [address], [place] [address] SP Sep, SP [facility] [address] [id number] [address] [place] [address], [place] [address] SP Aug, SP [facility] [address] [id number] [address] [place] [address], [place] [address] SP Apr, SP [facility] [address] [id number] [address] [place] [address], [place] [address] SP Mar, SP [facility] [address] [id number] [address] [place] [address] SP Mar, SP [facility] [address] [id number] [address] [place] [address] SP Feb, SP [facility] [address] [id number] [address] [place] [id number] SP Feb, SP [facility] [address] [id number] [address] [place] [address] SP Jan, SP [facility] [address] [id number] [address] [place] [address] SP Jan, SP [facility] [address] [id number] [address] [place] [address] SP Jan, SP [facility] [address] [id number] [address] [place] [phone] SP Jan, SP [facility] [address] [id number] [address] [place] [address] SP Oct, SP [facility] [address] [id number] [address] [place] [id number] SP Feb, SP [facility] [address] [id number] [address] [place] [id number] SP Feb, SP [facility] [address] [id number] [address] [place] [id number] SP Feb, SP [facility] [address] [id number] [address] [place] [phone] SP Jun, SP IMMUNIZATIONS No Known Immunizations SOCIAL HISTORY Never Assessed REASON FOR VISIT PLAN OF CARE VITAL SIGNS MEDICATIONS No [...]
--- OUTSIDE RECORDS SUMMARY | 2019-02-04 22:50 | XMS REPORT ---
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 Name Role Phone POS Migration, Doctor Unavailable Unavailable SP PROBLEMS Type Condition ICD9-CM Code SUQ70-DZ Code Onset Dates Condition S tatus SNOMED POS Problem Migraine without aura and without status migrain osus, not intractable POS Active [id number] SP Problem Other chronic pain G89.29 Active 8 [id number] SP Problem Anxiety F41.9 Active 53208885 SP Problem Renal lithiasis N20.0 Active 9557 0007 SP Problem Hypertension, benign I10 Active 14153056 SP ALLERGIES No Information ENCOUNTERS Encounter Location Date Diagnosis POS [facility] [address] [facility] [id number] [address] [place] [address] SP Nov, SP [facility] [address] [facility] [id number] [address] [place] [address] SP July, Strain of right forearm, ini tial encounter S56.911A SP [facility] [address] [facility] [id number] [address] [place] [address] SP Mar, Migraine without aura and wi thout status migrainosus, not SP G43.009 ; Other chronic pain G89.29 and Pain in left knee M25.562 [facility] [address] [facility] [id number] [address] [place] [address] SP Mar, Right upper quadrant abdomin al pain R10.11 SP [facility] [address] [facility] [id number] [address] [place] [address] SP Aug, Bronchitis J40 SP [facility] [address] [facility] [id number] [address] [place] [address] SP Jun, SP [facility] [address] [facility] [id number] [address] [place] [address] SP Jun, Renal lithiasis N20.0 and Hy pertension, benign I10 [facility] [address] [address] SP May, Anxiety F41.9 [facility] [address] [facility] [id number] [place] [address] SP Apr, Encounter for staple removal Z48.02 [facility] [address] [place] [id number] [place] [address] SP Mar, Sebaceous cyst L72.3 [facility] [address] [address] SP Jan, Finger pain, left M79.645 [facility] [address] [address] SP Jan, Sebaceous cyst L72.3 [facility] [address] [address] SP Jun, Anxiety F41.9 [facility] [address] SP May, Gastroenteritis K52.9 [facility] [address] [id number] SP Jun, Dental examination Z01.20 [facility] [address] [id number] SP Jun, Dental examination Z01.20 an d Caries K02.9 [facility] [address] [facility] [id number] [address] [place] [address] SP Nov, Back pain 724.5 and Otalgia 388.70 [facility] [address] [facility] [id number] [address] [place] [address] SP Nov, [facility] [address] [id number] SP July, Dental examination V72.2 SP [facility] [address] [id number] [address] [place] [address], [place] [address] SP Jun, SP [facility] [address] [id number] [address] [place] [address], [place] [address] SP Jun, SP [facility] [address] [id number] [address] [place] [address], [place] [address] SP Apr, SP [facility] [address] [id number] [address] [place] [address], [place] [address] SP Apr, SP [facility] [address] [id number] [address] [place] [address], [place] [address] SP Mar, SP [facility] [address] [id number] [address] [place] [address], [place] [address] SP Mar, SP [facility] [address] [id number] [address] [place] [address], [place] [address] SP Jan, SP [facility] [address] [id number] [address] [place] [address], [place] [address] SP Jan, SP [facility] [address] [id number] [address] [place] [address] SP Nov, 2013 SP [facility] [address] [id number] [address] [place] [address], [place] [address] SP Nov, 2013 SP [facility] [address] [place] [address] Nov, 14 SP [facility] [address] [id number] [address] [place] [address] SP Nov, SP [facility] [address] [place] [address] Nov, 14 SP [facility] [address] [id number] [address] [place] [address] SP Nov, SP [facility] [address] [facility] [id number] [address] [place] [address] SP Nov, SP [facility] [address] [id number] [address] [place] [address], [place] [address] SP Nov, SP [facility] [address] [id number] [address] [place] [address], [place] [address] SP Nov, SP [facility] [address] [id number] [address] [place] [address], [place] [address] SP Nov, SP [facility] [address] [id number] [address] [place] [address], [place] [address] SP Oct, SP [facility] [address] [id number] [address] [place] [address], [place] [address] SP Oct, SP [facility] [address] [id number] [address] [place] [address], [place] [address] SP Sep, SP [facility] [address] [id number] [address] [place] [address], [place] [address] SP Sep, SP [facility] [address] [id number] [address] [place] [address], [place] [address] SP Sep, SP [facility] [address] [id number] [address] [place] [address], [place] [address] SP Sep, SP [facility] [address] [id number] [address] [place] [address], [place] [address] SP Sep, SP [facility] [address] [id number] [address] [place] [address], [place] [address] SP Sep, SP [facility] [address] [id number] [address] [place] [address], [place] [address] SP Aug, SP [facility] [address] [id number] [address] [place] [address], [place] [address] SP Aug, SP [facility] [address] [id number] [address] [place] [address], [place] [address] SP Aug, SP [facility] [address] [id number] [address] [place] [address], [place] [address] SP Aug, SP [facility] [address] [id number] [address] [place] [address], [place] [address] SP Aug, SP [facility] [address] [id number] [address] [place] [address], [place] [address] SP Aug, SP [facility] [address] [id number] [address] [place] [address], [place] [address] SP July, SP [facility] [address] [id number] [address] [place] [address], [place] [address] SP July, SP [facility] [address] [id number] [address] [place] [address], [place] [address] SP July, SP [facility] [address] [id number] [address] [place] [address], [place] [address] SP July, SP [facility] [address] [id number] [address] [place] [address], [place] [address] SP July, SP [facility] [address] [id number] [address] [place] [address], [place] [address] SP July, SP [facility] [address] [id number] [address] [place] [address], [place] [address] SP Jun, SP [facility] [address] [id number] [address] [place] [address], [place] [address] SP Jun, SP [facility] [address] [id number] [address] [place] [address], [place] [address] SP Jun, SP [facility] [address] [id number] [address] [place] [address], [place] [address] SP Jun, SP [facility] [address] [id number] [address] [place] [address], [place] [address] SP Jun, SP [facility] [address] [id number] [address] [place] [address], [place] [address] SP Jun, SP [facility] [address] [id number] [facility] [address] SP May, SP [facility] [address] [id number] [address] [place] [address], [place] [address] SP May, SP [facility] [address] [id number] [address] [place] [address], [place] [address] SP May, SP [facility] [address] [id number] [address] [place] [address], [place] [address] SP May, SP [facility] [address] [id number] [address] [place] [address], [place] [address] SP May, SP [facility] [address] [id number] [address] [place] [address], [place] [address] SP May, SP [facility] [address] [id number] [address] [place] [address], [place] [address] SP May, SP [facility] [address] [id number] [address] [place] [address], [place] [address] SP Apr, SP [facility] [address] [id number] [address] [place] [address], [place] [address] SP Apr, SP [facility] [address] [id number] [address] [place] [address], [place] [address] SP Apr, SP [facility] [address] [id number] [address] [place] [address], [place] [address] SP Apr, SP [facility] [address] [id number] [address] [place] [address], [place] [address] SP Apr, SP [facility] [address] [id number] [address] [place] [address], [place] [address] SP Apr, SP [facility] [address] [id number] [address] [place] [address], [place] [address] SP Apr, SP [facility] [address] [id number] [address] [place] [address], [place] [address] SP Apr, SP [facility] [address] [id number] [address] [place] [address], [place] [address] SP Mar, SP [facility] [address] [id number] [address] [place] [address], [place] [address] SP Mar, SP [facility] [address] [id number] [address] [place] [address], [place] [address] SP Mar, SP [facility] [address] [id number] [address] [place] [address], [place] [address] SP Mar, SP [facility] [address] [id number] [address] [place] [address], [place] [address] SP Feb, SP [facility] [address] [id number] [address] [place] [address], [place] [address] SP Feb, SP [facility] [address] [id number] [address] [place] [address], [place] [address] SP Feb, SP [facility] [address] [id number] [address] [place] [address], [place] [address] SP Feb, SP [facility] [address] [id number] [address] [place] [address], [place] [address] SP Feb, SP [facility] [address] [id number] [address] [place] [address], [place] [address] SP Feb, SP [facility] [address] [id number] [address] [place] [address], [place] [address] SP Jan, SP [facility] [address] [id number] [address] [place] [address], [place] [address] SP Jan, SP [facility] [address] [id number] [address] [place] [address], [place] [address] SP Jan, SP [facility] [address] [id number] [address] [place] [address], [place] [address] SP Jan, SP [facility] [address] [id number] [address] [place] [address], [place] [address] SP 19 Jan, 2012 SP [facility] [address] [id number] [address] [place] [address], [place] [address] SP 19 Jan, 2012 SP [facility] [address] [id number] [address] [place] [address], [place] [address] SP 15 Jan, 2012 SP [facility] [address] [id number] [address] [place] [address], [place] [address] SP 15 Jan, 2012 SP [facility] [address] [id number] [address] [place] [address], [place] [address] SP Dec, 2012 SP [facility] [address] [id number] [address] [place] [address], [place] [address] SP Dec, SP [facility] [address] [id number] [address] [place] [address], [place] [address] SP Dec, SP [facility] [address] [id number] [address] [place] [address], [place] [address] SP Dec, 2012 SP [facility] [address] [id number] [address] [place] [address], [place] [address] SP Dec, SP [facility] [address] [id number] [address] [place] [address], [place] [address] SP Dec, SP [facility] [address] [id number] [address] [place] [address] SP Dec, SP [facility] [address] [id number] [address] [place] [address] SP Dec, SP [facility] [address] [id number] [address] [place] [address], [place] [address] SP 30 Nov, 2012 SP [facility] [address] [id number] [address] [place] [address], [place] [address] SP 25 Nov, 2012 SP [facility] [address] [id number] [address] [place] [address], [place] [address] SP Nov, SP [facility] [address] [id number] [address] [place] [address], [place] [address] SP Oct, SP [facility] [address] [id number] [address] [place] [address], [place] [address] SP Oct, SP [facility] [address] [id number] [address] [place] [address], [place] [address] SP Oct, SP [facility] [address] [id number] [address] [place] [address], [place] [address] SP Oct, SP [facility] [address] [id number] [address] [place] [address], [place] [address] SP Oct, SP [facility] [address] [id number] [address] [place] [address], [place] [address] SP Oct, SP [facility] [address] [id number] [address] [place] [address], [place] [address] SP Oct, SP [facility] [address] [id number] [address] [place] [address], [place] [address] SP Sep, SP [facility] [address] [id number] [address] [place] [address], [place] [address] SP Sep, SP [facility] [address] [id number] [address] [place] [address], [place] [address] SP Sep, SP [facility] [address] [id number] [address] [place] [address], [place] [address] SP Sep, SP [facility] [address] [id number] [address] [place] [address], [place] [address] SP Sep, SP [facility] [address] [id number] [address] [place] [address], [place] [address] SP Aug, SP [facility] [address] [id number] [address] [place] [address], [place] [address] SP Apr, SP [facility] [address] [id number] [address] [place] [address] SP Mar, SP [facility] [address] [id number] [address] [place] [address] SP Mar, SP [facility] [address] [id number] [address] [place] [address] SP Feb, SP [facility] [address] [id number] [address] [place] [address] SP Feb, SP [facility] [address] [id number] [address] [place] [address] SP Jan, SP [facility] [address] [id number] [address] [place] [address] SP Jan, SP [facility] [address] [id number] [address] [place] [address] SP Jan, SP [facility] [address] [id number] [address] [place] [address] SP Jan, SP [facility] [address] [id number] [address] [place] [address] SP Oct, SP [facility] [address] [id number] [address] [place] [address] SP Feb, SP [facility] [address] [id number] [address] [place] [address] SP Feb, SP [facility] [address] [id number] [address] [place] [address] SP Feb, SP [facility] [address] [id number] [address] [place] [address] SP Jun, SP IMMUNIZATIONS No Known Immunizations SOCIAL HISTORY Never Assessed REASON FOR VISIT PLAN OF CARE VITAL SIGNS Height 64 in 2013-11-27 POS Weight 113.39 lbs 2013-11-27 POS Temperature 98.7 degrees Fahrenheit 2013-11-27 POS Heart Rate 80 bpm 2013-11-27 POS Respiratory Rate 18 2013-11-27 POS Blood pressure systolic 120 mmHg 2013-11-27 POS Blood pressure diastolic 90 mmHg 2013-11-27 POS MEDICATIONS Unknown Medications RESULTS No Results [...]
--- OUTSIDE RECORDS SUMMARY | 2019-02-04 22:50 | XMS REPORT ---
Author Author Migration, Doctor POS Organization [facility] SP Address Unknown SP Phone Unavailable SP Care Team Providers Care Environmental Compliance Inspector Name Role Phone POS Migration, Doctor Unavailable Unavailable SP PROBLEMS Type Condition ICD9-CM Code [id number] Code Onset Dates Condition S tatus SNOMED POS Problem Migraine without aura and without status migrain osus, not intractable POS Active 752675501 SP Problem Other chronic pain G89.29 Active 8 [id number] SP Problem Anxiety F41.9 Active [id number] SP Problem Renal lithiasis N20.0 Active 9557 0007 SP Problem Hypertension, benign I10 Active [id number] SP ALLERGIES No Information ENCOUNTERS Encounter Location Date Diagnosis POS [facility] [place] [address] [id number] [address] [place] [address] SP July, Strain of right forearm, ini tial encounter S56.911A SP [facility] [place] [address] [id number] [address] [place] [address] SP Mar, Migraine without aura and wi thout status migrainosus, not SP G43.009 ; Other chronic pain G89.29 and Pain in left knee M25.562 [facility] [address] [id number] [address] [place] [address] SP Mar, Right upper quadrant abdomin al pain R10.11 SP [facility] [place] [address] [id number] [address] [place] [address] SP Aug, Bronchitis J40 SP [facility] [place] [address] [id number] [address] [place] [address] SP Jun, SP [facility] [place] [address] [id number] [address] [place] [address] SP Jun, Renal lithiasis N20.0 and Hy pertension, benign I10 SP [facility] [place] [address] [address] SP May, Anxiety F41.9 [facility] [address] [address] SP Apr, Encounter for staple removal Z48.02 [facility] [id number] [place] [address] SP Mar, Sebaceous cyst L72.3 [facility] [address] [id number] SP Jan, Finger pain, left M79.645 [facility] [address] [address] SP Jan, Sebaceous cyst L72.3 [facility] [address] [id number] SP Jun, Anxiety F41.9 [facility] [address] SP May, Gastroenteritis K52.9 [facility] [address] [id number] SP Jun, Dental examination Z01.20 [facility] [address] [id number] SP Jun, Dental examination Z01.20 an d Caries K02.9 [facility] [address] [place] [id number] [address] [place] [address] SP Nov, Back pain 724.5 and Otalgia 388.70 [facility] [address] [address] SP Nov, [facility] [address] [id number] SP July, Dental examination V72.2 [facility] [address] [address] SP 14 Jun, 2014 SP [facility] [address] [id number] [address] [place] [address], [place] [address] SP 13 Jun, 2014 SP [facility] [address] [id number] [address] [place] [address], [place] [address] SP Apr, 2014 SP [facility] [address] [id number] [address] [place] [address], [place] [address] SP Apr, 2014 SP [facility] [address] [id number] [address] [place] [address], [place] [address] SP Mar, SP [facility] [address] [id number] [address] [place] [address], [place] [address] SP Mar, SP [facility] [address] [id number] [address] [place] [address], [place] [address] SP Jan, SP [facility] [address] [id number] [address] [place] [address], [place] [address] SP Jan, 2013 SP [facility] [address] [id number] [address] [place] [address] SP Nov, 2013 SP [facility] [address] [id number] [address] [place] [address], [place] [address] SP Nov, 2013 SP [facility] [address] [place] [address] 23 Sep, 20 14 SP [facility] [address] [id number] [address] [place] [address] SP 23 Nov, 2013 SP [facility] [address] [place] [address] 17 Nov, 20 14 SP [facility] [address] [id number] [address] [place] [address] SP 17 Nov, 2013 SP [facility] [address] [id number] [address] [place] [address] SP 11 Nov, 2013 SP [facility] [address] [id number] [address] [place] [address] SP Nov, SP [facility] [address] [id number] [address] [place] [address], [place] [address] SP Nov, SP [facility] [address] [id number] [address] [place] [address], [place] [address] SP Nov, SP [facility] [address] [id number] [address] [place] [address], [place] [address] SP Oct, SP [facility] [address] [id number] [address] [place] [address], [place] [address] SP Oct, SP [facility] [address] [id number] [address] [place] [address], [place] [address] SP Sep, SP [facility] [address] [id number] [address] [place] [address], [place] [address] SP Sep, SP [facility] [address] [id number] [address] [place] [address], [place] [address] SP Sep, SP [facility] [address] [id number] [address] [place] [address], [place] [address] SP Sep, SP [facility] [address] [id number] [address] [place] [address], [place] [address] SP Sep, SP [facility] [address] [id number] [address] [place] [address], [place] [address] SP Sep, SP [facility] [address] [id number] [address] [place] [address], [place] [address] SP Aug, SP [facility] [address] [id number] [address] [place] [address], [place] [address] SP Aug, SP [facility] [address] [id number] [address] [place] [address], [place] [address] SP Aug, SP [facility] [address] [id number] [address] [place] [address], [place] [address] SP Aug, SP [facility] [address] [id number] [address] [place] [address], [place] [address] SP Aug, SP [facility] [address] [id number] [address] [place] [address], [place] [address] SP Aug, SP [facility] [address] [id number] [address] [place] [address], [place] [address] SP July, SP [facility] [address] [id number] [address] [place] [address], [place] [address] SP July, SP [facility] [address] [id number] [address] [place] [address], [place] [address] SP July, SP [facility] [address] [id number] [address] [place] [address], [place] [address] SP July, SP [facility] [address] [id number] [address] [place] [address], [place] [address] SP July, SP [facility] [address] [id number] [address] [place] [address], [place] [address] SP July, SP [facility] [address] [id number] [address] [place] [address], [place] [address] SP Jun, SP [facility] [address] [id number] [address] [place] [address], [place] [address] SP Jun, SP [facility] [address] [id number] [address] [place] [address], [place] [address] SP Jun, SP [facility] [address] [id number] [address] [place] [address], [place] [address] SP Jun, SP [facility] [address] [id number] [address] [place] [address], [place] [address] SP Jun, SP [facility] [address] [id number] [address] [place] [address], [place] [address] SP Jun, SP [facility] [address] [id number] [address] [place] [address], [place] [address] SP May, SP [facility] [address] [id number] [facility] [place] [address] SP May, SP [facility] [address] [id number] [address] [place] [address], [place] [address] SP May, SP [facility] [address] [id number] [address] [place] [address], [place] [address] SP May, SP [facility] [address] [id number] [address] [place] [address], [place] [address] SP May, SP [facility] [address] [id number] [address] [place] [address], [place] [address] SP May, SP [facility] [address] [id number] [address] [place] [address], [place] [address] SP May, SP [facility] [address] [id number] [address] [place] [address], [place] [address] SP Apr, SP [facility] [address] [id number] [address] [place] [address], [place] [address] SP Apr, SP [facility] [address] [id number] [address] [place] [address], [place] [address] SP Apr, SP [facility] [address] [id number] [address] [place] [address], [place] [address] SP Apr, SP [facility] [address] [id number] [address] [place] [address], [place] [address] SP Apr, SP [facility] [address] [id number] [address] [place] [address], [place] [address] SP Apr, SP [facility] [address] [id number] [address] [place] [address], [place] [address] SP Apr, SP [facility] [address] [id number] [address] [place] [address], [place] [address] SP Apr, SP [facility] [address] [id number] [address] [place] [address], [place] [address] SP Mar, SP [facility] [address] [id number] [address] [place] [address], [place] [address] SP Mar, SP [facility] [address] [id number] [address] [place] [address], [place] [address] SP Mar, SP [facility] [address] [id number] [address] [place] [address], [place] [address] SP Mar, SP [facility] [address] [id number] [address] [place] [address], [place] [address] SP Feb, SP [facility] [address] [id number] [address] [place] [address], [place] [address] SP Feb, SP [facility] [address] [id number] [address] [place] [address], [place] [address] SP Feb, SP [facility] [address] [id number] [address] [place] [address], [place] [address] SP Feb, SP [facility] [address] [id number] [address] [place] [address], [place] [address] SP Feb, SP [facility] [address] [id number] [address] [place] [address], [place] [address] SP Feb, SP [facility] [place] [address] [id number] [address] [place] [address], [place] [address] SP Jan, SP [facility] [address] [id number] [address] [place] [address], [place] [address] SP Jan, SP [facility] [address] [id number] [address] [place] [address], [place] [address] SP Jan, SP [facility] [address] [id number] [address] [place] [address], [place] [address] SP Jan, SP [facility] [address] [id number] [address] [place] [address], [place] [address] SP Jan, SP [facility] [address] [id number] [address] [place] [address], [place] [address] SP 19 Jan, 2013 SP [facility] [address] [id number] [address] [place] [address], [place] [address] SP 15 Jan, 2013 SP [facility] [address] [id number] [address] [place] [address], [place] [address] SP 15 Jan, 2012 SP [facility] [address] [id number] [address] [place] [address], [place] [address] SP Dec, SP [facility] [address] [id number] [address] [place] [address], [place] [address] SP Dec, SP [facility] [address] [id number] [address] [place] [address], [place] [address] SP Dec, SP [facility] [address] [id number] [address] [place] [address], [place] [address] SP Dec, SP [facility] [address] [id number] [address] [place] [address], [place] [address] SP Dec, SP [facility] [address] [id number] [address] [place] [address], [place] [address] SP Dec, SP [facility] [address] [id number] [address] [place] [address], [place] [address] SP Dec, SP [facility] [address] [id number] [address] [place] [address], [place] [address] SP Dec, SP [facility] [address] [id number] [address] [place] [address], [place] [address] SP 30 Nov, 2012 SP [facility] [address] [id number] [address] [place] [address], [place] [address] SP 25 Nov, 2012 SP [facility] [address] [id number] [address] [place] [address], [place] [address] SP 13 Nov, 2012 SP [facility] [address] [id number] [address] [place] [address], [place] [address] SP Oct, SP [facility] [address] [id number] [address] [place] [address], [place] [address] SP Oct, SP [facility] [address] [id number] [address] [place] [address], [place] [address] SP Oct, SP [facility] [address] [id number] [address] [place] [address], [place] [address] SP Oct, SP [facility] [address] [id number] [address] [place] [address], [place] [address] SP Oct, SP [facility] [address] [id number] [address] [place] [address], [place] [address] SP Oct, SP [facility] [address] [id number] [address] [place] [address], [place] [address] SP Oct, SP [facility] [address] [id number] [address] [place] [address], [place] [address] SP Sep, SP [facility] [address] [id number] [address] [place] [address], [place] [address] SP Sep, SP [facility] [address] [id number] [address] [place] [address], [place] [address] SP Sep, SP [facility] [address] [id number] [address] [place] [address], [place] [address] SP Sep, SP [facility] [address] [id number] [address] [place] [address], [place] [address] SP Sep, SP [facility] [address] [id number] [address] [place] [address], [place] [address] SP Aug, SP [facility] [address] [id number] [address] [place] [address], [place] [address] SP Apr, SP [facility] [address] [id number] [address] [place] [address], [place] [address] SP Mar, SP [facility] [address] [id number] [address] [place] [address] SP Mar, SP [facility] [place] [address] [id number] [address] [place] [address] SP Feb, SP [facility] [place] [address] [id number] [address] [place] [address] SP Feb, SP [facility] [place] [address] [id number] [address] [place] [address] SP Jan, SP [facility] [place] [address] [id number] [address] [place] [address] SP Jan, SP [facility] [place] [address] [id number] [address] [place] [address] SP Jan, SP [facility] [place] [address] [id number] [address] [place] [address] SP Jan, SP [facility] [place] [address] [id number] [address] [place] [address] SP Oct, SP [facility] [place] [address] [id number] [address] [place] [address] SP Feb, SP [facility] [place] [address] [id number] [address] [place] [address] SP Feb, SP [facility] [place] [address] [id number] [address] [place] [address] SP Feb, SP [facility] [place] [address] [id number] [address] [place] [address] SP Jun, SP IMMUNIZATIONS No Known Immunizations SOCIAL HISTORY Never Assessed REASON FOR VISIT EMR-[facility] [place] PLAN OF CARE VITAL SIGNS MEDICATIONS No [...]
--- OUTSIDE RECORDS SUMMARY | 2019-02-04 22:50 | XMS REPORT ---
Author Author TAWANDA BURKS POS Organization [facility] SP Address [address] [place] [address] SP Care Team Providers Care Sole Leveler Name Role Phone POS TAWANDA BURKS Unavailable SP PROBLEMS Type Condition ICD9-CM Code VQY05-KS Code Onset Dates Condition S tatus SNOMED POS Problem Migraine without aura and without status migrain osus, not intractable POS Active [id number] SP Problem Other chronic pain G89.29 Active 8 [id number] SP Problem Anxiety F41.9 Active [id number] SP Problem Renal lithiasis N20.0 Active 9557 0007 SP Problem Hypertension, benign I10 Active [id number] SP ALLERGIES No Information ENCOUNTERS Encounter Location Date Diagnosis POS [facility] [address] [facility] [id number] [address] [place] [id number] SP Nov, SP [facility] [address] [facility] [id number] [address] [place] [phone] SP July, Strain of right forearm, ini tial encounter S56.911A SP [facility] [address] [facility] [id number] [address] [place] [phone] SP Mar, Migraine without aura and wi thout status migrainosus, not SP G43.009 ; Other chronic pain G89.29 and Pain in left knee M25.562 [facility] [address] [facility] [id number] [address] [place] [address] SP Mar, Right upper quadrant abdomin al pain R10.11 SP [facility] [address] [facility] [id number] [address] [place] [phone] SP Aug, Bronchitis J40 SP [facility] [address] [facility] [id number] [address] [place] [id number] SP Jun, [facility] [address] [facility] [id number] [address] [place] [address] SP Jun, Renal lithiasis N20.0 and Hy pertension, benign I10 [facility] [address] [facility] [id number] [place] [address] SP May, Anxiety F41.9 [facility] [address] [address] SP Apr, Encounter for staple removal Z48.02 [facility] [address] [address] SP Mar, Sebaceous cyst L72.3 [facility] [address] [address] SP Jan, Finger pain, left M79.645 [facility] [address] [address] SP Jan, Sebaceous cyst L72.3 [facility] [address] [address] SP Jun, Anxiety F41.9 [facility] [address] SP May, Gastroenteritis K52.9 [facility] [address] [id number] SP Jun, Dental examination Z01.20 [facility] [address] [id number] SP Jun, Dental examination Z01.20 an d Caries K02.9 [facility] [address] [address] SP Nov, Back pain 724.5 and Otalgia 388.70 [facility] [address] [address] SP Nov, [facility] [address] [id number] [address] [place] [id number] SP July, Dental examination V72.2 SP [facility] [address] [id number] [address] [place] [address], [place] [address] SP Jun, SP [facility] [address] [id number] [address] [place] [address], [place] [address] SP Jun, 2014 SP [facility] [address] [id number] [address] [place] [address], [place] [address] SP Apr, SP [facility] [address] [id number] [address] [place] [address], [place] [address] SP Apr, SP [facility] [address] [facility] [id number] [address] [place] [phone] SP Mar, SP [facility] [address] [id number] [address] [place] [id number] SP Mar, SP [facility] [address] [id number] [address] [place] [phone] SP Jan, SP [facility] [address] [id number] [address] [place] [phone] SP Jan, SP [facility] [address] [facility] [id number] [address] [place] [phone] SP Nov, 2013 SP [facility] [address] [facility] [id number] [address] [place] [phone] SP Nov, 2013 SP [facility] [address] [place] [address] 23 Nov, 20 14 SP [facility] [address] [facility] [id number] [address] [place] [id number] SP Nov, 2013 SP [facility] [address] [place] [address] 17 Nov, 14 SP [facility] [address] [facility] [id number] [address] [place] [phone] SP Nov, 2013 SP [facility] [address] [id number] [facility] [place] [address] SP Nov, SP [facility] [address] [id number] [address] [place] [address], [place] [address] SP Nov, SP [facility] [address] [id number] [address] [place] [address], [place] [address] SP Nov, SP [facility] [address] [id number] [address] [place] [address], [place] [address] SP Nov, SP [facility] [address] [id number] [address] [place] [address], [place] [address] SP Oct, SP [facility] [address] [id number] [address] [place] [address], [place] [address] SP Oct, SP [facility] [address] [id number] [address] [place] [address], [place] [address] SP Sep, SP [facility] [address] [id number] [address] [place] [address], [place] [address] SP Sep, SP [facility] [address] [id number] [address] [place] [address], [place] [address] SP Sep, SP [facility] [address] [id number] [address] [place] [address], [place] [address] SP Sep, SP [facility] [address] [id number] [address] [place] [address], [place] [address] SP Sep, SP [facility] [address] [id number] [address] [place] [address], [place] [address] SP Sep, SP [facility] [address] [id number] [address] [place] [address], [place] [address] SP Aug, SP [facility] [address] [id number] [address] [place] [address], [place] [address] SP Aug, SP [facility] [address] [id number] [address] [place] [address], [place] [address] SP Aug, SP [facility] [address] [id number] [address] [place] [address], [place] [address] SP Aug, SP [facility] [address] [id number] [address] [place] [address], [place] [address] SP Aug, SP [facility] [address] [id number] [address] [place] [address], [place] [address] SP Aug, SP [facility] [address] [id number] [address] [place] [address], [place] [address] SP July, SP [facility] [address] [id number] [address] [place] [address], [place] [address] SP July, SP [facility] [address] [id number] [address] [place] [address], [place] [address] SP July, SP [facility] [address] [id number] [address] [place] [address], [place] [address] SP July, SP [facility] [address] [id number] [address] [place] [address], [place] [address] SP July, SP [facility] [address] [id number] [address] [place] [address], [place] [address] SP July, SP [facility] [address] [id number] [address] [place] [address], [place] [address] SP Jun, SP [facility] [address] [id number] [address] [place] [address], [place] [address] SP Jun, SP [facility] [address] [id number] [address] [place] [address], [place] [address] SP Jun, SP [facility] [address] [id number] [address] [place] [address], [place] [address] SP Jun, SP [facility] [address] [id number] [address] [place] [address], [place] [address] SP Jun, SP [facility] [address] [id number] [address] [place] [address], [place] [address] SP Jun, SP [facility] [address] [id number] [address] [place] [address], [place] [address] SP May, SP [facility] [address] [id number] [address] [place] [address], [place] [address] SP May, SP [facility] [address] [id number] [address] [place] [address], [place] [address] SP May, SP [facility] [address] [id number] [address] [place] [address], [place] [address] SP May, SP [facility] [address] [id number] [address] [place] [address], [place] [address] SP May, SP [facility] [address] [id number] [address] [place] [address], [place] [address] SP May, SP [facility] [address] [id number] [address] [place] [address], [place] [address] SP May, SP [facility] [address] [id number] [address] [place] [address], [place] [address] SP Apr, SP [facility] [address] [id number] [address] [place] [address], [place] [address] SP Apr, SP [facility] [address] [id number] [address] [place] [address], [place] [address] SP Apr, SP [facility] [address] [id number] [address] [place] [address], [place] [address] SP Apr, SP [facility] [address] [id number] [address] [place] [address], [place] [address] SP Apr, SP [facility] [address] [id number] [address] [place] [address], [place] [address] SP Apr, SP [facility] [address] [id number] [address] [place] [address], [place] [address] SP Apr, SP [facility] [address] [id number] [address] [place] [address], [place] [address] SP Apr, SP [facility] [address] [id number] [address] [place] [address], [place] [address] SP Mar, SP [facility] [address] [id number] [address] [place] [address], [place] [address] SP Mar, SP [facility] [address] [id number] [address] [place] [address], [place] [address] SP Mar, SP [facility] [address] [id number] [address] [place] [address], [place] [address] SP Mar, SP [facility] [address] [id number] [address] [place] [address], [place] [address] SP Feb, SP [facility] [address] [id number] [address] [place] [address], [place] [address] SP Feb, SP [facility] [address] [id number] [address] [place] [address], [place] [address] SP Feb, SP [facility] [address] [id number] [address] [place] [address], [place] [address] SP Feb, SP [facility] [address] [id number] [address] [place] [address], [place] [address] SP Feb, SP [facility] [address] [id number] [address] [place] [address], [place] [address] SP Feb, SP [facility] [address] [id number] [address] [place] [address], [place] [address] SP Jan, SP [facility] [address] [id number] [address] [place] [address], [place] [address] SP Jan, SP [facility] [address] [id number] [address] [place] [address], [place] [address] SP Jan, SP [facility] [address] [id number] [address] [place] [address], [place] [address] SP Jan, 2012 SP [facility] [address] [id number] [address] [place] [address], [place] [address] SP Jan, 2012 SP [facility] [address] [id number] [address] [place] [address], [place] [address] SP Jan, 2012 SP [facility] [address] [id number] [address] [place] [address], [place] [address] SP Jan, 2012 SP [facility] [address] [id number] [address] [place] [address], [place] [address] SP Jan, 2012 SP [facility] [address] [id number] [address] [place] [address], [place] [address] SP Dec, 2012 SP [facility] [address] [id number] [address] [place] [address], [place] [address] SP Dec, 2012 SP [facility] [address] [id number] [address] [place] [address], [place] [address] SP Dec, 2012 SP [facility] [address] [id number] [address] [place] [address], [place] [address] SP Dec, SP [facility] [address] [id number] [address] [place] [address], [place] [address] SP Dec, SP [facility] [address] [id number] [address] [place] [address], [place] [address] SP Dec, SP [facility] [address] [id number] [address] [place] [address] SP Dec, SP [facility] [address] [id number] [address] [place] [address], [place] [address] SP Dec, SP [facility] [address] [id number] [address] [place] [address], [place] [address] SP 30 Nov, 2012 SP [facility] [address] [id number] [address] [place] [address], [place] [address] SP Nov, 2012 SP [facility] [address] [id number] [address] [place] [address], [place] [address] SP Nov, SP [facility] [address] [id number] [address] [place] [address], [place] [address] SP Oct, SP [facility] [address] [id number] [address] [place] [address], [place] [address] SP Oct, SP [facility] [address] [id number] [address] [place] [address], [place] [address] SP Oct, SP [facility] [address] [id number] [address] [place] [address], [place] [address] SP Oct, SP [facility] [address] [id number] [address] [place] [address], [place] [address] SP Oct, SP [facility] [address] [id number] [address] [place] [address], [place] [address] SP Oct, SP [facility] [address] [id number] [address] [place] [address], [place] [address] SP Oct, SP [facility] [address] [id number] [address] [place] [address], [place] [address] SP Sep, SP [facility] [address] [id number] [address] [place] [address], [place] [address] SP Sep, SP [facility] [address] [id number] [address] [place] [address], [place] [address] SP Sep, SP [facility] [address] [id number] [address] [place] [address], [place] [address] SP Sep, SP [facility] [address] [id number] [address] [place] [address], [place] [address] SP Sep, SP [facility] [address] [id number] [address] [place] [address], [place] [address] SP Aug, SP [facility] [address] [id number] [address] [place] [address], [place] [address] SP Apr, SP [facility] [address] [id number] [address] [place] [address] SP Mar, SP [facility] [address] [id number] [address] [place] [id number] SP Mar, SP [facility] [address] [facility] [id number] [address] [place] [address] SP Feb, SP [facility] [address] [id number] [address] [place] [id number] SP Feb, SP [facility] [address] [facility] [id number] [address] [place] [id number] SP Jan, SP [facility] [address] [facility] [id number] [address] [place] [id number] SP Jan, SP [facility] [address] [facility] [id number] [address] [place] [id number] SP Jan, SP [facility] [address] [facility] [id number] [address] [place] [id number] SP Jan, SP [facility] [address] [facility] [id number] [address] [place] [phone] SP Oct, SP [facility] [address] [facility] [id number] [address] [place] [id number] SP Feb, SP [facility] [address] [facility] [id number] [address] [place] [id number] SP Feb, SP [facility] [address] [id number] [address] [place] [id number] SP Feb, SP [facility] [address] [facility] [id number] [address] [place] [phone] SP Jun, SP IMMUNIZATIONS No Known Immunizations SOCIAL HISTORY Never Assessed REASON FOR VISIT PLAN OF CARE VITAL SIGNS MEDICATIONS Unknown Medications RESULTS No Results PROCEDURES [...]
--- OUTSIDE RECORDS SUMMARY | 2019-02-04 22:51 | XMS REPORT ---
Author Author Migration, Doctor POS Organization [facility] SP Address Unknown SP Phone Unavailable SP Care Team Providers Care Soldering Inspector Name Role Phone POS Migration, Doctor Unavailable Unavailable SP PROBLEMS Type Condition ICD9-CM Code ULI76-II Code Onset Dates Condition S tatus SNOMED POS Problem Migraine without aura and without status migrain osus, not intractable POS Active 889611682 SP Problem Other chronic pain G89.29 Active 8 8607451 SP Problem Anxiety F41.9 Active 81997259 SP Problem Renal lithiasis N20.0 Active 9557 0007 SP Problem Hypertension, benign I10 Active 26230309 SP ALLERGIES No Information ENCOUNTERS Encounter Location Date Diagnosis POS [facility] [address] [facility] [id number] [address] [place] [address] SP Mar, Migraine without aura and wi thout status migrainosus, not SP G43.009 ; Other chronic pain G89.29 and Pain in left knee M25.562 [facility] [address] [facility] [id number] [address] [place] [address] SP Mar, Right upper quadrant abdomin al pain R10.11 SP [facility] [address] [facility] [id number] [address] [place] [address] SP Aug, Bronchitis J40 SP [facility] [address] [facility] [id number] [address] [place] [address] SP Jun, SP [facility] [address] [facility] [id number] [address] [place] [address] SP Jun, Renal lithiasis N20.0 and Hy pertension, benign I10 SP [facility] [address] [facility] [id number] [address] [place] [address] SP May, Anxiety F41.9 SP [facility] [address] [facility] [id number] [address] [place] [address] SP Apr, Encounter for staple removal Z48.02 [facility] [address] [facility] [id number] [address] [place] [address] SP Mar, Sebaceous cyst L72.3 [facility] [address] [facility] [id number] [address] [place] [address] SP Jan, Finger pain, left M79.645 [facility] [address] [facility] [id number] [address] [place] [phone] SP Jan, Sebaceous cyst L72.3 [facility] [address] [facility] [id number] [place] [address] SP Jun, Anxiety F41.9 [facility] [address] [facility] [id number] [place] [address] SP May, Gastroenteritis K52.9 [facility] [address] [place] [id number] [place] [id number] SP Jun, Dental examination Z01.20 [facility] [address] [id number] SP Jun, Dental examination Z01.20 an d Caries K02.9 [facility] [address] [facility] [id number] [address] [place] [phone] SP Nov, Back pain 724.5 and Otalgia 388.70 [facility] [address] [facility] [id number] [address] [place] [address] SP Nov, [facility] [address] [facility] [id number] [address] [place] [id number] SP July, Dental examination V72.2 [facility] [address] [facility] [id number] [address] [place] [address] SP Jun, [facility] [address] [facility] [id number] [address] [place] [address] SP Jun, SP [facility] [address] [id number] [facility] [place] [address] SP Apr, 2014 SP [facility] [address] [id number] [address] [place] [address], [place] [address] SP Apr, 2014 SP [facility] [address] [id number] [address] [place] [address], [place] [address] SP Mar, SP [facility] [address] [id number] [address] [place] [address], [place] [address] SP Mar, SP [facility] [address] [id number] [address] [place] [address], [place] [address] SP Jan, SP [facility] [address] [id number] [address] [place] [address], [place] [address] SP Jan, SP [facility] [address] [facility] [id number] [address] [place] [address], [place] [address] SP Nov, 2013 SP [facility] [address] [id number] [address] [place] [address], [place] [address] SP Nov, 2013 SP [facility] [address] [place] [address] 23 Nov, 20 14 SP [facility] [address] [facility] [id number] [address] [place] [address], [place] [address] SP Nov, 2013 SP [facility] [address] [place] [address] 17 Nov, 20 14 SP [facility] [address] [id number] [address] [place] [address], [place] [address] SP Nov, 2013 SP [facility] [address] [id number] [address] [place] [address], [place] [address] SP Nov, 2013 SP [facility] [address] [id number] [address] [place] [address], [place] [address] SP Nov, 2013 SP [facility] [address] [facility] [id number] [address] [place] [address], [place] [address] SP Nov, 2013 SP [facility] [address] [id number] [address] [place] [address], [place] [address] SP Nov, SP [facility] [address] [id number] [address] [place] [address], [place] [address] SP Oct, SP [facility] [address] [id number] [address] [place] [address], [place] [address] SP Oct, SP [facility] [address] [id number] [address] [place] [address], [place] [address] SP Sep, SP [facility] [address] [id number] [address] [place] [address], [place] [address] SP Sep, SP [facility] [address] [id number] [address] [place] [address], [place] [address] SP Sep, SP [facility] [address] [id number] [address] [place] [address], [place] [address] SP Sep, SP [facility] [address] [id number] [address] [place] [address], [place] [address] SP Sep, SP [facility] [address] [id number] [address] [place] [address], [place] [address] SP Sep, SP [facility] [address] [id number] [address] [place] [address], [place] [address] SP Aug, SP [facility] [address] [id number] [address] [place] [address], [place] [address] SP Aug, SP [facility] [address] [id number] [address] [place] [address], [place] [address] SP Aug, SP [facility] [address] [id number] [address] [place] [address], [place] [address] SP Aug, SP [facility] [address] [id number] [address] [place] [address], [place] [address] SP Aug, SP [facility] [address] [id number] [address] [place] [address], [place] [address] SP Aug, SP [facility] [address] [id number] [address] [place] [address], [place] [address] SP July, SP [facility] [address] [id number] [address] [place] [address], [place] [address] SP July, SP [facility] [address] [id number] [address] [place] [address], [place] [address] SP July, SP [facility] [address] [id number] [address] [place] [address], [place] [address] SP July, SP [facility] [address] [id number] [address] [place] [address], [place] [address] SP July, SP [facility] [address] [id number] [address] [place] [address], [place] [address] SP July, SP [facility] [address] [id number] [address] [place] [address], [place] [address] SP Jun, SP [facility] [address] [id number] [address] [place] [address], [place] [address] SP Jun, SP [facility] [address] [id number] [address] [place] [address], [place] [address] SP Jun, SP [facility] [address] [id number] [address] [place] [address], [place] [address] SP Jun, SP [facility] [address] [id number] [address] [place] [address], [place] [address] SP Jun, SP [facility] [address] [id number] [address] [place] [address], [place] [address] SP Jun, SP [facility] [address] [id number] [address] [place] [address], [place] [address] SP May, SP [facility] [address] [id number] [address] [place] [address], [place] [address] SP May, SP [facility] [address] [id number] [address] [place] [address], [place] [address] SP May, SP [facility] [address] [id number] [address] [place] [address], [place] [address] SP May, SP [facility] [address] [id number] [address] [place] [address], [place] [address] SP May, SP [facility] [address] [id number] [address] [place] [address], [place] [address] SP May, SP [facility] [address] [id number] [address] [place] [address], [place] [address] SP May, SP [facility] [address] [id number] [address] [place] [address], [place] [address] SP Apr, SP [facility] [address] [facility] [id number] [address] [place] [address], [place] [address] SP Apr, SP [facility] [address] [id number] [address] [place] [address], [place] [address] SP Apr, SP [facility] [address] [id number] [address] [place] [address], [place] [address] SP Apr, SP [facility] [address] [id number] [address] [place] [address] SP Apr, SP [facility] [address] [facility] [id number] [address] [place] [address] SP Apr, SP [facility] [address] [id number] [address] [place] [address] SP Apr, SP [facility] [address] [id number] [address] [place] [address], [place] [address] SP Apr, SP [facility] [address] [id number] [address] [place] [address], [place] [address] SP Mar, SP [facility] [address] [facility] [id number] [address] [place] [address] SP Mar, SP [facility] [address] [id number] [address] [place] [address], [place] [address] SP Mar, SP [facility] [address] [id number] [address] [place] [address], [place] [address] SP Mar, SP [facility] [address] [id number] [address] [place] [address], [place] [address] SP Feb, SP [facility] [address] [id number] [address] [place] [address], [place] [address] SP Feb, SP [facility] [address] [id number] [address] [place] [address], [place] [address] SP Feb, SP [facility] [address] [id number] [address] [place] [address], [place] [address] SP Feb, SP [facility] [address] [id number] [address] [place] [address], [place] [address] SP Feb, SP [facility] [address] [id number] [address] [place] [address], [place] [address] SP Feb, SP [facility] [address] [id number] [address] [place] [address], [place] [address] SP Jan, SP [facility] [address] [id number] [address] [place] [address], [place] [address] SP Jan, SP [facility] [address] [id number] [address] [place] [address], [place] [address] SP Jan, SP [facility] [address] [id number] [address] [place] [address], [place] [address] SP Jan, SP [facility] [address] [id number] [address] [place] [address], [place] [address] SP Jan, SP [facility] [address] [id number] [address] [place] [address], [place] [address] SP Jan, 2012 SP [facility] [address] [id number] [address] [place] [address], [place] [address] SP 15 Jan, 2013 SP [facility] [address] [id number] [address] [place] [address], [place] [address] SP 15 Jan, 2013 SP [facility] [address] [id number] [address] [place] [address], [place] [address] SP Dec, SP [facility] [address] [id number] [address] [place] [address], [place] [address] SP Dec, SP [facility] [address] [id number] [address] [place] [address], [place] [address] SP Dec, SP [facility] [address] [id number] [address] [place] [address], [place] [address] SP Dec, 2012 SP [facility] [address] [id number] [address] [place] [address], [place] [address] SP Dec, SP [facility] [address] [id number] [address] [place] [address], [place] [address] SP Dec, SP [facility] [address] [id number] [address] [place] [address], [place] [address] SP Dec, SP [facility] [address] [id number] [address] [place] [address], [place] [address] SP Dec, SP [facility] [address] [id number] [address] [place] [address], [place] [address] SP 30 Nov, 2012 SP [facility] [address] [id number] [address] [place] [address] SP 25 Nov, 2012 SP [facility] [address] [id number] [address] [place] [address], [place] [address] SP Nov, SP [facility] [address] [id number] [address] [place] [address], [place] [address] SP Oct, SP [facility] [address] [id number] [address] [place] [address], [place] [address] SP Oct, SP [facility] [address] [id number] [address] [place] [address], [place] [address] SP Oct, SP [facility] [address] [id number] [address] [place] [address], [place] [address] SP Oct, SP [facility] [address] [id number] [address] [place] [address], [place] [address] SP Oct, SP [facility] [address] [id number] [address] [place] [address], [place] [address] SP Oct, SP [facility] [address] [id number] [address] [place] [address], [place] [address] SP Oct, SP [facility] [address] [id number] [address] [place] [address], [place] [address] SP Sep, SP [facility] [address] [id number] [address] [place] [address], [place] [address] SP Sep, SP [facility] [address] [id number] [address] [place] [address], [place] [address] SP Sep, SP [facility] [address] [id number] [address] [place] [address], [place] [address] SP Sep, SP [facility] [address] [id number] [address] [place] [address], [place] [address] SP Sep, SP [facility] [address] [id number] [address] [place] [address], [place] [address] SP Aug, SP [facility] [address] [id number] [address] [place] [address], [place] [address] SP Apr, SP [facility] [address] [id number] [address] [place] [address], [place] [address] SP Mar, SP [facility] [address] [id number] [address] [place] [address], [place] [address] SP Mar, SP [facility] [address] [id number] [address] [place] [address], [place] [address] SP Feb, SP [facility] [address] [id number] [address] [place] [address] SP Feb, SP [facility] [address] [id number] [address] [place] [address] SP Jan, SP [facility] [address] [id number] [address] [place] [address] SP Jan, SP [facility] [address] [id number] [address] [place] [address] SP Jan, SP [facility] [address] [id number] [address] [place] [address] SP Jan, SP [facility] [address] [id number] [address] [place] [address] SP Oct, SP [facility] [address] [id number] [address] [place] [address] SP Feb, SP [facility] [address] [id number] [address] [place] [address] SP Feb, SP [facility] [address] [id number] [address] [place] [address] SP Feb, SP [facility] [address] [id number] [address] [place] [address] SP Jun, SP IMMUNIZATIONS No Known Immunizations SOCIAL HISTORY Never Assessed REASON FOR VISIT EMR-[facility] [place] PLAN OF CARE VITAL SIGNS MEDICATIONS Unknown [...]
--- OUTSIDE RECORDS SUMMARY | 2019-02-04 22:51 | XMS REPORT ---
Author Author Migration, Doctor POS Organization [facility] SP Address Unknown SP Phone Unavailable SP Care Team Providers Care C Consultant Name Role Phone POS Migration, Doctor Unavailable Unavailable SP PROBLEMS Type Condition ICD9-CM Code DKE20-UD Code Onset Dates Condition S tatus SNOMED POS Problem Migraine without aura and without status migrain osus, not intractable POS Active [id number] SP Problem Other chronic pain G89.29 Active 8 [id number] SP Problem Anxiety F41.9 Active [id number] SP Problem Renal lithiasis N20.0 Active 9557 0007 SP Problem Hypertension, benign I10 Active [id number] SP ALLERGIES No Information ENCOUNTERS Encounter Location Date Diagnosis POS [facility] [address] [facility] [id number] [address] [place] [id number] SP Mar, Migraine without aura and wi thout status migrainosus, not SP G43.009 ; Other chronic pain G89.29 and Pain in left knee M25.562 [facility] [address] [id number] [address] [place] [address] SP Mar, Right upper quadrant abdomin al pain R10.11 SP [facility] [address] [facility] [id number] [address] [place] [id number] SP Aug, Bronchitis J40 SP [facility] [address] [facility] [id number] [address] [place] [id number] SP Jun, SP [facility] [address] [facility] [id number] [address] [place] [id number] SP Jun, Renal lithiasis N20.0 and Hy pertension, benign I10 SP [facility] [address] [facility] [id number] [address] [place] [id number] SP May, Anxiety F41.9 SP [facility] [address] [id number] [address] [place] [id number] SP Apr, Encounter for staple removal Z48.02 [facility] [address] [id number] [address] [place] [address] SP Mar, Sebaceous cyst L72.3 [facility] [address] [id number] [address] [place] [id number] SP Jan, Finger pain, left M79.645 [facility] [address] [id number] [address] [place] [id number] SP Jan, Sebaceous cyst L72.3 [facility] [address] [id number] [place] [id number] SP Jun, Anxiety F41.9 [facility] [address] [id number] [place] [address] SP May, Gastroenteritis K52.9 [facility] [address] [place] [id number] [place] [id number] SP Jun, Dental examination Z01.20 [facility] [address] [id number] SP Jun, Dental examination Z01.20 an d Caries K02.9 [facility] [address] [id number] [address] [place] [id number] SP Nov, Back pain 724.5 and Otalgia 388.70 [facility] [address] [id number] [address] [place] [phone] SP Nov, [facility] [address] [facility] [id number] [address] [place] [id number] SP July, Dental examination V72.2 [facility] [address] [id number] [address] [place] [phone] SP Jun, [facility] [address] [id number] [address] [place] [phone] SP Jun, SP [facility] [address] [id number] [facility] [id number] SP Apr, 2014 SP [facility] [address] [id number] [address] [place] [address], [place] [id number] SP Apr, 2014 SP [facility] [address] [id number] [address] [place] [address], [place] [id number] SP Mar, SP [facility] [address] [id number] [address] [place] [address], [place] [address] SP Mar, SP [facility] [address] [id number] [address] [place] [address], [place] [id number] SP Jan, SP [facility] [address] [id number] [address] [place] [address], [place] [id number] SP Jan, SP [facility] [address] [facility] [id number] [address] [place] [address], [place] [address] SP Nov, 2013 SP [facility] [address] [id number] [address] [place] [address], [place] [id number] SP Nov, 2013 SP [facility] [address] [place] [address] 23 Nov, 20 14 SP [facility] [address] [id number] [address] [place] [address], [place] [address] SP Nov, 2013 SP [facility] [address] [place] [address] 17 Nov, 20 14 SP [facility] [address] [id number] [address] [place] [address], [place] [id number] SP Nov, 2013 SP [facility] [address] [id number] [address] [place] [address], [place] [address] SP Nov, 2013 SP [facility] [address] [id number] [address] [place] [address], [place] [address] SP Nov, 2013 SP [facility] [address] [id number] [address] [place] [address], [place] [address] SP Nov, 2013 SP [facility] [address] [id number] [address] [place] [address], [place] [address] SP Nov, SP [facility] [address] [id number] [address] [place] [address], [place] [id number] SP Oct, SP [facility] [address] [id number] [address] [place] [address], [place] [address] SP Oct, SP [facility] [address] [id number] [address] [place] [address], [place] [address] SP Sep, SP [facility] [address] [id number] [address] [place] [address], [place] [id number] SP Sep, SP [facility] [address] [id number] [address] [place] [address], [place] [id number] SP Sep, SP [facility] [address] [id number] [address] [place] [address], [place] [id number] SP Sep, SP [facility] [address] [id number] [address] [place] [address], [place] [id number] SP Sep, SP [facility] [address] [id number] [address] [place] [address], [place] [address] SP Sep, SP [facility] [address] [id number] [address] [place] [address], [place] [address] SP Aug, SP [facility] [address] [id number] [address] [place] [address], [place] [id number] SP Aug, SP [facility] [address] [id number] [address] [place] [address], [place] [address] SP Aug, SP [facility] [address] [id number] [address] [place] [address], [place] [address] SP Aug, SP [facility] [address] [id number] [address] [place] [address], [place] [address] SP Aug, SP [facility] [address] [id number] [address] [place] [address], [place] [address] SP Aug, SP [facility] [address] [id number] [address] [place] [address], [place] [id number] SP July, SP [facility] [address] [id number] [address] [place] [address], [place] [address] SP July, SP [facility] [address] [id number] [address] [place] [address], [place] [id number] SP July, SP [facility] [address] [id number] [address] [place] [address], [place] [address] SP July, SP [facility] [address] [id number] [address] [place] [address], [place] [address] SP July, SP [facility] [address] [id number] [address] [place] [address], [place] [id number] SP July, SP [facility] [address] [id number] [address] [place] [address], [place] [id number] SP Jun, SP [facility] [address] [id number] [address] [place] [address], [place] [address] SP Jun, SP [facility] [address] [id number] [address] [place] [address], [place] [address] SP Jun, SP [facility] [address] [id number] [address] [place] [address], [place] [id number] SP Jun, SP [facility] [address] [id number] [address] [place] [address], [place] [address] SP Jun, SP [facility] [address] [id number] [address] [place] [address], [place] [address] SP Jun, SP [facility] [address] [id number] [address] [place] [address], [place] [id number] SP May, SP [facility] [address] [id number] [address] [place] [address], [place] [id number] SP May, SP [facility] [address] [id number] [address] [place] [address], [place] [id number] SP May, SP [facility] [address] [id number] [address] [place] [address], [place] [id number] SP May, SP [facility] [address] [id number] [address] [place] [address], [place] [address] SP May, SP [facility] [address] [id number] [address] [place] [address], [place] [address] SP May, SP [facility] [address] [id number] [address] [place] [address], [place] [address] SP May, SP [facility] [address] [id number] [address] [place] [address], [place] [address] SP Apr, SP [facility] [address] [facility] [facility] [id number] [address] [place] [address], [place] [id number] SP Apr, SP [facility] [address] [id number] [address] [place] [address], [place] [id number] SP Apr, SP [facility] [address] [id number] [address] [place] [address], [place] [id number] SP Apr, SP [facility] [address] [id number] [address] [place] [id number] SP Apr, SP [facility] [address] [facility] [id number] [address] [place] [id number] SP Apr, SP [facility] [address] [id number] [address] [place] [id number] SP Apr, SP [facility] [address] [id number] [address] [place] [address], [place] [address] SP Apr, SP [facility] [address] [id number] [address] [place] [address], [place] [address] SP Mar, SP [facility] [address] [facility] [id number] [address] [place] [id number] SP Mar, SP [facility] [address] [id number] [address] [place] [address], [place] [address] SP Mar, SP [facility] [address] [id number] [address] [place] [address], [place] [id number] SP Mar, SP [facility] [address] [id number] [address] [place] [address], [place] [id number] SP Feb, SP [facility] [address] [id number] [address] [place] [address], [place] [id number] SP Feb, SP [facility] [address] [id number] [address] [place] [address], [place] [address] SP Feb, SP [facility] [address] [id number] [address] [place] [address], [place] [address] SP Feb, SP [facility] [address] [id number] [address] [place] [address], [place] [address] SP Feb, SP [facility] [address] [id number] [address] [place] [address], [place] [id number] SP Feb, SP [facility] [address] [id number] [address] [place] [address], [place] [id number] SP Jan, SP [facility] [address] [id number] [address] [place] [address], [place] [id number] SP Jan, SP [facility] [address] [id number] [address] [place] [address], [place] [id number] SP Jan, SP [facility] [address] [id number] [address] [place] [address], [place] [address] SP Jan, SP [facility] [address] [id number] [address] [place] [address], [place] [address] SP Jan, SP [facility] [address] [id number] [address] [place] [address], [place] [address] SP Jan, 2012 SP [facility] [address] [id number] [address] [place] [address], [place] [id number] SP 15 Jan, 2013 SP [facility] [address] [id number] [address] [place] [address], [place] [id number] SP 15 Jan, 2013 SP [facility] [address] [id number] [address] [place] [address], [place] [address] SP Dec, SP [facility] [address] [id number] [address] [place] [address], [place] [id number] SP Dec, SP [facility] [address] [id number] [address] [place] [address], [place] [id number] SP Dec, SP [facility] [address] [id number] [address] [place] [address], [place] [id number] SP Dec, 2012 SP [facility] [address] [id number] [address] [place] [address], [place] [address] SP Dec, SP [facility] [address] [id number] [address] [place] [address], [place] [id number] SP Dec, SP [facility] [address] [id number] [address] [place] [address], [place] [address] SP Dec, SP [facility] [address] [id number] [address] [place] [address], [place] [address] SP Dec, SP [facility] [address] [id number] [address] [place] [address], [place] [address] SP 30 Nov, 2012 SP [facility] [address] [id number] [address] [place] [id number] SP 25 Nov, 2012 SP [facility] [address] [id number] [address] [place] [address], [place] [address] SP Nov, SP [facility] [address] [id number] [address] [place] [address], [place] [address] SP Oct, SP [facility] [address] [id number] [address] [place] [address], [place] [address] SP Oct, SP [facility] [address] [id number] [address] [place] [address], [place] [address] SP Oct, SP [facility] [address] [id number] [address] [place] [address], [place] [address] SP Oct, SP [facility] [address] [id number] [address] [place] [address], [place] [address] SP Oct, SP [facility] [address] [id number] [address] [place] [address], [place] [address] SP Oct, SP [facility] [address] [id number] [address] [place] [address], [place] [address] SP Oct, SP [facility] [address] [id number] [address] [place] [address], [place] [address] SP Sep, SP [facility] [address] [id number] [address] [place] [address], [place] [address] SP Sep, SP [facility] [address] [id number] [address] [place] [address], [place] [address] SP Sep, SP [facility] [address] [id number] [address] [place] [address], [place] [address] SP Sep, SP [facility] [address] [id number] [address] [place] [address], [place] [address] SP Sep, SP [facility] [address] [id number] [address] [place] [address], [place] [address] SP Aug, SP [facility] [address] [id number] [address] [place] [address], [place] [id number] SP Apr, SP [facility] [address] [id number] [address] [place] [address], [place] [id number] SP Mar, SP [facility] [address] [id number] [address] [place] [address], [place] [address] SP Mar, SP [facility] [address] [id number] [address] [place] [address], [place] [address] SP Feb, SP [facility] [address] [id number] [address] [place] [id number] SP Feb, SP [facility] [address] [id number] [address] [place] [id number] SP Jan, SP [facility] [address] [id number] [address] [place] [id number] SP Jan, SP [facility] [address] [id number] [address] [place] [id number] SP Jan, SP [facility] [address] [id number] [address] [place] [id number] SP Jan, SP [facility] [address] [id number] [address] [place] [id number] SP Oct, SP [facility] [address] [id number] [address] [place] [id number] SP Feb, SP [facility] [address] [id number] [address] [place] [id number] SP Feb, SP [facility] [address] [id number] [address] [place] [id number] SP Feb, SP [facility] [address] [id number] [address] [place] [id number] SP Jun, SP IMMUNIZATIONS No Known Immunizations SOCIAL HISTORY Never Assessed [place] [place] VITAL SIGNS MEDICATIONS Unknown [...]
--- OUTSIDE RECORDS SUMMARY | 2019-02-04 22:51 | XMS REPORT ---
Author Author Migration, Doctor POS Organization [facility] SP Address Unknown SP Phone Unavailable SP Care Team Providers Care Shift Manager Name Role Phone POS Migration, Doctor Unavailable Unavailable SP PROBLEMS Type Condition ICD9-CM Code ALO17-EJ Code Onset Dates Condition S tatus SNOMED POS Problem Migraine without aura and without status migrain osus, not intractable POS Active [id number] SP Problem Other chronic pain G89.29 Active 8 [id number] SP Problem Anxiety F41.9 Active 83428545 SP Problem Renal lithiasis N20.0 Active 9557 0007 SP Problem Hypertension, benign I10 Active 10005322 SP ALLERGIES No Information ENCOUNTERS Encounter Location Date Diagnosis POS [facility] [address] [facility] [id number] [address] [place] [phone] SP Mar, Migraine without aura and wi thout status migrainosus, not SP G43.009 ; Other chronic pain G89.29 and Pain in left knee M25.562 [facility] [address] [facility] [id number] [address] [place] [address] SP Mar, Right upper quadrant abdomin al pain R10.11 SP [facility] [address] [facility] [id number] [address] [place] [address] SP Aug, Bronchitis J40 SP [facility] [address] [facility] [id number] [address] [place] [address] SP Jun, SP [facility] [address] [facility] [id number] [address] [place] [address] SP Jun, Renal lithiasis N20.0 and Hy pertension, benign I10 SP [facility] [address] [facility] [id number] [address] [place] [address] SP May, Anxiety F41.9 SP [facility] [address] [facility] [id number] [address] [place] [address] SP Apr, Encounter for staple removal Z48.02 [facility] [address] [facility] [id number] [address] [place] [address] SP Mar, Sebaceous cyst L72.3 [facility] [address] [facility] [id number] [address] [place] [address] SP Jan, Finger pain, left M79.645 [facility] [address] [facility] [id number] [address] [place] [address] SP Jan, Sebaceous cyst L72.3 [facility] [address] [facility] [id number] [place] [phone] SP Jun, Anxiety F41.9 [facility] [address] [facility] [id number] [place] [address] SP May, Gastroenteritis K52.9 [facility] [id number] [place] [id number] SP Jun, Dental examination Z01.20 [facility] [address] [id number] SP Jun, Dental examination Z01.20 an d Caries K02.9 [facility] [address] [facility] [id number] [address] [place] [phone] SP Nov, Back pain 724.5 and Otalgia 388.70 [facility] [address] [facility] [id number] [address] [place] [address] SP Nov, [facility] [address] [facility] [id number] [address] [place] [id number] SP July, Dental examination V72.2 [facility] [address] [facility] [id number] [address] [place] [phone] SP Jun, [facility] [address] [facility] [id number] [address] [place] [address] SP Jun, SP [facility] [address] [id number] [facility] [address] SP Apr, 2014 SP [facility] [address] [id number] [address] [place] [address], [place] [address] SP Apr, 2014 SP [facility] [address] [id number] [address] [place] [address], [place] [address] SP Mar, SP [facility] [address] [id number] [address] [place] [address], [place] [address] SP Mar, SP [facility] [address] [id number] [address] [place] [address], [place] [address] SP Jan, SP [facility] [address] [id number] [address] [place] [address], [place] [address] SP Jan, SP [facility] [address] [facility] [id number] [address] [place] [address], [place] [address] SP Nov, 2013 SP [facility] [address] [id number] [address] [place] [address], [place] [address] SP Nov, 2013 SP [facility] [address] [place] [address] 23 Nov, 20 14 SP [facility] [address] [facility] [id number] [address] [place] [address], [place] [address] SP Nov, 2013 SP [facility] [address] [place] [address] 17 Nov, 20 14 SP [facility] [address] [id number] [address] [place] [address], [place] [address] SP Nov, 2013 SP [facility] [address] [id number] [address] [place] [address], [place] [address] SP Nov, 2013 SP [facility] [address] [id number] [address] [place] [address], [place] [address] SP Nov, 2013 SP [facility] [address] [facility] [id number] [address] [place] [address], [place] [address] SP Nov, 2013 SP [facility] [address] [id number] [address] [place] [address], [place] [address] SP Nov, SP [facility] [address] [id number] [address] [place] [address], [place] [address] SP Oct, SP [facility] [address] [id number] [address] [place] [address], [place] [address] SP Oct, SP [facility] [address] [id number] [address] [place] [address], [place] [address] SP Sep, SP [facility] [address] [id number] [address] [place] [address], [place] [address] SP Sep, SP [facility] [address] [id number] [address] [place] [address], [place] [address] SP Sep, SP [facility] [address] [id number] [address] [place] [address], [place] [address] SP Sep, SP [facility] [address] [id number] [address] [place] [address], [place] [address] SP Sep, SP [facility] [address] [id number] [address] [place] [address], [place] [address] SP Sep, SP [facility] [address] [id number] [address] [place] [address], [place] [address] SP Aug, SP [facility] [address] [id number] [address] [place] [address], [place] [address] SP Aug, SP [facility] [address] [id number] [address] [place] [address], [place] [address] SP Aug, SP [facility] [address] [id number] [address] [place] [address], [place] [address] SP Aug, SP [facility] [address] [id number] [address] [place] [address], [place] [address] SP Aug, SP [facility] [address] [id number] [address] [place] [address], [place] [address] SP Aug, SP [facility] [address] [id number] [address] [place] [address], [place] [address] SP July, SP [facility] [address] [id number] [address] [place] [address], [place] [address] SP July, SP [facility] [address] [id number] [address] [place] [address], [place] [address] SP July, SP [facility] [address] [id number] [address] [place] [address], [place] [address] SP July, SP [facility] [address] [id number] [address] [place] [address], [place] [address] SP July, SP [facility] [address] [id number] [address] [place] [address], [place] [address] SP July, SP [facility] [address] [id number] [address] [place] [address], [place] [address] SP Jun, SP [facility] [address] [id number] [address] [place] [address], [place] [address] SP Jun, SP [facility] [address] [id number] [address] [place] [address], [place] [address] SP Jun, SP [facility] [address] [id number] [address] [place] [address], [place] [address] SP Jun, SP [facility] [address] [id number] [address] [place] [address], [place] [address] SP Jun, SP [facility] [address] [id number] [address] [place] [address], [place] [address] SP Jun, SP [facility] [address] [id number] [address] [place] [address], [place] [address] SP May, SP [facility] [address] [id number] [address] [place] [address], [place] [address] SP May, SP [facility] [address] [id number] [address] [place] [address], [place] [address] SP May, SP [facility] [address] [id number] [address] [place] [address], [place] [address] SP May, SP [facility] [address] [id number] [address] [place] [address], [place] [address] SP May, SP [facility] [address] [id number] [address] [place] [address], [place] [address] SP May, SP [facility] [address] [id number] [address] [place] [address], [place] [address] SP May, SP [facility] [address] [id number] [address] [place] [address], [place] [address] SP Apr, SP [facility] [address] [facility] [id number] [address] [place] [address], [place] [address] SP Apr, SP [facility] [address] [id number] [address] [place] [address], [place] [address] SP Apr, SP [facility] [address] [id number] [address] [place] [address], [place] [address] SP Apr, SP [facility] [address] [id number] [address] [place] [address] SP Apr, SP [facility] [address] [facility] [id number] [address] [place] [address] SP Apr, SP [facility] [address] [id number] [address] [place] [address] SP Apr, SP [facility] [address] [id number] [address] [place] [address], [place] [address] SP Apr, SP [facility] [address] [id number] [address] [place] [address], [place] [address] SP Mar, SP [facility] [address] [facility] [id number] [address] [place] [address] SP Mar, SP [facility] [address] [id number] [address] [place] [address], [place] [address] SP Mar, SP [facility] [address] [id number] [address] [place] [address], [place] [address] SP Mar, SP [facility] [address] [id number] [address] [place] [address], [place] [address] SP Feb, SP [facility] [address] [id number] [address] [place] [address], [place] [address] SP Feb, SP [facility] [address] [id number] [address] [place] [address], [place] [address] SP Feb, SP [facility] [address] [id number] [address] [place] [address], [place] [address] SP Feb, SP [facility] [address] [id number] [address] [place] [address], [place] [address] SP Feb, SP [facility] [address] [id number] [address] [place] [address], [place] [address] SP Feb, SP [facility] [address] [id number] [address] [place] [address], [place] [address] SP Jan, SP [facility] [address] [id number] [address] [place] [address], [place] [address] SP Jan, SP [facility] [address] [id number] [address] [place] [address], [place] [address] SP Jan, SP [facility] [address] [id number] [address] [place] [address], [place] [address] SP Jan, SP [facility] [address] [id number] [address] [place] [address], [place] [address] SP Jan, SP [facility] [address] [id number] [address] [place] [address], [place] [address] SP Jan, 2012 SP [facility] [address] [id number] [address] [place] [address], [place] [address] SP 15 Jan, 2013 SP [facility] [address] [id number] [address] [place] [address], [place] [address] SP 15 Jan, 2013 SP [facility] [address] [id number] [address] [place] [address], [place] [address] SP Dec, SP [facility] [address] [id number] [address] [place] [address], [place] [address] SP Dec, SP [facility] [address] [id number] [address] [place] [address], [place] [address] SP Dec, SP [facility] [address] [id number] [address] [place] [address], [place] [address] SP Dec, 2012 SP [facility] [address] [id number] [address] [place] [address], [place] [address] SP Dec, SP [facility] [address] [id number] [address] [place] [address], [place] [address] SP Dec, SP [facility] [address] [id number] [address] [place] [address], [place] [address] SP Dec, SP [facility] [address] [id number] [address] [place] [address], [place] [address] SP Dec, SP [facility] [address] [id number] [address] [place] [address], [place] [address] SP 30 Nov, 2012 SP [facility] [address] [id number] [address] [place] [address] SP 25 Nov, 2012 SP [facility] [address] [id number] [address] [place] [address], [place] [address] SP Nov, SP [facility] [address] [id number] [address] [place] [address], [place] [address] SP Oct, SP [facility] [address] [id number] [address] [place] [address], [place] [address] SP Oct, SP [facility] [address] [id number] [address] [place] [address], [place] [address] SP Oct, SP [facility] [address] [id number] [address] [place] [address], [place] [address] SP Oct, SP [facility] [address] [id number] [address] [place] [address], [place] [address] SP Oct, SP [facility] [address] [id number] [address] [place] [address], [place] [address] SP Oct, SP [facility] [address] [id number] [address] [place] [address], [place] [address] SP Oct, SP [facility] [address] [id number] [address] [place] [address], [place] [address] SP Sep, SP [facility] [address] [id number] [address] [place] [address], [place] [address] SP Sep, SP [facility] [address] [id number] [address] [place] [address], [place] [address] SP Sep, SP [facility] [address] [id number] [address] [place] [address], [place] [address] SP Sep, SP [facility] [address] [id number] [address] [place] [address], [place] [address] SP Sep, SP [facility] [address] [id number] [address] [place] [address], [place] [address] SP Aug, SP [facility] [address] [id number] [address] [place] [address], [place] [address] SP Apr, SP [facility] [address] [id number] [address] [place] [address], [place] [address] SP Mar, SP [facility] [address] [id number] [address] [place] [address], [place] [address] SP Mar, SP [facility] [address] [id number] [address] [place] [address], [place] [address] SP Feb, SP [facility] [address] [id number] [address] [place] [address] SP Feb, SP [facility] [address] [id number] [address] [place] [address] SP Jan, SP [facility] [address] [id number] [address] [place] [address] SP Jan, SP [facility] [address] [id number] [address] [place] [address] SP Jan, SP [facility] [address] [id number] [address] [place] [address] SP Jan, SP [facility] [address] [id number] [address] [place] [address] SP Oct, SP [facility] [address] [id number] [address] [place] [address] SP Feb, SP [facility] [address] [id number] [address] [place] [address] SP Feb, SP [facility] [address] [id number] [address] [place] [address] SP Feb, SP [facility] [address] [id number] [address] [place] [address] SP Jun, SP IMMUNIZATIONS No Known Immunizations SOCIAL HISTORY Never Assessed REASON FOR VISIT EMR-[facility] PLAN OF CARE VITAL SIGNS MEDICATIONS Unknown [...]
--- OUTSIDE RECORDS SUMMARY | 2019-02-04 22:52 | XMS REPORT ---
Author Author TAWANDA BURKS POS Organization [facility] SP Address [address] [place] [address] SP Care Team Providers Care Box Toe Buffer Name Role Phone POS TAWANDA BURKS Unavailable SP PROBLEMS Type Condition ICD9-CM Code HTW77-VS Code Onset Dates Condition S tatus SNOMED POS Problem Hypertension, benign I10 Active 69019989 POS Problem Renal lithiasis N20.0 Active 9557 0007 SP Problem Low back pain M54.5 Active 795192 005 SP Problem Anxiety F41.9 Active 99854625 SP ALLERGIES No Known Allergies ENCOUNTERS Encounter Location Date Diagnosis POS [facility] [address] [id number] [address] [place] [address] SP Aug, Bronchitis J40 SP [facility] [address] [id number] [address] [place] [address] SP Jun, SP [facility] [address] [id number] [address] [place] [address] SP Jun, Renal lithiasis N20.0 and Hy pertension, benign I10 SP [facility] [address] [id number] [address] [place] [address] SP May, Anxiety F41.9 SP [facility] [address] [facility] [id number] [address] [place] [address] SP Apr, Encounter for staple removal Z48.02 [facility] [address] [facility] [id number] [address] [place] [address] SP Mar, Sebaceous cyst L72.3 SP [facility] [address] [id number] [address] [place] [address] SP Jan, Finger pain, left M79.645 SP [facility] [address] [facility] [id number] [address] [place] [address] SP Jan, Sebaceous cyst L72.3 SP [facility] [address] [facility] [id number] [address] [place] [address] SP Jun, Anxiety F41.9 SP [facility] [id number] [place] [address] SP May, Gastroenteritis K52.9 SP [facility] [id number] [place] [id number] SP Jun, Dental examination Z01.20 SP [facility] [address] [id number] SP Jun, Dental examination Z01.20 an d Caries K02.9 SP [facility] [address] [address] SP Nov, Back pain 724.5 and Otalgia 388.70 SP [facility] [address] [facility] [id number] [address] [place] [address] SP Nov, [facility] [address] [id number] SP July, Dental examination V72.2 SP [facility] [address] [address] SP Jun, SP [facility] [address] [address] SP Jun, SP [facility] [address] [id number] [address] [place] [address] SP Apr, SP [facility] [id number] [place] [address] SP Apr, SP [facility] [address] [address] SP Mar, SP [facility] [address] [id number] [facility] [place] [address] SP Mar, SP [facility] [place] [facility] [address] [id number] [address] [place] [address], [place] [address] SP Jan, 2013 SP [facility] [place] [facility] [address] [id number] [facility] [place] [address] SP Jan, 2013 SP [facility] [place] [facility] [address] [id number] [address] [place] [address], [place] [address] SP Nov, 2013 SP [facility] [place] [facility] [address] [id number] [address] [place] [address], [place] [address] SP Nov, 2013 SP [facility] [address] [place] [address] 23 Nov, 14 SP [facility] [place] [facility] [address] [facility] [id number] [address] [place] [address], [place] [address] SP Nov, 2013 SP [facility] [address] [place] [address] 17 Nov, 14 SP [facility] [place] [facility] [address] [id number] [address] [place] [address], [place] [address] SP Nov, 2013 SP [facility] [place] [facility] [address] [id number] [address] [place] [address], [place] [address] SP Nov, 2013 SP [facility] [place] [facility] [address] [id number] [address] [place] [address], [place] [address] SP Nov, 2013 SP [facility] [place] [facility] [address] [id number] [address] [place] [address], [place] [address] SP Nov, 2013 SP [facility] [place] [facility] [address] [id number] [address] [place] [address], [place] [address] SP Nov, 2013 SP [facility] [place] [facility] [address] [id number] [address] [place] [address], [place] [address] SP Oct, SP [facility] [place] [facility] [address] [id number] [address] [place] [address], [place] [address] SP Oct, SP [facility] [place] [facility] [address] [id number] [address] [place] [address] SP Sep, SP [facility] [address] [id number] [address] [place] [address], [place] [address] SP Sep, SP [facility] [place] [facility] [address] [id number] [address] [place] [address], [place] [address] SP Sep, SP [facility] [address] [id number] [address] [place] [address], [place] [address] SP Sep, SP [facility] [place] [facility] [address] [id number] [address] [place] [address], [place] [address] SP Sep, SP [facility] [place] [facility] [address] [id number] [address] [place] [address], [place] [address] SP Sep, SP [facility] [address] [id number] [address] [place] [address], [place] [address] SP Aug, SP [facility] [place] [facility] [address] [id number] [address] [place] [address], [place] [address] SP Aug, SP [facility] [place] [facility] [address] [id number] [address] [place] [address], [place] [address] SP Aug, SP [facility] [address] [id number] [address] [place] [address], [place] [address] SP Aug, SP [facility] [address] [id number] [address] [place] [address], [place] [address] SP Aug, SP [facility] [place] [facility] [address] [id number] [address] [place] [address], [place] [address] SP Aug, SP [facility] [place] [facility] [address] [id number] [address] [place] [address], [place] [address] SP July, SP [facility] [place] [facility] [address] [id number] [address] [place] [address], [place] [address] SP July, SP [facility] [place] [facility] [address] [id number] [address] [place] [address], [place] [address] SP July, SP [facility] [place] [facility] [address] [id number] [facility] [place] [address] SP July, SP [facility] [place] [facility] [address] [id number] [address] [place] [address], [place] [address] SP July, SP [facility] [place] [facility] [address] [id number] [facility] [place] [address] SP July, SP [facility] [place] [facility] [address] [id number] [address] [place] [address], [place] [address] SP Jun, SP [facility] [place] [facility] [address] [id number] [address] [place] [address], [place] [address] SP Jun, SP [facility] [place] [facility] [address] [id number] [address] [place] [address], [place] [address] SP Jun, SP [facility] [place] [facility] [address] [id number] [address] [place] [address], [place] [address] SP Jun, SP [facility] [place] [facility] [address] [id number] [address] [place] [address], [place] [address] SP Jun, SP [facility] [place] [facility] [address] [id number] [address] [place] [address], [place] [address] SP Jun, SP [facility] [place] [facility] [address] [id number] [address] [place] [address], [place] [address] SP May, SP [facility] [place] [facility] [address] [id number] [address] [place] [address], [place] [address] SP May, SP [facility] [place] [facility] [address] [id number] [address] [place] [address], [place] [address] SP May, SP [facility] [place] [facility] [address] [id number] [address] [place] [address], [place] [address] SP May, SP [facility] [place] [facility] [address] [id number] [address] [place] [address], [place] [address] SP May, SP [facility] [place] [facility] [address] [id number] [address] [place] [address], [place] [address] SP May, SP [facility] [place] [facility] [address] [id number] [address] [place] [address], [place] [address] SP May, SP [facility] [place] [facility] [address] [id number] [address] [place] [address], [place] [address] SP Apr, SP [facility] [place] [facility] [address] [id number] [address] [place] [address], [place] [address] SP Apr, SP [facility] [place] [facility] [address] [id number] [address] [place] [address], [place] [address] SP Apr, SP [facility] [place] [facility] [address] [id number] [address] [place] [address], [place] [address] SP Apr, SP [facility] [place] [facility] [address] [id number] [address] [place] [address], [place] [address] SP Apr, SP [facility] [place] [facility] [address] [id number] [address] [place] [address], [place] [address] SP Apr, SP [facility] [place] [facility] [address] [id number] [address] [place] [address], [place] [address] SP Apr, SP [facility] [place] [facility] [address] [id number] [address] [place] [address], [place] [address] SP Apr, SP [facility] [place] [facility] [address] [id number] [address] [place] [address], [place] [address] SP Mar, SP [facility] [place] [facility] [address] [id number] [address] [place] [address], [place] [address] SP Mar, SP [facility] [place] [facility] [address] [id number] [address] [place] [address], [place] [address] SP Mar, SP [facility] [place] [facility] [address] [id number] [address] [place] [address], [place] [address] SP Mar, SP [facility] [place] [facility] [address] [id number] [address] [place] [address], [place] [address] SP Feb, SP [facility] [place] [facility] [address] [id number] [address] [place] [address], [place] [address] SP Feb, 2012 SP [facility] [address] [id number] [address] [place] [address], [place] [address] SP Feb, 2012 SP [facility] [address] [id number] [address] [place] [address], [place] [address] SP Feb, 2012 SP [facility] [address] [id number] [address] [place] [address], [place] [address] SP Feb, 2012 SP [facility] [address] [id number] [address] [place] [address], [place] [address] SP Feb, 2012 SP [facility] [address] [id number] [address] [place] [address], [place] [address] SP Jan, 2012 SP [facility] [address] [id number] [address] [place] [address], [place] [address] SP Jan, 2012 SP [facility] [address] [id number] [address] [place] [address], [place] [address] SP Jan, 2012 SP [facility] [address] [id number] [address] [place] [address], [place] [address] SP Jan, 2012 SP [facility] [address] [id number] [address] [place] [address], [place] [address] SP Jan, 2012 SP [facility] [address] [id number] [address] [place] [address], [place] [address] SP 19 Jan, 2012 SP [facility] [address] [id number] [address] [place] [address], [place] [address] SP 15 Jan, 2012 SP [facility] [address] [id number] [address] [place] [address], [place] [address] SP 15 Jan, 2012 SP [facility] [address] [id number] [address] [place] [address], [place] [address] SP Dec, SP [facility] [address] [id number] [address] [place] [address], [place] [address] SP Dec, SP [facility] [place] [facility] [address] [id number] [address] [place] [address], [place] [address] SP Dec, SP [facility] [place] [facility] [address] [id number] [address] [place] [address], [place] [address] SP Dec, SP [facility] [place] [facility] [address] [id number] [address] [place] [address], [place] [address] SP Dec, SP [facility] [place] [facility] [address] [id number] [address] [place] [address], [place] [address] SP Dec, SP [facility] [place] [facility] [address] [id number] [address] [place] [address], [place] [address] SP Dec, SP [facility] [place] [facility] [address] [id number] [address] [place] [address], [place] [address] SP Dec, SP [facility] [place] [facility] [address] [id number] [address] [place] [address], [place] [address] SP 30 Nov, 2012 SP [facility] [place] [facility] [address] [id number] [address] [place] [address], [place] [address] SP Nov, SP [facility] [place] [facility] [address] [id number] [address] [place] [address], [place] [address] SP Nov, SP [facility] [address] [id number] [address] [place] [address], [place] [address] SP Oct, SP [facility] [place] [facility] [address] [id number] [address] [place] [address], [place] [address] SP Oct, SP [facility] [place] [facility] [address] [id number] [address] [place] [address], [place] [address] SP Oct, SP [facility] [place] [facility] [address] [id number] [address] [place] [address], [place] [address] SP Oct, SP [facility] [place] [facility] [address] [id number] [address] [place] [address], [place] [address] SP Oct, SP [facility] [place] [facility] [address] [id number] [address] [place] [address], [place] [address] SP Oct, SP [facility] [address] [id number] [address] [place] [address], [place] [address] SP Oct, SP [facility] [address] [id number] [address] [place] [address], [place] [address] SP Sep, SP [facility] [address] [id number] [address] [place] [address], [place] [address] SP Sep, SP [facility] [place] [facility] [address] [id number] [address] [place] [address], [place] [address] SP Sep, SP [facility] [address] [id number] [address] [place] [address], [place] [address] SP Sep, SP [facility] [address] [id number] [address] [place] [address], [place] [address] SP Sep, SP [facility] [address] [id number] [address] [place] [address], [place] [address] SP Aug, SP [facility] [address] [id number] [address] [place] [address], [place] [address] SP Apr, SP [facility] [address] [id number] [address] [place] [address], [place] [address] SP Mar, SP [facility] [address] [id number] [address] [place] [address], [place] [address] SP Mar, SP [facility] [address] [id number] [address] [place] [address], [place] [address] SP Feb, SP [facility] [place] [facility] [address] [id number] [address] [place] [address], [place] [address] SP Feb, SP [facility] [place] [facility] [address] [id number] [address] [place] [address], [place] [address] SP Jan, SP [facility] [place] [facility] [address] [id number] [address] [place] [address], [place] [address] SP Jan, SP [facility] [address] [id number] [address] [place] [address] SP Jan, SP [facility] [address] [id number] [address] [place] [address] SP Jan, SP [facility] [address] [id number] [address] [place] [address] SP Oct, SP [facility] [address] [facility] [id number] [address] [place] [address] SP Feb, SP [facility] [address] [facility] [id number] [address] [place] [address] SP Feb, SP [facility] [address] [facility] [id number] [address] [place] [address] SP Feb, SP [facility] [address] [facility] [id number] [address] [place] [address] SP Jun, SP IMMUNIZATIONS No Known Immunizations SOCIAL HISTORY Never Assessed REASON FOR VISIT Cold symptoms WB-MA, PT hasnt been feeling well for 2 weeks PLAN OF CARE VITAL SIGNS Height 64 in 2017-08-17 POS Weight 121 lbs 2017-08-17 POS Temperature 99.7 degrees Fahrenheit 2017-08-17 POS Heart Rate 80 bpm 2017-08-17 POS Respiratory Rate 20 2017-08-17 POS BMI 20.77 kg/m2 2017-08-17 POS Blood pressure systolic 138 mmHg 2017-08-17 POS Blood pressure diastolic 94 mmHg 2017-08-17 POS MEDICATIONS Medication Instructions Dosage Frequency Start Date End Date Duration S tatus POS PredniSONE 20 mg Orally Once a day 2 tablets 24h Aug, Aug, 05 SP Active SP Nabumetone Not-Taking SP Doxycycline Hyclate 100 mg Orally Twice a day 1 capsule 12h 0 7 Aug, 2017Aug, [id number] 10 days Active SP Atenolol 50 MG Orally Once a day 1 tablet 24h May, 3 0 day(s) Active SP Cold & Flu Intense Strength Active SP Aspirin 325 MG Orally every 8 hours, PRN 1 tablet Not-Taking SP RESULTS No Results PROCEDURES No Known procedures INSTRUCTIONS MEDICATIONS ADMINISTERED No Known Medications MEDICAL (GENERAL) HISTORY Type Description Date POS Medical History seizures SP Medical History asthma SP Medical History scoliosis SP Medical History migraines SP Medical History chronic lower back pain SP Surgical History cyst removed from left arm SP Hospitalization History seizures SP
--- OUTSIDE RECORDS SUMMARY | 2019-02-04 22:52 | XMS REPORT ---
Author Author Migration, Doctor POS Organization [facility] SP Address Unknown SP Phone Unavailable SP Care Team Providers Care Mica Patcher Name Role Phone POS Migration, Doctor Unavailable Unavailable SP PROBLEMS Type Condition ICD9-CM Code [id number] Code Onset Dates Condition S tatus SNOMED POS Problem Migraine without aura and without status migrain osus, not intractable POS Active [id number] SP Problem Other chronic pain G89.29 Active 8 4661060 SP Problem Anxiety F41.9 Active [id number] SP Problem Renal lithiasis N20.0 Active 9557 0007 SP Problem Hypertension, benign I10 Active 20809753 SP ALLERGIES No Information ENCOUNTERS Encounter Location Date Diagnosis POS [facility] [address] [facility] [id number] [address] [place] [address] SP Mar, Migraine without aura and wi thout status migrainosus, not SP G43.009 ; Other chronic pain G89.29 and Pain in left knee M25.562 [facility] [address] [facility] [id number] [address] [place] [address] SP Mar, Right upper quadrant abdomin al pain R10.11 SP [facility] [address] [facility] [id number] [address] [place] [address] SP Aug, Bronchitis J40 SP [facility] [address] [facility] [id number] [address] [place] [address] SP Jun, SP [facility] [address] [facility] [id number] [address] [place] [address] SP Jun, Renal lithiasis N20.0 and Hy pertension, benign I10 SP [facility] [address] [facility] [id number] [address] [place] [address] SP May, Anxiety F41.9 SP [facility] [address] [facility] [id number] [address] [place] [address] SP Apr, Encounter for staple removal Z48.02 [facility] [address] [facility] [id number] [address] [place] [address] SP Mar, Sebaceous cyst L72.3 [facility] [address] [facility] [id number] [address] [place] [address] SP Jan, Finger pain, left M79.645 [facility] [address] [facility] [id number] [address] [place] [address] SP Jan, Sebaceous cyst L72.3 [facility] [address] [facility] [id number] [place] [address] SP Jun, Anxiety F41.9 [facility] [address] [facility] [id number] [place] [address] SP May, Gastroenteritis K52.9 [facility] [address] [place] [id number] [place] [address] [id number] SP Jun, Dental examination Z01.20 [facility] [address] [id number] SP Jun, Dental examination Z01.20 an d Caries K02.9 [facility] [address] [facility] [id number] [address] [place] [address] SP Nov, Back pain 724.5 and Otalgia 388.70 [facility] [address] [facility] [id number] [address] [place] [address] SP Nov, [facility] [address] [facility] [id number] [address] [place] [address] [id number] SP July, Dental examination V72.2 [facility] [address] [facility] [id number] [address] [place] [address] SP Jun, [facility] [address] [facility] [id number] [address] [place] [address] SP Jun, SP [facility] [address] [id number] [facility] [place] [address] SP Apr, 2014 SP [facility] [address] [id number] [address] [place] [address], [place] [address] SP Apr, 2014 SP [facility] [address] [id number] [address] [place] [address], [place] [address] SP Mar, SP [facility] [address] [id number] [address] [place] [address], [place] [address] SP Mar, SP [facility] [address] [id number] [address] [place] [address], [place] [address] SP Jan, SP [facility] [address] [id number] [address] [place] [address], [place] [address] SP Jan, SP [facility] [address] [facility] [id number] [address] [place] [address], [place] [address] SP Nov, 2013 SP [facility] [address] [id number] [address] [place] [address], [place] [address] SP Nov, 2013 SP [facility] [address] [place] [address] 23 Nov, 20 14 SP [facility] [address] [facility] [id number] [address] [place] [address], [place] [address] SP Nov, 2013 SP [facility] [address] [place] [address] 17 Nov, 20 14 SP [facility] [address] [id number] [address] [place] [address], [place] [address] SP Nov, 2013 SP [facility] [address] [id number] [address] [place] [address], [place] [address] SP Nov, 2013 SP [facility] [address] [id number] [address] [place] [address], [place] [address] SP Nov, 2013 SP [facility] [address] [facility] [id number] [address] [place] [address], [place] [address] SP Nov, 2013 SP [facility] [address] [id number] [address] [place] [address], [place] [address] SP Nov, SP [facility] [address] [id number] [address] [place] [address], [place] [address] SP Oct, SP [facility] [address] [id number] [address] [place] [address], [place] [address] SP Oct, SP [facility] [address] [id number] [address] [place] [address], [place] [address] SP Sep, SP [facility] [address] [id number] [address] [place] [address], [place] [address] SP Sep, SP [facility] [address] [id number] [address] [place] [address], [place] [address] SP Sep, SP [facility] [address] [id number] [address] [place] [address], [place] [address] SP Sep, SP [facility] [address] [id number] [address] [place] [address], [place] [address] SP Sep, SP [facility] [address] [id number] [address] [place] [address], [place] [address] SP Sep, SP [facility] [address] [id number] [address] [place] [address], [place] [address] SP Aug, SP [facility] [address] [id number] [address] [place] [address], [place] [address] SP Aug, SP [facility] [address] [id number] [address] [place] [address], [place] [address] SP Aug, SP [facility] [address] [id number] [address] [place] [address], [place] [address] SP Aug, SP [facility] [address] [id number] [address] [place] [address], [place] [address] SP Aug, SP [facility] [address] [id number] [address] [place] [address], [place] [address] SP Aug, SP [facility] [address] [id number] [address] [place] [address], [place] [address] SP July, SP [facility] [address] [id number] [address] [place] [address], [place] [address] SP July, SP [facility] [address] [id number] [address] [place] [address], [place] [address] SP July, SP [facility] [address] [id number] [address] [place] [address], [place] [address] SP July, SP [facility] [address] [id number] [address] [place] [address], [place] [address] SP July, SP [facility] [address] [id number] [address] [place] [address], [place] [address] SP July, SP [facility] [address] [id number] [address] [place] [address], [place] [address] SP Jun, SP [facility] [address] [id number] [address] [place] [address], [place] [address] SP Jun, SP [facility] [address] [id number] [address] [place] [address], [place] [address] SP Jun, SP [facility] [address] [id number] [address] [place] [address], [place] [address] SP Jun, SP [facility] [address] [id number] [address] [place] [address], [place] [address] SP Jun, SP [facility] [address] [id number] [address] [place] [address], [place] [address] SP Jun, SP [facility] [address] [id number] [address] [place] [address], [place] [address] SP May, SP [facility] [address] [id number] [address] [place] [address], [place] [address] SP May, SP [facility] [address] [id number] [address] [place] [address], [place] [address] SP May, SP [facility] [address] [id number] [address] [place] [address], [place] [address] SP May, SP [facility] [address] [id number] [address] [place] [address], [place] [address] SP May, SP [facility] [address] [id number] [address] [place] [address], [place] [address] SP May, SP [facility] [address] [id number] [address] [place] [address], [place] [address] SP May, SP [facility] [address] [id number] [address] [place] [address], [place] [address] SP Apr, SP [facility] [address] [facility] [id number] [address] [place] [address], [place] [address] SP Apr, SP [facility] [address] [id number] [address] [place] [address], [place] [address] SP Apr, SP [facility] [address] [id number] [address] [place] [address], [place] [address] SP Apr, SP [facility] [address] [id number] [address] [place] [address] SP Apr, SP [facility] [address] [facility] [id number] [address] [place] [address] SP Apr, SP [facility] [address] [id number] [address] [place] [address] SP Apr, SP [facility] [address] [id number] [address] [place] [address], [place] [address] SP Apr, SP [facility] [address] [id number] [address] [place] [address], [place] [address] SP Mar, SP [facility] [address] [facility] [id number] [address] [place] [address] SP Mar, SP [facility] [address] [id number] [address] [place] [address], [place] [address] SP Mar, SP [facility] [address] [id number] [address] [place] [address], [place] [address] SP Mar, SP [facility] [address] [id number] [address] [place] [address], [place] [address] SP Feb, SP [facility] [address] [id number] [address] [place] [address], [place] [address] SP Feb, SP [facility] [address] [id number] [address] [place] [address], [place] [address] SP Feb, SP [facility] [address] [id number] [address] [place] [address], [place] [address] SP Feb, SP [facility] [address] [id number] [address] [place] [address], [place] [address] SP Feb, SP [facility] [address] [id number] [address] [place] [address], [place] [address] SP Feb, SP [facility] [address] [id number] [address] [place] [address], [place] [address] SP Jan, SP [facility] [address] [id number] [address] [place] [address], [place] [address] SP Jan, SP [facility] [address] [id number] [address] [place] [address], [place] [address] SP Jan, SP [facility] [address] [id number] [address] [place] [address], [place] [address] SP Jan, SP [facility] [address] [id number] [address] [place] [address], [place] [address] SP Jan, SP [facility] [address] [id number] [address] [place] [address], [place] [address] SP Jan, 2012 SP [facility] [address] [id number] [address] [place] [address], [place] [address] SP 15 Jan, 2013 SP [facility] [address] [id number] [address] [place] [address], [place] [address] SP 15 Jan, 2013 SP [facility] [address] [id number] [address] [place] [address], [place] [address] SP Dec, SP [facility] [address] [id number] [address] [place] [address], [place] [address] SP Dec, SP [facility] [address] [id number] [address] [place] [address], [place] [address] SP Dec, SP [facility] [address] [id number] [address] [place] [address], [place] [address] SP Dec, 2012 SP [facility] [address] [id number] [address] [place] [address], [place] [address] SP Dec, SP [facility] [address] [id number] [address] [place] [address], [place] [address] SP Dec, SP [facility] [address] [id number] [address] [place] [address], [place] [address] SP Dec, SP [facility] [address] [id number] [address] [place] [address], [place] [address] SP Dec, SP [facility] [address] [id number] [address] [place] [address], [place] [address] SP 30 Nov, 2012 SP [facility] [address] [id number] [address] [place] [address] SP 25 Nov, 2012 SP [facility] [address] [id number] [address] [place] [address], [place] [address] SP Nov, SP [facility] [address] [id number] [address] [place] [address], [place] [address] SP Oct, SP [facility] [address] [id number] [address] [place] [address], [place] [address] SP Oct, SP [facility] [address] [id number] [address] [place] [address], [place] [address] SP Oct, SP [facility] [address] [id number] [address] [place] [address], [place] [address] SP Oct, SP [facility] [address] [id number] [address] [place] [address], [place] [address] SP Oct, SP [facility] [address] [id number] [address] [place] [address], [place] [address] SP Oct, SP [facility] [address] [id number] [address] [place] [address], [place] [address] SP Oct, SP [facility] [address] [id number] [address] [place] [address], [place] [address] SP Sep, SP [facility] [address] [id number] [address] [place] [address], [place] [address] SP Sep, SP [facility] [address] [id number] [address] [place] [address], [place] [address] SP Sep, SP [facility] [address] [id number] [address] [place] [address], [place] [address] SP Sep, SP [facility] [address] [id number] [address] [place] [address], [place] [address] SP Sep, SP [facility] [address] [id number] [address] [place] [address], [place] [address] SP Aug, SP [facility] [address] [id number] [address] [place] [address], [place] [address] SP Apr, SP [facility] [address] [id number] [address] [place] [address], [place] [address] SP Mar, SP [facility] [address] [id number] [address] [place] [address], [place] [address] SP Mar, SP [facility] [address] [id number] [address] [place] [address], [place] [address] SP Feb, SP [facility] [address] [id number] [address] [place] [address] SP Feb, SP [facility] [address] [id number] [address] [place] [address] SP Jan, SP [facility] [address] [id number] [address] [place] [address] SP Jan, SP [facility] [address] [id number] [address] [place] [address] SP Jan, SP [facility] [address] [id number] [address] [place] [address] SP Jan, SP [facility] [address] [facility] [id number] [address] [place] [address] SP Oct, SP [facility] [address] [facility] [id number] [address] [place] [address] SP Feb, SP [facility] [address] [facility] [id number] [address] [place] [address] SP Feb, SP [facility] [address] [facility] [id number] [address] [place] [address] SP Feb, SP [facility] [address] [facility] [id number] [address] [place] [address] SP Jun, SP IMMUNIZATIONS No Known Immunizations SOCIAL HISTORY Never Assessed REASON FOR VISIT EMR-[facility] [place] PLAN OF CARE VITAL SIGNS MEDICATIONS Medication Instructions Dosage Frequency Start Date End Date Duration S tatus POS Diclofenac Sodium 75 mg 1 tablet by Oral route 2 times per day PRN Jan, Active SP Tylenol Extra Strength 500 mg 1-2 tablet 4 times per day for 30 day(s) PRN SP VOUCHER PLEASE July, Active SP cyclobenzaprine 10 mg 1 tablet 2 times per day PRN 2014 Active SP trazodone 50 mg take 1 tablet by Oral route 1 time per day Apr, SP MethylPREDNISolone 4 mg by Oral route ev kourtney day for 6 days as directed per SP pack Sep, Active SP Ventolin HFA 90 mcg/actuation inhale 2 p uff by Inhalation route as needed 4 SP PRN for cough or wheeze Aug, A ctive SP Amoxicillin 500 mg 1 capsule by Oral route 3 times per day for 7 days 2013 Active SP Ketoconazole 2 % apply 1 application to the affected area(s) by Topical route SP1 time per day for 2 weeks May, Active SP PredniSONE 20 mg 2 tablet by Oral route 1 time per day for 5 day(s) voucher SP Jan, 2013 Active SP RESULTS No Results PROCEDURES No Known procedures INSTRUCTIONS MEDICATIONS ADMINISTERED No Known Medications MEDICAL (GENERAL) HISTORY Type Description Date POS Medical History seizures SP Medical History asthma SP Medical History scoliosis SP Medical History migraines SP Medical History chronic lower back pain SP Surgical History cyst removed from left arm SP Hospitalization History seizures SP
--- OUTSIDE RECORDS SUMMARY | 2019-02-04 22:52 | XMS REPORT ---
Author Author Migration, Doctor POS Organization [facility] SP Address Unknown SP Phone Unavailable SP Care Team Providers Care Personal Consultant Name Role Phone POS Migration, Doctor Unavailable Unavailable SP PROBLEMS Type Condition ICD9-CM Code SZP19-ZL Code Onset Dates Condition S tatus SNOMED POS Problem Migraine without aura and without status migrain osus, not intractable POS Active [id number] SP Problem Other chronic pain G89.29 Active 8 [id number] SP Problem Anxiety F41.9 Active [id number] SP Problem Renal lithiasis N20.0 Active 9557 0007 SP Problem Hypertension, benign I10 Active [id number] SP ALLERGIES No Information ENCOUNTERS Encounter Location Date Diagnosis POS [facility] [address] [facility] [id number] [address] [place] [phone] SP Mar, Migraine without aura and wi thout status migrainosus, not SP G43.009 ; Other chronic pain G89.29 and Pain in left knee M25.562 [facility] [address] [facility] [id number] [address] [place] [address] SP Mar, Right upper quadrant abdomin al pain R10.11 SP [facility] [address] [facility] [id number] [address] [place] [id number] SP Aug, Bronchitis J40 SP [facility] [address] [facility] [id number] [address] [place] [phone] SP Jun, SP [facility] [address] [facility] [id number] [address] [place] [id number] SP Jun, Renal lithiasis N20.0 and Hy pertension, benign I10 SP [facility] [address] [facility] [id number] [address] [place] [id number] SP May, Anxiety F41.9 SP [facility] [address] [facility] [id number] [address] [place] [id number] SP Apr, Encounter for staple removal Z48.02 [facility] [address] [facility] [id number] [address] [place] [phone] SP Mar, Sebaceous cyst L72.3 [facility] [address] [facility] [id number] [address] [place] [id number] SP Jan, Finger pain, left M79.645 [facility] [address] [facility] [id number] [address] [place] [id number] SP Jan, Sebaceous cyst L72.3 [facility] [address] [facility] [id number] [place] [id number] SP Jun, Anxiety F41.9 [facility] [address] [facility] [id number] [place] [address] SP May, Gastroenteritis K52.9 [facility] [address] [id number] [place] [id number] SP Jun, Dental examination Z01.20 [facility] [address] [id number] SP Jun, Dental examination Z01.20 an d Caries K02.9 [facility] [address] [facility] [id number] [address] [place] [id number] SP Nov, Back pain 724.5 and Otalgia 388.70 [facility] [address] [facility] [id number] [address] [place] [phone] SP Nov, [facility] [address] [facility] [id number] [address] [place] [id number] SP July, Dental examination V72.2 [facility] [address] [facility] [id number] [address] [place] [phone] SP Jun, [facility] [address] [facility] [id number] [address] [place] [phone] SP Jun, SP [facility] [address] [id number] [facility] [place] [address] SP Apr, 2014 SP [facility] [address] [id number] [address] [place] [address], [place] [address] SP Apr, 2014 SP [facility] [address] [id number] [address] [place] [address], [place] [address] SP Mar, SP [facility] [address] [id number] [address] [place] [address], [place] [address] SP Mar, SP [facility] [address] [id number] [address] [place] [address], [place] [address] SP Jan, SP [facility] [address] [id number] [address] [place] [address], [place] [id number] SP Jan, SP [facility] [address] [facility] [id number] [address] [place] [address], [place] [phone] SP Nov, 2013 SP [facility] [address] [id number] [address] [place] [address], [place] [address] SP Nov, 2013 SP [email or web address] [address] [place] [phone] 23 Nov, 20 14 SP [facility] [address] [facility] [id number] [address] [place] [address], [place] [address] SP Nov, 2013 SP [email or web address] [address] [place] [address] 17 Nov, 20 14 SP [facility] [address] [id number] [address] [place] [address], [place] [address] SP Nov, 2013 SP [facility] [address] [id number] [address] [place] [address], [place] [address] SP Nov, 2013 SP [facility] [address] [id number] [address] [place] [address], [place] [address] SP Nov, 2013 SP [facility] [address] [facility] [id number] [address] [place] [address], [place] [address] SP Nov, 2013 SP [facility] [address] [id number] [address] [place] [address], [place] [address] SP Nov, SP [facility] [address] [id number] [address] [place] [address], [place] [address] SP Oct, SP [facility] [address] [id number] [address] [place] [address], [place] [address] SP Oct, SP [facility] [address] [id number] [address] [place] [address], [place] [address] SP Sep, SP [facility] [address] [id number] [address] [place] [address], [place] [address] SP Sep, SP [facility] [address] [id number] [address] [place] [address], [place] [address] SP Sep, SP [facility] [address] [id number] [address] [place] [address], [place] [address] SP Sep, SP [facility] [address] [id number] [address] [place] [address], [place] [address] SP Sep, SP [facility] [address] [id number] [address] [place] [address], [place] [address] SP Sep, SP [facility] [address] [id number] [address] [place] [address], [place] [id number] SP Aug, SP [facility] [address] [id number] [address] [place] [address], [place] [address] SP Aug, SP [facility] [address] [id number] [address] [place] [address], [place] [address] SP Aug, SP [facility] [address] [id number] [address] [place] [address], [place] [address] SP Aug, SP [facility] [address] [id number] [address] [place] [address], [place] [address] SP Aug, SP [facility] [address] [id number] [address] [place] [address], [place] [address] SP Aug, SP [facility] [address] [id number] [address] [place] [address], [place] [address] SP July, SP [facility] [address] [id number] [address] [place] [address], [place] [address] SP July, SP [facility] [address] [id number] [address] [place] [address], [place] [address] SP July, SP [facility] [address] [id number] [address] [place] [address], [place] [address] SP July, SP [facility] [address] [id number] [address] [place] [address], [place] [address] SP July, SP [facility] [address] [id number] [address] [place] [address], [place] [address] SP July, SP [facility] [address] [id number] [address] [place] [address], [place] [address] SP Jun, SP [facility] [address] [id number] [address] [place] [address], [place] [address] SP Jun, SP [facility] [address] [id number] [address] [place] [address], [place] [address] SP Jun, SP [facility] [address] [id number] [address] [place] [address], [place] [address] SP Jun, SP [facility] [address] [id number] [address] [place] [address], [place] [address] SP Jun, SP [facility] [address] [id number] [address] [place] [address], [place] [address] SP Jun, SP [facility] [address] [id number] [address] [place] [address], [place] [address] SP May, SP [facility] [address] [id number] [address] [place] [address], [place] [address] SP May, SP [facility] [address] [id number] [address] [place] [address], [place] [id number] SP May, SP [facility] [address] [id number] [address] [place] [address], [place] [address] SP May, SP [facility] [address] [id number] [address] [place] [address], [place] [address] SP May, SP [facility] [address] [id number] [address] [place] [address], [place] [address] SP May, SP [facility] [address] [id number] [address] [place] [address], [place] [address] SP May, SP [facility] [address] [id number] [address] [place] [address], [place] [id number] SP Apr, SP [facility] [address] [facility] [id number] [address] [place] [address], [place] [id number] SP Apr, SP [facility] [address] [id number] [address] [place] [address], [place] [address] SP Apr, SP [facility] [address] [id number] [address] [place] [address], [place] [address] SP Apr, SP [facility] [address] [id number] [address] [place] [id number] SP Apr, SP [facility] [address] [facility] [id number] [address] [place] [id number] SP Apr, SP [facility] [address] [id number] [address] [place] [id number] SP Apr, SP [facility] [address] [id number] [address] [place] [address], [place] [address] SP Apr, SP [facility] [address] [id number] [address] [place] [address], [place] [address] SP Mar, SP [facility] [address] [facility] [id number] [address] [place] [id number] SP Mar, SP [facility] [address] [id number] [address] [place] [address], [place] [id number] SP Mar, SP [facility] [address] [id number] [address] [place] [address], [place] [address] SP Mar, SP [facility] [address] [id number] [address] [place] [address], [place] [address] SP Feb, SP [facility] [address] [id number] [address] [place] [address], [place] [address] SP Feb, SP [facility] [address] [id number] [address] [place] [address], [place] [address] SP Feb, SP [facility] [address] [id number] [address] [place] [address], [place] [address] SP Feb, SP [facility] [address] [id number] [address] [place] [address], [place] [address] SP Feb, SP [facility] [address] [id number] [address] [place] [address], [place] [address] SP Feb, SP [facility] [address] [id number] [address] [place] [address], [place] [address] SP Jan, SP [facility] [address] [id number] [address] [place] [address], [place] [address] SP Jan, SP [facility] [address] [id number] [address] [place] [address], [place] [address] SP Jan, SP [facility] [address] [id number] [address] [place] [address], [place] [address] SP Jan, SP [facility] [address] [id number] [address] [place] [address], [place] [address] SP Jan, SP [facility] [address] [id number] [address] [place] [address], [place] [address] SP Jan, 2012 SP [facility] [address] [id number] [address] [place] [address], [place] [address] SP 15 Jan, 2013 SP [facility] [address] [id number] [address] [place] [address], [place] [address] SP 15 Jan, 2013 SP [facility] [address] [id number] [address] [place] [address], [place] [address] SP Dec, SP [facility] [address] [id number] [address] [place] [address], [place] [address] SP Dec, SP [facility] [address] [id number] [address] [place] [address], [place] [address] SP Dec, SP [facility] [address] [id number] [address] [place] [address], [place] [address] SP Dec, 2012 SP [facility] [address] [id number] [address] [place] [address], [place] [address] SP Dec, SP [facility] [address] [id number] [address] [place] [address], [place] [address] SP Dec, SP [facility] [address] [id number] [address] [place] [address], [place] [address] SP Dec, SP [facility] [address] [id number] [address] [place] [address], [place] [address] SP Dec, SP [facility] [address] [id number] [address] [place] [address], [place] [address] SP 30 Nov, 2012 SP [facility] [address] [id number] [address] [place] [id number] SP 25 Nov, 2012 SP [facility] [address] [id number] [address] [place] [address], [place] [address] SP Nov, SP [facility] [address] [id number] [address] [place] [address], [place] [address] SP Oct, SP [facility] [address] [id number] [address] [place] [address], [place] [address] SP Oct, SP [facility] [address] [id number] [address] [place] [address], [place] [address] SP Oct, SP [facility] [address] [id number] [address] [place] [address], [place] [address] SP Oct, SP [facility] [address] [id number] [address] [place] [address], [place] [address] SP Oct, SP [facility] [address] [id number] [address] [place] [address], [place] [address] SP Oct, SP [facility] [address] [id number] [address] [place] [address], [place] [id number] SP Oct, SP [facility] [address] [id number] [address] [place] [address], [place] [address] SP Sep, SP [facility] [address] [id number] [address] [place] [address], [place] [address] SP Sep, SP [facility] [address] [id number] [address] [place] [address], [place] [address] SP Sep, SP [facility] [address] [id number] [address] [place] [address], [place] [address] SP Sep, SP [facility] [address] [id number] [address] [place] [address], [place] [address] SP Sep, SP [facility] [address] [id number] [address] [place] [address], [place] [address] SP Aug, SP [facility] [address] [id number] [address] [place] [address], [place] [address] SP Apr, SP [facility] [address] [id number] [address] [place] [address], [place] [id number] SP Mar, SP [facility] [address] [id number] [address] [place] [address], [place] [address] SP Mar, SP [facility] [address] [id number] [address] [place] [address], [place] [address] SP Feb, SP [facility] [address] [id number] [address] [place] [id number] SP Feb, SP [facility] [address] [id number] [address] [place] [id number] SP Jan, SP [facility] [address] [id number] [address] [place] [id number] SP Jan, SP [facility] [address] [id number] [address] [place] [id number] SP Jan, SP [facility] [address] [id number] [address] [place] [id number] SP Jan, SP [facility] [address] [id number] [address] [place] [id number] SP Oct, SP [facility] [address] [id number] [address] [place] [id number] SP Feb, SP [facility] [address] [id number] [address] [place] [id number] SP Feb, SP [facility] [address] [id number] [address] [place] [id number] SP Feb, SP [facility] [address] [id number] [address] [place] [id number] SP Jun, SP IMMUNIZATIONS No Known Immunizations SOCIAL HISTORY Never Assessed [place] [place] VITAL SIGNS MEDICATIONS Unknown [...]
--- OUTSIDE RECORDS SUMMARY | 2019-02-04 22:56 | XMS REPORT | Continuity of Care Document ---
Author Organization Unknown POS Address Unknown SP Phone Unavailable SP Allergies Active Description Code Type Severity POS Reaction Onset Reported/Identified POS to Patient Clinical Status POS Yes No Known Drug Allergies [id number] Drug SP Mild N/A 11/09/2008 SP SP Medications There is no data. Problems Date Dx Coded Attending Type Code POS Diagnosed By POS 01/09/2008 NAINA PETER, AP V20.2 SP CHILD, ROUTINE SP 01/09/2008 V20.2 WELL CHILD, ROUTINE SP SP 01/09/2008 SUDARSHAN OCAMPO DO V20.2 WELL SPCHILD, ROUTINE SP 01/09/2008 V20.2 WELL CHILD, ROUTINE SP SP 01/09/2008 V20.2 WELL CHILD, ROUTINE SP SP 01/09/2008 V20.2 WELL CHILD, ROUTINE SP SP 01/09/2008 SUDARSHAN OCAMPO DO V20.2 WELL SPCHILD, ROUTINE SP 01/09/2008 SUDARSHAN OCAMPO DO V20.2 WELL SPCHILD, ROUTINE SP 01/09/2008 AMANUEL HERRING APRN R V20.2 SP WELL CHILD, ROUTINE SP 01/09/2008 TAWANDA BURKS APRN V2 0.2 SP CHILD, ROUTINE SP 01/09/2008 AMANUEL HERRING APRN R V20.2 SP WELL CHILD, ROUTINE SP 01/09/2008 TAWANDA BURKS APRN T V2 0.2 SP CHILD, ROUTINE SP 01/09/2008 TAWANDA BURKS APRN T V2 0.2 SP CHILD, ROUTINE SP 01/09/2008 TAWANDA BURKS APRN V2 0.2 SP CHILD, ROUTINE SP 01/09/2008 TAWANDA BURKS APRN T V2 0.2 SP CHILD, ROUTINE SP 01/09/2008 TAWANDA BURKS APRN V2 0.2 SP CHILD, ROUTINE SP 01/09/2008 TAWANDA BURKS APRN T V2 0.2 SP CHILD, ROUTINE SP 01/09/2008 AMANUEL HERRING APRN R V20.2 SP WELL CHILD, ROUTINE SP 01/09/2008 TAWANDA BURKS APRN V2 0.2 SP CHILD, ROUTINE SP 01/09/2008 SUDARSHAN OCAMPO DO V20.2 WELL SPCHILD, ROUTINE SP 01/09/2008 MADL MANAGER SUPPLIER, TELMA L V20 .2 SP CHILD, ROUTINE SP 01/09/2008 MADL MANAGER SUPPLIER, TELMA L V20 .2 SP CHILD, ROUTINE SP 01/09/2008 TAWANDA BURKS APRN V2 0.2 SP CHILD, ROUTINE SP 01/09/2008 TAWANDA BURKS APRN V2 0.2 SP CHILD, ROUTINE SP 01/09/2008 GAEL HERRING APRNRICIA R V20.2 SP WELL CHILD, ROUTINE SP 01/09/2008 TAWANDA BURKS APRN T V2 0.2 SP CHILD, ROUTINE SP 01/09/2008 GAEL HERRING APRNRICIA R V20.2 SP WELL CHILD, ROUTINE SP 01/09/2008 SUDARSHAN OCAMPO DO V20.2 WELL SPCHILD, ROUTINE SP 01/09/2008 AP CHEW MD V20.2 SP CHILD, ROUTINE SP 01/09/2008 TAWANDA BURKS APRN V2 0.2 SP CHILD, ROUTINE SP 01/09/2008 MEENAKSHI HERRING APRNIA R V20.2 SP WELL CHILD, ROUTINE SP 01/09/2008 TAWANDA BURKS APRN T V2 0.2 SP CHILD, ROUTINE SP 03/20/2008 AP CHEW MD 477.9 SP RHINITIS SP 03/20/2008 AP CHEW MD 493.9 0 SP UNSPECIFIED SP 03/20/2008 477.9 JOSÉ ANTONIO RGIC RHINITIS SP SP 03/20/2008 493.90 AST HMA UNSPECIFIED SP SP 03/20/2008 SUDARSHAN OCAMPO DO 477.9 SP RHINITIS SP 03/20/2008 SUDARSHAN OCAMPO DO 493.90 SP UNSPECIFIED SP 03/20/2008 477.9 JOSÉ ANTONIO RGIC RHINITIS SP SP 03/20/2008 493.90 AST HMA UNSPECIFIED SP SP 03/20/2008 477.9 JOSÉ ANTONIO RGIC RHINITIS SP SP 03/20/2008 493.90 AST HMA UNSPECIFIED SP SP 03/20/2008 477.9 JOSÉ ANTONIO RGIC RHINITIS SP SP 03/20/2008 493.90 AST HMA UNSPECIFIED SP SP 03/20/2008 OCAMPO DO, SUDARSHAN K 477.9 SP RHINITIS SP 03/20/2008 OCAMPO DO, SUDARSHAN K 493.90 SP UNSPECIFIED SP 03/20/2008 OCAMPO DO, SUDARSHAN K 477.9 SP RHINITIS SP 03/20/2008 OCAMPO DO, SUDARSHAN K 493.90 SP UNSPECIFIED SP 03/20/2008 NIMA MANAGER SUPPLIER, AMANUEL R 477.9 SP ALLERGIC RHINITIS SP 03/20/2008 NIMA MANAGER SUPPLIER, AMANUEL R 493.90 SP ASTHMA UNSPECIFIED SP 03/20/2008 VITALIY MANAGER SUPPLIER, TAWANDA T 47 7.9 SP RHINITIS SP 03/20/2008 VITALIY MANAGER SUPPLIER, TAWANDA T 493.90 SP ASTHMA UNSPECIFIED SP 03/20/2008 NIMA MANAGER SUPPLIER, AMANUEL R 477.9 SP ALLERGIC RHINITIS SP 03/20/2008 NIMA MANAGER SUPPLIER, AMANUEL R 493.90 SP ASTHMA UNSPECIFIED SP 03/20/2008 VITALIY MANAGER SUPPLIER, TAWANDA Mahajan 47 7.9 SP RHINITIS SP 03/20/2008 VITALIY MANAGER SUPPLIER, TAWANDA T 493.90 SP ASTHMA UNSPECIFIED SP 03/20/2008 VITALIY MANAGER SUPPLIER, TAWANDA Mahajan 47 7.9 SP RHINITIS SP 03/20/2008 VITALIY MANAGER SUPPLIER, TAWANDA T 493.90 SP ASTHMA UNSPECIFIED SP 03/20/2008 VITALIY MANAGER SUPPLIER, TAWANDA T 47 7.9 SP RHINITIS SP 03/20/2008 VITALIY MANAGER SUPPLIER, TAWANDA T 493.90 SP ASTHMA UNSPECIFIED SP 03/20/2008 VITALIY MANAGER SUPPLIER, TAWANDA T 47 7.9 SP RHINITIS SP 03/20/2008 VITALIY MANAGER SUPPLIER, TAWANDA T 493.90 SP ASTHMA UNSPECIFIED SP 03/20/2008 VITALIY MANAGER SUPPLIER, TAWANDA Mahajan 47 7.9 SP RHINITIS SP 03/20/2008 VITALIY MANAGER SUPPLIER, TAWANDA T 493.90 SP ASTHMA UNSPECIFIED SP 03/20/2008 VITALIY MANAGER SUPPLIER, TAWANDA T 47 7.9 SP RHINITIS SP 03/20/2008 VITALIY MANAGER SUPPLIER, TAWANDA T 493.90 SP ASTHMA UNSPECIFIED SP 03/20/2008 NIMA MANAGER SUPPLIER, AMANUEL R 477.9 SP ALLERGIC RHINITIS SP 03/20/2008 NIMA MANAGER SUPPLIER, AMANUEL R 493.90 SP ASTHMA UNSPECIFIED SP 03/20/2008 VITALIY MANAGER SUPPLIER, TAWANDA Mahajan 47 7.9 SP RHINITIS SP 03/20/2008 VITALIY MANAGER SUPPLIER, TAWANDA T 493.90 SP ASTHMA UNSPECIFIED SP 03/20/2008 OCAMPO DO, SUDARSHAN K 477.9 SP RHINITIS SP 03/20/2008 OCAMPO DO, SUDARSHAN K 493.90 SP UNSPECIFIED SP 03/20/2008 MADL MANAGER SUPPLIER, TELMA L 477 .9 SP RHINITIS SP 03/20/2008 MADL MANAGER SUPPLIER, TELMA L 493 .90 SP UNSPECIFIED SP 03/20/2008 MADL MANAGER SUPPLIER, TELMA L 477 .9 SP RHINITIS SP 03/20/2008 MADL MANAGER SUPPLIER, TELMA L 493 .90 SP UNSPECIFIED SP 03/20/2008 TAWANDA BURKS APRN 47 7.9 SP RHINITIS SP 03/20/2008 TAWANDA BURKS APRN 493.90 SP ASTHMA UNSPECIFIED SP 03/20/2008 TAWANDA BURKS APRN 47 7.9 SP RHINITIS SP 03/20/2008 TAWANDA BURKS APRN 493.90 SP ASTHMA UNSPECIFIED SP 03/20/2008 NIMA MCLAUGHLIN, AMANUEL R 477.9 SP ALLERGIC RHINITIS SP 03/20/2008 MEENAKSHI HERRING APRNIA R 493.90 SP ASTHMA UNSPECIFIED SP 03/20/2008 TAWANDA BURKS APRN 47 7.9 SP RHINITIS SP 03/20/2008 TAWANDA BURKS APRN 493.90 SP ASTHMA UNSPECIFIED SP 03/20/2008 MEENAKSHI HERRING APRNIA R 477.9 SP ALLERGIC RHINITIS SP 03/20/2008 MEENAKSHI HERRNIG APRNIA R 493.90 SP ASTHMA UNSPECIFIED SP 03/20/2008 OCAMPO DO, SUDARSHAN K 477.9 SP RHINITIS SP 03/20/2008 OCAMPO DO, SUDARSHAN K 493.90 SP UNSPECIFIED SP 03/20/2008 AP CHEW MD 477.9 SP RHINITIS SP 03/20/2008 AP CHEW MD 493.9 0 SP UNSPECIFIED SP 03/20/2008 TAWANDA BURKS APRN 47 7.9 SP RHINITIS SP 03/20/2008 TAWANDA BURKS APRN 493.90 SP ASTHMA UNSPECIFIED SP 03/20/2008 AMANUEL HERRING APRN R 477.9 SP ALLERGIC RHINITIS SP 03/20/2008 MEENAKSHI HERRING APRNIA R 493.90 SP ASTHMA UNSPECIFIED SP 03/20/2008 TAWANDA BURKS APRN 47 7.9 SP RHINITIS SP 03/20/2008 TAWANDA BURKS APRN 493.90 SP ASTHMA UNSPECIFIED SP 06/18/2008 AP CHEW MD 237.7 0 SP SP 06/18/2008 AP CHEW MD 251.2 SP SP 06/18/2008 AP CHEW MD 493.0 0 SP EXTRINSIC SP 06/18/2008 237.70 KENNETH ROFIBROMATOSIS SP SP 06/18/2008 251.2 HYPO GLYCEMIA SP SP 06/18/2008 493.00 AST HMA EXTRINSIC SP SP 06/18/2008 OCAMPO DO, SUDARSHAN K 237.70 SP SP 06/18/2008 OCAMPO DO, SUDARSHAN K 251.2 SP SP 06/18/2008 OCAMPO DO, SUDARSHAN K 493.00 SP EXTRINSIC SP 06/18/2008 237.70 KENNETH ROFIBROMATOSIS SP SP 06/18/2008 251.2 HYPO GLYCEMIA SP SP 06/18/2008 493.00 AST HMA EXTRINSIC SP SP 06/18/2008 237.70 KENNETH ROFIBROMATOSIS SP SP 06/18/2008 251.2 HYPO GLYCEMIA SP SP 06/18/2008 493.00 AST HMA EXTRINSIC SP SP 06/18/2008 237.70 KENNETH ROFIBROMATOSIS SP SP 06/18/2008 251.2 HYPO GLYCEMIA SP SP 06/18/2008 493.00 AST HMA EXTRINSIC SP SP 06/18/2008 OCAMPO DO, SUDARSHAN K 237.70 SP SP 06/18/2008 OCAMPO DO, SUDARSHAN K 251.2 SP SP 06/18/2008 OCAMPO DO, SUDARSHAN K 493.00 SP EXTRINSIC SP 06/18/2008 OCAMPO DO, SUDARSHAN K 237.70 SP SP 06/18/2008 OCAMPO DO, SUDARSHAN K 251.2 SP SP 06/18/2008 OCAMPO DO, SUDARSHAN K 493.00 SP EXTRINSIC SP 06/18/2008 MEENAKSHI HERRING APRNIA R 237.70 SP NEUROFIBROMATOSIS SP 06/18/2008 MEENAKSHI HERRING APRNIA R 251.2 SP HYPOGLYCEMIA SP 06/18/2008 AMANUEL HERRING APRN R 493.00 SP ASTHMA EXTRINSIC SP 06/18/2008 TAWANDA BURKS APRN 237.70 SP NEUROFIBROMATOSIS SP 06/18/2008 TAWANDA BURKS APRN 25 1.2 SP SP 06/18/2008 TAWANDA BURKS APRN 493.00 SP ASTHMA EXTRINSIC SP 06/18/2008 AMANUEL HERRING APRN R 237.70 SP NEUROFIBROMATOSIS SP 06/18/2008 NIMA MANAGER SUPPLIER, AMANUEL R 251.2 SP HYPOGLYCEMIA SP 06/18/2008 NIMA LINDSAYN, AMANUEL R 493.00 SP ASTHMA EXTRINSIC SP 06/18/2008 VITALIY MANAGER SUPPLIER, TAWANDA T 237.70 SP NEUROFIBROMATOSIS SP 06/18/2008 VITALIY MANAGER SUPPLIER, TAWANDA T 25 1.2 SP SP 06/18/2008 VITALIY MANAGER SUPPLIER, TAWANDA T 493.00 SP ASTHMA EXTRINSIC SP 06/18/2008 VITALIY MANAGER SUPPLIER, TAWANDA T 237.70 SP NEUROFIBROMATOSIS SP 06/18/2008 VITALIY MANAGER SUPPLIER, TAWANDA T 25 1.2 SP SP 06/18/2008 VITALIY MANAGER SUPPLIER, TAWANDA T 493.00 SP ASTHMA EXTRINSIC SP 06/18/2008 VITALIY MANAGER SUPPLIER, TAWANDA T 237.70 SP NEUROFIBROMATOSIS SP 06/18/2008 VITALIY MANAGER SUPPLIER, TAWANDA T 25 1.2 SP SP 06/18/2008 VITALIY MANAGER SUPPLIER, TAWANDA T 493.00 SP ASTHMA EXTRINSIC SP 06/18/2008 VITALIY MANAGER SUPPLIER, TAWANDA T 237.70 SP NEUROFIBROMATOSIS SP 06/18/2008 VITALIY MANAGER SUPPLIER, TAWANDA T 25 1.2 SP SP 06/18/2008 VITALIY MANAGER SUPPLIER, TAWANDA T 493.00 SP ASTHMA EXTRINSIC SP 06/18/2008 VITALIY MANAGER SUPPLIER, TAWANDA T 237.70 SP NEUROFIBROMATOSIS SP 06/18/2008 VITALIY MANAGER SUPPLIER, TAWANDA T 25 1.2 SP SP 06/18/2008 VITALIY MANAGER SUPPLIER, TAWANDA T 493.00 SP ASTHMA EXTRINSIC SP 06/18/2008 VITALIY MANAGER SUPPLIER, TAWANDA T 237.70 SP NEUROFIBROMATOSIS SP 06/18/2008 VITALIY MANAGER SUPPLIER, TAWANDA T 25 1.2 SP SP 06/18/2008 VITALIY MANAGER SUPPLIER, TAWANDA T 493.00 SP ASTHMA EXTRINSIC SP 06/18/2008 NIMA MANAGER SUPPLIER, AMANUEL R 237.70 SP NEUROFIBROMATOSIS SP 06/18/2008 NIMA MANAGER SUPPLIER, AMANUEL R 251.2 SP HYPOGLYCEMIA SP 06/18/2008 NIMA LINDSAYNMEENAKSHIIA R 493.00 SP ASTHMA EXTRINSIC SP 06/18/2008 VITALIY MANAGER SUPPLIER, TAWANDA T 237.70 SP NEUROFIBROMATOSIS SP 06/18/2008 VITALIY MANAGER SUPPLIER, TAWANDA T 25 1.2 SP SP 06/18/2008 VITALIY MANAGER SUPPLIER, TAWANDA T 493.00 SP ASTHMA EXTRINSIC SP 06/18/2008 OCAMPO DO, SUDARSHAN K 237.70 SP SP 06/18/2008 OCAMPO DO, SUDARSHAN K 251.2 SP SP 06/18/2008 OCAMPO DO, SUDARSHAN K 493.00 SP EXTRINSIC SP 06/18/2008 [facility] MANAGER SUPPLIER, TELMA L 237 .70 SP SP 06/18/2008 MAD MANAGER SUPPLIER, TELMA L 251 .2 SP SP 06/18/2008 [facility] MANAGER SUPPLIER, TELMA L 493 .00 SP EXTRINSIC SP 06/18/2008 [facility] MANAGER SUPPLIER, TELMA L 237 .70 SP SP 06/18/2008 [facility] MANAGER SUPPLIER, TELMA L 251 .2 SP SP 06/18/2008 [facility] MANAGER SUPPLIER, TELMA L 493 .00 SP EXTRINSIC SP 06/18/2008 VITALIY MANAGER SUPPLIERTAWANDA Martinez T 237.70 SP NEUROFIBROMATOSIS SP 06/18/2008 VITALIY LINDSAYNTAWANDA T 25 1.2 SP SP 06/18/2008 TAWANDA BURKS APRN T 493.00 SP ASTHMA EXTRINSIC SP 06/18/2008 VITALIY LINDSAYNTAWANDA T 237.70 SP NEUROFIBROMATOSIS SP 06/18/2008 VITALIY LINDSAYNTAWANDA T 25 1.2 SP SP 06/18/2008 TAWANDA BURKS APRN T 493.00 SP ASTHMA EXTRINSIC SP 06/18/2008 HERRING MANAGER SUPPLIER, AMANUEL R 237.70 SP NEUROFIBROMATOSIS SP 06/18/2008 NIMA LINDSAYN, AMANUEL R 251.2 SP HYPOGLYCEMIA SP 06/18/2008 NIMA MCLAUGHLIN, AMANUEL R 493.00 SP ASTHMA EXTRINSIC SP 06/18/2008 TAWANDA BURKS APRN T 237.70 SP NEUROFIBROMATOSIS SP 06/18/2008 VITALIY MANAGER SUPPLIERTAWANDA Martinez T 25 1.2 SP SP 06/18/2008 VITALIY MANAGER SUPPLIERTAWANDA Martinez T 493.00 SP ASTHMA EXTRINSIC SP 06/18/2008 NIMA MANAGER SUPPLIER, AMANUEL R 237.70 SP NEUROFIBROMATOSIS SP 06/18/2008 HERRING MANAGER SUPPLIER, AMANUEL R 251.2 SP HYPOGLYCEMIA SP 06/18/2008 NIMA MCLAUGHLIN AMANUEL R 493.00 SP ASTHMA EXTRINSIC SP 06/18/2008 OCAMPO DO, SUDARSHAN K 237.70 SP SP 06/18/2008 OCAMPO DO, SUDARSHAN K 251.2 SP SP 06/18/2008 OCAMPO DO, SUDARSHAN K 493.00 SP EXTRINSIC SP 06/18/2008 AP CHEW MD 237.7 0 SP SP 06/18/2008 AP CHEW MD 251.2 SP SP 06/18/2008 AP CHEW MD 493.0 0 SP EXTRINSIC SP 06/18/2008 TAWANDA BURKS APRN T 237.70 SP NEUROFIBROMATOSIS SP 06/18/2008 TAWANDA BURKS APRN 25 1.2 SP SP 06/18/2008 TAWANDA BURKS APRN 493.00 SP ASTHMA EXTRINSIC SP 06/18/2008 AMANUEL HERRING APRN R 237.70 SP NEUROFIBROMATOSIS SP 06/18/2008 AMANUEL HERRING APRN R 251.2 SP HYPOGLYCEMIA SP 06/18/2008 AMANUEL HERRING APRN R 493.00 SP ASTHMA EXTRINSIC SP 06/18/2008 TAWANDA BURKS APRN 237.70 SP NEUROFIBROMATOSIS SP 06/18/2008 TAWANDA BURKS APRN 25 1.2 SP SP 06/18/2008 TAWANDA BURKS APRN 493.00 SP ASTHMA EXTRINSIC SP 02/24/2009 AP CHEW MD 949.0 SP DEGREE UNSPEC SP 02/24/2009 949.0 BURN DEGREE UNSPEC SP SP 02/24/2009 OCAMPO DO, SUDARSHAN K 949.0 BURN SPDEGREE UNSPEC SP 02/24/2009 949.0 BURN DEGREE UNSPEC SP SP 02/24/2009 949.0 BURN DEGREE UNSPEC SP SP 02/24/2009 949.0 BURN DEGREE UNSPEC SP SP 02/24/2009 OCAMPO DO, SUDARSHAN K 949.0 BURN SPDEGREE UNSPEC SP 02/24/2009 OCAMPO DO, SUDARSHAN K 949.0 BURN SPDEGREE UNSPEC SP 02/24/2009 AMANUEL HERRING APRN R 949.0 SP BURN DEGREE UNSPEC SP 02/24/2009 TAWANDA BURKS APRN 94 9.0 SP DEGREE UNSPEC SP 02/24/2009 AMANUEL HERRING APRN R 949.0 SP BURN DEGREE UNSPEC SP 02/24/2009 TAWANDA BURKS APRN 94 9.0 SP DEGREE UNSPEC SP 02/24/2009 TAWANDA BURKS APRN 94 9.0 SP DEGREE UNSPEC SP 02/24/2009 TAWANDA BURKS APRN 94 9.0 SP DEGREE UNSPEC SP 02/24/2009 TAWANDA BURKS APRN 94 9.0 SP DEGREE UNSPEC SP 02/24/2009 TAWANDA BURKS APRN 94 9.0 SP DEGREE UNSPEC SP 02/24/2009 TAWANDA BURKS APRN 94 9.0 SP DEGREE UNSPEC SP 02/24/2009 AMANUEL HERRING APRN R 949.0 SP BURN DEGREE UNSPEC SP 02/24/2009 TAWANDA BURKS APRN 94 9.0 SP DEGREE UNSPEC SP 02/24/2009 OCAMPO DO SUDARSHAN K 949.0 BURN SPDEGREE UNSPEC SP 02/24/2009 MARANDA LINDSAYN, TELMA L 949 .0 SP DEGREE UNSPEC SP 02/24/2009 MARANDA LINDSAYN, TELMA L 949 .0 SP DEGREE UNSPEC SP 02/24/2009 TAWANDA BURKS APRN T 94 9.0 SP DEGREE UNSPEC SP 02/24/2009 TAWANDA BURKS APRN 94 9.0 SP DEGREE UNSPEC SP 02/24/2009 AMANUEL HERRING APRN R 949.0 SP BURN DEGREE UNSPEC SP 02/24/2009 TAWANDA BURKS APRN 94 9.0 SP DEGREE UNSPEC SP 02/24/2009 AMANUEL HERRING APRN R 949.0 SP BURN DEGREE UNSPEC SP 02/24/2009 OCAMPO SUDARSHAN YANEZ K 949.0 BURN SPDEGREE UNSPEC SP 02/24/2009 AP CHEW MD 949.0 SP DEGREE UNSPEC SP 02/24/2009 TAWANDA BURKS APRN T 94 9.0 SP DEGREE UNSPEC SP 02/24/2009 AMANUEL HERRING APRN R 949.0 SP BURN DEGREE UNSPEC SP 02/24/2009 TAWANDA BURKS APRN T 94 9.0 SP DEGREE UNSPEC SP 05/11/2009 AP CHEW MD 486 SP SP 05/11/2009 AP CHEW MD 784.0 SP SP 05/11/2009 486 PNEUMO NITIS SP SP 05/11/2009 784.0 headache SP 05/11/2009 DAMARIS YANEZ SUDARSHAN K 486 SP SP 05/11/2009 OCAMPO DO, SUDARSHAN K 784.0 SP SP 05/11/2009 486 PNEUMO NITIS SP SP 05/11/2009 784.0 headache SP 05/11/2009 486 PNEUMO NITIS SP SP 05/11/2009 784.0 headache SP 05/11/2009 486 PNEUMO NITIS SP SP 05/11/2009 784.0 headache SP 05/11/2009 OCAMPO , SUDARSHAN K 486 SP SP 05/11/2009 OCAMPO DO, SUDARSHAN K 784.0 SP SP 05/11/2009 OCAMPO DO, SUDARSHAN K 486 SP SP 05/11/2009 OCAMPO DO, SUDARSHAN K 784.0 SP SP 05/11/2009 HERRING MANAGER SUPPLIER, AMANUEL R 486 SP PNEUMONITIS SP 05/11/2009 HERRING MANAGER SUPPLIER, AMANUEL R 784.0 SP headache SP 05/11/2009 VITALIY MANAGER SUPPLIER, TAWANDA T 48 6 SP SP 05/11/2009 VITALIY MANAGER SUPPLIER, TAWANDA T 78 4.0 SP SP 05/11/2009 HERRING MANAGER SUPPLIER, AMANUEL R 486 SP PNEUMONITIS SP 05/11/2009 HERRING MANAGER SUPPLIER, AMANUEL R 784.0 SP headache SP 05/11/2009 VITALIY MANAGER SUPPLIER, TAWANDA T 48 6 SP SP 05/11/2009 VITALIY MANAGER SUPPLIER, TAWANDA T 78 4.0 SP SP 05/11/2009 VITALIY MANAGER SUPPLIER, TAWANDA T 48 6 SP SP 05/11/2009 VITALIY MANAGER SUPPLIER, TAWANDA T 78 4.0 SP SP 05/11/2009 VITALIY MANAGER SUPPLIER, TAWANDA T 48 6 SP SP 05/11/2009 VITALIY MANAGER SUPPLIER, TAWNADA T 78 4.0 SP SP 05/11/2009 VITALIY MANAGER SUPPLIER, TAWANDA T 48 6 SP SP 05/11/2009 VITALIY MANAGER SUPPLIER, TAWANDA T 78 4.0 SP SP 05/11/2009 VITALIY MANAGER SUPPLIER, TAWANDA T 48 6 SP SP 05/11/2009 VITALIY MANAGER SUPPLIER, TAWANDA T 78 4.0 SP SP 05/11/2009 VITALIY MANAGER SUPPLIER, TAWANDA T 48 6 SP SP 05/11/2009 VITALIY MANAGER SUPPLIER, TAWANDA T 78 4.0 SP SP 05/11/2009 HERRING MANAGER SUPPLIER, AMANUEL R 486 SP PNEUMONITIS SP 05/11/2009 HERRING MANAGER SUPPLIER, AMANUEL R 784.0 SP HEADACHE SP 05/11/2009 VITALIY MANAGER SUPPLIER, TAWANDA T 48 6 SP SP 05/11/2009 VITALIY MANAGER SUPPLIER, TAWANDA T 78 4.0 SP SP 05/11/2009 OCAMPO DO, SUDARSHAN K 486 SP SP 05/11/2009 OCAMPO DO, SUDARSHAN K 784.0 SP SP 05/11/2009 MADL MANAGER SUPPLIER, TELMA L 486 SP SP 05/11/2009 MADL MANAGER SUPPLIER, TELMA L 784 .0 SP SP 05/11/2009 MADL MANAGER SUPPLIER, TELMA L 486 SP SP 05/11/2009 MADL MANAGER SUPPLIER, TELMA L 784 .0 SP SP 05/11/2009 VITALIY MANAGER SUPPLIER, TAWANDA T 48 6 SP SP 05/11/2009 VITALIY MANAGER SUPPLIER, TAWANDA T 78 4.0 SP SP 05/11/2009 VITALIY MANAGER SUPPLIER, TAWANDA T 48 6 SP SP 05/11/2009 VITALIY LINDSAYN, TAWANDA T 78 4.0 SP SP 05/11/2009 NIMA MCLAUGHLIN, AMANUEL R 486 SP PNEUMONITIS SP 05/11/2009 NIMA MCLAUGHLIN, AMANUEL R 784.0 SP HEADACHE SP 05/11/2009 VITALIY MANAGER SUPPLIER, TAWANDA Mahajan 48 6 SP SP 05/11/2009 VITALIY MANAGER SUPPLIER, TAWANDA Mahajan 78 4.0 SP SP 05/11/2009 HERRING MANAGER SUPPLIER, AMANUEL R 486 SP PNEUMONITIS SP 05/11/2009 NIMA MCLAUGHLIN, AMANUEL R 784.0 SP HEADACHE SP 05/11/2009 OCAMPO DO, SUDARSHAN K 486 SP SP 05/11/2009 OCAMPO DO, SUDARSHAN K 784.0 SP SP 05/11/2009 AP CHEW MD 486 SP SP 05/11/2009 AP CHEW MD 784.0 SP SP 05/11/2009 VITALIY MANAGER SUPPLIER, TAWANDA Mahajan 48 6 SP SP 05/11/2009 VITALIY MANAGER SUPPLIER, TAWANDA Mahajan 78 4.0 SP SP 05/11/2009 NIMA MCLAUGHLIN, AMANUEL R 486 SP PNEUMONITIS SP 05/11/2009 NIMA MCLAUGHLIN, AMANUEL R 784.0 SP HEADACHE SP 05/11/2009 VITALIY MANAGER SUPPLIER, TAWANDA Mahajan 48 6 SP SP 05/11/2009 VITALIY MANAGER SUPPLIER, TAWANDA Mahajan 78 4.0 SP SP 09/01/2009 Ot 493.90 SP 09/01/2009 Ot 786.2 SP 02/21/2011 Ot 723.1 CERV ICALGIA SP SP 02/21/2011 Ot 723.5 TORT ICOLLIS NOS SP SP 02/01/2012 AP CHEW MD 786.2 SP SP 02/01/2012 AP CHEW MD E906. 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 SP 02/01/2012 AP CHEW MD V06.1 SP DX SP 02/01/2012 786.2 cough SP 02/01/2012 E906.0 INJ URY CAUSED BY SP DOG BITE SP 02/01/2012 V06.1 TDAP DX SP 02/01/2012 OCAMPO DO, SUDARSHAN K 786.2 SP SP 02/01/2012 CHRISTY OCAMPO DOA K E906.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 SP 02/01/2012 CHRISTY OCAMPO DOA K V06.1 TDAP SPDX SP 02/01/2012 786.2 cough SP 02/01/2012 E906.0 INJ URY CAUSED BY SP DOG BITE SP 02/01/2012 V06.1 TDAP DX SP 02/01/2012 786.2 cough SP 02/01/2012 E906.0 INJ URY CAUSED BY SP DOG BITE SP 02/01/2012 V06.1 TDAP DX SP 02/01/2012 786.2 cough SP 02/01/2012 E906.0 INJ URY CAUSED BY SP DOG BITE SP 02/01/2012 V06.1 TDAP DX SP 02/01/2012 DAMARIS YANEZ SUDARSHAN K 786.2 SP SP 02/01/2012 CHRISTY OCAMPO DOA K E906.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 SP 02/01/2012 DAMARIS YANEZCHRISTYA K V06.1 TDAP SPDX SP 02/01/2012 DAMARIS YANEZ SUDARSHAN K 786.2 SP SP 02/01/2012 DAMARIS YANEZ SUDARSHAN K 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.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 SP 02/01/2012 DAMARIS YANEZ SUDARSHAN K V06.1 TDAP SPDX SP 02/01/2012 AMANUEL HERRING APRN R 786.2 SP cough SP 02/01/2012 AMANUEL HERRING APRN R E906.0 SP INJURY CAUSED BY ANIMAL DOG BITE SP 02/01/2012 AMANUEL HERRING APRN R V06.1 SP TDAP DX SP 02/01/2012 TAWANDA BURKS APRN 78 6.2 SP SP 02/01/2012 TAWANDA BURKS APRN E906.0 SP INJURY CAUSED BY ANIMAL DOG BITE SP 02/01/2012 TAWANDA BURKS APRN V0 6.1 SP DX SP 02/01/2012 AMANUEL HERRING APRN R 786.2 SP COUGH SP 02/01/2012 AMANUEL HERRING APRN R E906.0 SP INJURY CAUSED BY ANIMAL DOG BITE SP 02/01/2012 AMANUEL HERRING APRN R V06.1 SP TDAP DX SP 02/01/2012 TAWANDA BURKS APRN 78 6.2 SP SP 02/01/2012 TAWANDA BURKS APRN E906.0 SP INJURY CAUSED BY ANIMAL DOG BITE SP 02/01/2012 TAWANDA BURKS APRN T V0 6.1 SP DX SP 02/01/2012 TAWANDA BURKS APRN T 78 6.2 SP SP 02/01/2012 TAWANDA BURKS APRN T E906.0 SP INJURY CAUSED BY ANIMAL DOG BITE SP 02/01/2012 TAWANDA BURKS APRN T V0 6.1 SP DX SP 02/01/2012 TAWANDA BURKS APRN T 78 6.2 SP SP 02/01/2012 TAWANDA BURKS APRN E906.0 SP INJURY CAUSED BY ANIMAL DOG BITE SP 02/01/2012 TAWANDA BURKS APRN V0 6.1 SP DX SP 02/01/2012 TAWANDA BURKS APRN 78 6.2 SP SP 02/01/2012 TAWANDA BURKS APRN E906.0 SP INJURY CAUSED BY ANIMAL DOG BITE SP 02/01/2012 TAWANDA BURKS APRN V0 6.1 SP DX SP 02/01/2012 TAWANDA BURKS APRN 78 6.2 SP SP 02/01/2012 TAWANDA BURKS APRN E906.0 SP INJURY CAUSED BY ANIMAL DOG BITE SP 02/01/2012 TAWANDA BURKS APRN V0 6.1 SP DX SP 02/01/2012 TAWANDA BURKS APRN 78 6.2 SP SP 02/01/2012 TAWANDA BURKS APRN E906.0 SP INJURY CAUSED BY ANIMAL DOG BITE SP 02/01/2012 TAWANDA BURKS APRN V0 6.1 SP DX SP 02/01/2012 MEENAKSHI HERRING APRNIA R 786.2 SP COUGH SP 02/01/2012 AMANUEL HERRING APRN R E906.0 SP INJURY CAUSED BY ANIMAL DOG BITE SP 02/01/2012 AMANUEL HERRING APRN R V06.1 SP TDAP DX SP 02/01/2012 TAWANDA BURKS APRN 78 6.2 SP SP 02/01/2012 TAWANDA BURKS APRN E906.0 SP INJURY CAUSED BY ANIMAL DOG BITE SP 02/01/2012 TAWANDA BURKS APRN T V0 6.1 SP DX SP 02/01/2012 OCAMPO DO, SUDARSHAN K 786.2 SP SP 02/01/2012 OCAMPO DO, SUDARSHAN K E906.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 SP 02/01/2012 OCAMPO DO, SUDARSHAN K V06.1 TDAP SPDX SP 02/01/2012 MADL MANAGER SUPPLIER, TELMA L 786 .2 SP SP 02/01/2012 MADL MANAGER SUPPLIER, TELMA L E90 6.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 SP 02/01/2012 MADL MANAGER SUPPLIER, TELMA L V06 .1 SP DX SP 02/01/2012 MADL MANAGER SUPPLIER, TELMA L 786 .2 SP SP 02/01/2012 MADL MANAGER SUPPLIER, TELMA L E90 6.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 SP 02/01/2012 APOORVAL MANAGER SUPPLIER, TELMA L V06 .1 SP DX SP 02/01/2012 TAWANDA BURKS APRN 78 6.2 SP SP 02/01/2012 TAWANDA BURKS APRN E906.0 SP INJURY CAUSED BY ANIMAL DOG BITE SP 02/01/2012 TAWANDA BURKS APRN V0 6.1 SP DX SP 02/01/2012 TAWANDA BURKS APRN 78 6.2 SP SP 02/01/2012 TAWANDA BURKS APRN E906.0 SP INJURY CAUSED BY ANIMAL DOG BITE SP 02/01/2012 TAWANDA BURKS APRN V0 6.1 SP DX SP 02/01/2012 AMANUEL HERRING APRN R 786.2 SP COUGH SP 02/01/2012 AMANUEL HERRING APRN R E906.0 SP INJURY CAUSED BY ANIMAL DOG BITE SP 02/01/2012 AMANUEL HERRING APRN R V06.1 SP TDAP DX SP 02/01/2012 TAWANDA BURKS APRN 78 6.2 SP SP 02/01/2012 TAWANDA BURKS APRN E906.0 SP INJURY CAUSED BY ANIMAL DOG BITE SP 02/01/2012 TAWANDA BURKS APRN V0 6.1 SP DX SP 02/01/2012 MEENAKSHI HERRING APRNIA R 786.2 SP COUGH SP 02/01/2012 MEENAKSHI HERRING APRNIA R E906.0 SP INJURY CAUSED BY ANIMAL DOG BITE SP 02/01/2012 MEENAKSHI HERRING APRNIA R V06.1 SP TDAP DX SP 02/01/2012 OCAMPO DO, SUDARSHAN K 786.2 SP SP 02/01/2012 OCAMPO DO, SUDARSHAN K E906.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 SP 02/01/2012 OCAMPO DO, SUDARSHAN K V06.1 TDAP SPDX SP 02/01/2012 AP CHEW MD 786.2 SP SP 02/01/2012 AP CHEW MD E906. 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 SP 02/01/2012 AP CHEW MD V06.1 SP DX SP 02/01/2012 TAWANDA BURKS APRN 78 6.2 SP SP 02/01/2012 TAWANDA BURKS APRN E906.0 SP INJURY CAUSED BY ANIMAL DOG BITE SP 02/01/2012 TAWANDA BURKS APRN V0 6.1 SP DX SP 02/01/2012 AMANUEL HERRING APRN 786.2 SP COUGH SP 02/01/2012 AMANUEL HERRING APRN R E906.0 SP INJURY CAUSED BY ANIMAL DOG BITE SP 02/01/2012 AMANUEL HERRING APRN R V06.1 SP TDAP DX SP 02/01/2012 TAWANDA BURKS APRN 78 6.2 SP SP 02/01/2012 TAWANDA BURKS APRN E906.0 SP INJURY CAUSED BY ANIMAL DOG BITE SP 02/01/2012 TAWANDA BURKS APRN V0 6.1 SP DX SP 04/04/2012 Ot 719.42 CARLYLE NT PAIN-UP/ARM SP SP 04/04/2012 Ot 782.2 LOCA L SUPRFICIAL SP SP 04/05/2012 DAMARIS YANEZ SUDARSHAN K 709.09 SP DYSCHROMIA SP 04/05/2012 709.09 OTH ER DYSCHROMIA SP SP 04/05/2012 709.09 OTH ER DYSCHROMIA SP SP 04/05/2012 709.09 OTH ER DYSCHROMIA SP SP 04/05/2012 DAMARIS YANEZ SUDARSHAN K 709.09 SP DYSCHROMIA SP 04/05/2012 DAMARIS YANEZCHRISTYA K 709.09 SP DYSCHROMIA SP 04/05/2012 AMANUEL HERRING APRN R 709.09 SP OTHER DYSCHROMIA SP 04/05/2012 TAWANDA BURKS APRN 709.09 SP OTHER DYSCHROMIA SP 04/05/2012 AMANUEL HERRING APRN R 709.09 SP OTHER DYSCHROMIA SP 04/05/2012 TAWANDA BURKS APRN 709.09 SP OTHER DYSCHROMIA SP 04/05/2012 TAWANDA BURKS APRN 709.09 SP OTHER DYSCHROMIA SP 04/05/2012 TAWANDA BURKS APRN T 709.09 SP OTHER DYSCHROMIA SP 04/05/2012 TAWANDA BURKS APRN T 709.09 SP OTHER DYSCHROMIA SP 04/05/2012 TAWANDA BURKS APRN T 709.09 SP OTHER DYSCHROMIA SP 04/05/2012 TAWANDA BURKS APRN 709.09 SP OTHER DYSCHROMIA SP 04/05/2012 AMANUEL HERRING APRN R 709.09 SP OTHER DYSCHROMIA SP 04/05/2012 TAWANDA BURKS APRN 709.09 SP OTHER DYSCHROMIA SP 04/05/2012 SUDARSHAN OCAMPO DO K 709.09 SP DYSCHROMIA SP 04/05/2012 TELMA LOW APRN L 709 .09 SP DYSCHROMIA SP 04/05/2012 KVNG LOW APRNA L 709 .09 SP DYSCHROMIA SP 04/05/2012 TAWANDA BURKS APRN 709.09 SP OTHER DYSCHROMIA SP 04/05/2012 TAWANDA BURKS APRN 709.09 SP OTHER DYSCHROMIA SP 04/05/2012 MEENAKSHI HERRING APRNIA R 709.09 SP OTHER DYSCHROMIA SP 04/05/2012 TAWANDA BURKS APRN T 709.09 SP OTHER DYSCHROMIA SP 04/05/2012 GAEL HERRING APRNRICIA R 709.09 SP OTHER DYSCHROMIA SP 04/05/2012 SUDARSHAN OCAMPO DO K 709.09 SP DYSCHROMIA SP 04/05/2012 NAINA PETER, AP 709.0 9 SP DYSCHROMIA SP 04/05/2012 TAWANDA BURKS APRN 709.09 SP OTHER DYSCHROMIA SP 04/05/2012 AMANUEL HERRING APRN R 709.09 SP OTHER DYSCHROMIA SP 04/05/2012 TAWANDA BURKS APRN 709.09 SP OTHER DYSCHROMIA SP 08/29/2012 V03.82 PPV 23 (PNEUMOVAX) SP SP 08/29/2012 V03.82 PPV 23 (PNEUMOVAX) SP SP 08/29/2012 V03.82 PPV 23 (PNEUMOVAX) SP SP 08/29/2012 OCAMPO DO, SUDARSHAN K V03.82 SP (PNEUMOVAX) DX SP 08/29/2012 OCAMPO DO, SUDARSHAN K V03.82 SP (PNEUMOVAX) DX SP 08/29/2012 NIMA LINDSAYN, AMANUEL R V03.82 SP PPV23 (PNEUMOVAX) DX SP 08/29/2012 VITALIY LINDSAYN, TAWANDA T V03.82 SP PPV23 (PNEUMOVAX) DX SP 08/29/2012 AMANUEL HERRING APRN R V03.82 SP PPV23 (PNEUMOVAX) DX SP 08/29/2012 VITALIY LINDSAYN, TAWANDA T V03.82 SP PPV23 (PNEUMOVAX) DX SP 08/29/2012 VITALIY LINDSAYN, TAWANDA T V03.82 SP PPV23 (PNEUMOVAX) DX SP 08/29/2012 VITALIY LINDSAYN, TAWANDA Mahajan V03.82 SP PPV23 (PNEUMOVAX) DX SP 08/29/2012 TAWANDA BURKS APRN V03.82 SP PPV23 (PNEUMOVAX) DX SP 08/29/2012 TAWANDA BURKS APRN T V03.82 SP PPV23 (PNEUMOVAX) DX SP 08/29/2012 VITALIY MCLAUGHLIN, TAWANDA T V03.82 SP PPV23 (PNEUMOVAX) DX SP 08/29/2012 AMANUEL HERRING APRN R V03.82 SP PPV23 (PNEUMOVAX) DX SP 08/29/2012 TAWANDA BURKS APRN V03.82 SP PPV23 (PNEUMOVAX) DX SP 08/29/2012 OCAMPO DO, SUDARSHAN K V03.82 SP (PNEUMOVAX) DX SP 08/29/2012 [facility] MANAGER SUPPLIER, TELMA L V03 .82 SP (PNEUMOVAX) DX SP 08/29/2012 MARANDA MANAGER SUPPLIER, TELMA L V03 .82 SP (PNEUMOVAX) DX SP 08/29/2012 TAWANDA BURKS APRN T V03.82 SP PPV23 (PNEUMOVAX) DX SP 08/29/2012 TAWANDA BURKS APRN T V03.82 SP PPV23 (PNEUMOVAX) DX SP 08/29/2012 NIMA MCLAUGHLIN, AMANUEL R V03.82 SP PPV23 (PNEUMOVAX) DX SP 08/29/2012 TAWANDA BURKS APRN T V03.82 SP PPV23 (PNEUMOVAX) DX SP 08/29/2012 AMANUEL HERRING APRN R V03.82 SP PPV23 (PNEUMOVAX) DX SP 08/29/2012 SUDARSHAN OCAMPO DO K V03.82 SP (PNEUMOVAX) DX SP 08/29/2012 AP CHEW MD V03.8 2 SP (PNEUMOVAX) DX SP 08/29/2012 TAWANDA BURKS APRN V03.82 SP PPV23 (PNEUMOVAX) DX SP 08/29/2012 AMANUEL HERRING APRN R V03.82 SP PPV23 (PNEUMOVAX) DX SP 08/29/2012 TAWANDA BURKS APRN V03.82 SP PPV23 (PNEUMOVAX) DX SP 08/29/2012 NADYA PETER, NICOLE T Ot 493.90 SP ASTHMA, UNSPECIFIED SP 08/29/2012 NICOLE COVINGTON MD Ot 729.1 SP MYALGIA AND MYOSITIS NOS SP 08/29/2012 NICOLE COVINGTON MD Ot 787.02 SP NAUSEA ALONE SP 08/29/2012 NICOLE COVINGTON MD Ot 787.91 SP DIARRHEA SP 08/30/2012 KAYLYNN YANEZ ARMIN K Ot 787.01 SP WITH VOMITING SP 09/06/2012 NICOLE COVINGTON MD Ot 780.79 SP OTH MALAISE FATIGUE SP 09/06/2012 NICOLE COVINGTON MD Ot 787.02 SP NAUSEA ALONE SP 09/24/2012 237.79 OTH ER SP SP 09/24/2012 237.79 OTH ER SP SP 09/24/2012 CHRISTY OCAMPO DOA K 237.79 SP NEUROFIBROMATOSIS SP 09/24/2012 SUDARSHAN OCAMPO DO K 237.79 SP NEUROFIBROMATOSIS SP 09/24/2012 AMANUEL HERRING APRN R 237.79 SP OTHER NEUROFIBROMATOSIS SP 09/24/2012 TAWANDA BURKS APRN 237.79 SP OTHER NEUROFIBROMATOSIS SP 09/24/2012 AMANUEL HERRING APRN R 237.79 SP OTHER NEUROFIBROMATOSIS SP 09/24/2012 TAWANDA BURKS APRN 237.79 SP OTHER NEUROFIBROMATOSIS SP 09/24/2012 TAWANDA BURKS APRN 237.79 SP OTHER NEUROFIBROMATOSIS SP 09/24/2012 VITALIY MANAGER SUPPLIER, TAWANDA T 237.79 SP OTHER NEUROFIBROMATOSIS SP 09/24/2012 VITALIY LINDSAYNTAWANDA T 237.79 SP OTHER NEUROFIBROMATOSIS SP 09/24/2012 TAWANDA BURKS APRN T 237.79 SP OTHER NEUROFIBROMATOSIS SP 09/24/2012 TAWANDA BURKS APRN T 237.79 SP OTHER NEUROFIBROMATOSIS SP 09/24/2012 GAEL HERRING APRNRICIA R 237.79 SP OTHER NEUROFIBROMATOSIS SP 09/24/2012 TAWANDA BURKS APRN T 237.79 SP OTHER NEUROFIBROMATOSIS SP 09/24/2012 OCAMPO DO SUDARSHAN K 237.79 SP NEUROFIBROMATOSIS SP 09/24/2012 APOORVAL MANAGER SUPPLIER, TELMA L 237 .79 SP NEUROFIBROMATOSIS SP 09/24/2012 MADBlayne MANAGER SUPPLIER, TELMA L 237 .79 SP NEUROFIBROMATOSIS SP 09/24/2012 TAWANDA BURKS APRN T 237.79 SP OTHER NEUROFIBROMATOSIS SP 09/24/2012 TAWANDA BURKS APRN T 237.79 SP OTHER NEUROFIBROMATOSIS SP 09/24/2012 MEENAKSHI HERRING APRNIA R 237.79 SP OTHER NEUROFIBROMATOSIS SP 09/24/2012 TAWANDA BURKS APRN T 237.79 SP OTHER NEUROFIBROMATOSIS SP 09/24/2012 GAEL HERRING APRNRICIA R 237.79 SP OTHER NEUROFIBROMATOSIS SP 09/24/2012 OCAMPO DO SUDARSHAN K 237.79 SP NEUROFIBROMATOSIS SP 09/24/2012 NAINA PETER, AP 237.7 9 SP NEUROFIBROMATOSIS SP 09/24/2012 TAWANDA BURKS APRN T 237.79 SP OTHER NEUROFIBROMATOSIS SP 09/24/2012 GAEL HERRING APRNRICIA R 237.79 SP OTHER NEUROFIBROMATOSIS SP 09/24/2012 TAWANDA BURKS APRN T 237.79 SP OTHER NEUROFIBROMATOSIS SP 09/29/2012 465.9 UPPE R RESPIRATORY SP SP 09/29/2012 465.9 UPPE R RESPIRATORY SP SP 09/29/2012 OCAMPO DO, SUDARSHAN K 465.9 SP RESPIRATORY INFECTION SP 09/29/2012 OCAMPO DO, SUDARSHAN K 465.9 SP RESPIRATORY INFECTION SP 09/29/2012 GAEL HERRING APRNRICIA R 465.9 SP UPPER RESPIRATORY INFECTION SP 09/29/2012 TAWANDA BURKS APRN T 46 5.9 SP RESPIRATORY INFECTION SP 09/29/2012 MEENAKSHI HERRING APRNIA R 465.9 SP UPPER RESPIRATORY INFECTION SP 09/29/2012 VITAILY MANAGER SUPPLIER, TAWANDA T 46 5.9 SP RESPIRATORY INFECTION SP 09/29/2012 VITALIY MANAGER SUPPLIER, TAWANDA T 46 5.9 SP RESPIRATORY INFECTION SP 09/29/2012 VITALIY MANAGER SUPPLIER, TAWANDA T 46 5.9 SP RESPIRATORY INFECTION SP 09/29/2012 VITALIY MANAGER SUPPLIER, TAWANDA T 46 5.9 SP RESPIRATORY INFECTION SP 09/29/2012 VITALIY MANAGER SUPPLIER, TAWANDA T 46 5.9 SP RESPIRATORY INFECTION SP 09/29/2012 VITALIY MANAGER SUPPLIER TAWANDA T 46 5.9 SP RESPIRATORY INFECTION SP 09/29/2012 HERRING MANAGER SUPPLIER, AMANUEL R 465.9 SP UPPER RESPIRATORY INFECTION SP 09/29/2012 VITALIY MANAGER SUPPLIER TAWANDA T 46 5.9 SP RESPIRATORY INFECTION SP 09/29/2012 OCAMPO DO, SUDARSHAN K 465.9 SP RESPIRATORY INFECTION SP 09/29/2012 MADL MANAGER SUPPLIER, TELMA L 465 .9 SP RESPIRATORY INFECTION SP 09/29/2012 MADBlayne MANAGER SUPPLIER, TELMA L 465 .9 SP RESPIRATORY INFECTION SP 09/29/2012 TAWANDA BURKS APRN T 46 5.9 SP RESPIRATORY INFECTION SP 09/29/2012 VITALIY MANAGER SUPPLIER TAWANDA T 46 5.9 SP RESPIRATORY INFECTION SP 09/29/2012 HERRING MANAGER SUPPLIER AMANUEL R 465.9 SP UPPER RESPIRATORY INFECTION SP 09/29/2012 VITALIY MANAGER SUPPLIER, TAWANDA T 46 5.9 SP RESPIRATORY INFECTION SP 09/29/2012 NIMA MCLAUGHLIN AMANUEL R 465.9 SP UPPER RESPIRATORY INFECTION SP 09/29/2012 OCAMPO DO, SUDARSHAN K 465.9 SP RESPIRATORY INFECTION SP 09/29/2012 AP CHEW MD 465.9 SP RESPIRATORY INFECTION SP 09/29/2012 VITALIY MCLAUGHLIN TAWANDA T 46 5.9 SP RESPIRATORY INFECTION SP 09/29/2012 NIMA MANAGER SUPPLIER AMANUEL R 465.9 SP UPPER RESPIRATORY INFECTION SP 09/29/2012 VITALIY MANAGER SUPPLIER TAWANDA T 46 5.9 SP RESPIRATORY INFECTION SP 10/15/2012 724.2 BACK PAIN, LOWER SP SP 10/15/2012 724.2 BACK PAIN, LOWER SP SP 10/15/2012 OCAMPO DO, SUDARSHAN K 724.2 BACK SPPAIN, LOWER SP 10/15/2012 OCAMPO DO, SUDARSHAN K 724.2 BACK SPPAIN, LOWER SP 10/15/2012 NIMA MCLAUGHLIN AMANUEL R 724.2 SP BACK PAIN, LOWER SP 10/15/2012 VITALIY MANAGER SUPPLIER, TAWANDA T 72 4.2 SP PAIN, LOWER SP 10/15/2012 HERRING MANAGER SUPPLIER, AMANUEL R 724.2 SP BACK PAIN, LOWER SP 10/15/2012 VITALIY MANAGER SUPPLIER, TAWANDA T 72 4.2 SP PAIN, LOWER SP 10/15/2012 VITALIY MANAGER SUPPLIER, TAWANDA T 72 4.2 SP PAIN, LOWER SP 10/15/2012 VITALIY MANAGER SUPPLIER, TAWANDA T 72 4.2 SP PAIN, LOWER SP 10/15/2012 VITALIY MANAGER SUPPLIER, TAWANDA T 72 4.2 SP PAIN, LOWER SP 10/15/2012 VITALIY MANAGER SUPPLIER, TAWANDA T 72 4.2 SP PAIN, LOWER SP 10/15/2012 VITALIY MANAGER SUPPLIER, TAWANDA T 72 4.2 SP PAIN, LOWER SP 10/15/2012 HERRING MANAGER SUPPLIER, AMANUEL R 724.2 SP BACK PAIN, LOWER SP 10/15/2012 VITALIY MANAGER SUPPLIER, TAWANDA T 72 4.2 SP PAIN, LOWER SP 10/15/2012 OCAMPO DO, SUDARSHAN K 724.2 BACK SPPAIN, LOWER SP 10/15/2012 MADL MANAGER SUPPLIER, TELMA L 724 .2 SP PAIN, LOWER SP 10/15/2012 MADL MANAGER SUPPLIER, TELMA L 724 .2 SP PAIN, LOWER SP 10/15/2012 VITALIY MANAGER SUPPLIER, TAWANDA T 72 4.2 SP PAIN, LOWER SP 10/15/2012 VITALIY MANAGER SUPPLIER, TAWANDA T 72 4.2 SP PAIN, LOWER SP 10/15/2012 HERRING MANAGER SUPPLIER, AMANUEL R 724.2 SP BACK PAIN, LOWER SP 10/15/2012 VITALIY MANAGER SUPPLIER, TAWANDA T 72 4.2 SP PAIN, LOWER SP 10/15/2012 HERRING MANAGER SUPPLIER, AMANUEL R 724.2 SP BACK PAIN, LOWER SP 10/15/2012 OCAMPO DO, SUDARSHAN K 724.2 BACK SPPAIN, LOWER SP 10/15/2012 AP CHEW MD 724.2 SP PAIN, LOWER SP 10/15/2012 VITALIY MANAGER SUPPLIER, TAWANDA T 72 4.2 SP PAIN, LOWER SP 10/15/2012 HERRING MANAGER SUPPLIER, AMANUEL R 724.2 SP BACK PAIN, LOWER SP 10/15/2012 VITALIY MANAGER SUPPLIER, TAWANDA T 72 4.2 SP PAIN, LOWER SP 10/31/2012 214.1 LIPO MA OF OTHER SP AND SUBCUTANEOUS TISSUE SP 10/31/2012 214.1 LIPO MA OF OTHER SP AND SUBCUTANEOUS TISSUE SP 10/31/2012 OCAMPO DO, SUDARSHAN K 214.1 SP OF OTHER SKIN AND SUBCUTANEOUS TISSUE SP 10/31/2012 OCAMPO DO, SUDARSHAN K 214.1 SP OF OTHER SKIN AND SUBCUTANEOUS TISSUE SP 10/31/2012 AMANUEL HERRING APRN R 214.1 SP LIPOMA OF OTHER SKIN AND SUBCUTANEOUS TISSUE SP 10/31/2012 TAWANDA BURKS APRN T 21 4.1 SP OF OTHER SKIN AND SUBCUTANEOUS TISSUE SP 10/31/2012 AMANUEL HERRING APRN R 214.1 SP LIPOMA OF OTHER SKIN AND SUBCUTANEOUS TISSUE SP 10/31/2012 TAWANDA BURKS APRN T 21 4.1 SP OF OTHER SKIN AND SUBCUTANEOUS TISSUE SP 10/31/2012 TAWANDA BURKS APRN T 21 4.1 SP OF OTHER SKIN AND SUBCUTANEOUS TISSUE SP 10/31/2012 TAWANDA BURKS APRN T 21 4.1 SP OF OTHER SKIN AND SUBCUTANEOUS TISSUE SP 10/31/2012 TAWANDA BURKS APRN T 21 4.1 SP OF OTHER SKIN AND SUBCUTANEOUS TISSUE SP 10/31/2012 TAWANDA BURKS APRN T 21 4.1 SP OF OTHER SKIN AND SUBCUTANEOUS TISSUE SP 10/31/2012 VITALIY MCLAUGHLIN TAWANDA T 21 4.1 SP OF OTHER SKIN AND SUBCUTANEOUS TISSUE SP 10/31/2012 AMANUEL HERRING APRN R 214.1 SP LIPOMA OF OTHER SKIN AND SUBCUTANEOUS TISSUE SP 10/31/2012 VITALIY MCLAUGHLNI TAWANDA T 21 4.1 SP OF OTHER SKIN AND SUBCUTANEOUS TISSUE SP 10/31/2012 DAMARIS YANEZ SUDARSHAN K 214.1 SP OF OTHER SKIN AND SUBCUTANEOUS TISSUE SP 10/31/2012 APOORVAL MANAGER SUPPLIERAVATELMA L 214 .1 SP OF OTHER SKIN AND SUBCUTANEOUS TISSUE SP 10/31/2012 APOORVAL MANAGER SUPPLIER, TELMA L 214 .1 SP OF OTHER SKIN AND SUBCUTANEOUS TISSUE SP 10/31/2012 VITALIY MCLAUGHLIN TAWANDA T 21 4.1 SP OF OTHER SKIN AND SUBCUTANEOUS TISSUE SP 10/31/2012 TAWANDA BURKS APRN T 21 4.1 SP OF OTHER SKIN AND SUBCUTANEOUS TISSUE SP 10/31/2012 AMANUEL HERRING APRN R 214.1 SP LIPOMA OF OTHER SKIN AND SUBCUTANEOUS TISSUE SP 10/31/2012 TAWANDA BURKS APRN T 21 4.1 SP OF OTHER SKIN AND SUBCUTANEOUS TISSUE SP 10/31/2012 AMANUEL HERRING APRN R 214.1 SP LIPOMA OF OTHER SKIN AND SUBCUTANEOUS TISSUE SP 10/31/2012 SUDARSHAN OCAMPO DO 214.1 SP OF OTHER SKIN AND SUBCUTANEOUS TISSUE SP 10/31/2012 AP CHEW MD 214.1 SP OF OTHER SKIN AND SUBCUTANEOUS TISSUE SP 10/31/2012 TAWANDA BURKS APRN 21 4.1 SP OF OTHER SKIN AND SUBCUTANEOUS TISSUE SP 10/31/2012 AMANUEL HERRING APRN 214.1 SP LIPOMA OF OTHER SKIN AND SUBCUTANEOUS TISSUE SP 10/31/2012 TAWANDA BURKS APRN 21 4.1 SP OF OTHER SKIN AND SUBCUTANEOUS TISSUE SP 11/01/2012 HARJEET LIRIANO MD Ot 345.90 SP EPILEPSY UNSPEC W/O MENTION INTRACTABLE SP 11/01/2012 HARJEET LIRIANO MD Ot 493.90 SP ASTHMA, UNSPECIFIED SP 11/01/2012 HARJEET LIRIANO MD Ot 592.0 SP CALCULUS OF KIDNEY SP 11/01/2012 HARJEET LIRIANO MD Ot 599.0 SP URIN TRACT INFECTION NOS SP 11/01/2012 HARJEET LIRIANO MD Ot 599.70 SP HEMATURIA, UNSPECIFIED SP 11/01/2012 HARJEET LIRIANO MD Ot 737.30 SP IDIOPATHIC SCOLIOSIS SP 11/23/2012 V04.81 FLU SHOT SP SP 11/23/2012 SUDARSHAN OCAMPO DO K V04.81 FLU SPSHOT SP 11/23/2012 SUDARSHAN OCAMPO DO K V04.81 FLU SPSHOT SP 11/23/2012 AMANUEL HERRING APRN R V04.81 SP FLU SHOT SP 11/23/2012 TAWANDA BURKS APRN V04.81 SP FLU SHOT SP 11/23/2012 AMANUEL HERRING APRN R V04.81 SP FLU SHOT SP 11/23/2012 TAWANDA BURKS APRN V04.81 SP FLU SHOT SP 11/23/2012 TAWANDA BURKS APRN V04.81 SP FLU SHOT SP 11/23/2012 TAWANDA BURKS APRN V04.81 SP FLU SHOT SP 11/23/2012 TAWANDA BURKS APRN V04.81 SP FLU SHOT SP 11/23/2012 TAWANDA BURKS APRN V04.81 SP FLU SHOT SP 11/23/2012 VITALIY MANAGER SUPPLIER, TAWANDA T V04.81 SP FLU SHOT SP 11/23/2012 AMANUEL HERRING APRN R V04.81 SP FLU SHOT SP 11/23/2012 VITALIY MCLAUGHLIN, TAWANDA T V04.81 SP FLU SHOT SP 11/23/2012 OCAMPO DOCHRISTYA K V04.81 FLU SPSHOT SP 11/23/2012 MADL MANAGER SUPPLIER, TELMA L V04 .81 SP SHOT SP 11/23/2012 MADL MANAGER SUPPLIER, TELMA L V04 .81 SP SHOT SP 11/23/2012 TAWANDA BURKS APRN T V04.81 SP FLU SHOT SP 11/23/2012 TAWANDA BURKS APRN V04.81 SP FLU SHOT SP 11/23/2012 AMANUEL HERRING APRN R V04.81 SP FLU SHOT SP 11/23/2012 TAWANDA BURKS APRN T V04.81 SP FLU SHOT SP 11/23/2012 NIMA MCLAUGHLIN, AMANUEL R V04.81 SP FLU SHOT SP 11/23/2012 SUDARSHAN OCAMPO DO K V04.81 FLU SPSHOT SP 11/23/2012 NAINA PETER, AP V04.8 1 SP SHOT SP 11/23/2012 TAWANDA BURKS APRN V04.81 SP FLU SHOT SP 11/23/2012 AMANUEL HERRING APRN R V04.81 SP FLU SHOT SP 11/23/2012 TAWANDA BURKS APRN T V04.81 SP FLU SHOT SP 12/13/2012 DAMARIS DOCHRISTYA K 530.81 SP SP 12/13/2012 AMANUEL HERRING APRN R 530.81 SP GERD SP 12/13/2012 TAWANDA BURKS APRN T 530.81 SP GERD SP 12/13/2012 AMANUEL HERRING APRN R 530.81 SP GERD SP 12/13/2012 TAWANDA BURKS APRN 530.81 SP GERD SP 12/13/2012 TAWANDA BURKS APRN 530.81 SP GERD SP 12/13/2012 TAWANDA BURKS APRN T 530.81 SP GERD SP 12/13/2012 TAWANDA BURKS APRN T 530.81 SP GERD SP 12/13/2012 TAWANDA BURKS APRN T 530.81 SP GERD SP 12/13/2012 TAWANDA BURKS APRN 530.81 SP GERD SP 12/13/2012 AMANUEL HERRING APRN R 530.81 SP GERD SP 12/13/2012 VITALIY MCLAUGHLIN TAWANDA T 530.81 SP GERD SP 12/13/2012 OCAMPO DO, SUDARSHAN K 530.81 SP SP 12/13/2012 MARANDA MANAGER SUPPLIER, TELMA L 530 .81 SP SP 12/13/2012 MARANDA MANAGER SUPPLIER, TELMA L 530 .81 SP SP 12/13/2012 VITALIY MCLAUGHLIN TAWANDA T 530.81 SP GERD SP 12/13/2012 VITALIY MCLAUGHLIN TAWANDA T 530.81 SP GERD SP 12/13/2012 NIMA MCLAUGHLIN, AMANUEL R 530.81 SP GERD SP 12/13/2012 VITALIY MCLAUGHLIN TAWANDA T 530.81 SP GERD SP 12/13/2012 NIMA LINDSAYN, AMANUEL R 530.81 SP GERD SP 12/13/2012 DAMARIS YANEZ SUDARSHAN K 530.81 SP SP 12/13/2012 NAINA PETER, AP 530.8 1 SP SP 12/13/2012 VITALIY MCLAUGHLIN TAWANDA T 530.81 SP GERD SP 12/13/2012 GAEL HERRING APRNRICIA R 530.81 SP GERD SP 12/13/2012 VITALIY MCLAUGHLIN TAWANDA T 530.81 SP GERD SP 12/26/2012 NIMA MCLAUGHLIN AMANUEL R 381.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 EUSTACHIAN TUBE DYSFUNCTION SP 12/26/2012 VITALIY MCLAUGHLIN TAWANDA T 381.81 SP EUSTACHIAN TUBE DYSFUNCTION SP 12/26/2012 NIMA MCLAUGHLIN AMANUEL R 381.81 SP EUSTACHIAN TUBE DYSFUNCTION SP 12/26/2012 VITALIY MCLAUGHLIN TAWANDA T 381.81 SP EUSTACHIAN TUBE DYSFUNCTION SP 12/26/2012 VITALIY MCLAUGHLIN TAWANDA T 381.81 SP EUSTACHIAN TUBE DYSFUNCTION SP 12/26/2012 VITALIY MCLAUGHLIN TAWANDA T 381.81 SP EUSTACHIAN TUBE DYSFUNCTION SP 12/26/2012 VITALIY MCLAUGHLIN TAWANDA T 381.81 SP EUSTACHIAN TUBE DYSFUNCTION SP 12/26/2012 VITALIY MCLAUGHLIN TAWANDA T 381.81 SP EUSTACHIAN TUBE DYSFUNCTION SP 12/26/2012 VITALIY MCLAUGHLIN TAWANDA T 381.81 SP EUSTACHIAN TUBE DYSFUNCTION SP 12/26/2012 GAEL HERRING APRNRICIA R 381.81 SP EUSTACHIAN TUBE DYSFUNCTION SP 12/26/2012 TAWANDA BURKS APRN T 381.81 SP EUSTACHIAN TUBE DYSFUNCTION SP 12/26/2012 OCAMPO DO, SUDARSHAN K 381.81 SP TUBE DYSFUNCTION SP 12/26/2012 MARANDA MANAGER SUPPLIER, TELMA L 381 .81 SP TUBE DYSFUNCTION SP 12/26/2012 MARANDA MCLAUGHLIN, TELMA L 381 .81 SP TUBE DYSFUNCTION SP 12/26/2012 VITALIY MCLAUGHLIN TAWANDA T 381.81 SP EUSTACHIAN TUBE DYSFUNCTION SP 12/26/2012 TAWANDA BURKS APRN T 381.81 SP EUSTACHIAN TUBE DYSFUNCTION SP 12/26/2012 GAEL HERRING APRNRICIA R 381.81 SP EUSTACHIAN TUBE DYSFUNCTION SP 12/26/2012 TAWANDA BURKS APRN T 381.81 SP EUSTACHIAN TUBE DYSFUNCTION SP 12/26/2012 NIMA MCLAUGHLIN AMANUEL R 381.81 SP EUSTACHIAN TUBE DYSFUNCTION SP 12/26/2012 DAMARIS YANEZ, SUDARSHAN K 381.81 SP TUBE DYSFUNCTION SP 12/26/2012 NAINA PETER, AP 381.8 1 SP TUBE DYSFUNCTION SP 12/26/2012 TAWANDA BURKS APRN 381.81 SP EUSTACHIAN TUBE DYSFUNCTION SP 12/26/2012 GAEL HERRING APRNRICIA R 381.81 SP EUSTACHIAN TUBE DYSFUNCTION SP 12/26/2012 TAWANDA BURKS APRN T 381.81 SP EUSTACHIAN TUBE DYSFUNCTION SP 01/25/2013 AMANUEL HERRING APRN R 462 SP ACUTE PHARYNGITIS SP 01/25/2013 TAWANDA BURKS APRN 46 2 SP PHARYNGITIS SP 01/25/2013 TAWANDA BURKS APRN 46 2 SP PHARYNGITIS SP 01/25/2013 TAWANDA BURKS APRN 46 2 SP PHARYNGITIS SP 01/25/2013 TAWANDA BURKS APRN 46 2 SP PHARYNGITIS SP 01/25/2013 TAWANDA BURKS APRN 46 2 SP PHARYNGITIS SP 01/25/2013 TAWANDA BURKS APRN 46 2 SP PHARYNGITIS SP 01/25/2013 AMANUEL HERRING APRN R 462 SP ACUTE PHARYNGITIS SP 01/25/2013 TAWANDA BURKS APRN 46 2 SP PHARYNGITIS SP 01/25/2013 DAMARIS YANEZ SUDARSHAN K 462 ACUTE SP SP 01/25/2013 TELMA LOW APRN L 462 SP PHARYNGITIS SP 01/25/2013 MADL MANAGER SUPPLIER, TELMA L 462 SP PHARYNGITIS SP 01/25/2013 TAWANDA BURKS APRN T 46 2 SP PHARYNGITIS SP 01/25/2013 VITALIY LINDSAYN, TAWANDA T 46 2 SP PHARYNGITIS SP 01/25/2013 NIMA LINDSAYN, AMANUEL R 462 SP ACUTE PHARYNGITIS SP 01/25/2013 VITALIY LINDSAYNTAWANDA T 46 2 SP PHARYNGITIS SP 01/25/2013 NIMA LINDSAYN, AMANUEL R 462 SP ACUTE PHARYNGITIS SP 01/25/2013 SUDARSHAN OCAMPO DO K 462 ACUTE SP SP 01/25/2013 NAINA PETER, AP 462 ACUTE SPPHARYNGITIS SP 01/25/2013 VITALIY LINDSAYNTAWANDA T 46 2 SP PHARYNGITIS SP 01/25/2013 NIMA LINDSAYN, AMANUEL R 462 SP ACUTE PHARYNGITIS SP 01/25/2013 TAWANDA BURKS APRN T 46 2 SP PHARYNGITIS SP 01/29/2013 TAWANDA BURKS APRN T 780.79 SP fatigue SP 01/29/2013 TAWANDA BURKS APRN T 780.79 SP fatigue SP 01/29/2013 TAWANDA BURKS APRN T 780.79 SP fatigue SP 01/29/2013 TAWANDA BURKS APRN T 780.79 SP FATIGUE SP 01/29/2013 TAWANDA BURKS APRN T 780.79 SP FATIGUE SP 01/29/2013 TAWANDA BURKS APRN T 780.79 SP FATIGUE SP 01/29/2013 AMANUEL HERRING APRN R 780.79 SP FATIGUE SP 01/29/2013 TAWANDA BURKS APRN T 780.79 SP FATIGUE SP 01/29/2013 CHRISTY OCAMPO DOA K 780.79 SP SP 01/29/2013 MARANDA MANAGER SUPPLIER, TELMA L 780 .79 SP SP 01/29/2013 MARANDA MANAGER SUPPLIER, TELMA L 780 .79 SP SP 01/29/2013 TAWANDA BURKS APRN T 780.79 SP FATIGUE SP 01/29/2013 TAWANDA BURKS APRN T 780.79 SP FATIGUE SP 01/29/2013 AMANUEL HERRING APRN R 780.79 SP FATIGUE SP 01/29/2013 TAWANDA BURKS APRN T 780.79 SP FATIGUE SP 01/29/2013 MEENAKSHI HERRING APRNIA R 780.79 SP FATIGUE SP 01/29/2013 OCAMPO DO, SUDARSHAN K 780.79 SP SP 01/29/2013 AP CHEW MD 780.7 9 SP SP 01/29/2013 VITALIY MCLAUGHLIN TAWANDA T 780.79 SP FATIGUE SP 01/29/2013 NIMA MCLAUGHLIN, AMANUEL R 780.79 SP FATIGUE SP 01/29/2013 VITALIY MCLAUGHLIN, TAWANDA T 780.79 SP FATIGUE SP 02/03/2013 KAYLEN GATES MANAGER SUPPLIER Ot 346.90 SP MIGRAINE UNSPECIFIED W/O INTRACT MGRN W/ SP 02/03/2013 KAYLEN GATES MANAGER SUPPLIER Ot 465 .9 SP URI NOS SP 02/03/2013 KAYLEN GATES MANAGER SUPPLIER Ot 473 .9 SP SINUSITIS NOS SP 02/05/2013 VITALIY LINDSAYN TAWANDA T 46 1.9 SP ACUTE SP 02/05/2013 VITALIY LINDSAYN, TAWANDA T 78 5.6 SP NODES ENLARGEMENT SP 02/05/2013 VITALIY LINDSAYN TAWANDA T 46 1.9 SP ACUTE SP 02/05/2013 VITALIY MCLAUGHLIN TAWANDA T 78 5.6 SP NODES ENLARGEMENT SP 02/05/2013 VITALIY LINDSAYN TAWANDA T 46 1.9 SP ACUTE SP 02/05/2013 VITALIY LINDSAYN, TAWANDA T 78 5.6 SP NODES ENLARGEMENT SP 02/05/2013 VITALIY LINDSAYN, TAWANDA T 46 1.9 SP ACUTE SP 02/05/2013 VITALIY LINDSAYN, TAWANDA T 78 5.6 SP NODES ENLARGEMENT SP 02/05/2013 VITALIY LINDSAYN, TAWANDA T 46 1.9 SP ACUTE SP 02/05/2013 VITALIY LINDSAYN, TAWANDA T 78 5.6 SP NODES ENLARGEMENT SP 02/05/2013 NIMA LINDSAYN, AMANUEL R 461.9 SP SINUSITIS ACUTE SP 02/05/2013 NIMA LINDSAYN, AMANUEL R 785.6 SP LYMPH NODES ENLARGEMENT SP 02/05/2013 VITALIY LINDSAYN, TAWANDA T 46 1.9 SP ACUTE SP 02/05/2013 VITALIY LINDSAYN, TAWANDA T 78 5.6 SP NODES ENLARGEMENT SP 02/05/2013 OCAMPO DO, SUDARSHAN K 461.9 SP ACUTE SP 02/05/2013 OCAMPO DO, SUDARSHAN K 785.6 SP NODES ENLARGEMENT SP 02/05/2013 [facility] MANAGER SUPPLIER, TELMA L 461 .9 SP ACUTE SP 02/05/2013 MAD MANAGER SUPPLIER, TELMA L 785 .6 SP NODES ENLARGEMENT SP 02/05/2013 MADL MANAGER SUPPLIER, TELMA L 461 .9 SP ACUTE SP 02/05/2013 [facility] MANAGER SUPPLIER, TELMA L 785 .6 SP NODES ENLARGEMENT SP 02/05/2013 TAWANDA BURKS APRN T 46 1.9 SP ACUTE SP 02/05/2013 TAWANDA BURKS APRN T 78 5.6 SP NODES ENLARGEMENT SP 02/05/2013 TAWANDA BURKS APRN T 46 1.9 SP ACUTE SP 02/05/2013 TAWANDA BURKS APRN T 78 5.6 SP NODES ENLARGEMENT SP 02/05/2013 NIMA LINDSAYN, AMANUEL R 461.9 SP SINUSITIS ACUTE SP 02/05/2013 NIMA LINDSAYN, AMANUEL R 785.6 SP LYMPH NODES ENLARGEMENT SP 02/05/2013 TAWANDA BURKS APRN T 46 1.9 SP ACUTE SP 02/05/2013 TAWANDA BURKS APRN T 78 5.6 SP NODES ENLARGEMENT SP 02/05/2013 NIMA MCLAUGHLIN, AMANUEL R 461.9 SP SINUSITIS ACUTE SP 02/05/2013 NIMA MCLAUGHLIN, AMANUEL R 785.6 SP LYMPH NODES ENLARGEMENT SP 02/05/2013 OCAMPO DO, SUDARSHAN K 461.9 SP ACUTE SP 02/05/2013 OCAMPO DO, SUDARSHAN K 785.6 SP NODES ENLARGEMENT SP 02/05/2013 AP CHEW MD 461.9 SP ACUTE SP 02/05/2013 AP CHEW MD 785.6 SP NODES ENLARGEMENT SP 02/05/2013 TAWANDA BURKS APRN T 46 1.9 SP ACUTE SP 02/05/2013 TAWANDA BURKS APRN T 78 5.6 SP NODES ENLARGEMENT SP 02/05/2013 NIMA MCLAUGHLIN AMANUEL R 461.9 SP SINUSITIS ACUTE SP 02/05/2013 NIMA LINDSAYN, AMANUEL R 785.6 SP LYMPH NODES ENLARGEMENT SP 02/05/2013 TAWANDA BURKS APRN T 46 1.9 SP ACUTE SP 02/05/2013 TAWANDA BURKS APRN T 78 5.6 SP NODES ENLARGEMENT SP 03/04/2013 TAWANDA BURKS APRN T 719.47 SP PAIN- ANKLE SP 03/04/2013 TAWANDA BURKS APRN T 719.47 SP PAIN- ANKLE SP 03/04/2013 TAWANDA BURKS APRN T 719.47 SP PAIN- ANKLE SP 03/04/2013 AMANUEL HERRING APRN R 719.47 SP PAIN- ANKLE SP 03/04/2013 TAWANDA BURKS APRN T 719.47 SP PAIN- ANKLE SP 03/04/2013 OCAMPO DO, SUDARSHAN K 719.47 SP ANKLE SP 03/04/2013 ZAIN LOW APRNWNYA L 719 .47 SP ANKLE SP 03/04/2013 ZAIN LOW APRNWNYA L 719 .47 SP ANKLE SP 03/04/2013 TAWANDA BURKS APRN T 719.47 SP PAIN- ANKLE SP 03/04/2013 TAWANDA BURKS APRN T 719.47 SP PAIN- ANKLE SP 03/04/2013 AMANUEL HERRING APRN R 719.47 SP PAIN- ANKLE SP 03/04/2013 TAWANDA BURKS APRN T 719.47 SP PAIN- ANKLE SP 03/04/2013 AMANUEL HERRING APRN R 719.47 SP PAIN- ANKLE SP 03/04/2013 CHRISTY OCAMPO DOA K 719.47 SP ANKLE SP 03/04/2013 NAINA PETER, AP 719.4 7 SP ANKLE SP 03/04/2013 TAWANDA BURKS APRN 719.47 SP PAIN- ANKLE SP 03/04/2013 AMANUEL HERRING APRN R 719.47 SP PAIN- ANKLE SP 03/04/2013 TAWANDA BURKS APRN T 719.47 SP PAIN- ANKLE SP 04/08/2013 TAWANDA BURKS APRN 346.90 SP MIGRAINE HEADACHE SP 04/08/2013 TAWANDA BURKS APRN 346.90 SP MIGRAINE HEADACHE SP 04/08/2013 AMANUEL HERRING APRN R 346.90 SP MIGRAINE HEADACHE SP 04/08/2013 TAWANDA BURKS APRN T 346.90 SP MIGRAINE HEADACHE SP 04/08/2013 OCAMPO DO SUDARSHAN K 346.90 SP HEADACHE SP 04/08/2013 KVNG LOW APRNA L 346 .90 SP HEADACHE SP 04/08/2013 KVNG LOW APRNA L 346 .90 SP HEADACHE SP 04/08/2013 TAWANDA BURKS APRN T 346.90 SP MIGRAINE HEADACHE SP 04/08/2013 TAWANDA BURKS APRN T 346.90 SP MIGRAINE HEADACHE SP 04/08/2013 AMANUEL HERRING APRN R 346.90 SP MIGRAINE HEADACHE SP 04/08/2013 TAWANDA BURKS APRN 346.90 SP MIGRAINE HEADACHE SP 04/08/2013 GAEL HERRING APRNRICIA R 346.90 SP MIGRAINE HEADACHE SP 04/08/2013 DAMARIS YANEZ, SUDARSHAN K 346.90 SP HEADACHE SP 04/08/2013 AP CHEW MD 346.9 0 SP HEADACHE SP 04/08/2013 TAWANDA BURKS APRN 346.90 SP MIGRAINE HEADACHE SP 04/08/2013 AMANUEL HERRING APRN R 346.90 SP MIGRAINE HEADACHE SP 04/08/2013 TAWANDA BURKS APRN 346.90 SP MIGRAINE HEADACHE SP 05/15/2013 MEENAKSHI HERRING APRNIA R 110.5 SP TINEA CORPORIS SP 05/15/2013 TAWANDA BURKS APRN 11 0.5 SP CORPORIS SP 05/15/2013 DAMARIS YANEZ, SUDARSHAN K 110.5 SP CORPORIS SP 05/15/2013 APOORVA ZAIN MCLAUGHLINWNYA L 110 .5 SP CORPORIS SP 05/15/2013 APOORVA ZAIN MCLAUGHLINWNYA L 110 .5 SP CORPORIS SP 05/15/2013 TAWANDA BURKS APRN 11 0.5 SP CORPORIS SP 05/15/2013 TAWANDA BURKS APRN 11 0.5 SP CORPORIS SP 05/15/2013 GAEL HERRING APRNRICIA R 110.5 SP TINEA CORPORIS SP 05/15/2013 TAWANDA BURKS APRN 11 0.5 SP CORPORIS SP 05/15/2013 GAEL HERRING APRNRICIA R 110.5 SP TINEA CORPORIS SP 05/15/2013 DAMARIS YANEZ, SUDARSHAN K 110.5 SP CORPORIS SP 05/15/2013 AP CHEW MD 110.5 SP CORPORIS SP 05/15/2013 TAWANDA BURKS APRN 11 0.5 SP CORPORIS SP 05/15/2013 GAEL HERRING APRNRICIA R 110.5 SP TINEA CORPORIS SP 05/15/2013 TAWANDA BURKS APRN 11 0.5 SP CORPORIS SP 06/26/2013 OCAMPO DO, SUDARSHAN K 796.2 SP BLOOD PRESSURE READING WITHOUT DIAGNOSIS OF HYPERTENSION SP 06/26/2013 APOORVA MANAGER SUPPLIERZAIN MartinezTELMA L 796 .2 SP BLOOD PRESSURE READING WITHOUT DIAGNOSIS OF HYPERTENSION SP 06/26/2013 APOORVA ZAIN MCLAUGHLINWNYA L 796 .2 SP BLOOD PRESSURE READING WITHOUT DIAGNOSIS OF HYPERTENSION SP 06/26/2013 TAWANDA BURKS APRN 79 6.2 SP BLOOD PRESSURE READING WITHOUT DIAGNOSIS OF HYPERTENSION SP 06/26/2013 TAWANDA BURKS APRN 79 6.2 SP BLOOD PRESSURE READING WITHOUT DIAGNOSIS OF HYPERTENSION SP 06/26/2013 AMANUEL HERRING APRN R 796.2 SP ELEVATED BLOOD PRESSURE READING WITHOUT DIAGNOSIS OF HYPERTENSION SP SP 06/26/2013 TAWANDA BURKS APRN 79 6.2 SP BLOOD PRESSURE READING WITHOUT DIAGNOSIS OF HYPERTENSION SP 06/26/2013 AMANUEL HERRING APRN R 796.2 SP ELEVATED BLOOD PRESSURE READING WITHOUT DIAGNOSIS OF HYPERTENSION SP SP 06/26/2013 SUDARSHAN OCAMPO DO 796.2 SP BLOOD PRESSURE READING WITHOUT DIAGNOSIS OF HYPERTENSION SP 06/26/2013 AP CHEW MD 796.2 SP BLOOD PRESSURE READING WITHOUT DIAGNOSIS OF HYPERTENSION SP 06/26/2013 TAWANDA BURKS APRN 79 6.2 SP BLOOD PRESSURE READING WITHOUT DIAGNOSIS OF HYPERTENSION SP 06/26/2013 AMANUEL HERRING APRN R 796.2 SP ELEVATED BLOOD PRESSURE READING WITHOUT DIAGNOSIS OF HYPERTENSION SP SP 06/26/2013 TAWANDA BURKS APRN 79 6.2 SP BLOOD PRESSURE READING WITHOUT DIAGNOSIS OF HYPERTENSION SP 07/22/2013 MADBlayne LINDSAYN, TELMA L 339 .21 SP POSTRAUMATIC HEADACHE SP 07/22/2013 MARANDA MCLAUGHLIN, TELMA L 850 .9 SP UNSPECIFIED SP 07/22/2013 MADL ARNOLDO, TELMA L 339 .21 SP POSTRAUMATIC HEADACHE SP 07/22/2013 MARANDA MCLAUGHLIN, TELMA L 850 .9 SP UNSPECIFIED SP 07/22/2013 TAWANDA BURKS APRN 339.21 SP ACUTE POSTRAUMATIC HEADACHE SP 07/22/2013 TAWANDA BURKS APRN 85 0.9 SP UNSPECIFIED SP 07/22/2013 TAWANDA BURKS APRN 339.21 SP ACUTE POSTRAUMATIC HEADACHE SP 07/22/2013 TAWANDA BURKS APRN 85 0.9 SP UNSPECIFIED SP 07/22/2013 AMANUEL HERRING APRN R 339.21 SP ACUTE POSTRAUMATIC HEADACHE SP 07/22/2013 AMANUEL HERRING APRN R 850.9 SP CONCUSSION UNSPECIFIED SP 07/22/2013 TAWANDA BURKS APRN 339.21 SP ACUTE POSTRAUMATIC HEADACHE SP 07/22/2013 TAWANDA BURKS APRN 85 0.9 SP UNSPECIFIED SP 07/22/2013 AMANUEL HERRING APRN R 339.21 SP ACUTE POSTRAUMATIC HEADACHE SP 07/22/2013 AMANUEL HERRING APRN R 850.9 SP CONCUSSION UNSPECIFIED SP 07/22/2013 OCAMPO DO, SUDARSHAN K 339.21 SP POSTRAUMATIC HEADACHE SP 07/22/2013 OCAMPO DO, SUDARSHAN K 850.9 SP UNSPECIFIED SP 07/22/2013 AP CHEW MD 339.2 1 SP POSTRAUMATIC HEADACHE SP 07/22/2013 AP CHEW MD 850.9 SP UNSPECIFIED SP 07/22/2013 TAWANDA BURKS APRN 339.21 SP ACUTE POSTRAUMATIC HEADACHE SP 07/22/2013 TAWANDA BURKS APRN 85 0.9 SP UNSPECIFIED SP 07/22/2013 AMANUEL HERRING APRN R 339.21 SP ACUTE POSTRAUMATIC HEADACHE SP 07/22/2013 AMANUEL HERRING APRN R 850.9 SP CONCUSSION UNSPECIFIED SP 07/22/2013 TAWANDA BURKS APRN 339.21 SP ACUTE POSTRAUMATIC HEADACHE SP 07/22/2013 TAWANDA BURKS APRN 85 0.9 SP UNSPECIFIED SP 07/31/2013 TELMA LOW APRN L 462 SP PHARYNGITIS SP 07/31/2013 TAWANDA BURKS APRN 46 2 SP PHARYNGITIS SP 07/31/2013 TAWANDA BURKS APRN 46 2 SP PHARYNGITIS SP 07/31/2013 AMANUEL HERRING APRN R 462 SP ACUTE PHARYNGITIS SP 07/31/2013 TAWANDA BURKS APRN 46 2 SP PHARYNGITIS SP 07/31/2013 AMANUEL HERRING APRN R 462 SP ACUTE PHARYNGITIS SP 07/31/2013 DAMARIS YANEZ, SUDARSHAN K 462 ACUTE SP SP 07/31/2013 AP CHEW MD 462 ACUTE SPPHARYNGITIS SP 07/31/2013 TAWANDA BURKS APRN 46 2 SP PHARYNGITIS SP 07/31/2013 AMANUEL HERRING APRN R 462 SP ACUTE PHARYNGITIS SP 07/31/2013 TAWANDA BURKS APRN 46 2 SP PHARYNGITIS SP 07/31/2013 MANDIE PA, JUANA L Ot 112.0 SP THRUSH SP 07/31/2013 MANDIE RUFFIN JUANA L Ot 4 62 SP PHARYNGITIS SP 08/07/2013 TAWANDA BURKS APRN 11 2.0 SP (ORAL) SP 08/07/2013 TAWANDA BURKS APRN 11 2.0 SP (ORAL) SP 08/07/2013 AMANUEL HERRING APRN R 112.0 SP THRUSH (ORAL) SP 08/07/2013 TAWANDA BURKS APRN 11 2.0 SP (ORAL) SP 08/07/2013 MEENAKSHI HERRING APRNIA R 112.0 SP THRUSH (ORAL) SP 08/07/2013 SUDARSHAN OCAMPO DO K 112.0 SP (ORAL) SP 08/07/2013 AP CHEW MD 112.0 SP (ORAL) SP 08/07/2013 TAWANDA BURKS APRN 11 2.0 SP (ORAL) SP 08/07/2013 AMANUEL HERRING APRN R 112.0 SP THRUSH (ORAL) SP 08/07/2013 TAWANDA BURKS APRN 11 2.0 SP (ORAL) SP 09/12/2013 AMANUEL HERRING APRN R 787.91 SP DIARRHEA SP 09/12/2013 TAWANDA BURKS APRN 787.91 SP DIARRHEA SP 09/12/2013 AMANUEL HERRING APRN R 787.91 SP DIARRHEA SP 09/12/2013 SUDARSHAN OCAMPO DO K 787.91 SP SP 09/12/2013 AP CHEW MD 787.9 1 SP SP 09/12/2013 TAWANDA BURKS APRN 787.91 SP DIARRHEA SP 09/12/2013 AMANUEL HERRING APRN R 787.91 SP DIARRHEA SP 09/12/2013 TAWANDA BURKS APRN 787.91 SP DIARRHEA SP 11/21/2013 AMANUEL HERRING APRN R 300.00 SP ANXIETY UNSPEC SP 11/21/2013 SUDARSHAN OCAMPO DO 300.00 SP UNSPEC SP 11/21/2013 AP CHEW MD 300.0 0 SP UNSPEC SP 11/21/2013 TAWANDA BURKS APRN 300.00 SP ANXIETY UNSPEC SP 11/21/2013 AMANUEL HERRING APRN R 300.00 SP ANXIETY UNSPEC SP 11/21/2013 TAWANDA BURKS APRN 300.00 SP ANXIETY UNSPEC SP 11/27/2013 SUDARSHAN OCAMPO DO K 535.50 SP GASTRITIS AND GASTRODUODENITIS (WITHOUT HEMORRHAGE) SP 11/27/2013 SUDARSHAN OCAMPO DO K 558.9 SP AND UNSPECIFIED NONINFECTIOUS GASTROENTERITIS AND COLITIS SP 11/27/2013 AP CHEW MD 535.5 0 SP GASTRITIS AND GASTRODUODENITIS (WITHOUT HEMORRHAGE) SP 11/27/2013 AP CHEW MD 558.9 SP AND UNSPECIFIED NONINFECTIOUS GASTROENTERITIS AND COLITIS SP 11/27/2013 TAWANDA BURKS APRN 535.50 SP UNSPECIFIED GASTRITIS AND GASTRODUODENITIS (WITHOUT HE MORRHAGE) SP 11/27/2013 TAWANDA BURKS APRN 55 8.9 SP AND UNSPECIFIED NONINFECTIOUS GASTROENTERITIS AND COLITIS SP 11/27/2013 AMANUEL HERRING APRN 535.50 SP UNSPECIFIED GASTRITIS AND GASTRODUODENIT IS (WITHOUT HEMORRHAGE) SP SP 11/27/2013 AMANUEL HERRING APRN 558.9 SP OTHER AND UNSPECIFIED NONINFECTIOUS GASTROENTERITIS AN D COLITIS SP 11/27/2013 TAWANDA BURKS APRN 535.50 SP UNSPECIFIED GASTRITIS AND GASTRODUODENITIS (WITHOUT HE MORRHAGE) SP 11/27/2013 TAWANDA BURKS APRN 55 8.9 SP AND UNSPECIFIED NONINFECTIOUS GASTROENTERITIS AND COLITIS SP 12/03/2013 AP CHEW MD 924.9 SP UNSPECIFIED SITE SP 12/03/2013 TAWANDA BURKS APRN 92 4.9 SP UNSPECIFIED SITE SP 12/03/2013 AMANUEL HERRING APRN R 924.9 SP BRUISE/CONTUSION UNSPECIFIED SITE SP 12/03/2013 TAWANDA BURKS APRN 92 4.9 SP UNSPECIFIED SITE SP 12/06/2013 AP CHEW MD 924.9 SP OF UNSPECIFIED SITE SP 12/06/2013 TAWANDA BURKS APRN 92 4.9 SP OF UNSPECIFIED SITE SP 12/06/2013 AMANUEL HERRING APRN R 924.9 SP CONTUSION OF UNSPECIFIED SITE SP 12/06/2013 TAWANDA BURKS APRN 92 4.9 SP OF UNSPECIFIED SITE SP 01/15/2014 TAWANDA BURKS APRN 72 4.5 SP PAIN, GENERAL SP 01/15/2014 TAWANDA BURKS APRN 786.50 SP CHEST PAIN SP 01/15/2014 MEENAKSHI HERRING APRNIA R 724.5 SP BACK PAIN, GENERAL SP 01/15/2014 MEENAKSHI HERRING APRNIA R 786.50 SP CHEST PAIN SP 01/15/2014 TAWANDA BURKS APRN 72 4.5 SP PAIN, GENERAL SP 01/15/2014 TAWANDA BURKS APRN T 786.50 SP CHEST PAIN SP 01/21/2014 MARS JOHNSTON MD Ot 786. 52 SP RESPIRATION SP 03/19/2014 AMANUEL HERRING APRN R 388.70 SP OTALGIA UNSPECIFIED SP 03/19/2014 AMANUEL HERRING APRN R 525.9 SP TOOTH PAIN SP 03/19/2014 AMANUEL HERRING APRN R 780.52 SP INSOMNIA UNSPECIFIED SP 03/19/2014 TAWANDA BURKS APRN T 388.70 SP OTALGIA UNSPECIFIED SP 03/19/2014 TAWANDA BURKS APRN 52 5.9 SP PAIN SP 03/19/2014 TAWANDA BURKS APRN 780.52 SP INSOMNIA UNSPECIFIED SP 07/29/2014 JUANA BUCHANAN Ot 521.00 SP UNSPEC DENTAL CARIES SP 07/29/2014 JUANA BUCHANAN Ot 522.5 SP PERIAPICAL ABSCESS SP 07/29/2014 JUANA BUCHANAN Ot 525.9 SP DENTAL DISORDER NOS SP 03/08/2015 Ot N20.0 CALC ULUS OF KIDNEY SP SP 03/08/2015 Ot R10.84 GEN ERALIZED SP PAIN SP 06/06/2015 NICOLE COVINGTON MD Ot R00.0 SP TACHYCARDIA, UNSPECIFIED SP 06/06/2015 NICOLE COVINGTON MD Ot R07.89 SP OTHER CHEST PAIN SP 07/07/2015 JUANA BUCHANAN Ot K08.8 SP OTHER SPECIFIED DISORDERS OF TEETH AND S SP 07/07/2015 JUANA BUCHANAN Ot 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 07/08/2015 JUANA BUCHANAN Ot K08.8 SP OTHER SPECIFIED DISORDERS OF TEETH AND S SP 07/08/2015 JUANA BUCHANAN Ot 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 07/08/2015 JUANA BUCHANAN Ot K08.8 SP OTHER SPECIFIED DISORDERS OF TEETH AND S SP 07/08/2015 JUANA BUCHANAN Ot 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 07/07/2016 HARJEET LIRIANO MD Ot J06.9 SP ACUTE UPPER RESPIRATORY INFECTION, UNSPE SP 07/07/2016 HARJEET LIRIANO MD Ot R05 SP COUGH SP 07/08/2016 HARJEET LIRIANO MD Ot J06.9 SP ACUTE UPPER RESPIRATORY INFECTION, UNSPE SP 07/08/2016 HARJEET LIRIANO MD Ot R05 SP COUGH SP 07/09/2016 HARJEET LIRIANO MD Ot J06.9 SP ACUTE UPPER RESPIRATORY INFECTION, UNSPE SP 07/09/2016 HARJEET LIRIANO MD Ot R05 SP COUGH SP 07/12/2016 HARJEET LIRIANO MD, Ot J06.9 SP ACUTE UPPER RESPIRATORY INFECTION, UNSPE SP 07/12/2016 HARJEET LIRIANO MD Ot R05 SP COUGH SP 05/05/2017 KAYLEN GATES APRN Ot B34 .9 SP INFECTION, UNSPECIFIED SP 05/05/2017 KAYLEN GATES APRN Ot G43.909 SP MIGRAINE, UNSP, NOT INTRACTABLE, WITHOUT SP 05/05/2017 KAYLEN GATES APRN Ot I10 SP (PRIMARY) HYPERTENSION SP 05/05/2017 KAYLEN GATES APRN Ot J45.909 SP UNSPECIFIED ASTHMA, UNCOMPLICATED SP 05/05/2017 KAYLNE GATES APRN Ot R00 .0 SP UNSPECIFIED SP 05/05/2017 KAYLEN GATES APRN Ot R07 .2 SP PAIN SP 05/05/2017 KAYLEN GATES APRN Ot Z82.49 SP FAMILY HX OF ISCHEM HEART DIS AND OTH DI SP 05/05/2017 KAYLEN GATES APRN Ot Z87.442 SP PERSONAL HISTORY OF URINARY CALCULI SP 05/08/2017 KAYLEN GATES APRN Ot B34 .9 SP INFECTION, UNSPECIFIED SP 05/08/2017 KAYLEN GATES APRN Ot G43.909 SP MIGRAINE, UNSP, NOT INTRACTABLE, WITHOUT SP 05/08/2017 KAYLEN GATES APRN Ot I10 SP (PRIMARY) HYPERTENSION SP 05/08/2017 KAYLEN GATES MANAGER SUPPLIER Ot J45.909 SP UNSPECIFIED ASTHMA, UNCOMPLICATED SP 05/08/2017 KAYLEN GATES MANAGER SUPPLIER Ot R00 .0 SP UNSPECIFIED SP 05/08/2017 KAYLEN GATES MANAGER SUPPLIER Ot R07 .2 SP PAIN SP 05/08/2017 KAYLEN GATES MANAGER SUPPLIER Ot Z82.49 SP FAMILY HX OF ISCHEM HEART DIS AND OTH DI SP 05/08/2017 KAYLEN GATES MANAGER SUPPLIER Ot Z87.442 SP PERSONAL HISTORY OF URINARY CALCULI SP 06/21/2017 MAXIMUS LEWIS MD Ot G43.909 SP MIGRAINE, UNSP, NOT INTRACTABLE, WITHOUT SP 06/21/2017 MAXIMUS LEWIS MD J Ot J45.909 SP UNSPECIFIED ASTHMA, UNCOMPLICATED SP 06/21/2017 MAXIMUS LEWIS MD Ot N20. 1 SP OF URETER SP 06/21/2017 MAXIMUS LEWIS MD Ot N39. 0 SP TRACT INFECTION, SITE NOT SPECIF SP 06/21/2017 MAXIMUS LEWIS MD Ot R10. 31 SP LOWER QUADRANT PAIN SP 06/21/2017 MAXIMUS LEWIS MD Ot Z82. 49 SP HX OF ISCHEM HEART DIS AND OTH DI SP 06/21/2017 MAXIMUS LEWIS MD Ot Z87.442 SP PERSONAL HISTORY OF URINARY CALCULI SP 06/21/2017 MAXIMUS LEWIS MD Ot Z87.448 SP PERSONAL HISTORY OF OTHER DISEASES OF UR SP 06/21/2017 MAXIMUS LEWIS MD Ot Z87.891 SP PERSONAL HISTORY OF NICOTINE DEPENDENCE SP 06/23/2017 MAXIMUS LEWIS MD Ot G43.909 SP MIGRAINE, UNSP, NOT INTRACTABLE, WITHOUT SP 06/23/2017 MAXIMUS LEWIS MD Ot J45.909 SP UNSPECIFIED ASTHMA, UNCOMPLICATED SP 06/23/2017 MAXIMUS LEWIS MD Ot N20. 1 SP OF URETER SP 06/23/2017 MAXIMUS LEWIS MD J Ot N39. 0 SP TRACT INFECTION, SITE NOT SPECIF SP 06/23/2017 MAXIMUS LEWIS MD Ot R10. 31 SP LOWER QUADRANT PAIN SP 06/23/2017 MAXIMUS LEWIS MD J Ot Z82. 49 SP HX OF ISCHEM HEART DIS AND OTH DI SP 06/23/2017 MAXIMUS LEWIS MD Ot Z87.442 SP PERSONAL HISTORY OF URINARY CALCULI SP 06/23/2017 MAXIMUS LEWIS MD Ot Z87.448 SP PERSONAL HISTORY OF OTHER DISEASES OF UR SP 06/23/2017 BO LEWIS MDUS J Ot Z87.891 SP PERSONAL HISTORY OF NICOTINE DEPENDENCE SP 10/21/2017 Ot G43.909 AR GRAINE, UNSP, SP INTRACTABLE, WITHOUT SP 10/21/2017 Ot I10 ESSENT IAL (PRIMARY) SP SP 10/21/2017 Ot J45.909 UN SPECIFIED SP UNCOMPLICATED SP 10/21/2017 Ot R51 HEADACHE SP 10/21/2017 Ot Z82.49 FAM FADIA HX OF SP HEART DIS AND OTH DI SP 10/21/2017 Ot Z87.442 PE RSONAL HISTORY SPOF URINARY CALCULI SP 10/21/2017 Ot Z87.891 PE RSONAL HISTORY SPOF NICOTINE DEPENDENCE SP 11/29/2017 MAXIMUS LEWIS MD Ot G43.909 SP MIGRAINE, UNSP, NOT INTRACTABLE, WITHOUT SP 11/29/2017 BO LEWIS MDUS J Ot J45.909 SP UNSPECIFIED ASTHMA, UNCOMPLICATED SP 11/29/2017 MAXIMUS LEWIS MD Ot N20. 1 SP OF URETER SP 11/29/2017 MAXIMUS LEWIS MD Ot N39. 0 SP TRACT INFECTION, SITE NOT SPECIF SP 11/29/2017 MAXIMUS LEWIS MD Ot R10. 31 SP LOWER QUADRANT PAIN SP 11/29/2017 MAXIMUS LEWIS MD Ot Z82. 49 SP HX OF ISCHEM HEART DIS AND OTH DI SP 11/29/2017 MAXIMUS LEWIS MD Ot Z87.442 SP PERSONAL HISTORY OF URINARY CALCULI SP 11/29/2017 MAXIMUS LEWIS MD Ot Z87.448 SP PERSONAL HISTORY OF OTHER DISEASES OF UR SP 11/29/2017 MAXIMUS LEWIS MD Ot Z87.891 SP PERSONAL HISTORY OF NICOTINE DEPENDENCE SP 03/09/2018 KAYLEN GATES APRN Ot B34 .9 SP INFECTION, UNSPECIFIED SP 03/09/2018 KAYLEN GATES APRN Ot G43.909 SP MIGRAINE, UNSP, NOT INTRACTABLE, WITHOUT SP 03/09/2018 KAYLEN GATES MANAGER SUPPLIER Ot I10 SP (PRIMARY) HYPERTENSION SP 03/09/2018 KAYLEN GATES MANAGER SUPPLIER Ot J45.909 SP UNSPECIFIED ASTHMA, UNCOMPLICATED SP 03/09/2018 KAYLEN GATES MANAGER SUPPLIER Ot R00 .0 SP UNSPECIFIED SP 03/09/2018 KAYLEN GATES MANAGER SUPPLIER Ot R07 .2 SP PAIN SP 03/09/2018 KAYLEN GATES MANAGER SUPPLIER Ot Z82.49 SP FAMILY HX OF ISCHEM HEART DIS AND OTH DI SP 03/09/2018 KAYLEN GATES MANAGER SUPPLIER Ot Z87.442 SP PERSONAL HISTORY OF URINARY CALCULI SP 05/01/2018 MAXIMUS LEWIS MD J Ot G43.909 SP MIGRAINE, UNSP, NOT INTRACTABLE, WITHOUT SP 05/01/2018 DEBBIE PETER, MAXIMUS J Ot J45.909 SP UNSPECIFIED ASTHMA, UNCOMPLICATED SP 05/01/2018 MAXIMUS LEWIS MD Ot N20. 1 SP OF URETER SP 05/01/2018 BO LEWIS MDUS Hellen Ot N39. 0 SP TRACT INFECTION, SITE NOT SPECIF SP 05/01/2018 DEBBIE PETER, MAXIMUS J Ot R10. 31 SP LOWER QUADRANT PAIN SP 05/01/2018 BO LEWIS MDUS J Ot Z82. 49 SP HX OF ISCHEM HEART DIS AND OTH DI SP 05/01/2018 DEBBIE PETER, MAXIMUS J Ot Z87.442 SP PERSONAL HISTORY OF URINARY CALCULI SP 05/01/2018 MAXIMUS LEWIS MD Ot Z87.448 SP PERSONAL HISTORY OF OTHER DISEASES OF UR SP 05/01/2018 MAXIMUS LEWIS MD Ot Z87.891 SP PERSONAL HISTORY OF NICOTINE DEPENDENCE SP 05/01/2018 Ot G43.909 AR GRAINE, UNSP, SP INTRACTABLE, WITHOUT SP 05/01/2018 Ot I10 ESSENT IAL (PRIMARY) SP SP 05/01/2018 Ot J45.909 UN SPECIFIED SP UNCOMPLICATED SP 05/01/2018 Ot R51 HEADACHE SP 05/01/2018 Ot Z82.49 FAM FADAI HX OF SP HEART DIS AND OTH DI SP 05/01/2018 Ot Z87.442 PE RSONAL HISTORY SPOF URINARY CALCULI SP 05/01/2018 Ot Z87.891 PE RSONAL HISTORY SPOF NICOTINE DEPENDENCE SP 06/21/2018 MAXIMUS LEWIS MD Ot G43.909 SP MIGRAINE, UNSP, NOT INTRACTABLE, WITHOUT SP 06/21/2018 MAXIMUS LEWIS MD Ot J45.909 SP UNSPECIFIED ASTHMA, UNCOMPLICATED SP 06/21/2018 MAXIMUS LEWIS MD Ot N20. 1 SP OF URETER SP 06/21/2018 MAXIMUS LEWIS MD Ot N39. 0 SP TRACT INFECTION, SITE NOT SPECIF SP 06/21/2018 MAXIMUS LEWIS MD Ot R10. 31 SP LOWER QUADRANT PAIN SP 06/21/2018 MAXIMUS LEWIS MD J Ot Z82. 49 SP HX OF ISCHEM HEART DIS AND OTH DI SP 06/21/2018 MAXIMUS LEWIS MD Ot Z87.442 SP PERSONAL HISTORY OF URINARY CALCULI SP 06/21/2018 MAXIMUS LEWIS MD Ot Z87.448 SP PERSONAL HISTORY OF OTHER DISEASES OF UR SP 06/21/2018 MAXIMUS LEWIS MD Ot Z87.891 SP PERSONAL HISTORY OF NICOTINE DEPENDENCE SP 07/28/2018 NICOLE COVINGTON MD Ot G43.909 SP MIGRAINE, UNSP, NOT INTRACTABLE, WITHOUT SP 07/28/2018 NICOLE COVINGTON MD Ot I10 SP ESSENTIAL (PRIMARY) HYPERTENSION SP 07/28/2018 NICOLE COVINGTON MD Ot J45.909 SP UNSPECIFIED ASTHMA, UNCOMPLICATED SP 07/28/2018 NICOLE COVINGTON MD Ot M41.9 SP SCOLIOSIS, UNSPECIFIED SP 07/28/2018 NICOLE COVINGTON MD Ot R42 SP DIZZINESS AND GIDDINESS SP 07/28/2018 NICOLE COVINGTON MD Ot Z82.49 SP FAMILY HX OF ISCHEM HEART DIS AND OTH DI SP 07/28/2018 NICOLE COVINGTON MD Ot Z87.442 SP PERSONAL HISTORY OF URINARY CALCULI SP 07/28/2018 NICOLE COVINGTON MD Ot Z87.891 SP PERSONAL HISTORY OF NICOTINE DEPENDENCE SP 07/31/2018 NICOLE COVINGTON MD Ot G43.909 SP MIGRAINE, UNSP, NOT INTRACTABLE, WITHOUT SP 07/31/2018 NICOLE COVINGTON MD Ot I10 SP ESSENTIAL (PRIMARY) HYPERTENSION SP 07/31/2018 NADYA PETER, NICOLE Mahajan Ot J45.909 SP UNSPECIFIED ASTHMA, UNCOMPLICATED SP 07/31/2018 NADYA PETER, NICOLE Mahajan Ot M41.9 SP SCOLIOSIS, UNSPECIFIED SP 07/31/2018 NADYA PETER, NICOLE Mahajan Ot R42 SP DIZZINESS AND GIDDINESS SP 07/31/2018 NADYA PETER, NICOLE Mahajan Ot Z82.49 SP FAMILY HX OF ISCHEM HEART DIS AND OTH DI SP 07/31/2018 NADYA PETER, NICOLE Mahajan Ot Z87.442 SP PERSONAL HISTORY OF URINARY CALCULI SP 07/31/2018 NADYA PETER, NICOLE Mahajan Ot Z87.891 SP PERSONAL HISTORY OF NICOTINE DEPENDENCE SP 10/26/2018 Ot 737.9 SP 01/15/2019 ESTHER PETER, RICKY Novak Ot G43.909 SP MIGRAINE, UNSP, NOT INTRACTABLE, WITHOUT SP 01/15/2019 ESTHER PETER, RICKY Novak Ot I10 SP (PRIMARY) HYPERTENSION SP 01/15/2019 ESTHER PETER, RICKY Novak Ot J45.909 SP UNSPECIFIED ASTHMA, UNCOMPLICATED SP 01/15/2019 ESTHER PETER, RICKY Novak Ot K02. 9 SP CARIES, UNSPECIFIED SP 01/15/2019 ESTHER PETER, RICKY Novak Ot K08. 89 SP SPECIFIED DISORDERS OF TEETH AND S SP 01/15/2019 ESTHER PETER, RICKY Novak Ot Z82. 49 SP HX OF ISCHEM HEART DIS AND OTH DI SP 01/15/2019 ESTHER PETER, RICKY Novak Ot Z87.442 SP PERSONAL HISTORY OF URINARY CALCULI SP 01/15/2019 ESTHER PETER, RICKY Novak Ot Z87.891 SP PERSONAL HISTORY OF NICOTINE DEPENDENCE SP Procedures Code Description Performed By Per formed On POS GENER JENK INS, RAKESH SP 04/05/2012 [place] [address] ROUT INE VENIPUNCTURE SP 10/31/2012 [place] [address] A1C (IN-HOUSE) SP 10/31/2012 [place] 90226 CBC SP 10/31/2012 SP 76371 CMP SP 10/31/2012 SP [id number] GF R CALC (RESULT ONLY) SP 10/31/2012 [place] 11837 TSH SP 10/31/2012 [place] [address] EKG, TRACING SP 12/13/2012 SP PHYSICAL P HYSICAL THERAPY, V[place] [address] STRE P A (IN-HOUSE) SP 01/25/2013 [place] [address] ROUT INE VENIPUNCTURE SP 01/29/2013 [place] [address] TSH SP 01/29/2013 [place] [address] XRAY ANKLE R, 2 VIEWS SP 03/04/2013 [place] [address]66 THER APUTIC INJ SQ/IM SP 04/08/2013 SP J1885 LIZ DOL INJ SP 04/08/2013 SP 2000F BLOO D PRESSURE CHECK SP 06/26/2013 SP 85137 ROUT INE VENIPUNCTURE SP 10/02/2013 SP 36480 TSH SP 10/02/2013 [place] 8[address]48 URIN E DRUG SCREEN (IN-HOUSE) SP 10/02/2013 [place] 62592 CBC SP 10/02/2013 SP [id number] GF R CALC (RESULT ONLY) SP 10/02/2013 [place] 02865 CMP SP 10/02/2013 SP Results Test Result Range POS Complete blood count (CBC) with automate d white blood cell (WBC) differential - POS 14:11 Blood leukocytes automated count (number/volume) 11.7 10*3/uL POS 4.3-11.0 SP Blood erythrocytes automated count (number/volume) 5.99 10*6/uL SP 4.35-5.85 SP Venous blood hemoglobin measurement (mass/volume) 16.6 g/dL SP17.7 Blood hematocrit (volume fraction) 48 % 40-54 SP Automated erythrocyte mean corpuscular volume 81 [ foz_us] SP99 Automated erythrocyte mean corpuscular h emoglobin (mass per erythrocyte) SP 28 pg 25-34 SP Automated erythrocyte mean corpuscular h emoglobin concentration measurement SP 34 g/dL 32-36 SP Automated erythrocyte distribution width ratio 13. 2 % 10.0- SP Automated blood platelet count (count/volume) 237 10*3/uL SP400 Automated blood platelet mean volume measurement 9.8 [foz_us] SP 7.4-10.4 SP Automated blood neutrophils/100 leukocytes 87 % 42-75 SP Automated blood lymphocytes/100 leukocytes 3 % 12-44 SP Blood monocytes/100 leukocytes 9 % 0-12 SP Automated blood eosinophils/100 leukocytes 1 % 0-10 SP Automated blood basophils/100 leukocytes 0 % 0-10 SP Blood neutrophils automated count (number/volume) 10.2 10*3 SP7.8 Blood lymphocytes automated count (number/volume) 0.3 10*3 SP4.0 Blood monocytes automated count (number/volume) 1. 1 10*3 SP1.0 Automated eosinophil count 0.1 10*3/uL 0 .0-0.3 SP Automated blood basophil count (count/volume) 0.0 10*3/uL SP0.1 Fibrin D-dimer FEU measurement in platel et poor plasma (mass/volume) - 05/05/17 POS Fibrin D-dimer FEU measurement in platelet poor plasma (mass/volume) < POSug/mL 0.00-0.49 SP Comprehensive metabolic panel - 05/05/17 14:11 POS Serum or plasma sodium measurement (moles/volume) 136 mmol/L SP 135-145 SP Serum or plasma potassium measurement (moles/volume) 4.3 mmol/L SP 3.6-5.0 SP Serum or plasma chloride measurement (moles/volume) 102 mmol/L SP 98-107 SP Carbon dioxide 24 mmol/L 21-32 SP Serum or plasma anion gap determination (moles/volume) 10 mmol/L SP 5-14 SP Serum or plasma urea nitrogen measurement (mass/volume ) 16 mg/dL SP 7-18 SP Serum or plasma creatinine measurement (mass/volume) 0.75 mg/dL SP 0.60-1.30 SP Serum or plasma urea nitrogen/creatinine mass ratio 21 NRG SP Serum or plasma creatinine measurement w ith calculation of estimated glomerular SP rate > NRG SP Serum or plasma glucose measurement (mass/volume) 96 mg/dL SP105 Serum or plasma calcium measurement (mass/volume) 9.5 mg/dL SP10.1 Serum or plasma total bilirubin measurement (mass/volu me) 1.0 mg/dL SP 0.1-1.0 SP Serum or plasma alkaline phosphatase destinee surement (enzymatic activity/volume) SP 91 U/L 40-136 SP Serum or plasma aspartate aminotransfera se measurement (enzymatic SP 22 U/L 5-34 SP Serum or plasma alanine aminotransferase measurement (enzymatic activity/volume) SP 22 U/L 0-55 SP Serum or plasma protein measurement (mass/volume) 7.6 g/dL SP8.2 Serum or plasma albumin measurement (mass/volume) 4.6 g/dL SP4.5 Blood manual differential performed dete ction - 05/05/17 14:11 POS Blood monocytes/100 leukocytes 10 % NRG SP Manual blood segmented neutrophils/100 leukocytes 85 % NRG SP Manual blood lymphocytes/100 leukocytes 5 % NRG SP Blood erythrocyte morphology finding identification NORMAL SP Serum or plasma troponin i.cardiac measu rement (mass/volume) - 05/05/17 14:11 POS Serum or plasma troponin i.cardiac measurement (mass/v olume) < ng/mL POS <0.30 SP Complete urinalysis with reflex to cultu re - 05/05/17 14:30 POS Urine color determination YELLOW NRG SP Urine clarity determination CLEAR NR G SP Urine pH measurement by test strip 5 5-9 SP Specific gravity of urine by test strip 1.020 1.016-1.022 SP Urine protein assay by test strip, semi-quantitative 1+ SP Urine glucose detection by automated test strip NE GATIVE SP Erythrocytes detection in urine sediment by light micr oscopy 2+ SP NEGATIVE SP Urine ketones detection by automated test strip 2+ NEGATIVE SP Urine nitrite detection by test strip NEGATIVE NEGATIVE SP Urine total bilirubin detection by test strip NEGA TIVE SP Urine urobilinogen measurement by automated test strip (mass/volume) SP NORMAL SP Urine leukocyte esterase detection by dipstick NEG ATIVE SP Automated urine sediment erythrocyte cou nt by microscopy (number/high power SP [HPF] NRG SP Automated urine sediment leukocyte count by microscopy (number/high power field) SP NONE NRG SP Bacteria detection in urine sediment by light microsco py NEGATIVE SP NRG SP Squamous epithelial cells detection in u rine sediment by light microscopy SP 0-2 NRG SP Crystals detection in urine sediment by light microsco py NONE SP NRG SP Casts detection in urine sediment by light microscopy NONE SP Mucus detection in urine sediment by light microscopy MODERATE SP NRG SP Complete urinalysis with reflex to culture NO NRG SP Urine drug screening test - 05/05/17 14: 30 POS Urine phencyclidine detection by screening method NEGATIVE SP Urine benzodiazepines detection by screening method NEGATIVE SP NEGATIVE SP Urine cocaine detection NEGATIVE NEGATI VE SP Urine amphetamines detection by screening method N EGATIVE SP Urine methamphetamine detection by screening method NEGATIVE SP NEGATIVE SP Urine cannabinoids detection by screening method N EGATIVE SP Urine opiates detection by screening method NEGATI VE SP Urine barbiturates detection NEGATIVE N EGATIVE SP Screening urine tricyclic antidepressants detection NEGATIVE SP NEGATIVE SP Urine methadone detection by screening method NEGA TIVE SP Urine oxycodone detection NEGATIVE NEGA TIVE SP Urine propoxyphene detection NEGATIVE N EGATIVE SP Comprehensive metabolic panel - 06/21/17 00:48 POS Serum or plasma sodium measurement (moles/volume) 139 mmol/L SP 135-145 SP Serum or plasma potassium measurement (moles/volume) 3.9 mmol/L SP 3.6-5.0 SP Serum or plasma chloride measurement (moles/volume) 105 mmol/L SP 98-107 SP Carbon dioxide 23 mmol/L 21-32 SP Serum or plasma anion gap determination (moles/volume) 11 mmol/L SP 5-14 SP Serum or plasma urea nitrogen measurement (mass/volume ) 19 mg/dL SP 7-18 SP Serum or plasma creatinine measurement (mass/volume) 1.29 mg/dL SP 0.60-1.30 SP Serum or plasma urea nitrogen/creatinine mass ratio 15 NRG SP Serum or plasma creatinine measurement w ith calculation of estimated glomerular SP rate > NRG SP Serum or plasma glucose measurement (mass/volume) 102 mg/dL SP105 Serum or plasma calcium measurement (mass/volume) 9.8 mg/dL SP10.1 Serum or plasma total bilirubin measurement (mass/volu me) 0.5 mg/dL SP 0.1-1.0 SP Serum or plasma alkaline phosphatase destinee surement (enzymatic activity/volume) SP 86 U/L 40-136 SP Serum or plasma aspartate aminotransfera se measurement (enzymatic SP 18 U/L 5-34 SP Serum or plasma alanine aminotransferase measurement (enzymatic activity/volume) SP 26 U/L 0-55 SP Serum or plasma protein measurement (mass/volume) 7.7 g/dL SP8.2 Serum or plasma albumin measurement (mass/volume) 4.5 g/dL SP4.5 Lipase - 06/21/17 00:48 POS Lipase 18 U/L 8-78 SP Serum or plasma ethanol measurement (mas s/volume) - 06/21/17 00:48 POS Serum or plasma ethanol measurement (mass/volume) 43 mg/dL SP Complete blood count (CBC) with automate d white blood cell (WBC) differential - POS 00:48 Blood leukocytes automated count (number/volume) 12.4 10*3/uL POS 4.3-11.0 SP Blood erythrocytes automated count (number/volume) 6.06 10*6/uL SP 4.35-5.85 SP Venous blood hemoglobin measurement (mass/volume) 16.8 g/dL SP17.7 Blood hematocrit (volume fraction) 49 % 40-54 SP Automated erythrocyte mean corpuscular volume 80 [ foz_us] SP99 Automated erythrocyte mean corpuscular h emoglobin (mass per erythrocyte) SP 28 pg 25-34 SP Automated erythrocyte mean corpuscular h emoglobin concentration measurement SP 35 g/dL 32-36 SP Automated erythrocyte distribution width ratio 13. 2 % 10.0- SP Automated blood platelet count (count/volume) 256 10*3/uL SP400 Automated blood platelet mean volume measurement 9.9 [foz_us] SP 7.4-10.4 SP Automated blood neutrophils/100 leukocytes 71 % 42-75 SP Automated blood lymphocytes/100 leukocytes 13 % 12-44 SP Blood monocytes/100 leukocytes 13 % 0-12 SP Automated blood eosinophils/100 leukocytes 2 % 0-10 SP Automated blood basophils/100 leukocytes 0 % 0-10 SP Blood neutrophils automated count (number/volume) 8.7 10*3 SP7.8 Blood lymphocytes automated count (number/volume) 1.7 10*3 SP4.0 Blood monocytes automated count (number/volume) 1. 7 10*3 SP1.0 Automated eosinophil count 0.3 10*3/uL 0 .0-0.3 SP Automated blood basophil count (count/volume) 0.0 10*3/uL SP0.1 Complete urinalysis with reflex to cultu re - 06/21/17 01:07 POS Urine color determination YELLOW NRG SP Urine clarity determination CLEAR NR G SP Urine pH measurement by test strip 5 5-9 SP Specific gravity of urine by test strip 1.025 1.016-1.022 SP Urine protein assay by test strip, semi-quantitative 1+ SP Urine glucose detection by automated test strip NE GATIVE SP Erythrocytes detection in urine sediment by light micr oscopy 3+ SP NEGATIVE SP Urine ketones detection by automated test strip NE GATIVE SP Urine nitrite detection by test strip NEGATIVE NEGATIVE SP Urine total bilirubin detection by test strip NEGA TIVE SP Urine urobilinogen measurement by automated test strip (mass/volume) SP NORMAL SP Urine leukocyte esterase detection by dipstick NEG ATIVE SP Automated urine sediment erythrocyte cou nt by microscopy (number/high power SP [HPF] NRG SP Automated urine sediment leukocyte count by microscopy (number/high power field) SP NONE NRG SP Bacteria detection in urine sediment by light microsco py NEGATIVE SP NRG SP Squamous epithelial cells detection in u rine sediment by light microscopy SP 2-5 NRG SP Crystals detection in urine sediment by light microsco py NONE SP NRG SP Casts detection in urine sediment by light microscopy NONE SP Mucus detection in urine sediment by light microscopy NEGATIVE SP NRG SP Complete urinalysis with reflex to culture NO NRG SP Urine drug screening test - 06/21/17 01: 07 POS Urine phencyclidine detection by screening method NEGATIVE SP Urine benzodiazepines detection by screening method NEGATIVE SP NEGATIVE SP Urine cocaine detection NEGATIVE NEGATI VE SP Urine amphetamines detection by screening method N EGATIVE SP Urine methamphetamine detection by screening method NEGATIVE SP NEGATIVE SP Urine cannabinoids detection by screening method N EGATIVE SP Urine opiates detection by screening method NEGATI VE SP Urine barbiturates detection NEGATIVE N EGATIVE SP Screening urine tricyclic antidepressants detection NEGATIVE SP NEGATIVE SP Urine methadone detection by screening method NEGA TIVE SP Urine oxycodone detection NEGATIVE NEGA TIVE SP Urine propoxyphene detection NEGATIVE N EGATIVE SP Complete blood count (CBC) with automate d white blood cell (WBC) differential - POS 04:45 Blood leukocytes automated count (number/volume) 6.7 10*3/uL POS 4.3-11.0 SP Blood erythrocytes automated count (number/volume) 5.64 10*6/uL SP 4.35-5.85 SP Venous blood hemoglobin measurement (mass/volume) 15.4 g/dL SP17.7 Blood hematocrit (volume fraction) 46 % 40-54 SP Automated erythrocyte mean corpuscular volume 81 [ foz_us] SP99 Automated erythrocyte mean corpuscular h emoglobin (mass per erythrocyte) SP 27 pg 25-34 SP Automated erythrocyte mean corpuscular h emoglobin concentration measurement SP 34 g/dL 32-36 SP Automated erythrocyte distribution width ratio 13. 0 % 10.0- SP Automated blood platelet count (count/volume) 244 10*3/uL SP400 Automated blood platelet mean volume measurement 10.2 [foz_us] SP 7.4-10.4 SP Automated blood neutrophils/100 leukocytes 64 % 42-75 SP Automated blood lymphocytes/100 leukocytes 20 % 12-44 SP Blood monocytes/100 leukocytes 14 % 0-12 SP Automated blood eosinophils/100 leukocytes 2 % 0-10 SP Automated blood basophils/100 leukocytes 1 % 0-10 SP Blood neutrophils automated count (number/volume) 4.2 10*3 SP7.8 Blood lymphocytes automated count (number/volume) 1.3 10*3 SP4.0 Blood monocytes automated count (number/volume) 0. 9 10*3 SP1.0 Automated eosinophil count 0.1 10*3/uL 0 .0-0.3 SP Automated blood basophil count (count/volume) 0.1 10*3/uL SP0.1 Whole blood basic metabolic panel - 07/11 10/29 04:45 POS Serum or plasma sodium measurement (moles/volume) 138 mmol/L SP 135-145 SP Serum or plasma potassium measurement (moles/volume) 4.1 mmol/L SP 3.6-5.0 SP Serum or plasma chloride measurement (moles/volume) 105 mmol/L SP 98-107 SP Carbon dioxide 21 mmol/L 21-32 SP Serum or plasma anion gap determination (moles/volume) 12 mmol/L SP 5-14 SP Serum or plasma urea nitrogen measurement (mass/volume ) 13 mg/dL SP 7-18 SP Serum or plasma creatinine measurement (mass/volume) 0.86 mg/dL SP 0.60-1.30 SP Serum or plasma urea nitrogen/creatinine mass ratio 15 NRG SP Serum or plasma creatinine measurement w ith calculation of estimated glomerular SP rate > NRG SP Serum or plasma glucose measurement (mass/volume) 88 mg/dL SP105 Serum or plasma calcium measurement (mass/volume) 9.5 mg/dL SP10.1 Magnesium - 07/28/18 04:45 POS Magnesium 2.3 mg/dL 1.8-2.4 SP Encounters ACCT No. Visit Date/Time Discharge Status POS Pt. Type Provider Facility Loc./Un it POS Complaint POS [id number] 04/21/2014 15:21:00 04/21/2014 23:59: 59 CLS SP Outpatient TAWANDA BURKS APRN [id number] 03/19/2014 13:41:00 03/19/2014 23:59: 59 CLS SP Outpatient AMANUEL HERRING APRN [id number] 01/15/2014 09:46:00 01/15/2014 23:59: 59 CLS SP Outpatient TAWANDA BURKS APRN [id number] 12/06/2013 15:05:00 12/06/2013 23:59: 59 CLS SP Outpatient AP CHEW MD SP SP [id number] 11/27/2013 09:07:00 11/27/2013 23:59: 59 CLS SP Outpatient SUDARSHAN OCAMPO DO SP SP [id number] 11/21/2013 15:33:00 11/21/2013 23:59: 59 CLS SP Outpatient NIMA MANAGER SUPPLIERMEENAKSHIIA R SP SP [id number] 10/02/2013 13:31:00 10/02/2013 23:59: 59 CLS SP Outpatient VITALIY MANAGER SUPPLIERTAWANDA SP SP [id number] 09/12/2013 12:31:00 09/12/2013 23:59: 59 CLS SP Outpatient NIMA LINDSAYN, AMANUEL R SP SP [id number] 09/02/2013 15:07:00 09/02/2013 23:59: 59 CLS SP Outpatient VITALIY MANAGER SUPPLIERTAWANDA SP SP [id number] 08/07/2013 11:10:00 08/07/2013 23:59: 59 CLS SP Outpatient VITALIY MANAGER SUPPLIERTAWANDA SP SP [id number] 07/31/2013 08:46:00 07/31/2013 23:59: 59 CLS SP Outpatient [facility] MANAGER SUPPLIERTELMA SP SP [id number] 07/22/2013 08:30:00 07/22/2013 23:59: 59 CLS SP Outpatient [facility] MANAGER SUPPLIERTELMA SP SP [id number] 06/26/2013 15:58:00 06/26/2013 23:59: 59 CLS SP Outpatient SUDARSHAN OCAMPO DO SP SP [id number] 06/14/2013 08:06:00 06/14/2013 23:59: 59 CLS SP Outpatient VITALIY MANAGER SUPPLIERTAWANDA SP SP [id number] 05/15/2013 12:35:00 05/15/2013 23:59: 59 CLS SP Outpatient NIMA MANAGER SUPPLIERAMANUEL R SP SP [id number] 05/10/2013 10:40:00 05/10/2013 23:59: 59 CLS SP Outpatient VITALIY LINDSAYNTAWANDA SP SP [id number] 04/08/2013 16:16:00 04/08/2013 23:59: 59 CLS SP Outpatient VITALIY MANAGER SUPPLIERTAWANDA SP SP [id number] 03/04/2013 11:37:00 03/04/2013 23:59: 59 CLS SP Outpatient VITALIY MANAGER SUPPLIERTAWANDA Martinez SP SP [id number] 02/15/2013 08:35:00 02/15/2013 23:59: 59 CLS SP Outpatient TAWANDA BURKS APRN SP SP [id number] 02/05/2013 14:16:00 02/05/2013 23:59: 59 CLS SP Outpatient TAWANDA BURKS APRN SP SP [id number] 01/29/2013 13:30:00 01/29/2013 23:59: 59 CLS SP Outpatient VITALIY LINDSAYNTAWANDA SP SP [id number] 01/25/2013 12:01:00 01/25/2013 23:59: 59 CLS SP Outpatient AMANUEL HERRING APRN R SP SP [id number] 2013 12:45:00 2013 23:59: 59 CLS SP Outpatient TAWANDA BURKS APRN SP SP [id number] 12/26/2012 11:58:00 12/26/2012 23:59: 59 CLS SP Outpatient AMANUEL HERRING APRN R SP SP [id number] 12/13/2012 11:25:00 12/13/2012 23:59: 59 CLS SP Outpatient SUDARSHAN OCAMPO DO SP SP [id number] 12/05/2012 07:55:00 12/05/2012 23:59: 59 CLS SP Outpatient SUDARSHAN OCAMPO DO SP SP [id number] 04/05/2012 08:47:00 04/05/2012 23:59: 59 CLS SP Outpatient SUDARSHAN OCAMPO DO SP SP [id number] 02/01/2012 13:17:00 02/01/2012 23:59: 59 [place] [id number] 05/11/2009 08:51:00 05/11/2009 23:59:5 9 CLS SP Outpatient NAINA PETER, AP GANN SP [id number] 11/23/2012 12:11:00 Document SP SP [id number] 10/31/2012 11:14:00 Document SP SP [id number] 08/29/2012 13:19:00 Document SP SP [id number] 01/12/2019 07:11:00 07:49:00 SP DIS Outpatient ESTHER PETER, RICKY GANN [facility] [place], operated by [facility] DENTAL PAIN SP [id number] 01/08/2019 16:36:00 019 17:17:00 SP DIS Emergency REX DUBON [facility] ER COUGH/HEAD PAIN SP [id number] 07/28/2018 04:25:00 019 05:24:00 SP DIS Emergency NADYA PETER, NICOLE Mahajan [facility] ER LIGHT HEADED, DIZZY SP [id number] 06/21/2017 02:02:00 018 03:30:00 SP DIS Emergency MAXIMUS LEWIS MD [facility] ER ABD PAIN SP [id number] 05/05/2017 14:00:00 018 15:37:00 SP DIS Emergency KAYLEN GATES APRN [facility] ER CHEST DISCOMFORT,SIDE PAIN SP [id number] 07/07/2016 06:52:00 017 07:46:00 SP DIS Emergency HARJEET LIRIANO MD [facility] ER COUGH SP [id number] 07/06/2015 20:29:00 016 02:04:00 SP DIS Emergency JUANA BUCHANAN [facility] ER TEETH PULLED/BLEEDIN G SP [id number] 06/06/2015 13:27:00 016 15:10:00 SP DIS Emergency NADYA PETER, NICOLE Mahajan [facility] ER CP SP [id number] 07/29/2014 19:06:00 015 20:04:00 SP DIS Emergency JUANA BUCHANAN [facility] ER DENTAL PAIN SP [id number] 01/21/2014 20:29:00 014 21:11:00 SP DIS Emergency MARS JOHNSTON MD [facility] ER CHEST PAIN SP [id number] 07/31/2013 17:49:00 014 20:14:00 SP DIS Emergency JUANA BUCHANAN [facility] ER SORE THROAT SP [id number] 04/10/2013 14:08:00 014 23:59:59 SP CLS Outpatient ANMOL BLANCO MD [facility] ORTHO SP [id number] 02/03/2013 18:39:00 21:15:00 SP DIS Emergency KAYLEN GATES APRN [facility] ER MIGRAINE, CONGESTION SP [id number] 11/01/2012 01:04:00 013 02:35:00 SP DIS Emergency DEANDRA PETER, HARJEET Sheriff [facility] ER BLOOD IN URINE [id number] 09/05/2012 23:32:00 013 02:00:00 SP DIS Emergency NADYA PETER, NICOLE Mahajan [facility] ER OVER HEATED SP [id number] 08/30/2012 02:53:00 013 03:54:00 SP DIS Emergency KAYLYNN DO, ARMIN K [facility] ER NAUSEA,OVERALL PAIN [id number] 08/29/2012 08:42:00 013 11:17:00 SP DIS Emergency NADYA PETER, NICOLE Mahajan [facility] ER NAUSEATED/ACHEY SP [id number] 10/26/2018 12:39:00 SP Registration SP [id number] 10/21/2017 07:35:00 SP Registration SP [id number] 03/08/2015 07:24:00 SP Registration SP [id number] 04/03/2012 22:40:00 SP Registration SP [id number] 02/20/2011 23:59:00 SP Registration SP [id number] 09/01/2009 09:08:00 SP Registration SP [id number] 05/13/2005 13:22:00 [place] [id number] 01/12/2019 10:15:00 01/12/2019 23:59:5 9 CLS SP Outpatient TAWANDA BURKS APRN SP [facility] SP
== END 2019-01-12 07:49 | disposition home or self-care (01) ==
LOC: EDUNIT# 07:10 → ER 07:11
DX: K02.9 Dental caries, unspecified (principal); I10 Essential (primary) hypertension; J45.909 Unspecified asthma, uncomplicated; G43.909 Migraine, unspecified, not intractable, without status migrainosus; Z87.442 Personal history of urinary calculi; Z87.891 Personal history of nicotine dependence; Z82.49 Family history of ischemic heart disease and other diseases of the circulatory system
CPT/HCPCS: 99282

== ENCOUNTER 2019-02-24 20:06 | Emergency (ER) | payer SELFPAY ==
[~2019-02-24] VITALS: Ht 162.5 cm; Wt 59.0 kg
[~2019-02-24 20:06] MED LIST changes: +PENI500T PO
[2019-02-24] MEDS ORDERED: RX-HYDROCODONE/APAP 5/325 MG #4 TAB PK PO PRN (20:45)
[2019-02-24] MEDS ORDERED: TRIM/SULFAMETH 160/800 (SEPTRA DS) TAB PO ONE (20:45)
[2019-02-24] MEDS ORDERED: CEPHALEXIN 250 MG (KEFLEX) CAP PO ONE (20:45)
--- NOTE | 2019-02-24 20:49 | ED Integumentary General ---
General Chief Complaint: Bite-Animal/Human/Insect Stated Complaint: SPIDER BITE Nursing Triage Note: c/o pain with ambulation r/t suspected spider bite. Source: patient Exam Limitations: no limitations History of Present Illness Date Seen by Provider: Feb 24, 2019 Time Seen by Provider: 20:52 Initial Comments ER with pain secondary to a lesion right anterolateral knee, he is concerned he may have a spider bite though he didn't see anything bite him. No fevers or chills, noticed the wound 2 days ago. Timing/Duration: constant, getting worse Severity: moderate Associated Symptoms: denies symptoms Allergies and Home Medications Allergies Coded Allergies: No Known Drug Allergies (Unverified , 02/24/19) Home Medications Atenolol 25 Mg Tablet, 25 MG PO DAILY Prescribed by: KAYLEN GATES on 05/05/17 1525 D-Methorphan Hb/Prometh HCl 118 Ml Syrup, 118 ML PO Q4H Prescribed by: REX DUBON on 01/08/19 1707 Penicillin V Potassium 500 Mg Tablet, 500 MG PO QID Prescribed by: RICKY SANTANA MD on 01/12/19 2780 Patient Home Medication List Home Medication List Reviewed: Yes Review of Systems Review of Systems Constitutional: see HPI EENTM: see HPI Respiratory: no symptoms reported Cardiovascular: no symptoms reported Genitourinary: no symptoms reported Musculoskeletal: no symptoms reported Skin: see HPI Psychiatric/Neurological: No Symptoms Reported Endocrine: No Symptoms Reported Past Tqhljwf-Bzrcxw-Cjsxwg Hx Patient Social History Alcohol Use: Rarely Uses Number of Drinks Today: GG Alcohol Beverage of Choice: Whiskey Recreational Drug Use: No Type Used: Cigarettes Former Smoker, Quit: Jun 25, 2014 2nd Hand Smoke Exposure: No Recent Foreign Travel: No Contact w/Someone Who Travel: No Recent Infectious Disease Expo: No Recent Hopitalizations: No Physical Abuse: No Sexual Abuse: No Mistreated: No Fear: No Immunizations Up To Date Tetanus Booster (TDap): More than 5yrs PED Vaccines UTD: Yes Date of Pneumonia Vaccine: Aug 29, 2012 Date of Influenza Vaccine: Dec 11, 2012 Seasonal Allergies Seasonal Allergies: No Past Medical History Surgeries: Yes (cysts removed from left arm) Respiratory: Yes Asthma Cardiac: Yes Angina, Hypertension Neurological: Yes Headaches /Migraines Reproductive Disorders: No Sexually Transmitted Disease: No Genitourinary: Yes Kidney Stones Gastrointestinal: No Musculoskeletal: Yes Scoliosis Endocrine: Yes (HYPOGLYCEMIA) HEENT: No Cancer: No Psychosocial: No Integumentary: No Blood Disorders: No Family Medical History Heart Disease, Cancer, Hypertension Physical Exam Vital Signs Vital Signs - First Documented 02/24/19 20:20 Temp 37.0 Pulse 98 Resp 18 B/P (MAP) 155/112 (126) Pulse Ox 99 Capillary Refill : Less Than 3 Seconds General Appearance: WD/WN, no apparent distress HEENT: PERRL/EOMI, normal ENT inspection Respiratory: no respiratory distress, no accessory muscle use Neurologic/Psychiatric: alert, normal mood/affect, oriented x 3 Skin: normal color, warm/dry Skin Problem Character: abscess, other (1 cm indurated area of erythema without fluctuance to the anterior lateral right knee. About an additional centimeter of surrounding erythema/cellulitis. When I squeeze this, it does cause quite a bit of pain and only a small amount of purulent material is expressed.) Progress/Results/Core Measures Results/Orders My Orders Orders - KAYLEN GATES APRN Wound Culture (02/24/19 20:42) Rx-Hydrocodone/Apap 5-325 Mg (Rx-Vicodin (02/24/19 20:45) Sulfamethoxazole/Trimet Ds Tab (Bactrim (02/24/19 20:45) Cephalexin Capsule (Keflex Capsule) (02/24/19 20:45) Vital Signs/I&O 02/24/19 20:20 Temp 37.0 Pulse 98 Resp 18 B/P (MAP) 155/112 (126) Pulse Ox 99 Blood Pressure Mean: 126 POS Departure Impression Primary Impression: Abscess Disposition: 01 HOME, SELF-CARE Condition: Stable Departure-Patient Inst. Decision time for Depature: 20:54 Referrals: [facility] (PCP) Primary Care Physician TAWANDA BURKS (Family) Primary Care Physician Patient Instructions: Skin Abscess Add. Discharge Instructions: 1. Warm compresses to the area 2. Start the antibiotics tomorrow 3. Return to ER for any concerns All discharge instructions reviewed with patient and/or family. Voiced understanding. Scripts Doxycycline Hyclate (Doxycycline Hyclate) 100 Mg Tablet 100 MG PO BID, #20 TAB 0 Refills Prov: KAYLEN GATES APRN 02/24/19 KAYLEN GATES APRN Feb 24, 2019 20:49 POS
[2019-02-24] MEDS ORDERED: DOXY100T2 PO (20:55)
[2019-02-24] MEDS ORDERED: TETANUS,DIPTH,PERTUSS P/F (BOOSTRIX) 0.5 ML VIAL IM ONE (21:00)
[2019-02-24 21:13] VITALS: BP 155/112
== END 2019-02-24 21:11 | disposition home or self-care (01) ==
LOC: EDUNIT# 20:06 → ER 20:08
DX: L02.415 Cutaneous abscess of right lower limb (principal); J45.909 Unspecified asthma, uncomplicated; I10 Essential (primary) hypertension; G43.909 Migraine, unspecified, not intractable, without status migrainosus; Z87.442 Personal history of urinary calculi; Z82.49 Family history of ischemic heart disease and other diseases of the circulatory system
CPT/HCPCS: 87070; 87077; 87186; 87205; 90715; 99284